=== PATIENT | male | born 1980 | race Caucasian/White ===

== ENCOUNTER → 2021-08-10 13:00 | Outpatient (BNVA) | payer OTHER, SELFPAY | PROVIDERS: PCP Family Medicine; Referring Provider Family Medicine; Visit Provider Surgery | DX: K92.1 Melena (principal) | CPT/HCPCS: 99203 ==

== ENCOUNTER 2021-08-17 09:15 | Day surgery (SDC) | payer OTHER, SELFPAY ==
[2021-08-15 13:48] VITALS: BMI 27.8
[2021-08-17 09:28] VITALS: BP 126/87; PULSE 76; RESP 18; TEMP 36.3; O2SAT 97
[2021-08-17] MEDS: sodium chloride 0.9% 1,000 ML 30 ML IV (09:47)
--- NOTE | 2021-08-17 10:18 | ANES.PREANE2 ---
Pre-Anesthetic Assessment Height/Weight: Height 1.83 m Weight 92.986 kg Temp Pulse Resp BP Pulse Ox 97.4 F L 76 18 126/87 97 08/17/21 09:28 08/17/21 09:28 08/17/21 09:28 08/17/21 09:28 08/17/21 09:28 Preop Diagnosis: Bloody diarrhea Operation Date: 08/17/21 10:30 Proposed Procedures p EGD 22598/[id number]/k62.5(Not Applicable) - Alexi Patel MD s Colonoscopy(Not Applicable) - Alexi Patel MD Familial anesthetic complications: none Last intake: Intake Last Liquid Date 08/16/21 Last Liquid Time 22:00 Last Solid Date 08/15/21 Last Solid Time 19:00 Social Tobacco (snuff) and No alcohol Exam alert, oriented x 3, clear to auscultation bilaterally and regular rate & rhythm Airway Mallampati: Class II Dentition: full Pulmonary None reported CV/HEM None reported None reported Hepatic None reported GI None reported Metabolic Thyroid Disease Musc/skel Lower Back Pain Neuropsych None reported Anesthetic Plan ASA status: 2 Anesthesia: MAC Risk of > 500 ml blood loss (7ml/kg in children): No Medications/Allergies Home Medications Medication Instructions Recorded Confirmed Last Taken Type bupropion HCl 300 mg 24 hr tablet, 300 mg PO QAM 08/10/21 08/17/21 08/16/21 History extended release dextroamphetamine-amphetamine 10 10 mg PO DAILY 08/10/21 08/17/21 08/16/21 History mg tablet (Adderall) gabapentin 400 mg capsule 400 mg PO DAILY 08/10/21 08/17/21 08/16/21 History levothyroxine 112 mcg capsule 112 mcg PO DAILY 08/10/21 08/17/21 08/16/21 History mirtazapine 30 mg tablet 30 mg PO BEDTIME 08/10/21 08/17/21 08/16/21 History dextroamphetamine-amphetamine 5 mg 2.5 mg PO DAILY PRN 08/15/21 08/17/21 08/15/21 History tablet (Adderall) melatonin 10 mg capsule 10 mg PO DAILY 08/17/21 08/17/21 08/16/21 History Allergies Allergy/AdvReac Type Severity Reaction Status Date / Time No Known Allergies Allergy Verified 08/10/21 17:20 Current Medications Generic Name Dose Route Start Last Admin Trade Name Freq PRN Reason Stop Dose Admin Sodium Chloride 1,000 mls @ 30 mls/hr 08/17/21 09:30 08/17/21 09:47 Sodium Chloride 0.9% IV 08/18/21 09:29 30 mls/hr .Q24H RAH Administration PFSH Anesthesia Medical History Bleeding per rectum Social History Smoking and tobacco status: never smoked Data Anesthesia Cardiac Studies: No Data to Display
--- NOTE | 2021-08-17 11:01 | W.PM.OPSUD ---
Surgery/Procedure H&P Update DATE OF PROCEDURE: August 17, 2021 DATE H&P PERFORMED: 08/10/21 H&P UPDATE INFORMATION: I have reviewed H&P completed within last 30 days, I have examined patient prior to procedure and No changes to prior documentation PREOP DIAGNOSIS: Bloody diarrhea PRIMARY INDICATION FOR PROCEDURE: The same PLANNED PROCEDURE: Operation Date: 08/17/21 10:30 Proposed Procedures p EGD [id number]/k62.5(Not Applicable) - Alexi Patel MD s Colonoscopy(Not Applicable) - Alexi Patel MD
[2021-08-17 11:54] VITALS: BP 114/73; PULSE 77; RESP 14; TEMP 36.4; O2SAT 98
[2021-08-17 12:04] VITALS: BP 109/69; PULSE 63; RESP 16; O2SAT 99
== END 2021-08-17 12:25 | disposition home or self-care (01) ==
PROVIDERS: PCP Family Medicine; Visit Provider Surgery
PROC: 0DJ08ZZ Inspection of Upper Intestinal Tract, Via Natural or Artificial Opening Endoscopic (ICD-10-PCS; CPT 43235; principal; 2021-08-17 10:30)
PROC: 0DJD8ZZ Inspection of Lower Intestinal Tract, Via Natural or Artificial Opening Endoscopic (ICD-10-PCS; CPT 45378; 2021-08-17 10:30)
DX: K62.5 Hemorrhage of anus and rectum (principal); R19.7 Diarrhea, unspecified
CPT/HCPCS: 43239; 45378; 82274; 83630; 87493; 87506; 88305; J2704; J7030

== ENCOUNTER → 2021-09-18 14:03 | Outpatient (BNVA) | payer OTHER, SELFPAY | PROVIDERS: PCP Family Medicine; Visit Provider Internal Medicine | DX: R42 Dizziness and giddiness (principal); R55 Syncope and collapse; R00.0 Tachycardia, unspecified; R00.1 Bradycardia, unspecified | CPT/HCPCS: 93005; 93229; 99203; 99204 ==

== ENCOUNTER 2021-10-31 13:45 | Outpatient (CLI) | payer OTHER, SELFPAY ==
--- NOTE | 2021-10-31 14:15 | USCV_ITS ---
Shravan Nichols Age: 41 Gender: M : 1980 Exam Date: 10/31/2021 14:23 Ordering Phys: Stoney Larson M.D ([email or web address]) Technologist: Kwesi Patel Exam Location: [facility] [place] Indication: syncope BP: 120 / 70 HR: 73 Rhythm: Sinus Technical Quality: Adequate MEASUREMENTS (Male / Female) Normal Values 2D ECHO LV Diastolic Diameter PLAX 4.3 cm 4.2 - 5.9 / 3.9 - 5.3 cm LV Systolic Diameter PLAX 2.9 cm IVS Diastolic Thickness 1.1 cm 0.6 - 1.0 / 0.6 - 0.9 cm IVS Systolic Thickness 1.2 cm LVPW Diastolic Thickness 0.9 cm 0.6 - 1.0 / 0.6 - 0.9 cm LVPW Systolic Thickness 1.5 cm LVOT Diameter 2.1 cm LV Ejection Fraction 2D Teich 60.1 % LV Ejection Fraction MOD 2C 79.6 % LV Ejection Fraction 2C AL 80.1 % LA Diameter 3.7 cm Aorta at Sinotubular Diameter 2.8 cm M-MODE Aortic Annulus Diameter 3.6 cm LA Ao Ratio MM 1.2 MV E Point Septal Separation 0.7 cm DOPPLER AV Peak Velocity 151.0 cm/s LVOT Peak Velocity 114.0 cm/s AV Area Cont Eq vti 2.7 cm squared AV Area Cont Eq pk 2.7 cm squared MV Area PHT 5.0 cm squared Mitral E to A Ratio 1.2 MV E' Velocity 45.0 cm/s Mitral E to MV E' Ratio 6.3 Mitral E to LV E' Lateral Ratio 5.0 Mitral E to LV E' Septal Ratio 8.4 TR Peak Velocity 184.3 cm/s TR Peak Gradient 13.6 mmHg TV Peak E Velocity 78.0 cm/s Right Atrial Pressure 3.0 mmHg Pulmonary Artery Systolic Pressu 16.6 mmHg PV Peak Velocity 121.0 cm/s FINDINGS Left Ventricle Normal left ventricular size. LV systolic function is normal with EF of 55-60%. No regional wall motion abnormalities. Diastolic function is normal Right Ventricle The right ventricle is normal in size and function. Right Atrium The right atrium is normal in size. Left Atrium The left atrium is normal in size. Mitral Valve Structurally normal mitral valve without significant stenosis or prolapse. There is no mitral regurgitation. Aortic Valve Structurally normal aortic valve without significant sclerosis or stenosis. There is no aortic regurgitation. Tricuspid Valve Structurally normal tricuspid valve without significant stenosis. Trace tricuspid regurgitation. Insufficient TR jet to calculate RVSP Pulmonic Valve Grossly normal Pericardium Normal pericardium without effusion. Aorta Normal ascending aorta dimension. IVC CONCLUSIONS LV systolic function is normal with EF of 55-60% Diastolic function is normal Trace tricuspid regurgitation No significant valvular heart disease No comparison studies are available Stoney Larson MD (Electronically Signed) Final Date: 10 November 2021 13:14 S
== END 2021-10-31 13:46 | disposition home or self-care (01) ==
PROVIDERS: PCP Family Medicine; Visit Provider Internal Medicine
DX: R06.00 Dyspnea, unspecified (principal); R55 Syncope and collapse; I07.1 Rheumatic tricuspid insufficiency
CPT/HCPCS: 93306

== ENCOUNTER → 2021-11-20 14:35 | Outpatient (BNVA) | payer OTHER, SELFPAY | PROVIDERS: PCP Family Medicine; Visit Provider Internal Medicine | DX: R42 Dizziness and giddiness (principal); R55 Syncope and collapse | CPT/HCPCS: 99213 ==

== ENCOUNTER 2024-10-19 14:44 | Emergency (ER) | payer OTHER, SELFPAY ==
--- OUTSIDE RECORDS SUMMARY | 2023-06-04 09:00 | XMS_ITS ---
Author Organization [facility] Address [address] [place] [address] Care Team Providers Care Gig Tender Name Role Phone Johnna Mobley MD Primary Care Provider Unavaila Kendy Kramer Unavailable [phone] [place], [place] Unavailable Unavailable REASON FOR VISIT Bloody Diarrhea Encounters Encounter Location Date Provider Diagnosis [facility] [address] [place] [address] 06/04/2023 Kendy Cox Plan Of Treatment No Information Progress Notes * Shravan NICHOLS WDOB:1980 (44 yo M)Acc No.[id number]:06/04/2023 History and Physical Patient: Maylin WHITTshua Theresa Provider: Darrian Cox MD :1980 A ge:42 Y S ex:Male Date:06/04/2023 Address:[address] [place] [phone], IZABELLA [id number] Pcp:Johnna Mobley MD Subjective: * Chief Complaints: * 1 . Bloody Diarrhea. * Medical History: Objective: * Vitals: Assessment: Plan: * Treatment: * Billing Information: * Visit Code: * Procedure Codes: * Electronic signature of Sue Cox MD on 10/19/2024 at 02:54 PM CDT Sign off status: Pending * Provider: Darrian Cox MD Date: 0 06/04/2023 Generated for Andrew alfaro/Marilynn/Violeta on: 0 10/19/2024 02:54 PM CDT
--- OUTSIDE RECORDS SUMMARY | 2023-11-14 04:15 | XMS_ITS | Encounter Summary ---
Author Name [facility] [place] [facility] [place] Address [address] [place] [address] Care Team Providers Care Director Regulatory Compliance Name Role Phone NELIDASERGIO KeatingE Primary Care Provider UnavailCHANNING Dawn Primary Care Provider Juan e Selected Encounter This section includes the information on record at [place] for the Encounter. Date/Time Encounter Type Encounter Description Reason Provider Source Nov 14, 2023 09:15 AM [facility]ALTH FACILITY [facility] - [facility] ICD-10-CM R41.89 Oth symptoms and signs w cognitive functions and awareness [facility] Encounter Template Text not used by [place] Assessments - Encounter Diagnoses This section includes the primary and secondary diagnoses documented for the Encounter. Date/Time Primary/Secondary Diagnosis Diagnosis Name Provider Source Nov 14, 2023 09:38 AM PRIMARY Oth symptoms and signs w cognitive functions and awareness [facility] Nov 14, 2023 09:38 AM SECONDARY Generalized anxiety disorder [facility] Nov 14, 2023 09:38 AM SECONDARY Major depressive disorder, recurrent, mild [facility] Nov 14, 2023 09:38 AM SECONDARY Post-traumatic stress disorder, chronic [facility]IV GRE[facility] Plan of Treatment: Future Appointments (+ 6 months) and Future Tests (+/- 45 days) The Plan of Treatment section includes future care activities for the patient [facility] [place] [facility] This section includes future appointments and future orders which are active, pending or scheduled. Future Appointments This section includes appointments that were scheduled to occur 6 months from the date of the Encounter, up to a maximum of 20 appointments. The data comes from all [place] treatment facilities. Appointment Date/Time Appointment Type Appointme nt Facility Name Dec 05, 2023 08:45 AM AMBULATORY - PSYCHIATRY [facility] Dec 05, 2023 08:46 AM AMBULATORY - MEDICINE [facility] Jan 02, 2024 09:15 AM AMBULATORY - PSYCHIATRY [facility] Jan 02, 2024 09:16 AM AMBULATORY - MEDICINE [facility] Jan 08, 2024 09:00 AM AMBULATORY - MEDICINE [facility] Jan 16, 2024 01:45 PM AMBULATORY - PSYCHIATRY [facility] Jan 16, 2024 01:46 PM AMBULATORY - MEDICINE [facility] Jan 20, 2024 08:15 AM AMBULATORY - MEDICINE [facility] Jan 30, 2024 09:15 AM AMBULATORY - PSYCHIATRY [facility] Jan 30, 2024 09:16 AM AMBULATORY - MEDICINE [facility] Jan 30, 2024 09:30 AM AMBULATORY - MEDICINE [facility] Jan 30, 2024 10:15 AM AMBULATORY - MEDICINE [facility] Feb 27, 2024 10:15 AM AMBULATORY - PSYCHIATRY [facility] Feb 27, 2024 10:16 AM AMBULATORY - MEDICINE [facility] Mar 20, 2024 02:45 PM AMBULATORY - PSYCHIATRY [facility] Mar 20, 2024 02:46 PM AMBULATORY - MEDICINE [facility] Apr 03, 2024 09:15 AM AMBULATORY - MEDICINE [facility] Apr 16, 2024 09:15 AM AMBULATORY - PSYCHIATRY [facility] Apr 16, 2024 09:16 AM AMBULATORY - MEDICINE [facility] May 07, 2024 09:45 AM AMBULATORY - PSYCHIATRY [facility] Active, Pending, and Scheduled Orders This section includes a listing of several types of active, pending, and scheduled orders, including clinic medications orders, diagnostic test orders, procedure orders and consult orders; where the start date of the order is 45 days before the date of the Encounter or 45 days after the date of theEncounter. The data comes from all [place] treatment facilities. Test Date/Time Test Type Test Details Facility Name Dec 05, 2023 12:00 AM Laboratory - Chemi stry Order DRUG SCREEN URINE-inhouse (PB) URINE,RANDOM SP [facility] Lab Results: +/- 30 days of the encounter This section includes the Chemistry and Hematology Lab Results on record with [place] for the patient. Radiology Reports and Pathology Reports are provided separately, in subsequent sections. Lab Results This section contains the Chemistry/Hematology Results that were resulted 30 days before or 30 daysafter the date of the Encounter. Date/Time Source Result Type Result - Unit Interpretation Reference Range Specimen Type Comment Dec 05, 2023 08:22 AM [facility] DRUG SCREEN URINE-inhouse (PB) URINE Specimen Type: URINE No comment entered. Ordering Provider: LIV GREGG Report Released Date/Time: Nov 14, 2023 09:34 AM Reporting Lab: [facility] [address] [facility] [address] Performing Lab: [facility] [address] [facility] [address] OPIATES (PB) Negative Negative COCAINE... Negative Negative THC(Marijuana... Negative Negative PCP...(Phencyclidine) Negative Negative BENZODIAZEPINE (PB) Negative Negative BARBITURATES (PB) Negative Negative AMPHETAMINE... Negative Negative CREATININE URINE/OTHERS 21.14 mg/dL OXYCODONE ([id number]) Negative Negati ve ETHANOL URINE <10.0 mg/dL L 0-20 Vital Signs: All taken on the encounter date This section contains inpatient and outpatient Vital Signs collected on the date of the Encounter. Date/Time Temperature Pulse Blood Pressure Respiratory Rate SP02 Pain Height Weight Body Mass Index Source Nov 14, 2023 09:24 AM 97.9 74 133/85 18 99 3 72 192.5 26 [facility] Social History: Smoking Status (Most current) and Tobacco Use (All prior to encounter date) This section includes the most current, and the historical, smoking and tobacco- related health factors from the [place] facility where the Encounter took place. Current Smoking Status This section includes the most current smoking, or tobacco-related health factor, from the [place] facility where the Encounter took place. Date/Time Current Smoking Status Comment Facil ity August 29, 2023 09:00 AM VA-TOBACCO USER EVERY DAY [facility] Tobacco Use History This section includes a history of the smoking, or tobacco-related health factors, that were collected on or before the date of the Encounter. The data comes from the [place] facility where the Encounter took place. Date/Time Smoking Status/Tobacco Use Comment F acility August 29, 2023 09:00 AM VA-TOBACCO USE ADVICE [facility] August 29, 2023 09:00 AM VA-TOBACCO USE [facility] August 29, 2023 09:00 AM VA-TOBACCO USE MED NO [facility] August 29, 2023 09:00 AM VA-TOBACCO USE WI 30 MIN OF WAKE UP [facility] August 29, 2023 09:00 AM VA-TOBACCO USER EVERY DAY [facility] Sep 21, 2022 10:30 AM VA-TOBACCO DOESNT USE WI 30 MIN [place] [facility] Sep 21, 2022 10:30 AM VA-TOBACCO USE > 1 5 LESS THAN 30 YEARS [facility] Sep 21, 2022 10:30 AM VA-TOBACCO USE ADVICE [facility] Sep 21, 2022 10:30 AM VA-TOBACCO USE [facility] YES [facility] Sep 21, 2022 10:30 AM VA-TOBACCO USE MED NO [facility] Sep 21, 2022 10:30 AM VA-TOBACCO USER EVERY DAY [facility] Sep 15, 2021 11:00 AM VA-TOBACCO DOESNT USE WI 30 MIN [place] [facility] Sep 15, 2021 11:00 AM VA-TOBACCO USE 5 TO 15 YEARS [facility] Sep 15, 2021 11:00 AM VA-TOBACCO USE ADVICE [facility] Sep 15, 2021 11:00 AM VA-TOBACCO USE [facility] NO [facility] Sep 15, 2021 11:00 AM VA-TOBACCO USE MED NO [facility] Sep 15, 2021 11:00 AM VA-TOBACCO USER EVERY DAY [facility] Sep 21, 2020 10:01 AM VA-TOBACCO DOESNT USE WI 30 MIN WA[place]UP [facility] Sep 21, 2020 10:01 AM VA-TOBACCO USE > 1 5 LESS THAN 30 YEARS [facility] Sep 21, 2020 10:01 AM VA-TOBACCO USE ADVICE [facility] Sep 21, 2020 10:01 AM VA-TOBACCO USE [facility] NO [facility] Sep 21, 2020 10:01 AM [facility]ACCO [facility] Sep 21, 2020 10:01 AM VA-TOBACCO USER EVERY DAY [facility] Advance Directives: All historical and current Section Date Range: From patient's date of to the date document was created. This section includes ALL of a patient's completed or amended [place] Advance and Rescinded Directives. The entries below indicate that a directive exists for the patient, but an actual copy is not included with this document. The data comes from all [place] facilities. Date Advance Directives Provider Source Oct 19, 2015 ADVANCE DIRECTIVE DISCUSSION GAVINO CHENEY YOGIKODY Daniels [facility] Encounter Notes: All associated encounter notes This section contains the clinical notes associated to the Encounter. Date/Time Encounter Note(s) Provider Source Nov 14, 2023 09:39 AM NURSING NOTE: LOCAL TITLE: [facility] NURSING EXIT NOTE PB STANDARD TITLE: NURSING NOTE DATE OF NOTE: NOV 14, 2023@09:39 ENTRY DATE: NOV 14, 2023@09:39:42 AUTHOR: KEIRA HOOD EXP COSIGNER: URGENCY: STATUS: COMPLETED EXIT INTERVIEW Location: [facility] Ambulatory Appointment Reviewed: Instructions: CLINIC: Sent to Pharmacy for medications and instructions: Lab Instructions: Special Instructions: Verbalized understanding of today's visit: Patient Is patient's pain under control at time of exit? Yes Discussed walk-in and after-hour services. Rebuck verbalized understanding. Encouraged to seek treatment if change in status. Contact information and hours of operation given. voiced no questions or concerns at this time and was escorted to the lobby in satisfactory condition, will schedule for his next appt. /ernesto/ ANN WEN, RN [facility] Signed: 11/14/2023 12:08 KEIRA HOOD [facility] Nov 14, 2023 09:22 AM NURSING PROGRESS N OTE: LOCAL TITLE: NURSING NOTE PB STANDARD TITLE: NURSING PROGRESS NOTE DATE OF NOTE: NOV 14, 2023@09:22 ENTRY DATE: NOV 14, 2023@09:22:57 AUTHOR: KEIRA HOOD COSIGNER: URGENCY: STATUS: COMPLETED Rebuck is here for his scheduled telemed psychiatry appt. He is alert and oriented, resps even and unlabored, gait steady. Rebuck is pleasant and conversational. Active Outpatient Medications: Active Outpatient Medications (including Supplies): Active Outpatient Medications Status 1) BUPROPION HCL 150MG 24HR SA TAB TAKE ONE TABLET BY ACTIVE MOUTH EVERY MORNING FOR DEPRESSION SWALLOW WHOLE - DO NOT CRUSH OR CHEW. 2) CETIRIZINE HCL 10MG TAB TAKE ONE TABLET BY MOUTH ONCE ACTIVE A DAY FOR ALLERGIC RHINITIS 3) CHOLECALCIF 50MCG (D3-2,000UNIT) TAB TAKE TWO TABLETS ACTIVE BY MOUTH ONCE A DAY FOR VITAMIN D SUPPLEMENTATION 4) CYCLOBENZAPRINE HCL 10MG TAB TAKE ONE TABLET BY MOUTH ACTIVE THREE TIMES A DAY NEEDED FOR MUSCLE SPASM MAY CAUSE DROWSINESS. DO NOT DRINK ALCOHOL WHILE TAKING THIS MEDICATION. 5) DOXEPIN HCL 10MG CAP TAKE ONE CAPSULE BY MOUTH AT ACTIVE BEDTIME FOR NIGHTMARES 6) FOLIC ACID 0.4MG TAB TAKE ONE TABLET BY MOUTH ONCE A ACTIVE DAY FOR FOLIC ACID SUPPLEMENTATION 7) GABAPENTIN 400MG CAP TAKE ONE CAPSULE BY MOUTH AT ACTIVE BEDTIME FOR NERVE PAIN 8) HYDROXYZINE HCL 25MG TAB TAKE ONE TABLET BY MOUTH ACTIVE TWICE DAILY NEEDED FOR ANXIETY *MAY CAUSE DROWSINESS* 9) IBUPROFEN 800MG TAB TAKE ONE TABLET BY MOUTH THREE ACTIVE TIMES A DAY NEEDED FOR HEADACHE TAKE WITH FOOD. TAKE AT ONSET OF HEADACHE, WITH SUMATRIPTAN 10) LEVOTHYROXINE NA (SYNTHROID) 112MCG TAB TAKE ONE ACTIVE TABLET BY MOUTH EVERY MORNING BEFORE A MEAL FOR THYROID. TAKE 30 MINUTES BEFORE FOOD. TAKE SEPARATELY FROM ALL OTHER MEDICATIONS. 11) MIRTAZAPINE 45MG TAB TAKE ONE TABLET BY MOUTH AT ACTIVE BEDTIME INSOMNIA/MOOD FOR MOOD 12) SUMATRIPTAN SUCCINATE 50MG TAB TAKE ONE TABLET BY ACTIVE MOUTH ONE-TIME FOR MIGRAINE HEADACHE TAKE AT ONSET OF HEADACHE. MAY REPEAT AFTER 2 HOURS. NOT TO EXCEED 2 TABLETS IN 24 HOURS. 13) AMPHETAMINE/DEXTROAMPH RESIN 10MG SA CAP TAKE ONE PENDING CAPSULE BY MOUTH EVERY MORNING 14) AMPHETAMINE/DEXTROAMPHETAMINE 5MG TAB TAKE ONE TABLET PENDING BY MOUTH AFTERNOON Rebuck states he is taking the above meds as prescribed. He denies any change in side effects with bupropion, doxepin, hydroxyzine, mirtazapine or amphetamine and they are effective. Pain Assessment: - PAIN ASSESSMENT: .. Patient is reporting some pain. PAIN SCORE TODAY: 3 Patient's self-identified pain level: 3 was escorted to room 113 for his appt with Dr Gregg, receiving good telemed transmission. /ernesto/ ANN WEN, RN [facility] Signed: 11/14/2023 12:06 KEIRA HOOD [facility]
--- OUTSIDE RECORDS SUMMARY | 2023-11-14 04:16 | XMS_ITS | Encounter Summary ---
Author Name [facility] [facility] [place] Address [address] [place] [address] Care Team Providers Care Ostomy Rn Name Role Phone BIRGID DEGROOT Primary Care Provider UnavailCHANNING Dawn Primary Care Provider Juan cabrera Selected Encounter This section includes the information on record at [place] for the Encounter. Date/Time Encounter Type Encounter Description Reason Provider Source Nov 14, 2023 09:16 AM OFFICE O/P EST MOD 30 MIN [facility] - IND ICD-10-CM R41.89 Oth symptoms and signs w cognitive functions and awareness LIV CAMPBELL Encounter Template Text not used by [place] Assessments - Encounter Diagnoses This section includes the primary and secondary diagnoses documented for the Encounter. Date/Time Primary/Secondary Diagnosis Diagnosis Name Provider Source Nov 14, 2023 09:37 AM PRIMARY Oth symptoms and signs w cognitive functions and awareness LIV CAMPBELL [facility] Nov 14, 2023 09:37 AM SECONDARY Generalized anxiety disorder LIV CAMPBELL [facility] Nov 14, 2023 09:37 AM SECONDARY Major depressive disorder, recurrent, mild LIV CAMPBELL [facility] Nov 14, 2023 09:37 AM SECONDARY Post-traumatic stress disorder, chronic LIV CAMPBELL [facility] Plan of Treatment: Future Appointments (+ 6 months) and Future Tests (+/- 45 days) The Plan of Treatment section includes future care activities for the patient [facility] This section includes future appointments and future orders which are active, pending or scheduled. Future Appointments This section includes appointments that were scheduled to occur 6 months from the date of the Encounter, up to a maximum of 20 appointments. The data comes from all [facility] facilities. Appointment Date/Time Appointment Type Appointme nt Facility Name Dec 05, 2023 08:45 AM AMBULATORY - PSYCHIATRY [facility] Dec 05, 2023 08:46 AM AMBULATORY - MEDICINE [place] [facility] Jan 02, 2024 09:15 AM AMBULATORY - PSYCHIATRY [facility] Jan 02, 2024 09:16 AM AMBULATORY - MEDICINE [place] [facility] Jan 08, 2024 09:00 AM AMBULATORY - MEDICINE [facility] Jan 16, 2024 01:45 PM AMBULATORY - PSYCHIATRY [facility] Jan 16, 2024 01:46 PM AMBULATORY - MEDICINE [place] [facility] Jan 20, 2024 08:15 AM AMBULATORY - MEDICINE [facility] Jan 30, 2024 09:15 AM AMBULATORY - PSYCHIATRY [facility] Jan 30, 2024 09:16 AM AMBULATORY - MEDICINE [place] [facility] Jan 30, 2024 09:30 AM AMBULATORY - MEDICINE [facility] Jan 30, 2024 10:15 AM AMBULATORY - MEDICINE [facility] Feb 27, 2024 10:15 AM AMBULATORY - PSYCHIATRY [facility] Feb 27, 2024 10:16 AM AMBULATORY - MEDICINE [place] [facility] Mar 20, 2024 02:45 PM AMBULATORY - PSYCHIATRY [facility] Mar 20, 2024 02:46 PM AMBULATORY - MEDICINE [place] [facility] Apr 03, 2024 09:15 AM AMBULATORY - MEDICINE [facility] Apr 16, 2024 09:15 AM AMBULATORY - PSYCHIATRY [facility] Apr 16, 2024 09:16 AM AMBULATORY - MEDICINE [place] [facility] May 07, 2024 09:45 AM AMBULATORY - PSYCHIATRY [facility] Active, Pending, and Scheduled Orders This section includes a listing of several types of active, pending, and scheduled orders, including clinic medications orders, diagnostic test orders, procedure orders and consult orders; where the start date of the order is 45 days before the date of the Encounter or 45 days after the date of theEncounter. The data comes from all [place] treatment facilities. Test Date/Time Test Type Test Details Facility Name Dec 05, 2023 12:00 AM Laboratory - Chemi stry Order DRUG SCREEN URINE-inhouse (PB) URINE,RANDOM SP [facility] Lab Results: +/- 30 days of the encounter This section includes the Chemistry and Hematology Lab Results on record with [place] for the patient. Radiology Reports and Pathology Reports are provided separately, in subsequent sections. Lab Results This section contains the Chemistry/Hematology Results that were resulted 30 days before or 30 daysafter the date of the Encounter. Date/Time Source Result Type Result - Unit Interpretation Reference Range Specimen Type Comment Dec 05, 2023 08:22 AM [facility] DRUG SCREEN URINE-inhouse (PB) URINE Specimen Type: URINE No comment entered. Ordering Provider: LIV CAMPBELL Report Released Date/Time: Nov 14, 2023 09:34 AM Reporting Lab: [facility] [address] [facility] [id number] Performing Lab: [facility] [address] [facility] [id number] OPIATES (PB) Negative Negative COCAINE... Negative Negative THC(Marijuana... Negative Negative PCP...(Phencyclidine) Negative Negative BENZODIAZEPINE (PB) Negative Negative BARBITURATES (PB) Negative Negative AMPHETAMINE... Negative Negative CREATININE URINE/OTHERS 21.14 mg/dL OXYCODONE ([id number]) Negative Negati ve ETHANOL URINE <10.0 mg/dL L 0-20 Social History: Smoking Status (Most current) and Tobacco Use (All prior to encounter date) This section includes the most current, and the historical, smoking and tobacco- related health factors from the [place] facility where the Encounter took place. Current Smoking Status This section includes the most current smoking, or tobacco-related health factor, from the [place] facility where the Encounter took place. Date/Time Current Smoking Status Comment Swapna campbelly Jan 17, 2022 11:00 AM LIFETIME NON-SMOKER [facility] Advance Directives: All historical and current Section Date Range: From patient's date of to the date document was created. This section includes ALL of a patient's completed or amended [place] Advance and Rescinded Directives. The entries below indicate that a directive exists for the patient, but an actual copy is not included with this document. The data comes from all [place] facilities. Date Advance Directives Provider Source Oct 19, 2015 ADVANCE DIRECTIVE DISCUSSION [facility] Encounter Notes: All associated encounter notes This section contains the clinical notes associated to the Encounter. Date/Time Encounter Note(s) Provider Source Nov 14, 2023 09:34 AM PSYCHIATRY NOTE: LOCAL TITLE: PSYCHIATRIC PROGRESS NOTE PB STANDARD TITLE: PSYCHIATRY NOTE DATE OF NOTE: NOV 14, 2023@09:34 ENTRY DATE: NOV 14, 2023@09:34:58 AUTHOR: LIV CAMPBELL COSIGNER: URGENCY: STATUS: COMPLETED Consent: [place] provided verbal consent for receiving care through the modality of [facility]. Patient verified date of and full name. RENU ZAPATA is a 43 y/o MALE Note from previous visit was reviewed: Yes Reviewed progress notes Denies any SI/HI plans or intent Chief Complaint: Med Management History of Present Illness: [place] reports since last seen has been doing all right. He states memory is doing about the same. He states he is not getting any increased anxiety from the medication. He states he ran out of gabapentin for awhile and that did cause some increased pain. He states organization is really difficult. He states though he doesn't have much to organize. He states he changed his lifestyle to match what he can do. He states [place] He states the chores take a long time to do so he can do these things. He states it is a slow life now. He states he has accepted that he does not have control. The would currently rate depression to be 6 /10 with 10 being the worst. He states it is always there but he is dealing. Denies any Suicidal Ideations plans or intent. [place] denies any feelings of hopelessness. He states the medication are helping. He states he is sleeping okay. He states he still gets the nightmares almost every night. He states he finds something to do and t hen can go back to bed. He states everything is manageable as long as he takes his medication. He states he is needing the Vistaril about once a day. 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 [place] is aware this narrator recommends firearm be in a locked safe and stored away from ammunition. At any point in time if Bristol experiences SI or HI firearms should be removed from access. Medications: All active medications reviewed with patient Psychiatric Examination: General Appearance: Appears stated age, normal body habitus, dressed appropriately, well groomed Gait: Stable Behavior: Calm and Cooperative Eye Contact: Good eye contact Speech: Regular rate, regular volume, coherent, regular articulation, spontaneous, no perseveration or paucity Thought Process: no racing thoughts, logical thought process, goal directed Thought Content: Denies any Suicidal ideations, denies any homicidal ideations, denies any auditory or visual hallucinations, denies any delusions, denies any paranoia, denies any obsessions or compulsions, is not actively responding to stimuli Mood: Okay Affect: Congruent Orientation: Oriented to self, place and time Insight: Intact Judgement: Intact Prognosis: Fair Safety- [place] is not a safety risk to self or others at this time. Capable of making practice safe judgment and perform ADLs. Assessment: TBI with memory issues Not Addressed today MDD, recurrent, mild PTSD, chronic, secondary to combat AVELINA Plan: 1. Medications: Discussed medication in detail with the [place]. No med changes. Will continue Wellbutrin 150mg daily for mood and energy. Continue Doxepin 10mg at bedtime for nightmares and insomnia. Did discuss increasing this to help more with nightmares but he declined. Was trialed on prazosin in the past but caused tachycardia. Will also continue Adderall 10mg in the morning and 5mg in the afternoon for memory issues with TBI. Did discuss Wellbutrin and Adderall to monitor BP closely. Will continue Remeron 45mg nightly for mood. Will continue Vistaril 25mg PRN for anxiety. Discussed side effects, risks, benefits and alternatives. Patient voiced understanding and was in agreement with this plan. Advised not to mix prescription medications with illicit substances or alcohol and not to drive if sedated. also warned of risks of treatment noncompliance and/or refusal. Informed consent obtained and med reconciliation completed. 2. Labs: UDS neg on 06/06/23: ordered for next month EKG QTc 368 on 04/18/23 3. Consults/Medical: None ordered 4. Safety Planning was reviewed with the patient. [place] is aware if patient begins having any suicidal or homicidal ideations this is an emergency and Bristol needs to call 9-11 or go to the nearest ED. Discussed [facility] Crisis [facility] [phone]. 5. Patient should follow-up in 1 month on Adderall Patient is encouraged to call with any questions or concerns. Instructed [place] to follow up with his primary care provider routinely and as needed for wellness and any medical concerns. Return to [facility] for ongoing medication management, psychoeducation and supportive psychotherapy. May return sooner if needed Encouraged patient to follow up with primary care & other specialty clinical services as indicated. Patient educated regarding tobacco, alcohol, illicit substance usage and their associated harmful effects. Encouraged to cut-down and abstain from use; encouraged participation in 12 step, ADTP where applicable. Patient instructed to access 911 or to go to the emergency room if psychiatric or medical symptoms worsen and is in need of immediate medical attention. National Suicide Prevention Hotline, mental health walk-in clinic information provided. Medication list was reviewed and reconciled with (including VA, Non-VA, remote and recently medications). Psychotherapy: 17 minutes was spent in addition to ENM code on performing supportive psychotherapy and coping skills Moderate Complexity: This encounter is moderate medical decision making complexity secondary to two or more stable psychiatric illnesses. /ernesto/ Liv Campbell DO, MA [facility] Signed: 11/14/2023 09:36 LIV CAMPBELL [facility] Nov 14, 2023 09:28 AM PRIMARY CARE EDUCA TION NOTE: LOCAL TITLE: OPT PHY INSTR AUTO PB STANDARD TITLE: PRIMARY CARE EDUCATION NOTE DATE OF NOTE: NOV 14, 2023@09:28 ENTRY DATE: NOV 14, 2023@09:28:59 AUTHOR: LIV CAMPBELL COSIGNER: URGENCY: STATUS: COMPLETED This documentation is related to: . F/U Visit Description of Today's Injury/Illness: Memory, MDD, PTSD and AVELINA Mental Health Testing: RETURN TO CLINIC: Return appointment is needed. . Special Instructions: . MEDICATION REVIEW/ASSESSMENT & PLAN: No med changes RTC 1 month Active Outpatient Medications (including Supplies): Active Outpatient [...] TO EXCEED 2 TABLETS IN 24 HOURS. Pending Outpatient Medications Status 1) AMPHETAMINE/DEXTROAMPH RESIN 10MG SA CAP TAKE ONE PENDING CAPSULE BY MOUTH EVERY MORNING 2) AMPHETAMINE/DEXTROAMPHETAMINE 5MG TAB TAKE ONE TABLET PENDING BY MOUTH AFTERNOON 14 Total Medications Medication reconciliation performed with confirmed /significant other and /significant other voiced an understandng of current medications? Yes /significant other were provided an updated medication list. Following results reviewed and discussed with patient: Future Appointments: 12/05/2023 08:45 PB-[facility] CVT BH PSI [place] 12/05/2023 08:46 PB-CVT BH PSI IND [place] 01/02/2024 09:15 PB-CELENA CVT BH PSI [place] 01/02/2024 09:16 PB-CVT BH PSI IND [place] 01/08/2024 09:00 [facility] ( 01/30/2024 09:15 PB-CELENA CVT BH PSI [place] 01/30/2024 09:16 PB-CVT BH PSI IND [place](HI 02/27/2024 10:15 PB-CELENA CVT BH PSI [place](PA 02/27/2024 10:16 PB-CVT BH PSI IND [place](HI 03/19/2024 09:15 PB-CELENA CVT BH PSI [place](PA 03/19/2024 09:16 PB-CVT BH PSI IND [place](HI 07/01/2024 08:40 [facility] NUR[facility] ( 07/08/2024 10:00 PB-CELENA CVT PACT DELTA(PRO 07/08/2024 10:01 PB-CELENA CVT PACT DELTA(PAT /ernesto/ Liv Campbell DO, MA [facility] Signed: 11/14/2023 09:30 LIV CAMPBELL [facility] Nov 14, 2023 09:16 AM ACCOUNTING OF DISC LOSURES NOTE: LOCAL TITLE: STATE PRESCRIPTION DRUG MONITORING PROGRAM STANDARD TITLE: ACCOUNTING OF DISCLOSURES NOTE DATE OF NOTE: NOV 14, 2023@09:16:35 ENTRY DATE: NOV 14, 2023@09:16:35 AUTHOR: LIV CAMPBELL EXP COSIGNER: URGENCY: STATUS: COMPLETED This PDMP query was submitted by Liv Campbell DO. The clinical justification for this PDMP query is to review controlled substances prescribed outside of the [facility], and any additional information that may become available, as an important component of standard clinical care, and in accordance with [facility] policy. Patient information was shared with the PDMP [place]. No prescription(s) for controlled substances outside the [facility] were found in the last 90 days. /ernesto/ Liv Campbell DO, MA [facility] Signed: 11/14/2023 09:17 LIV CAMPBELL [facility]
--- OUTSIDE RECORDS SUMMARY | 2023-12-05 03:45 | XMS_ITS ---
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 Date/Time Encounter Type Encounter Description Reason Provider Source Dec 05, 2023 08:45 AM [facility] FACILITY [facility] - IND ICD-10-CM R41.89 Oth symptoms and signs w cognitive functions and awareness [facility] Encounter Template Text not used by [place] Assessments - Encounter Diagnoses This section includes the primary and secondary diagnoses documented for the Encounter. Date/Time Primary/Secondary Diagnosis Diagnosis Name Provider Source Dec 05, 2023 08:57 AM PRIMARY Oth symptoms and signs w cognitive functions and awareness [facility] Dec 05, 2023 08:57 AM SECONDARY Generalized anxiety disorder [facility] Dec 05, 2023 08:57 AM SECONDARY Major depressive disorder, recurrent, mild [facility] Dec 05, 2023 08:57 AM SECONDARY Post-traumatic stress disorder, chronic [facility]IV GREGG [facility] Plan of Treatment: Future Appointments (+ 6 months) and Future Tests (+/- 45 days) The Plan of Treatment section includes future care activities for the patient from all [place] [facility]. This section includes future appointments and future orders which are active, pending or scheduled. Future Appointments This section includes appointments that were scheduled to occur 6 months from the date of the Encounter, up to a maximum of 20 appointments. The data comes from all [place] treatment facilities. Appointment Date/Time Appointment Type Appointme nt Facility Name Jan 02, 2024 09:15 AM AMBULATORY - PSYCHIATRY [facility] Jan 02, 2024 09:16 AM AMBULATORY - MEDICINE [facility] Jan 08, 2024 09:00 AM AMBULATORY - MEDICINE [facility] Jan 16, 2024 01:45 PM AMBULATORY - PSYCHIATRY [facility] Jan 16, 2024 01:46 PM AMBULATORY - MEDICINE [facility] Jan 20, 2024 08:15 AM AMBULATORY - MEDICINE [facility] Jan 30, 2024 09:15 AM AMBULATORY - PSYCHIATRY [facility] Jan 30, 2024 09:16 AM AMBULATORY - MEDICINE [facility] [facility] Jan 30, 2024 09:30 AM AMBULATORY - MEDICINE [facility] Jan 30, 2024 10:15 AM AMBULATORY - MEDICINE [facility] Feb 27, 2024 10:15 AM AMBULATORY - PSYCHIATRY [facility] Feb 27, 2024 10:16 AM AMBULATORY - MEDICINE [facility] [facility] Mar 20, 2024 02:45 PM AMBULATORY - PSYCHIATRY [facility] Mar 20, 2024 02:46 PM AMBULATORY - MEDICINE [facility] [facility] Apr 03, 2024 09:15 AM AMBULATORY - MEDICINE [facility] Apr 16, 2024 09:15 AM AMBULATORY - PSYCHIATRY [facility] Apr 16, 2024 09:16 AM AMBULATORY - MEDICINE [facility] [facility] May 07, 2024 09:45 AM AMBULATORY - PSYCHIATRY [facility] May 07, 2024 09:46 AM AMBULATORY - MEDICINE [facility] [facility] Active, Pending, and Scheduled Orders This section includes a listing of several types of active, pending, and scheduled orders, including clinic medications orders, diagnostic test orders, procedure orders and consult orders; where the start date of the order is 45 days before the date of the Encounter or 45 days after the date of theEncounter. The data comes from all [place] treatment facilities. Test Date/Time Test Type Test Details Facility Name Dec 05, 2023 12:00 AM Laboratory - Chemi stry Order DRUG SCREEN URINE-inhouse (PB) URINE,[facility] Lab Results: +/- 30 days of the encounter This section includes the Chemistry and Hematology Lab Results on record with [place] for the patient. Radiology Reports and Pathology Reports are provided separately, in subsequent sections. Lab Results This section contains the Chemistry/Hematology Results that were resulted 30 days before or 30 daysafter the date of the Encounter. Date/Time Source Result Type Result - Unit Interpretation Reference Range Specimen Type Comment Dec 05, 2023 08:[address] [facility] DRUG SCREEN URINE-inhouse (PB) URINE Specimen Type: URINE No comment entered. Ordering Provider: LIV GREGG Report Released Date/Time: Nov 14, 2023 09:34 AM Reporting Lab: [facility] [address] [facility] [id number] Performing Lab: [facility] [address] [facility] [id number] OPIATES (PB) Negative Negative COCAINE... Negative Negative THC(Marijuana... Negative Negative PCP...(Phencyclidine) Negative Negative BENZODIAZEPINE (PB) Negative Negative BARBITURATES (PB) Negative Negative AMPHETAMINE... Negative Negative CREATININE URINE/OTHERS 21.14 mg/dL OXYCODONE ([id number]) Negative Negati ve ETHANOL URINE <10.0 mg/dL L 0-20 Vital Signs: All taken on the encounter date This section contains inpatient and outpatient Vital Signs collected on the date of the Encounter. Date/Time Temperature Pulse Blood Pressure Respiratory Rate SP02 Pain Height Weight Body Mass Index Source Dec 05, 2023 08:45 AM 97.9 75 137/82 18 100 4 72 192.4 26 [facility] Social History: Smoking Status (Most current) and Tobacco Use (All prior to encounter date) This section includes the most current, and the historical, smoking and tobacco- related health factors from the [place] facility where the Encounter took place. Current Smoking Status This section includes the most current smoking, or tobacco-related health factor, from the [place] facility where the Encounter took place. Date/Time Current Smoking Status Comment Facil ity August 29, 2023 09:00 AM VA-TOBACCO USER EVERY DAY [facility] Tobacco Use History This section includes a history of the smoking, or tobacco-related health factors, that were collected on or before the date of the Encounter. The data comes from the [place] facility where the Encounter took place. Date/Time Smoking Status/Tobacco Use Comment F acility August 29, 2023 09:00 AM VA-TOBACCO USE ADVICE [facility] August 29, 2023 09:00 AM VA-TOBACCO USE PHYSICIAN ASSISTANT SURGERY NO [facility] August 29, 2023 09:00 AM VA-TOBACCO USE MED NO [place] [facility] August 29, 2023 09:00 AM VA-TOBACCO USE WI 30 MIN OF WAKE UP [facility] [facility] August 29, 2023 09:00 AM VA-TOBACCO USER EVERY DAY [facility] Sep 21, 2022 10:30 AM VA-TOBACCO DOESNT USE WI 30 MIN WAKEUP [facility] Sep 21, 2022 10:30 AM VA-TOBACCO USE > 1 5 LESS THAN 30 YEARS [facility] Sep 21, 2022 10:30 AM VA-TOBACCO USE ADVICE [facility] Sep 21, 2022 10:30 AM VA-TOBACCO USE PHYSICIAN ASSISTANT SURGERY YES [facility] Sep 21, 2022 10:30 AM VA-TOBACCO USE MED NO [place] [facility] Sep 21, 2022 10:30 AM VA-TOBACCO USER EVERY DAY [facility] Sep 15, 2021 11:00 AM VA-TOBACCO DOESNT USE WI 30 MIN WAKEUP [facility] Sep 15, 2021 11:00 AM VA-TOBACCO USE 5 TO 15 YEARS [facility] Sep 15, 2021 11:00 AM VA-TOBACCO USE ADVICE [facility] Sep 15, 2021 11:00 AM VA-TOBACCO USE PHYSICIAN ASSISTANT SURGERY NO [facility] Sep 15, 2021 11:00 AM VA-TOBACCO USE MED NO [facility] Sep 15, 2021 11:00 AM VA-TOBACCO USER EVERY DAY [facility] Sep 21, 2020 10:01 AM VA-TOBACCO DOESNT USE WI 30 MIN WAKEUP [facility] Sep 21, 2020 10:01 AM VA-TOBACCO USE > 1 5 LESS THAN 30 YEARS [facility] Sep 21, 2020 10:01 AM VA-TOBACCO USE ADVICE [facility] Sep 21, 2020 10:01 AM VA-TOBACCO USE PHYSICIAN ASSISTANT SURGERY NO [facility] Sep 21, 2020 10:01 AM VA-TOBACCO USE MED NO [facility] Sep 21, 2020 10:01 AM VA-TOBACCO USER EVERY DAY [facility] Advance Directives: All historical and current Section Date Range: From patient's date of to the date document was created. This section includes ALL of a patient's completed or amended VA Advance and Rescinded Directives. The entries below indicate that a directive exists for the patient, but an actual copy is not included with this document. The data comes from all [place] facilities. Date Advance Directives Provider Source Oct 19, 2015 ADVANCE DIRECTIVE DISCUSSION GAVINO CHENEY YOGIKODY Daniels [facility] Encounter Notes: All associated encounter notes This section contains the clinical notes associated to the Encounter. Date/Time Encounter Note(s) Provider Source Dec 05, 2023 08:41 AM NURSING PROGRESS N OTE: LOCAL TITLE: NURSING NOTE PB STANDARD TITLE: NURSING PROGRESS NOTE DATE OF NOTE: DEC 05, 2023@08:41 ENTRY DATE: DEC 05, 2023@08:41:08 AUTHOR: KEIRA HOOD COSIGNER: URGENCY: STATUS: COMPLETED Le Grand is here for his scheduled telemed psychiatry appt. He is alert and oriented, resps even and unlabored, gait steady. is pleasant and conversational. He made a comment about do not know what happened, but woke up one morning and I was old. Le Grand talked about his 5 year old daughter and how she makes him feel young and compared her to his older children where it seems like he has more time to enjoy her as do not have to work as hard to make a living as he did with his other children. Active Outpatient Medications: Active Outpatient Medications (including Supplies): Active Outpatient Medications Status 1) AMPHETAMINE/DEXTROAMPH RESIN 10MG SA CAP TAKE ONE ACTIVE CAPSULE BY MOUTH EVERY MORNING FOR ADHD 2) AMPHETAMINE/DEXTROAMPHETAMINE 5MG TAB TAKE ONE TABLET ACTIVE BY MOUTH AFTERNOON FOR ADHD 3) BUPROPION HCL 150MG 24HR SA TAB TAKE ONE TABLET BY ACTIVE (S) MOUTH EVERY MORNING FOR DEPRESSION SWALLOW WHOLE - DO NOT CRUSH OR CHEW. 4) CETIRIZINE HCL 10MG TAB TAKE ONE TABLET BY MOUTH ONCE ACTIVE (S) A DAY FOR ALLERGIC RHINITIS 5) CHOLECALCIF 50MCG (D3-2,000UNIT) TAB TAKE TWO TABLETS ACTIVE (S) BY MOUTH ONCE A DAY FOR VITAMIN D SUPPLEMENTATION 6) CYCLOBENZAPRINE HCL 10MG TAB TAKE ONE TABLET BY MOUTH ACTIVE THREE TIMES A DAY NEEDED FOR MUSCLE SPASM MAY CAUSE DROWSINESS. DO NOT DRINK ALCOHOL WHILE TAKING THIS MEDICATION. 7) DOXEPIN HCL 10MG CAP TAKE ONE CAPSULE BY MOUTH AT ACTIVE (S) BEDTIME FOR NIGHTMARES 8) FOLIC ACID 0.4MG TAB TAKE ONE TABLET BY MOUTH ONCE A ACTIVE (S) DAY FOR FOLIC ACID SUPPLEMENTATION 9) GABAPENTIN 400MG CAP TAKE ONE CAPSULE BY MOUTH AT ACTIVE BEDTIME FOR NERVE PAIN 10) HYDROXYZINE HCL 25MG TAB TAKE ONE TABLET BY MOUTH ACTIVE TWICE DAILY NEEDED FOR ANXIETY *MAY CAUSE DROWSINESS* 11) IBUPROFEN 800MG TAB TAKE ONE TABLET BY MOUTH THREE ACTIVE (S) TIMES A DAY NEEDED FOR HEADACHE TAKE WITH FOOD. TAKE AT ONSET OF HEADACHE, WITH SUMATRIPTAN 12) LEVOTHYROXINE NA (SYNTHROID) 112MCG TAB TAKE ONE ACTIVE (S) TABLET BY MOUTH EVERY MORNING BEFORE A MEAL FOR THYROID. TAKE 30 MINUTES BEFORE FOOD. TAKE SEPARATELY FROM ALL OTHER MEDICATIONS. 13) MIRTAZAPINE 45MG TAB TAKE ONE TABLET BY MOUTH AT ACTIVE (S) BEDTIME INSOMNIA/MOOD FOR MOOD 14) SUMATRIPTAN SUCCINATE 50MG TAB TAKE ONE TABLET BY ACTIVE MOUTH ONE-TIME FOR MIGRAINE HEADACHE TAKE AT ONSET OF HEADACHE. MAY REPEAT AFTER 2 HOURS. NOT TO EXCEED 2 TABLETS IN 24 HOURS. He states he is taking the above meds as prescribed. He denies any change in side effects with mirtazapine, hydroxyzine, doxepin, bupropion, or amphetamine and they are effective. Pain Assessment: - PAIN ASSESSMENT: .. This patient's last pain assessment score was: 3 (11/14/2023 09:24). A detailed pain assessment showed the following: Pain characteristics (per patient's own words) Constant Location of current pain Other- left knee Onset/Duration of the current pain. Constant or variable? More than a year Patient's self-identified pain level: 4 was escorted to room 113 for his appt with Dr Gregg, receiving good telemed transmission. /es/ ANN WEN, RN [facility] Signed: 12/05/2023 08:52 KEIRA HOOD [facility]
--- OUTSIDE RECORDS SUMMARY | 2023-12-05 03:46 | XMS_ITS ---
Author Name [facility] [facility] [place] [facility] [place] [facility] [place] Address [address] [place] [address] Care Team Providers [facility] Chief Executive Officer Name Role Phone BRIGID DEGROOT Primary Care Provider UnavailCHANNING Dawn Primary Care Provider Juan caberra Selected Encounter This section includes the information on record at [place] for the Encounter. Date/Time Encounter Type Encounter Description Reason Provider Source Dec 05, 2023 08:46 AM OFFICE O/P EST MOD 30 MIN [facility] - IND ICD-10-CM R41.89 Oth symptoms and signs w cognitive functions and awareness LIV CAMPBELL Encounter Template Text not used by [place] Assessments - Encounter Diagnoses This section includes the primary and secondary diagnoses documented for the Encounter. Date/Time Primary/Secondary Diagnosis Diagnosis Name Provider Source Dec 05, 2023 08:55 AM PRIMARY Oth symptoms and signs w cognitive functions and awareness LIV CAMPBELL [facility] Dec 05, 2023 08:55 AM SECONDARY Generalized anxiety disorder LIV CAMPBELL [facility] Dec 05, 2023 08:55 AM SECONDARY Major depressive disorder, recurrent, mild LIV CAMPBELL [facility] Dec 05, 2023 08:55 AM SECONDARY Post-traumatic stress disorder, chronic LIV CAMPBELL [facility] Plan of Treatment: Future Appointments (+ 6 months) and Future Tests (+/- 45 days) The Plan of Treatment section includes future care activities for the patient [facility] [place] [facility] This section includes future appointments and future orders which are active, pending or scheduled. Future Appointments This section includes appointments that were scheduled to occur 6 months from the date of the Encounter, up to a maximum of 20 appointments. The data comes from all [facility]. Appointment Date/Time Appointment Type Appointme nt Facility Name Jan 02, 2024 09:15 AM AMBULATORY - PSYCHIATRY [facility] Jan 02, 2024 09:16 AM [facility] Jan 08, 2024 09:00 AM AMBULATORY - MEDICINE [facility] Jan 16, 2024 01:45 PM AMBULATORY - PSYCHIATRY [facility] Jan 16, 2024 01:46 PM [facility] Jan 20, 2024 08:15 AM AMBULATORY - MEDICINE [facility] Jan 30, 2024 09:15 AM AMBULATORY - PSYCHIATRY [facility] Jan 30, 2024 09:16 AM AMBULATORY - MEDICINE [facility] Jan 30, 2024 09:30 AM AMBULATORY - MEDICINE [facility] Jan 30, 2024 10:15 AM AMBULATORY - MEDICINE [facility] Feb 27, 2024 10:15 AM AMBULATORY - PSYCHIATRY [facility] Feb 27, 2024 10:16 AM [facility] Mar 20, 2024 02:45 PM AMBULATORY - PSYCHIATRY [facility] Mar 20, 2024 02:46 PM AMBULATORY - MEDICINE [facility] Apr 03, 2024 09:15 AM AMBULATORY - MEDICINE [facility] Apr 16, 2024 09:15 AM AMBULATORY - PSYCHIATRY [facility] Apr 16, 2024 09:16 AM AMBULATORY - MEDICINE [facility] May 07, 2024 09:45 AM AMBULATORY - PSYCHIATRY [facility] May 07, 2024 09:46 AM AMBULATORY - MEDICINE [facility] Active, Pending, and Scheduled Orders This section includes a listing of several types of active, pending, and scheduled orders, including clinic medications orders, diagnostic test orders, procedure orders and consult orders; where the start date of the order is 45 days before the date of the Encounter or 45 days after the date of theEncounter. The data comes from all [place] treatment facilities. Test Date/Time Test Type Test Details Facility Name Dec 05, 2023 12:00 AM Laboratory - Chemi stry Order DRUG SCREEN URINE-inhouse ([place]) URINE,[facility] Lab Results: +/- 30 days of the encounter This section includes the Chemistry and Hematology Lab Results on record with [place] for the patient. Radiology Reports and Pathology Reports are provided separately, in subsequent sections. Lab Results This section contains the Chemistry/Hematology Results that were resulted 30 days before or 30 daysafter the date of the Encounter. Date/Time Source Result Type Result - Unit Interpretation Reference Range Specimen Type Comment Dec 05, 2023 08:22 AM [facility] DRUG SCREEN URINE-inhouse ([place]) URINE Specimen Type: URINE No comment entered. Ordering Provider: LIV CAMPBELL Report Released Date/Time: Nov 14, 2023 09:34 AM Reporting Lab: [facility] [address] [facility] [id number] Performing Lab: [facility] [address] [facility] [id number] OPIATES (PB) Negative Negative COCAINE... Negative Negative THC(Marijuana... Negative Negative PCP...(Phencyclidine) Negative Negative BENZODIAZEPINE (PB) Negative Negative BARBITURATES (PB) Negative Negative AMPHETAMINE... Negative Negative CREATININE URINE/OTHERS 21.14 mg/dL OXYCODONE ([id number]) Negative Negati ve ETHANOL URINE <10.0 mg/dL L 0-20 Social History: Smoking Status (Most current) and Tobacco Use (All prior to encounter date) This section includes the most current, and the historical, smoking and tobacco- related health factors from the [place] facility where the Encounter took place. Current Smoking Status This section includes the most current smoking, or tobacco-related health factor, from the [place] facility where the Encounter took place. Date/Time Current Smoking Status Comment Facil ity Jan 17, 2022 11:00 AM LIFETIME NON-SMOKER [facility] Advance Directives: All historical and current Section Date Range: From patient's date of to the date document was created. This section includes ALL of a patient's completed or amended [place] Advance and Rescinded Directives. The entries below indicate that a directive exists for the patient, but an actual copy is not included with this document. The data comes from all [place] facilities. Date Advance Directives Provider Source Oct 19, 2015 ADVANCE DIRECTIVE DISCUSSION GAVINO CHENEY [facility] Encounter Notes: All associated encounter notes This section contains the clinical notes associated to the Encounter. Date/Time Encounter Note(s) Provider Source Dec 05, 2023 08:54 AM PSYCHIATRY NOTE: LOCAL TITLE: PSYCHIATRIC PROGRESS NOTE PB STANDARD TITLE: PSYCHIATRY NOTE DATE OF NOTE: DEC 05, 2023@08:54 ENTRY DATE: DEC 05, 2023@08:54:30 AUTHOR: LIV CAMPBELL COSIGNER: URGENCY: STATUS: COMPLETED Consent: [place] provided verbal consent for receiving care through the modality of [place] Vte. Patient verified date of and full name. RENU ZAPATA is a 43 y/o MALE Note from previous visit was reviewed: Yes Reviewed progress notes Denies any SI/HI plans or intent Chief Complaint: Med Management History of Present Illness: reports since last seen has been doing all right. He states memory is doing the same as far as he can remember. He states sometimes he thinks it is better and then he remembers it is not. He states the medicine helps with executive functioning and temper control. 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 He states it is not stressful in comparison to what life used to be like. The [place] would currently rate depression to be 4/10 with 10 being the worst. He states it is there but not a problem generally. Denies any anhedonia. Denies any Suicidal Ideations plans or intent. denies any feelings of hopelessness. [place] would currently rate anxiety to be 5 /10 with 10 being the worst. He states about half the time fairly anxious but manageable. He states he takes the Vistaril twice a day and this is helpful. He states it depends what is going on. He states it is not making him tired at all. He states the PTSD sx are about the same. He states he has all the same sx but he controls his environment. Sleep has been good. He states appetite is fine. Past Suicide Attempts: Denies Protective Factors: Children [...] firearms: Declined to answer Discussed firearm safety. is aware this narrator recommends firearm be [...] is not actively responding to stimuli Mood: fine Affect: Congruent Orientation: Oriented to self, place and time Insight: Intact Judgement: Intact Prognosis: Fair Safety- [place] is not a safety risk to self or others at this time. Capable of making practice safe judgment and perform ADLs. Assessment: TBI with memory issues MDD, recurrent, mild PTSD, chronic, secondary to [...] 2. Labs: UDS neg on 06/06/23: ordered today EKG QTc 368 on 04/18/23 3. Consults/Medical: None ordered 4. Safety Planning was reviewed with the patient. [place] is aware if patient begins having any suicidal or homicidal ideations this is an emergency and [place] needs to call 9-11 or go to the nearest ED. Discussed [facility] [phone]. 5. Patient should follow-up in 1 month on Adderall Patient is encouraged to call with any questions or concerns. Instructed [place] to follow up with his primary care provider routinely and as needed for wellness and any medical concerns. Return to [facility] for ongoing medication management, psychoeducation and supportive [...] (including VA, Non-VA, remote and recently medications). Moderate Complexity: This encounter is moderate medical decision making complexity secondary to two or more stable psychiatric illnesses. /ernesto/ Liv Campbell DO, MA [facility] Signed: 12/05/2023 08:55 LIV CAMPBELL [facility] Dec 05, 2023 08:53 AM ACCOUNTING OF DISC LOSURES NOTE: LOCAL TITLE: STATE PRESCRIPTION DRUG MONITORING PROGRAM STANDARD TITLE: ACCOUNTING OF DISCLOSURES NOTE DATE OF NOTE: DEC 05, 2023@08:53:58 ENTRY DATE: DEC 05, 2023@08:53:58 AUTHOR: LIV CAMPBELL EXP COSIGNER: URGENCY: STATUS: COMPLETED This PDMP query was submitted by Liv Campbell DO. The clinical justification for this PDMP query is to review controlled substances prescribed outside of the [place], and any additional information that may become available, as an important component of standard clinical care, and in accordance with [facility] policy. Patient information was shared with the PDMP [employer]. No prescription(s) for controlled substances outside the [place] were found in the last 90 days. /ernesto/ Liv Campbell DO, MA [facility] Signed: 12/05/2023 08:54 LIV CAMPBELL [facility] Dec 05, 2023 08:47 AM PRIMARY CARE EDUCA TION NOTE: LOCAL TITLE: OPT PHY INSTR AUTO PB STANDARD TITLE: PRIMARY CARE EDUCATION NOTE DATE OF NOTE: DEC 05, 2023@08:47 ENTRY DATE: DEC 05, 2023@08:47:38 AUTHOR: LIV CAMPBELL EXP COSIGNER: URGENCY: STATUS: COMPLETED This documentation is related to: . F/U Visit Description of Today's Injury/Illness: TBI, MDD, PTSD, AVELINA Mental Health Testing: RETURN TO CLINIC: [...] TO EXCEED 2 TABLETS IN 24 HOURS. Medication reconciliation performed with confirmed /significant other and /significant other voiced an understandng of current medications? Yes /significant other were provided an updated medication list. Following results reviewed and discussed with patient: Future Appointments: 01/02/2024 09:15 [facility] [place] 01/02/2024 09:16 PB-[facility] PSI IND [place] 01/08/2024 09:00 [facility] ( 01/30/2024 09:15 PB-[facility] CVT BH PSI [place] 01/30/2024 09:16 PB-[facility] PSI IND [place] 02/27/2024 10:15 [facility] [place] 02/27/2024 10:16 PB-[facility]SI IND [place] 03/19/2024 09:15 PB-[facility]T BH [facility] [place] 03/19/2024 09:16 PB-[facility]SI IND [place] 04/16/2024 09:15 PB-[facility]T BH [facility] [place] 04/16/2024 09:16 PB-CVT BH PSI IND [place](AR 07/01/2024 08:40 PB-[facility] ( 07/08/2024 10:00 PB-[facility] CVT PACT DELTA(PRO 07/08/2024 10:01 PB-[facility] CVT PACT DELTA(PAT /ernesto/ Liv Campbell DO, MA [facility] Signed: 12/05/2023 08:51 LIV CAMPBELL [facility]
--- OUTSIDE RECORDS SUMMARY | 2024-01-02 04:15 | XMS_ITS | Encounter Summary ---
Author Name [facility] Address [address] [place] [address] Care Team Providers Care Heliarc Welder Name Role Phone NELIDASERGIO KeatingE Primary Care Provider Unavailabl DAVID Parra Primary Care Provider Unavailevie e Selected Encounter This section includes the information on record at NH for the Encounter. Date/Time Encounter Type Encounter Description Reason Provider Source Jan 02, 2024 09:15 AM [facility] ICD-10-CM R41.89 Oth symptoms and signs w cognitive functions and awareness LIV GREGG Aline Encounter Template Text not used by NH Assessments - Encounter Diagnoses This section includes the primary and secondary diagnoses documented for the Encounter. Date/Time Primary/Secondary Diagnosis Diagnosis Name Provider Source Jan 02, 2024 09:32 AM PRIMARY Oth symptoms and signs w cognitive functions and awareness LIV GREGG [facility] Plan of Treatment: Future Appointments (+ 6 months) and Future Tests (+/- 45 days) The Plan of Treatment section includes future care activities for the patient from all NH treatmentfacilities. This section includes future appointments and future orders which are active, pending or scheduled. Future Appointments This section includes appointments that were scheduled to occur 6 months from the date of the Encounter, up to a maximum of 20 appointments. The data comes from all [place] treatment facilities. Appointment Date/Time Appointment Type Appointme nt Facility Name Jan 08, 2024 09:00 AM AMBULATORY - MEDICINE [facility] Jan 16, 2024 01:45 PM AMBULATORY [facility] PSYCHIATRY [facility] Jan 16, 2024 01:46 PM AM[facility]UL[facility]ORY [place]IC[place] [facility] Jan 20, 2024 08:15 AM AMBULATORY - MEDICINE [facility] Jan 30, 2024 09:15 AM AMBULATORY - PSYCHIATRY [facility] Jan 30, 2024 09:16 AM AMBULATORY - MEDIC[place] [facility] Jan 30, 2024 09:30 AM AMBULATORY - MEDICINE [facility] Jan 30, 2024 10:15 AM AMBULATORY - MEDICINE [facility] Feb 27, 2024 10:15 AM AMBULATORY - PSYCHIATRY [facility] Feb 27, 2024 10:16 AM AMBULATORY - MEDICINE [place] [facility] Mar 20, 2024 02:45 PM AMBULATORY - PSYCHIATRY [facility] Mar 20, 2024 02:46 PM AMBULATORY - MEDICINE [place] [facility] Apr 03, 2024 09:15 AM AMBULATORY - MEDICINE [facility] Apr 16, 2024 09:15 AM AMBULATORY - PSYCHIATRY [facility] Apr 16, 2024 09:16 AM AMBULATORY - MEDICINE [place] [facility] May 07, 2024 09:45 AM AMBULATORY - PSYCHIATRY [facility] May 07, 2024 09:46 AM AMBULATORY - MEDICINE [place] [facility] Jun 11, 2024 09:15 AM AMBULATORY - PSYCHIATRY [facility] Jun 11, 2024 09:16 AM AMBULATORY - MEDICINE [place] [facility] Jul 01, 2024 08:40 AM AMBULATORY - MEDICINE [facility] Active, Pending, and Scheduled Orders This section includes a listing of several types of active, pending, and scheduled orders, including clinic medications orders, diagnostic test orders, procedure orders and consult orders; where the start date of the order is 45 days before the date of the Encounter or 45 days after the date of theEncounter. The data comes from all [facility]. Test Date/Time Test Type Test Details Facility Name Dec 05, 2023 12:00 AM Laboratory - Chemi stry Order DRUG SCREEN URINE-inhouse (PB) URINE,RANDOM SP [place] [facility] Lab Results: +/- 30 days of the encounter This section includes the Chemistry and Hematology Lab Results on record with NH for the patient. Radiology Reports and Pathology Reports are provided separately, in subsequent sections. Lab Results This section contains the Chemistry/Hematology Results that were resulted 30 days before or 30 daysafter the date of the Encounter. Date/Time Source Result Type Result - Unit Interpretation Reference Range Specimen Type Comment Jan 08, 2024 11:53 AM [facility] HGA1C BLOOD Specimen Type: BLOOD No comment entered. Ordering Provider: BRIGID DEGROOT Report Released Date/Time: Jul 10, 2023 03:48 PM Reporting Lab: [place] [facility] [address] [place] [address] Performing Lab: [place] [facility] [address] [place] [address] HGA1C 5.8 4.0-6.0 Jan 08, 2024 11:53 AM [facility] CHOLESTEROL PANEL (PB) PLASMA Specimen Type: P LASMA No comment entered. Ordering Provider: BRIGID DEGROOT Report Released Date/Time: Jul 10, 2023 03:48 PM Reporting Lab: [place] [facility] [address] [place] [address] Performing Lab: [place] [facility] [address] [place] [address] CHOLESTEROL 203 mg/dL H 0-200 TRIGLYCERIDE 127 mg/dL 0-150 CALCULATED LDL 118.6 mg/dL HDL(New) 59.0 mg/dL H >40 HDL % OF TOTAL CHOLESTEROL (PB) 29.1 >25 Jan 08, 2024 11:53 AM [facility] TSH (MA-PB) SERUM Specimen Typ e: SERUM No comment entered. Ordering Provider: BRIGID DEGROOT Report Released Date/Time: Jul 10, 2023 03:48 PM Reporting Lab: [place] [facility] [address] [place] [address] Performing Lab: [place] [facility] [address] [place] [address] TSH 3.955 u[IU]/mL 0.47-5 Jan 08, 2024 11:53 AM [facility] COMPREHENSIVE METABOLIC PANEL PLASMA Specimen Type: PLASMA No comment entered. Ordering Provider: BRIGID DEGROOT Report Released Date/Time: Jul 10, 2023 03:48 PM Reporting Lab: [place] [facility] [address] [place] [address] Performing Lab: [place] [facility] [address] [place] [address] CREATININE 0.99 mg/dL 0.7-1.3 UREA NITROGEN 11 mg/dL 9-25 GLUCOSE 174 mg/dL H 72-99 SODIUM 135 meq/L L 136-145 POTASSIUM 3.6 meq/L 3.5-5 CHLORIDE 104 meq/L 98-107 CARBON DIOXIDE 22 meq/L L 22-31 CALCIUM 9.2 mg/dL 8.4-10.4 PROTEIN 7.3 g/dL 6-8.6 ALBUMIN 4.3 g/dL 3.4-5 TOTAL BILIRUBIN 0.2 mg/dL 0.2-1.2 ALKALINE PHOSPHATASE 62 U/L 40-150 AST/SGOT 28 U/L 5-34 ALT/SGPT 22 U/L 8-40 EGFR (CKD-EPI 2020) 96 Jan 08, 2024 11:53 AM [facility] CBC BLOOD Specimen Type: BLOOD No comment entered. Ordering Provider: BRIGID DEGROOT Report Released Date/Time: Jul 10, 2023 03:48 PM Reporting Lab: [place] [facility] [address] [place] [address] Performing Lab: [place] [facility] [address] [place] [address] WBC 7.2 10*3/uL 3.6-11.2 RBC 4.03 10*6/uL L 4.10-5.70 HGB 12.3 g/dL L 13.1-16.8 HCT 35.4 L 38.2-48.4 MCV 87.8 fL 80.0-100.0 MCH 30.5 pg 27.0-34.0 MCHC 34.7 g/dL 33.0-36.0 PLT 317 10*3/uL 150-400 MPV 9.5 fL 7.5-11.2 RDW 13.2 11.8-15.1 LYMPHOCYTES, AUTO % 20.5 MONOCYTES, AUTO % 4.9 NEUTROPHILS, AUTO % 72.6 EOSINOPHILS, AUTO % 1.0 BASOPHILS, AUTO % 0.7 LYMPHOCYTES, ABSOLUTE 1.47 10*3/uL 0.77- 4.50 MONOCYTES, ABSOLUTE 0.35 10*3/uL 0.19-0. 8 NEUTROPHILS, ABSOLUTE 5.21 10*3/uL 2.10- 8.00 EOSINOPHILS, ABSOLUTE 0.07 10*3/uL 0.00- 0.60 BASOPHILS, ABSOLUTE 0.05 10*3/uL 0.00-0. 20 IMMATURE GRANS, AUTO % 0.3 IMMATURE GRANS, AUTO ABS 0.02 10*3/uL 0. 00-0.05 Dec 05, 2023 08:22 AM [facility] DRUG SCREEN URINE-inhouse (PB) URINE Specimen Type: URINE No comment entered. Ordering Provider: LIV GREGG Report Released Date/Time: Nov 14, 2023 09:34 AM Reporting Lab: [facility] [address] [facility] [address] Performing Lab: [facility] [address] [facility] [address] OPIATES (PB) Negative Negative COCAINE... Negative Negative THC(Marijuana... Negative Negative PCP...(Phencyclidine) Negative Negative BENZODIAZEPINE (PB) Negative Negative BARBITURATES (PB) Negative Negative AMPHETAMINE... Negative Negative CREATININE URINE/OTHERS 21.14 mg/dL OXYCODONE ([id number]) Negative Negati ve ETHANOL URINE <10.0 mg/dL L 0-20 Vital Signs: All taken on the encounter date This section contains inpatient and outpatient Vital Signs collected on the date of the Encounter. Date/Time Temperature Pulse Blood Pressure Respiratory Rate SP02 Pain Height Weight Body Mass Index Source Jan 02, 2024 09:15 AM 98.2 71 134/81 18 100 6 72 190.8 26 [facility] Social History: Smoking Status (Most current) and Tobacco Use (All prior to encounter date) This section includes the most current, and the historical, smoking and tobacco- related health factors from the NH facility where the Encounter took place. Current Smoking Status This section includes the most current smoking, or tobacco-related health factor, from the NH facility where the Encounter took place. Date/Time Current Smoking Status Comment Swapna ity August 29, 2023 09:00 AM VA-TOBACCO USER EVERY DAY [facility] Tobacco Use History This section includes a history of the smoking, or tobacco-related health factors, that were collected on or before the date of the Encounter. The data comes from the NH facility where the Encounter took place. Date/Time Smoking Status/Tobacco Use Comment F acility August 29, 2023 09:00 AM VA-TOBACCO USE ADVICE [facility] August 29, 2023 09:00 AM VA-TOBACCO USE ENGINEER SYSTEMS NO [facility] August 29, 2023 09:00 AM VA-TOBACCO USE MED NO [facility] August 29, 2023 09:00 AM VA-TOBACCO USE WI 30 MIN OF WAKE UP [facility] August 29, 2023 09:00 AM VA-TOBACCO USER EVERY DAY [facility] Sep 21, 2022 10:30 AM VA-TOBACCO DOESNT USE WI 30 MIN WAKEUP [facility] Sep 21, 2022 10:30 AM VA-TOBACCO USE > 1 5 LESS THAN 30 YEARS [facility] Sep 21, 2022 10:30 AM VA-TOBACCO USE ADVICE [facility] Sep 21, 2022 10:30 AM VA-TOBACCO USE ENGINEER SYSTEMS YES [facility] Sep 21, 2022 10:30 AM VA-TOBACCO USE MED NO [facility] Sep 21, 2022 10:30 AM VA-TOBACCO USER EVERY DAY [facility] Sep 15, 2021 11:00 AM VA-TOBACCO DOESNT USE WI 30 MIN WAKEUP [facility] Sep 15, 2021 11:00 AM VA-TOBACCO USE 5 TO 15 YEARS [facility] Sep 15, 2021 11:00 AM VA-TOBACCO USE ADVICE [facility] Sep 15, 2021 11:00 AM VA-TOBACCO USE ENGINEER SYSTEMS NO [facility] Sep 15, 2021 11:00 AM VA-TOBACCO USE MED NO [place] Sep 15, 2021 11:00 AM VA-TOBACCO USER EVERY DAY [facility] Sep 21, 2020 10:01 AM VA-TOBACCO DOESNT USE WI 30 MIN WAKEUP [facility] Sep 21, 2020 10:01 AM VA-TOBACCO USE > 1 5 LESS THAN 30 YEARS [facility] Sep 21, 2020 10:01 AM VA-TOBACCO USE ADVICE [facility] Sep 21, 2020 10:01 AM VA-TOBACCO USE ENGINEER SYSTEMS NO [facility] Sep 21, 2020 10:01 AM VA-TOBACCO USE MED NO [facility] Sep 21, 2020 10:01 AM VA-TOBACCO USER EVERY DAY [facility] Advance Directives: All historical and current Section Date Range: From patient's date of to the date document was created. This section includes ALL of a patient's completed or amended [place] Advance and Rescinded Directives. The entries below indicate that a directive exists for the patient, but an actual copy is not included with this document. The data comes from all NH facilities. Date Advance Directives Provider Source Oct 19, 2015 ADVANCE DIRECTIVE DISCUSSION GAVINO CHENEY YOGIKODY Daniels [facility] Encounter Notes: All associated encounter notes This section contains the clinical notes associated to the Encounter. Date/Time Encounter Note(s) Provider Source Jan 02, 2024 09:16 AM NURSING PROGRESS N OTE: LOCAL TITLE: NURSING NOTE PB STANDARD TITLE: NURSING PROGRESS NOTE DATE OF NOTE: JAN 02, 2024@09:16 ENTRY DATE: JAN 02, 2024@09:16:19 AUTHOR: KEIRA HOOD COSIGNER: URGENCY: STATUS: COMPLETED is here for his scheduled telemed psychiatry appt. He is alert and oriented, resps even and unlabored, gait steady. [place] is pleasant and conversational. He states he has been doing good, keeping busy. Active Outpatient Medications: Active Outpatient Medications (including [...] ONCE ACTIVE A DAY FOR ALLERGIC RHINITIS 5) CHOLECALCIF [...] A ACTIVE DAY FOR FOLIC ACID SUPPLEMENTATION 9) GABAPENTIN [...] MOUTH AT ACTIVE BEDTIME INSOMNIA/MOOD FOR MOOD 14) SUMATRIPTAN SUCCINATE 50MG TAB TAKE ONE TABLET BY ACTIVE MOUTH ONE-TIME FOR MIGRAINE HEADACHE TAKE AT ONSET OF HEADACHE. MAY REPEAT AFTER 2 HOURS. NOT TO EXCEED 2 TABLETS IN 24 HOURS. states he is taking the above meds as prescribed. He denies any change in side effects with mirtazapine, hydroxyzine, doxepin, bupropion or amphetamine and they are effective. Pain Assessment: - PAIN ASSESSMENT: .. This patient's last pain assessment score was: 4 (12/05/2023 08:45). A detailed pain assessment showed the following: Pain characteristics (per patient's own words) Constant, Aching Location of current pain Low Back, Other-knees and ankles Onset/Duration of the current pain. Constant or variable? More than a year Patient's self-identified pain level: 6 was escorted to room 113 for his appt with Dr Gregg, receiving good telemed transmission. /ernesto/ ANN WEN, RN [facility] Signed: 01/02/2024 11:12 KEIRA HOOD [facility]
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
--- OUTSIDE RECORDS SUMMARY | 2024-03-20 09:45 | XMS_ITS ---
Author Name [facility] [place] Address [address] [place] [address] Care Team Providers Care Weight Training Instructor Name Role Phone NELIDAZuri BRIGID Primary Care Provider Unavailabl DAVID Parra Primary Care Provider Juan e Selected Encounter This section includes the information on record at [place] for the Encounter. Date/Time Encounter Type Encounter Description Reason Provider Source Mar 20, 2024 02:45 PM TELEHEALTH FACILITY [facility] - IND ICD-10-CM F33.1 Major depressive disorder, recurrent, moderate LIV GREGG Aline Encounter Template Text not used by [place] Assessments - Encounter Diagnoses This section includes the primary and secondary diagnoses documented for the Encounter. Date/Time Primary/Secondary Diagnosis Diagnosis Name Provider Source Mar 20, 2024 03:10 PM PRIMARY Major depressive disorder, recurrent, moderate [facility] Mar 20, 2024 03:10 PM SECONDARY Generalized anxiety disorder [facility] Mar 20, 2024 03:10 PM SECONDARY Oth symptoms and signs w cognitive functions and awareness LIV GREGG [facility] Plan of Treatment: Future Appointments (+ [...] 20 appointments. The data comes from all [facility]. Appointment Date/Time Appointment Type Appointme nt Facility Name Apr 03, 2024 09:15 AM AMBULATORY - MEDICINE [facility] Apr 16, 2024 09:15 AM AMBULATORY - PS[facility]CHIATRY [facility] Apr 16, 2024 09:16 AM [facility]ATORY - MEDIC[facility] May 07, 2024 09:45 AM AMBULATORY - PSYCHIATRY [facility] May 07, 2024 09:46 AM AMBULATORY - MEDICINE [facility] Jun 11, 2024 09:15 AM AMBULATORY - PSYCHIATRY [facility] Jun 11, 2024 09:16 AM AMBULATORY - MEDICINE [facility] Jul 01, 2024 08:40 AM AMBULATORY - MEDICINE [facility] Jul 08, 2024 10:00 AM AMBULATORY - MEDICINE [facility] Jul 08, 2024 10:01 AM AMBULATORY - MEDICINE [facility] Jul 09, 2024 11:45 AM AMBULATORY - PSYCHIATRY [facility] Jul 09, 2024 11:46 AM AMBULATORY - MEDICINE [facility] Aug 06, 2024 09:45 AM AMBULATORY - PSYCHIATRY [facility] Aug 06, 2024 09:46 AM AMBULATORY - MEDICINE [facility] August 13, 2024 10:00 AM AMBULATORY - MEDICINE [facility] August 13, 2024 10:01 AM AMBULATORY - MEDICINE [facility] September 10, 2024 09:15 AM AMBULATORY - PS[facility]CHIATRY [facility] September 10, 2024 09:16 AM [facility] Active, Pending, and Scheduled Orders This section includes a listing of several types of active, pending, and scheduled orders, including clinic medications orders, diagnostic test orders, procedure orders and consult orders; where the start date of the order is 45 days before the date of the Encounter or 45 days after the date of theEncounter. The data comes from all [facility]. Test Date/Time Test Type Test Details Facility Name Apr 03, 2024 10:52 AM Laboratory - Chemi stry Order ANCILLARY STREP (PB) THROAT PHARYNX SP [facility] Lab Results: +/- 30 days of the encounter This section includes the Chemistry and Hematology Lab Results on record with [facility] for the patient. Radiology Reports and Pathology Reports are provided separately, in subsequent sections. Lab Results This section contains the Chemistry/Hematology Results that were resulted 30 days before or 30 daysafter the date of the Encounter. Date/Time Source Result Type Result - Unit Interpretation Reference Range Specimen Type Comment Apr 03, 2024 10:49 AM [facility] ANCILLARY STREP (PB) SWAB Specimen Type: SWAB Comment: Test performed by: Aurora Ashby [id number] Meter #: [id number] Ordering Provider: BRIGID DEGROOT Report Released Date/Time: Apr 03, 2024 10:56 AM Reporting Lab: [facility] [address] [facility] [id number] Performing Lab: [facility] [address] [facility] [id number] ANCILLARY STREP (PB) negative Vital Signs: All taken on the encounter date This section contains inpatient and outpatient Vital Signs collected on the date of the Encounter. Date/Time Temperature Pulse Blood Pressure Respiratory Rate SP02 Pain Height Weight Body Mass Index Source Mar 20, 2024 02:43 PM 142/77 [facility] Mar 20, 2024 02:39 PM 98.8 88 148/80 20 100 5 72 203.5 28 [facility] Social History: Smoking Status (Most current) and Tobacco Use (All prior to encounter date) This section includes the most current, and the historical, smoking and tobacco- related health factors from the [place] facility where the Encounter took place. Current Smoking Status This section includes the most current smoking, or tobacco-related health factor, from the [place] facility where the Encounter took place. Date/Time Current Smoking Status Comment Facil ity August 29, 2023 09:00 AM VA-TOBACCO USER EVERY DAY [facility] Tobacco Use History This section includes a history of the smoking, or tobacco-related health factors, that were collected on or before the date of the Encounter. The data comes from the [place] facility where the Encounter took place. Date/Time Smoking Status/Tobacco Use Comment F acility August 29, 2023 09:00 AM VA-TOBACCO USE ADVICE [facility] August 29, 2023 09:00 AM VA-TOBACCO USE CREATIVE STRATEGIST NO [facility] August 29, 2023 09:00 AM VA-TOBACCO USE MED NO [facility] August 29, 2023 09:00 AM VA-TOBACCO USE WI 30 MIN OF WAKE UP [facility] August 29, 2023 09:00 AM VA-TOBACCO USER EVERY DAY [facility] Sep 21, 2022 10:30 AM VA-TOBACCO DOESNT USE WI 30 MIN WAKEUP [place] [facility] Sep 21, 2022 10:30 AM VA-TOBACCO USE > 1 5 LESS THAN 30 YEARS [facility] Sep 21, 2022 10:30 AM VA-TOBACCO USE ADVICE [facility] Sep 21, 2022 10:30 AM VA-TOBACCO USE CREATIVE STRATEGIST YES [facility] Sep 21, 2022 10:30 AM VA-TOBACCO USE MED NO [facility] Sep 21, 2022 10:30 AM VA-TOBACCO USER EVERY DAY [facility] Sep 15, 2021 11:00 AM VA-TOBACCO DOESNT USE WI 30 MIN WAKEUP [facility] Sep 15, 2021 11:00 AM VA-TOBACCO USE 5 TO 15 YEARS [facility] Sep 15, 2021 11:00 AM VA-TOBACCO USE ADVICE [facility] Sep 15, 2021 11:00 AM VA-TOBACCO USE CREATIVE STRATEGIST NO [facility] Sep 15, 2021 11:00 AM VA-TOBACCO USE MED NO [facility] Sep 15, 2021 11:00 AM VA-TOBACCO USER EVERY DAY [facility] [place] Sep 21, 2020 10:01 AM VA-TOBACCO DOESNT USE WI 30 MIN WAKEUP [facility] Sep 21, 2020 10:01 AM VA-TOBACCO USE > 1 5 LESS THAN 30 YEARS [facility] [place] Sep 21, 2020 10:01 AM VA-TOBACCO USE ADVICE [facility] Sep 21, 2020 10:01 AM VA-TOBACCO USE CREATIVE STRATEGIST NO [facility] Sep 21, 2020 10:01 AM VA-TOBACCO USE MED NO [facility] Sep 21, 2020 10:01 AM VA-TOBACCO USER EVERY DAY [facility] Advance Directives: All historical and current Section Date Range: From patient's date of to the date document was created. This section includes ALL of a patient's completed or amended [place] Advance and Rescinded Directives. The entries below indicate that a directive exists for the patient, but an actual copy is not included with this document. The data comes from all [place] facilities. Date Advance Directives Provider Source Oct 19, 2015 [facility] Encounter Notes: All associated encounter notes This section contains the clinical notes associated to the Encounter. Date/Time Encounter Note(s) Provider Source Mar 20, 2024 03:27 PM NURSING NOTE: LOCAL TITLE: [facility] NURSING EXIT NOTE PB STANDARD TITLE: NURSING NOTE DATE OF NOTE: MAR 20, 2024@15:27 ENTRY DATE: MAR 20, 2024@15:27:24 AUTHOR: KEIRA HOOD COSIGNER: URGENCY: STATUS: COMPLETED EXIT INTERVIEW Location: [facility] Ambulatory Appointment Reviewed: Instructions: CLINIC: Sent to Pharmacy for medications and instructions: Lab Instructions: Special Instructions: Verbalized understanding of today's visit: Patient Is patient's pain under control at time of exit? Yes Discussed walk-in and after-hour services. verbalized understanding. Encouraged to seek treatment if change in status. Contact information and hours of operation given. Summit had voiced no questions or concerns and was escorted to the lobby in satisfactory condition, scheduling for his next appt. /ernesto/ ANN WEN, RN [facility] Signed: 03/20/2024 15:28 KEIRA HOOD [facility] Mar 20, 2024 02:38 PM NURSING PROGRESS N OTE: LOCAL TITLE: NURSING NOTE PB STANDARD TITLE: NURSING PROGRESS NOTE DATE OF NOTE: MAR 20, 2024@14:38 ENTRY DATE: MAR 20, 2024@14:39 AUTHOR: KEIRA HOOD EXP COSIGNER: URGENCY: STATUS: COMPLETED Summit is here for his scheduled telemed psychiatry appt. He is alert and oriented, resps even and unlabored, gait steady. Summit is pleasant and conversational. he states he has been doing ok, this week has been stressful. They have found another place to rent and his and daughter are already there. He and the boys have been at the other house and he knows they have just been eating whatever, not a healthy diet. He proceeds to say they are planning on rebuilding. Summit states he states positive as things could be worse. Pain Assessment: - PAIN ASSESSMENT: .. This patient's last pain assessment score was: 5 (03/20/2024 14:39). A detailed pain assessment showed the following: Pain characteristics (per patient's own words) Constant Location of current pain Low Back, Other-left knee Patient's self-identified pain goal: 5 HTN Assess for Elevated BP>=140/90 - N,P,PH: Repeat blood pressure: 142/77 was escorted to room 128 for his appt with Dr Gregg, receiving good telemed transmission. /ernesto/ ANN WEN, RN [facility] Signed: 03/20/2024 14:59 KEIRA HOOD [facility]
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
--- OUTSIDE RECORDS SUMMARY | 2024-04-03 04:15 | XMS_ITS ---
Author Name [facility] [place] [facility] [place] Address [address] [place] [id number] Care Team Providers Care Oracle Drm Consultant Name Role Phone NELIDAZuri BRIGID Primary Care Provider Unavailabl CHANNING Parra Primary Care Provider Juan e Selected Encounter This section includes the information on record at [place] for the Encounter. Date/Time Encounter Type Encounter Description Reason Provider Source Apr 03, 2024 09:15 AM OFF/OP EST AUGUST X REQ PHY/QHP PRIMARY CARE/MEDICINE ICD-10-CM R05.1 Acute cough WALTER SIMON Encounter Template Text not used by [place] Assessments - Encounter Diagnoses This section includes the primary and secondary diagnoses documented for the Encounter. Date/Time Primary/Secondary Diagnosis Diagnosis Name Provider Source Apr 09, 2024 11:25 AM PRIMARY Acute cough [facility] Apr 09, 2024 11:25 AM SECONDARY Other acute sinusitis WALTER SIMON [facility] Plan of Treatment: Future Appointments (+ 6 [...] 20 appointments. The data comes from all [facility]. Appointment Date/Time Appointment Type Appointme nt Facility Name Apr 16, 2024 09:15 AM AMBULATORY - PSYCHIATRY [facility] Apr 16, 2024 09:16 AM AMBULATORY - MEDICINE [facility] May 07, 2024 09:45 AM AMBULATORY - PSYCHIATRY [facility] May 07, 2024 09:46 AM AMBULATORY - MEDICINE [facility] Jun 11, 2024 09:15 AM AMBULATORY - PSYCHIATRY [facility] Jun 11, 2024 09:16 AM AMBULATORY - [facility]ICINE [facility] Jul 01, 2024 08:40 AM AMBULATORY - MEDICINE [facility] Jul 08, 2024 10:00 AM AMBULATORY - MEDICINE [facility] Jul 08, 2024 10:01 AM AMBULATORY - MEDICINE [facility] Jul 09, 2024 11:45 AM AMBULATORY - PSYCHIATRY [facility] Jul 09, 2024 11:46 AM AMBULATORY - MEDICINE [facility] Aug 06, 2024 09:45 AM AMBULATORY - PSYCHIATRY [facility] Aug 06, 2024 09:46 AM AMBULATORY - MEDICINE [facility] August 13, 2024 10:00 AM AMBULATORY - MEDICINE [facility] August 13, 2024 10:01 AM AMBULATORY - MEDICINE [facility] September 10, 2024 09:15 AM AMBULATORY - PSYCHIATRY [facility] September 10, 2024 09:16 AM AMBULATORY - MEDICINE [facility] Oct 02, 2024 10:45 AM AMBULATORY - PSYCHIATRY [facility] Oct 02, 2024 10:46 AM AMBULATORY - MEDICINE [facility] Active, Pending, and Scheduled Orders This section includes a listing of several types of active, pending, and scheduled orders, including clinic medications orders, diagnostic test orders, procedure orders and consult orders; where the start date of the order is 45 days before the date of the Encounter or 45 days after the date of theEncounter. The data comes from all [facility]. Test Date/Time Test Type Test Details Facility Name Apr 03, 2024 10:52 AM Laboratory - Chemi stry Order ANCILLARY STREP (PB) THROAT PHARYNX SP [facility] Lab Results: +/- 30 days of the [...] Type Comment Apr 03, 2024 10:49 AM [facility] ANCILLARY STREP (PB) SWAB Specimen Type: SWAB Comment: Test performed by: Aurora Ashby [id number] Meter #: [id number] Ordering Provider: BRIGID DEGROOT Report Released Date/Time: Apr 03, 2024 10:56 AM Reporting Lab: [facility] [address] [facility] [id number] Performing Lab: [facility] [address] [facility] [id number] ANCILLARY STREP (PB) negative Vital Signs: All taken on the encounter date This section contains inpatient and outpatient Vital Signs collected on the date of the Encounter. Date/Time Temperature Pulse Blood Pressure Respiratory Rate SP02 Pain Height Weight Body Mass Index Source Apr 03, 2024 09:56 AM 97.9 69 136/88 17 203.9 28 [facility] Social History: Smoking Status (Most current) and Tobacco Use (All prior to encounter date) This section includes the most current, and the historical, smoking and tobacco- related health factors from the [place] facility where the Encounter took place. Current Smoking Status This section includes the most current smoking, or tobacco-related health factor, from the [place] facility where the Encounter took place. Date/Time Current Smoking Status Comment Facil ity August 29, 2023 09:00 AM VA-TOBACCO USER EVERY DAY [facility] Tobacco Use History This section includes a history of the smoking, or tobacco-related health factors, that were collected on or before the date of the Encounter. The data comes from the [place] facility where the Encounter took place. Date/Time Smoking Status/Tobacco Use Comment F acility August 29, 2023 09:00 AM VA-TOBACCO USE ADVICE [facility] August 29, 2023 09:00 AM VA-TOBACCO USE RUBBER GOODS INSPECTOR TESTER NO [facility] August 29, 2023 09:00 AM VA-TOBACCO USE MED [facility] August 29, 2023 09:00 AM VA-TOBACCO USE WI 30 MIN OF WAKE UP [facility] August 29, 2023 09:00 AM VA-TOBACCO USER EVERY DAY [facility] Sep 21, 2022 10:30 AM VA-TOBACCO DOESNT USE WI 30 MIN WAKEUP [facility] Sep 21, 2022 10:30 AM VA-TOBACCO USE > 1 5 LESS THAN 30 YEARS [facility] Sep 21, 2022 10:30 AM VA-TOBACCO USE ADVICE [facility] Sep 21, 2022 10:30 AM VA-TOBACCO USE RUBBER GOODS INSPECTOR TESTER YES [facility] Sep 21, 2022 10:30 AM VA-TOBACCO USE MED NO [facility] Sep 21, 2022 10:30 AM VA-TOBACCO USER EVERY DAY [facility] Sep 15, 2021 11:00 AM VA-TOBACCO DOESNT USE WI 30 MIN WAKEUP [facility] Sep 15, 2021 11:00 AM VA-TOBACCO USE 5 TO 15 YEARS [facility] Sep 15, 2021 11:00 AM VA-TOBACCO USE ADVICE [facility] Sep 15, 2021 11:00 AM VA-TOBACCO USE RUBBER GOODS INSPECTOR TESTER NO [facility] Sep 15, 2021 11:00 AM VA-TOBACCO USE MED NO [facility] Sep 15, 2021 11:00 AM VA-TOBACCO USER EVERY DAY [facility] Sep 21, 2020 10:01 AM VA-TOBACCO DOESNT USE WI 30 MIN WAKEUP [facility] Sep 21, 2020 10:01 AM VA-TOBACCO USE > 1 5 LESS THAN 30 YEARS [facility] Sep 21, 2020 10:01 AM VA-TOBACCO USE ADVICE [facility] Sep 21, 2020 10:01 AM VA-TOBACCO USE RUBBER GOODS INSPECTOR TESTER [facility] Sep 21, 2020 10:01 AM VA-TOBACCO USE MED NO [facility] Sep 21, 2020 10:01 AM VA-TOBACCO USER EVERY DAY [facility] Advance Directives: All historical and current Section Date Range: From patient's date of to the date document was created. This section includes ALL of a patient's completed or amended VA Advance and Rescinded Directives. The entries below indicate that a directive exists for the patient, but an actual copy is not included with this document. The data comes from all [place] facilities. Date Advance Directives Provider Source Oct 19, 2015 ADVANCE DIRECTIVE DISCUSSION GAVINO CHENEY Karlo YOGI AlineTanisha [facility] Encounter Notes: All associated encounter notes This section contains the clinical notes associated to the Encounter. Date/Time Encounter Note(s) Provider Source Apr 03, 2024 10:27 AM GENERAL MEDICINE N OTE: LOCAL TITLE: General Note PB STANDARD TITLE: GENERAL MEDICINE NOTE DATE OF NOTE: APR 03, 2024@10:27 ENTRY DATE: APR 03, 2024@10:27:43 AUTHOR: BRIGID DEGROOTER: URGENCY: STATUS: COMPLETED Patient walked in nurse visit Case discussed, minimal symptoms afebrile rest of vital signs normal reviewed, sounds like pharyngitis, recommend strep swabs conservative treatment pending swab results. /ernesto/ BRIGID DEGROOT MD Signed: 04/03/2024 10:29 Receipt Acknowledged By: 04/20/2024 14:08 /ernesto/ Walter Simon RN,BSN [place], [facility] BRIGID DEGROOT [facility] Apr 03, 2024 09:47 AM NURSING PROGRESS N OTE: LOCAL TITLE: NURSING NOTE PB STANDARD TITLE: NURSING PROGRESS NOTE DATE OF NOTE: APR 03, 2024@09:47 ENTRY DATE: APR 03, 2024@09:47:56 AUTHOR: WALTER SIMON: URGENCY: STATUS: COMPLETED This is a 43 year old MALE with known Allergies as noted: Patient has answered NKA On the following Active Medications: Active Outpatient Medications (including Supplies): Active Outpatient Medications Status 1) AMPHETAMINE/DEXTROAMPH RESIN 10MG SA CAP TAKE ONE CAPSULE BY ACTIVE (S) MOUTH EVERY MORNING Indication: FOR ADHD 2) AMPHETAMINE/DEXTROAMPHETAMI NE 5MG TAB TAKE ONE TABLET BY ACTIVE (S) MOUTH AFTERNOON Indication: FOR ADHD 3) BUPROPION HCL 150MG 24HR SA TAB TAKE ONE TABLET BY MOUTH ACTIVE (S) EVERY MORNING SWALLOW WHOLE - DO NOT CRUSH OR CHEW. Indication: FOR DEPRESSION 4) CETIRIZINE HCL 10MG TAB TAKE ONE TABLET BY MOUTH ONCE A DAY ACTIVE Indication: FOR ALLERGIC RHINITIS 5) CHOLECALCIF 50MCG (D3-2,000UNIT) TAB TAKE TWO TABLETS BY ACTIVE MOUTH ONCE A DAY Indication: FOR VITAMIN D SUPPLEMENTATION 6) CYCLOBENZAPRINE HCL 10MG TAB TAKE ONE TABLET BY MOUTH THREE ACTIVE TIMES A DAY NEEDED MAY CAUSE DROWSINESS. DO NOT DRINK ALCOHOL WHILE TAKING THIS MEDICATION. Indication: FOR MUSCLE SPASM 7) DOXEPIN HCL 10MG CAP TAKE ONE CAPSULE BY MOUTH AT BEDTIME ACTIVE Indication: FOR NIGHTMARES 8) FOLIC ACID 0.4MG TAB TAKE ONE TABLET BY MOUTH ONCE A DAY ACTIVE Indication: FOR FOLIC ACID SUPPLEMENTATION 9) GABAPENTIN 400MG CAP TAKE ONE CAPSULE BY MOUTH AT BEDTIME ACTIVE Indication: FOR NERVE PAIN 10) HYDROXYZINE HCL 25MG TAB TAKE ONE TABLET BY MOUTH TWICE ACTIVE DAILY NEEDED *MAY CAUSE DROWSINESS* Indication: FOR ANXIETY 11) IBUPROFEN 800MG TAB TAKE ONE TABLET BY MOUTH THREE TIMES A ACTIVE DAY NEEDED TAKE WITH FOOD. TAKE AT ONSET OF HEADACHE, WITH SUMATRIPTAN Indication: FOR HEADACHE 12) LEVOTHYROXINE NA (SYNTHROID) 112MCG TAB TAKE ONE TABLET BY ACTIVE MOUTH EVERY MORNING BEFORE A MEAL FOR THYROID. TAKE 30 MINUTES BEFORE FOOD. TAKE SEPARATELY FROM ALL OTHER MEDICATIONS. 13) MIRTAZAPINE 45MG TAB TAKE ONE TABLET BY MOUTH AT BEDTIME ACTIVE Indication: FOR INSOMNIA & MOOD 14) SUMATRIPTAN SUCCINATE 50MG TAB TAKE ONE TABLET BY MOUTH ACTIVE ONE-TIME TAKE AT ONSET OF HEADACHE. MAY REPEAT AFTER 2 HOURS. NOT TO EXCEED 2 TABLETS IN 24 HOURS. Indication: FOR MIGRAINE HEADACHE C/C: cough x one week S: The presented to the clinic today with the complaint of cough x one week, reporting that it is worse in the past 2 days. Reports cough is mostly nonproductive but reports coughing up phlegm in the mornings. Also reports runny nose and one day of a sore throat. Denies any fever. Wrights reports that he is taking his cetirizine twice a day. O/A: The ambulated to the exam room without assistance, gate is steady. Wrights's lungs are clear, does cough some when asked to breath while auscultating lungs. The 's ears are both clear, no sigh of infection, no sign of fluid behind the TM. Wrights's throat is a little red and there are a couple of raised but not discolored spots on the back of the throat. Vitals were stable today. Vital Signs: as charted P: Discussed the above symptoms and assessment with Dr. Degroot. Let the know that Dr. Degroot has ordered a strep test to be done in the clinic. Strep test was negative. Educated the on conservative treatment. Home Management Instructions Vitamin D3 1000 units daily- protects against acute respiratory diseases. Vitamin C 1000mg daily boosts the immune system Magnesium 400mg daily-enhances Vit D, protects the lungs, kidneys and heart. Zinc 50mg daily-use early in infection for the first 5 days. Guaifenesin 600mg twice daily as needed, drink plenty of water Vitamin B complex Pepcid 20mg 1-2 times daily-is a histamine escobar Deep breathing and walking Eat potassium rich foods-Bananas, oranges, tomatoes, avocadoes, potatoes. Please go to the ER with any shortness of breath. The voiced understanding, is in agreement with the plan and has no further questions or complaints at this time. The ambulated to the exit in satisfactory manner. RTC: As needed Per [facility] Directive 1605.06, wristband documentation: Patient wristband was removed and destroyed by (staff name) Dionna Simon RN and placed in the designated [employer] bin. /ernesto/ Walter Simon RN,BSN [facility] Hand Signed: 04/03/2024 11:15 Receipt Acknowledged By: 04/12/2024 19:18 /ernesto/ WALTER SANTIAGO MD
--- OUTSIDE RECORDS SUMMARY | 2024-04-16 04:15 | XMS_ITS | Encounter Summary ---
Author Name [facility] [place] [facility] [place] Address [address] [place] [address] Care Team Providers Care Registered Nurse Midwife Name Role Phone NELIDASERGIO KeatingE Primary Care Provider CHANNING Mann Primary Care Provider Juan cabrera Selected Encounter This section includes the information on record at [place] for the Encounter. Date/Time Encounter Type Encounter Description Reason Provider Source Apr 16, 2024 09:15 AM TELEHEALTH FACILITY [facility] - IND ICD-10-CM F33.0 Major depressive disorder, recurrent, mild [facility] Encounter Template Text not used by [place] Assessments - Encounter Diagnoses This section includes the primary and secondary diagnoses documented for the Encounter. Date/Time Primary/Secondary Diagnosis Diagnosis Name Provider Source Apr 16, 2024 09:59 AM PRIMARY Major depressive disorder, recurrent, mild [facility] Apr 16, 2024 09:59 AM SECONDARY Generalized anxiety disorder [facility] Apr 16, 2024 09:59 AM SECONDARY Oth symptoms and signs w cognitive functions and awareness [facility] Apr 16, 2024 09:59 AM SECONDARY Post-traumatic stress disorder, chronic [facility] Plan of Treatment: Future Appointments (+ 6 months) and Future Tests (+/- 45 days) The Plan of Treatment section includes future care activities for the patient from all [place] [facility]. This section includes future appointments and future orders which are active, pending or scheduled. Future Appointments This section includes appointments that were scheduled to occur 6 months from the date of the Encounter, up to a maximum of 20 appointments. The data comes from all [facility]. Appointment Date/Time Appointment Type Appointme nt Facility Name May 07, 2024 09:45 AM AMBULATORY - PSYCHIATRY [facility] May 07, 2024 09:46 AM [facility]ORY - [facility]IC[facility] Jun 11, 2024 09:15 AM AMBULATORY - PSYCHIATRY [facility] Jun 11, 2024 09:16 AM [facility]ORY - [facility]IC[facility] Jul 01, 2024 08:40 AM AMBULATORY - MEDICINE [facility] Jul 08, 2024 10:00 AM AMBULATORY - MEDICINE [facility] Jul 08, 2024 10:01 AM AMBULATORY - MEDICINE [facility] Jul 09, 2024 11:45 AM AMBULATORY - PSYCHIATRY [facility] Jul 09, 2024 11:46 AM AM[facility]ULATORY - MEDICINE [facility] Aug 06, 2024 09:45 AM AMBULATORY - PSYCHIATRY [facility] Aug 06, 2024 09:46 AM AMBULATORY - MEDICINE [facility] August 13, 2024 10:00 AM AMBULATORY - MEDICINE [facility] August 13, 2024 10:01 AM AMBULATORY - MEDICINE [facility] September 10, 2024 09:15 AM AMBULATORY - PSYCHIATRY [facility] September 10, 2024 09:16 AM AMBULATORY - MEDICINE [facility] Oct 02, 2024 10:45 AM AMBULATORY - PSYCHIATRY [facility] Oct 02, 2024 10:46 AM AMBULATORY - MEDICINE [facility] Active, Pending, and Scheduled Orders This section includes a listing of several types of active, pending, and scheduled orders, including clinic medications orders, diagnostic test orders, procedure orders and consult orders; where the start date of the order is 45 days before the date of the Encounter or 45 days after the date of theEncounter. The data comes from all [facility]. Test Date/Time Test Type Test Details Facility Name Apr 03, 2024 10:52 AM Laboratory - Chemi stry Order ANCILLARY STREP (PB) THROAT PHARYNX SP [facility] Lab Results: +/- 30 [...] Type Comment Apr 03, 2024 10:49 AM [facility] ANCILLARY STREP (PB) SWAB Specimen Type: SWAB Comment: Test performed by: Aurora Ashby [id number] Meter #: [id number] Ordering Provider: BRIGID DEGROOT Report Released Date/Time: Apr 03, 2024 10:56 AM Reporting [facility] [address] [facility] [id number] Performing Lab: [facility] [address] [facility] [id number] ANCILLARY STREP (PB) negative Vital Signs: All taken on the encounter date This section contains inpatient and outpatient Vital Signs collected on the date of the Encounter. Date/Time Temperature Pulse Blood Pressure Respiratory Rate SP02 Pain Height Weight Body Mass Index Source Apr 16, 2024 09:26 AM 98.4 75 138/77 20 99 6 72 203.1 28 [facility] Social History: Smoking Status (Most current) and [...] 2023 09:00 AM VA-TOBACCO USER EVERY DAY [facility] Tobacco Use History This section includes a history of the smoking, or tobacco-related health factors, that were collected on or before the date of the Encounter. The data comes from the [place] facility where the Encounter took place. Date/Time Smoking Status/Tobacco Use Comment F acility August 29, 2023 09:00 AM VA-TOBACCO USE ADVICE [facility] August 29, 2023 09:00 AM VA-TOBACCO USE RESPIRATORY THERAPY ASSISTANT NO [facility] August 29, 2023 09:00 AM VA-TOBACCO USE MED NO [facility] August 29, 2023 09:00 AM [...] 2022 10:30 AM VA-TOBACCO USE ADVICE [place] [facility] Sep 21, 2022 10:30 AM VA-TOBACCO USE RESPIRATORY THERAPY ASSISTANT YES [facility] Sep 21, 2022 10:30 AM VA-TOBACCO USE MED NO [facility] Sep 21, 2022 10:30 AM VA-TOBACCO USER EVERY DAY [facility] [place] Sep 15, 2021 11:00 AM VA-TOBACCO DOESNT USE WI 30 MIN [place] [facility] Sep 15, 2021 11:00 AM VA-TOBACCO USE 5 TO 15 YEARS [place] [facility] Sep 15, 2021 11:00 AM VA-TOBACCO USE ADVICE [facility] Sep 15, 2021 11:00 AM VA-TOBACCO USE RESPIRATORY THERAPY ASSISTANT NO [place] [facility] Sep 15, 2021 11:00 AM VA-TOBACCO USE MED NO [facility] Sep 15, 2021 11:00 AM VA-TOBACCO USER EVERY DAY [place] [place] [facility] Sep 21, 2020 10:01 AM VA-TOBACCO DOESNT USE WI 30 MIN [place] [facility] Sep 21, 2020 10:01 AM VA-TOBACCO USE > 1 5 LESS THAN 30 YEARS [place] [facility] Sep 21, 2020 10:01 AM VA-TOBACCO USE ADVICE [facility] Sep 21, 2020 10:01 AM VA-TOBACCO USE RESPIRATORY THERAPY ASSISTANT NO [place] [facility] Sep 21, 2020 10:01 AM VA-TOBACCO USE MED NO [facility] Sep 21, 2020 10:01 AM VA-TOBACCO USER EVERY DAY [place] [facility] Advance Directives: All historical and [...] 19, 2015 ADVANCE DIRECTIVE DISCUSSION GAVINO CHENEY YOGI ETanisha RUST Encounter Notes: All associated encounter notes This section contains the clinical notes associated to the Encounter. Date/Time Encounter Note(s) Provider Source Apr 20, 2024 11:32 AM ADDENDUM: LOCAL TITLE: Addendum STANDARD TITLE: ADDENDUM DATE OF NOTE: APR 20, 2024@11:32:15 ENTRY DATE: APR 20, 2024@11:32:16 AUTHOR: KEIRA HOOD EXP COSIGNER: URGENCY: STATUS: COMPLETED This nurse asked the if he and his discussed if he would change psychiatrist or not. [place] states his will seek another psychiatrist, he adds he knows this psychiatrist and this nurse, sees us monthly and he knows no one else in the clinic. /ernesto/ ANN WEN, RN [facility] Signed: 04/20/2024 11:34 Receipt Acknowledged By: 04/20/2024 12:50 /ernesto/ Kirby Gasparhing [facility] --- Original Document --- 04/16/24 NURSING NOTE PB: is here for his scheduled psychiatry appt. He is alert and oriented, resp even and unlabored, gait steady. is pleasant and conversational. This nurse asked the if he and his discussed if he would change psychiatrist or not. [place] states his will seek another psychiatrist, he adds he knows this psychiatrist and this nurse, sees us monthly and he knows no one else in the clinic. Things are better with their new rental house and he states they are putting an offer on a fixer up house. Active Outpatient Medications: Active Outpatient Medications (including Supplies): Active Outpatient Medications Status 1) AMPHETAMINE/DEXTROAMPH RESIN 10MG SA CAP TAKE ONE CAPSULE BY ACTIVE MOUTH EVERY MORNING Indication: FOR ADHD 2) AMPHETAMINE/DEXTROAMPHETAMINE 5MG TAB TAKE ONE TABLET BY ACTIVE MOUTH AFTERNOON Indication: FOR ADHD 3) BUPROPION [...] IN 24 HOURS. Indication: FOR MIGRAINE HEADACHE states he is taking the above meds as prescribed. He denies any change in side effects with mirtazapine, hydroxyzine, doxepin, bupropion and amphetamine and they are effective. Pain Assessment: - PAIN ASSESSMENT: .. This patient's last pain assessment score was: 6 (04/16/2024 09:26). A detailed pain assessment showed the following: Pain characteristics (per patient's own words) Constant, Soreness Location of current pain Low Back Onset/Duration of the current pain. Constant or variable? More than a year Patient's self-identified pain level: 6 was escorted to room 128 for his appt with Dr Gregg, receiving good telemed transmission. /ANN Mayfield, RN [facility] Signed: 04/16/2024 09:38 KEIRA HOOD [facility] Apr 16, 2024 09:38 AM NURSING NOTE: LOCAL TITLE: [facility] NURSING EXIT NOTE PB STANDARD TITLE: NURSING NOTE DATE OF NOTE: APR 16, 2024@09:38 ENTRY DATE: APR 16, 2024@09:38:27 AUTHOR: KEIRA HOOD EXP COSIGNER: URGENCY: STATUS: COMPLETED EXIT INTERVIEW Location: [facility] Ambulatory Appointment Reviewed: Instructions: CLINIC: Sent to Pharmacy for medications and instructions: Lab Instructions: Special Instructions: Verbalized understanding of today's visit: Patient Is patient's pain under control at time of exit? Yes Discussed walk-in and after-hour services. [place] verbalized understanding. Encouraged to seek treatment if change in status. Contact information and hours of operation given. [place] voiced no questions or concerns, he was escorted to lobby in satisfactory condition, scheduling for his next appt. /ernesto/ ANN WEN, RN [facility] Signed: 04/16/2024 09:39 KEIRA HOOD [facility] Apr 16, 2024 09:25 AM NURSING PROGRESS N OTE: LOCAL TITLE: NURSING NOTE PB STANDARD TITLE: NURSING PROGRESS NOTE DATE OF NOTE: APR 16, 2024@09:25 ENTRY DATE: APR 16, 2024@09:25:20 AUTHOR: KEIRA HOOD EXP COSIGNER: URGENCY: STATUS: COMPLETED NURSING NOTE PB Has ADDENDA is here for his scheduled psychiatry appt. He is alert and oriented, resp even and unlabored, gait steady. is pleasant and conversational. This nurse asked the if he and his discussed if he would change psychiatrist or not. [place] states his will seek another psychiatrist, he adds he knows this psychiatrist and this nurse, sees us monthly and he knows no one else in the clinic. Things are better with their new rental house and he states they are putting an offer on a fixer up house. Active Outpatient Medications: Active Outpatient Medications (including Supplies): Active Outpatient Medications Status 1) AMPHETAMINE/DEXTROAMPH RESIN 10MG SA CAP TAKE ONE CAPSULE BY ACTIVE MOUTH EVERY MORNING Indication: FOR ADHD 2) AMPHETAMINE/DEXTROAMPHETAMINE 5MG TAB TAKE ONE TABLET BY ACTIVE MOUTH AFTERNOON Indication: FOR ADHD 3) BUPROPION [...] IN 24 HOURS. Indication: FOR MIGRAINE HEADACHE states he is taking the above meds as prescribed. He denies any change in side effects with mirtazapine, hydroxyzine, doxepin, bupropion and amphetamine and they are effective. Pain Assessment: - PAIN ASSESSMENT: .. This patient's last pain assessment score was: 6 (04/16/2024 09:26). A detailed pain assessment showed the following: Pain characteristics (per patient's own words) Constant, Soreness Location of current pain Low Back Onset/Duration of the current pain. Constant or variable? More than a year Patient's self-identified pain level: 6 [place] was escorted to room 128 for his appt with Dr Gregg, receiving good telemed transmission. /ernesto/ ANN WEN, RN [facility] Signed: 04/16/2024 09:38 04/20/2024 ADDENDUM STATUS: COMPLETED This nurse asked the if he and his discussed if he would change psychiatrist or not. [place] states his will seek another psychiatrist, he adds he knows this psychiatrist and this nurse, sees us monthly and he knows no one else in the clinic. /ernesto/ ANN WEN, RN [facility] Signed: 04/20/2024 11:34 Receipt Acknowledged By: * AWAITING SIGNATURE * ALINE LOBO SHELLEY M [facility]
--- OUTSIDE RECORDS SUMMARY | 2024-04-16 04:16 | XMS_ITS | Encounter Summary ---
Author Name [facility] [place] [facility] [place] Address [address] [place] [address] Care Team Providers Care Public Health Dietitian Name Role Phone BRIGID DEGROOT Primary Care Provider DAVID Mann Primary Care Provider Juan cabrera Selected Encounter This section includes the information on record at [place] for the Encounter. Date/Time Encounter Type Encounter Description Reason Provider Source Apr 16, 2024 09:16 AM OFFICE O/P EST MOD 30 MIN [facility] - IND ICD-10-CM F33.0 Major depressive disorder, recurrent, mild [facility] Encounter Template Text not used by [place] Assessments - Encounter Diagnoses This section includes the primary and secondary diagnoses documented for the Encounter. Date/Time Primary/Secondary Diagnosis Diagnosis Name Provider Source Apr 16, 2024 09:38 AM PRIMARY Major depressive disorder, recurrent, mild [facility] Apr 16, 2024 09:38 AM SECONDARY Generalized anxiety disorder [facility] Apr 16, 2024 09:38 AM SECONDARY Oth symptoms and signs w cognitive functions and awareness [facility] Apr 16, 2024 09:38 AM SECONDARY Post-traumatic stress disorder, chronic [facility] Plan of Treatment: Future Appointments (+ 6 months) and Future Tests (+/- 45 days) The Plan of Treatment section includes future care activities for the patient from all [facility]. This section includes future appointments and future orders which are active, pending or scheduled. Future Appointments This section includes appointments that were scheduled to occur 6 months from the date of the Encounter, up to a maximum of 20 appointments. The data comes from all [facility]. Appointment Date/Time Appointment Type Appointme nt Facility Name May 07, 2024 09:45 AM AMBULATORY - PSYCHIATRY [facility] May 07, 2024 09:46 AM AMBULATORY - MEDICINE [facility] Jun 11, 2024 09:15 AM AMBULATORY - PSYCHIATRY [facility] Jun 11, 2024 09:16 AM AMBULATORY - MEDICINE [facility] Jul 01, 2024 08:40 AM AMBULATORY - MEDICINE [facility] Jul 08, 2024 10:00 AM AMBULATORY - MEDICINE [facility] Jul 08, 2024 10:01 AM AMBULATORY - MEDICINE [facility] Jul 09, 2024 11:45 AM AMBULATORY - PSYCHIATRY [facility] Jul 09, 2024 11:46 AM AMBULATORY - MEDICINE [facility] Aug 06, 2024 09:45 AM AMBULATORY - PSYCHIATRY [facility] Aug 06, 2024 09:46 AM AMBULATORY - MEDICINE [facility] August 13, 2024 10:00 AM AMBULATORY - MEDICINE [facility] August 13, 2024 10:01 AM AMBULATORY - MEDICINE [facility] September 10, 2024 09:15 AM AMBULATORY - PSYCHIATRY [facility] September 10, 2024 09:16 AM [facility] Oct 02, 2024 10:45 AM AMBULATORY - PSYCHIATRY [facility] Oct 02, 2024 10:46 AM AMBULATORY - MEDICINE [facility] Active, Pending, and Scheduled Orders This section includes a listing of several types of active, pending, and scheduled orders, including clinic medications orders, diagnostic test orders, procedure orders and consult orders; where the start date of the order is 45 days before the date of the Encounter or 45 days after the date of theEncounter. The data comes from all [facility] treatment [facility]. Test Date/Time Test Type Test Details Facility Name Apr 03, 2024 10:52 AM Laboratory - Chemi stry Order ANCILLARY STREP (PB) THROAT PHARYNX SP [facility] Lab Results: +/- 30 days [...] Type Comment Apr 03, 2024 10:49 AM [facility] ANCILLARY STREP (PB) SWAB Specimen Type: SWAB Comment: Test performed by: Aurora Ashby [id number] Meter #: [id number] Ordering Provider: BRIGID DEGROOT Report Released Date/Time: Apr 03, 2024 10:56 AM Reporting Lab: [facility] [address] [facility] [address] Performing Lab: [facility] [address] [facility] [address] [facility] [address] ANCILLARY STREP (PB) negative Social History: Smoking [...] 2022 11:00 AM LIFETIME NON-SMOKER JOVAN PAREKH [facility] Advance Directives: All historical and current Section Date Range: From patient's date of to the date document was created. This section includes ALL of a patient's completed or amended [place] Advance and Rescinded Directives. The entries below indicate that a directive exists for the patient, but an actual copy is not included with this document. The data comes from all [place] facilities. Date Advance Directives Provider Source Oct 19, 2015 ADVANCE DIRECTIVE DISCUSSION GAVINO CHENEY [facility] Encounter Notes: All associated encounter notes This section contains the clinical notes associated to the Encounter. Date/Time Encounter Note(s) Provider Source Apr 16, 2024 09:36 AM PSYCHIATRY NOTE: LOCAL TITLE: PSYCHIATRIC PROGRESS NOTE STANDARD TITLE: PSYCHIATRY NOTE DATE OF NOTE: APR 16, 2024@09:36 ENTRY DATE: APR 16, 2024@09:36:25 AUTHOR: LIV CAMPBELL COSIGNER: URGENCY: STATUS: COMPLETED Consent: provided verbal consent for receiving care through the modality of [facility]. Patient verified date of and full name. RENU ZAPATA is a 43 y/o MALE Note from previous visit was reviewed: Yes Reviewed progress notes Denies any SI/HI plans or intent Chief Complaint: Med Management History of Present Illness: reports since last seen has been doing good. He states the depression has gotten slightly better. He states he had a good Sotero. He states he went to [place] after [place] and spent the next few days with his 's family. The Devon would currently rate depression to be 2 /10 with 10 being the worst. Denies any Suicidal Ideations plans or intent. Devon denies any feelings of hopelessness. He states memory is doing as good as it always has been. He states his handles most of the execute things but states he is talking to people. He states anxiety overall has been doing okay. He states he is having more good than bad days. He states PTSD sx are doing the same. He states he slept good last night, but states his back has been bothering him. He states he sleeps good about every 3rd night. Past Suicide Attempts: Denies Protective Factors: Children [...] TBI with memory issues MDD, recurrent, mild to partial remission PTSD, chronic, secondary to combat AVELINA Plan: 1. Medications: Discussed medication in detail with the Devon. No med changes.Will continue Wellbutrin 150mg daily for mood and [...] Safety Planning was reviewed with the patient. Devon is aware if patient begins having any suicidal or homicidal ideations this is an emergency and Devon needs to call 9-11 or go to the nearest ED. Discussed [facility] Crisis [facility] [phone]. 5. Patient should follow-up 1 month Patient is encouraged to call with any questions or concerns. Instructed Devon to follow up with his primary care provider routinely and as needed for wellness and any medical concerns. Return to [facility] for ongoing medication management, psychoeducation and supportive [...] Liv Campbell DO, MA John J Pershing [facility] Signed: 04/16/2024 09:37 [facility] CAMP[facility]LL [facility] Apr 16, 2024 09:30 AM PRIMARY CARE EDUCA TION NOTE: LOCAL TITLE: OPT PHY INSTR AUTO PB STANDARD TITLE: PRIMARY CARE EDUCATION NOTE DATE OF NOTE: APR 16, 2024@09:30 ENTRY DATE: APR 16, 2024@09:31:01 AUTHOR: LIV CAMPBELL EXP COSIGNER: URGENCY: STATUS: COMPLETED This documentation is related to: . F/U Visit Description of Today's Injury/Illness: Memory, MDD, PTSD and AVELINA Mental Health Testing: RETURN TO CLINIC: Return appointment is needed. . Special Instructions: . MEDICATION REVIEW/ASSESSMENT & PLAN: No med changes RTC 1 month on stim Active Outpatient Medications (including Supplies): Active Outpatient [...] IN 24 HOURS. Indication: FOR MIGRAINE HEADACHE Medication reconciliation performed with confirmed /significant other and /significant other voiced an understandng of current medications? Yes /significant other were provided an updated medication list. Following results reviewed and discussed with patient: Future Appointments: 05/07/2024 09:45 [facility] [place] 05/07/2024 09:46 [facility] [place] 06/11/2024 09:15 [facility] [place] 06/11/2024 09:16 PB-[facility] [place] 07/01/2024 08:40 [facility] ( 07/08/2024 10:00 PB-CELENA CVT PACT DELTA(PRO 07/08/2024 10:01 PB-[facility] CVT PACT DELTA(PAT 07/09/2024 11:45 PB-[facility] CVT [facility] [place] 07/09/2024 11:46 PB-[facility] [place] 08/06/2024 09:45 PB-[facility] [place] 08/06/2024 09:46 PB-[facility] [place] 09/03/2024 09:15 PB-[facility] [place] 09/03/2024 09:16 PB-[facility] [place] 10/02/2024 10:45 PB-[facility] [place] 10/02/2024 10:46 PB-[facility] [place] /es/ Liv Campbell DO, MA [facility] Signed: 04/16/2024 09:33 [facility]AMP[facility] Apr 16, 2024 09:15 AM ACCOUNTING OF DISC LOSURES NOTE: LOCAL TITLE: STATE PRESCRIPTION DRUG MONITORING PROGRAM STANDARD TITLE: ACCOUNTING OF DISCLOSURES NOTE DATE OF NOTE: APR 16, 2024@09:15:11 ENTRY DATE: APR 16, 2024@09:15:11 AUTHOR: LIV CAMPBELL EXP COSIGNER: URGENCY: STATUS: COMPLETED This PDMP query was submitted by Liv Campbell DO. The clinical justification for this PDMP query is to review controlled substances prescribed outside of the [facility], and any additional information that may become available, as an important component of standard clinical care, and in accordance with [facility] policy. Patient information was shared with the PDMP [place]. No prescription(s) for controlled substances outside the [facility] were found in the last 90 days. /es/ Liv Campbell DO, MA John J Pershing [facility] Signed: 04/16/2024 09:15 [facility]AMP[facility]
--- OUTSIDE RECORDS SUMMARY | 2024-05-07 04:45 | XMS_ITS | Encounter Summary ---
Author Name [facility] [place] [facility] [place] [facility] [place] Address [address] [place] [address] Care Team Providers Care Wheel And Caster Repairer Name Role Phone NELIDASERGIO KeatingE Primary Care Provider CHANNING Mann Primary Care Provider Juan cabrera Selected Encounter This section includes the information on record at [place] for the Encounter. Date/Time Encounter Type Encounter Description Reason Provider Source May 07, 2024 09:45 AM [facility]ALTH FACILITY [facility] ICD-10-CM F33.0 Major depressive disorder, recurrent, mild [facility] Encounter Template Text not used by [place] Assessments - Encounter Diagnoses This section includes the primary and secondary diagnoses documented for the Encounter. Date/Time Primary/Secondary Diagnosis Diagnosis Name Provider Source May 07, 2024 10:06 AM PRIMARY Major depressive disorder, recurrent, mild [facility] May 07, 2024 10:06 AM SECONDARY Chronic post-traumatic headache, not intractable [facility] May 07, 2024 10:06 AM SECONDARY Generalized anxiety disorder [facility] May 07, 2024 10:06 AM SECONDARY Oth symptoms and signs w cognitive functions and awareness [facility] Plan of Treatment: Future Appointments (+ 6 months) and Future Tests (+/- 45 days) The Plan of Treatment section includes future care activities for the [facility] [place] [facility] This section includes future appointments and future orders which are active, pending or scheduled. Future Appointments This section includes appointments that were scheduled to occur 6 months from the date of the Encounter, up to a maximum of 20 appointments. The data comes from all [facility]. Appointment Date/Time Appointment Type Appointme nt Facility Name Jun 11, 2024 09:15 AM AMBULATORY - PS[facility]ATRY [facility] Jun 11, 2024 09:16 AM AMBULATORY - MEDICINE [facility] Jul 01, 2024 08:40 AM AMBULATORY - MEDICINE [facility] Jul 08, 2024 10:00 AM AMBULATORY - MEDICINE [facility] Jul 08, 2024 10:01 AM AMBULATORY - MEDICINE [facility] Jul 09, 2024 11:45 AM AMBULATORY - PS[facility]CHIATRY [facility] Jul 09, 2024 11:46 AM AMBULATORY - MEDICINE [facility] Aug 06, 2024 09:45 AM AMBULATORY - PS[facility]CHIATRY [facility] Aug 06, 2024 09:46 AM AMBULATORY - MEDICINE [facility] August 13, 2024 10:00 AM AMBULATORY - MEDICINE [facility] August 13, 2024 10:01 AM AMBULATORY - MEDIC[facility] September 10, 2024 09:15 AM AMBULATORY - PSYCHIATRY [facility] September 10, 2024 09:16 AM AMBULATORY - MEDICINE [facility] Oct 02, 2024 10:45 AM AMBULATORY - PS[facility]CHIATRY [facility] Oct 02, 2024 10:46 AM AMBULATORY - MEDICINE [facility] Oct 29, 2024 09:15 AM AMBULATORY - PS[facility]CHIATRY [facility] Oct 29, 2024 09:16 AM AMBULATORY - MEDICINE [facility] Active, Pending, and Scheduled Orders This section includes a listing of several types of active, pending, and scheduled orders, including clinic medications orders, diagnostic test orders, procedure orders and consult orders; where the start date of the order is 45 days before the date of the Encounter or 45 days after the date of theEncounter. The data comes from all [facility]. Test Date/Time Test Type Test Details Facility Name Apr 03, 2024 10:52 AM Laboratory - Chemi stry Order ANCILLARY STREP (PB) THROAT PHARYNX SP [facility] Vital Signs: All taken on the encounter date This section contains inpatient and outpatient Vital Signs collected on the date of the Encounter. Date/Time Temperature Pulse Blood Pressure Respiratory Rate SP02 Pain Height Weight Body Mass Index Source May 07, 2024 09:45 AM 98.7 72 149/91 18 99 6 210.3 29 [facility] Social History: Smoking Status (Most current) and [...] 2023 09:00 AM VA-TOBACCO USER EVERY DAY [facility] Tobacco Use History This section includes a history of the smoking, or tobacco-related health factors, that were collected on or before the date of the Encounter. The data comes from the [place] facility where the Encounter took place. Date/Time Smoking Status/Tobacco Use Comment F acility August 29, 2023 09:00 AM VA-TOBACCO USE ADVICE [facility] August 29, 2023 09:00 AM VA-TOBACCO USE GARNETT FIXER NO [facility] August 29, 2023 09:00 AM VA-TOBACCO USE MED NO [facility] August 29, 2023 09:00 AM VA-TOBACCO USE WI 30 MIN OF WAKE UP [facility] August 29, 2023 09:00 AM VA-TOBACCO USER EVERY DAY [facility] Sep 21, 2022 10:30 AM VA-TOBACCO DOESNT USE WI 30 MIN WAKEUP [facility] Sep 21, 2022 10:30 AM VA-TOBACCO USE > 1 5 LESS THAN 30 YEARS [facility] Sep 21, 2022 10:30 AM VA-TOBACCO USE ADVICE [facility] Sep 21, 2022 10:30 AM VA-TOBACCO USE GARNETT FIXER YES [facility] Sep 21, 2022 10:30 AM VA-TOBACCO USE MED NO [facility] Sep 21, 2022 10:30 AM VA-TOBACCO USER EVERY DAY [facility] Sep 15, 2021 11:00 AM VA-TOBACCO DOESNT USE WI 30 MIN WAKEUP [facility] Sep 15, 2021 11:00 AM VA-TOBACCO USE 5 TO 15 YEARS [facility] Sep 15, 2021 11:00 AM VA-TOBACCO USE ADVICE [facility] Sep 15, 2021 11:00 AM VA-TOBACCO USE GARNETT FIXER NO [facility] Sep 15, 2021 11:00 AM VA-TOBACCO USE MED NO [facility] Sep 15, 2021 11:00 AM VA-TOBACCO USER EVERY DAY [facility] Sep 21, 2020 10:01 AM VA-TOBACCO DOESNT USE WI 30 MIN WAKEUP [facility] Sep 21, 2020 10:01 AM VA-TOBACCO USE > 1 5 LESS THAN 30 YEARS [facility] Sep 21, 2020 10:01 AM VA-TOBACCO USE ADVICE [facility] Sep 21, 2020 10:01 AM VA-TOBACCO USE GARNETT FIXER NO [facility] Sep 21, 2020 10:01 AM VA-TOBACCO USE MED NO [facility] Sep 21, 2020 10:01 AM VA-TOBACCO USER EVERY DAY [facility] Advance Directives: All historical [...] 19, 2015 ADVANCE DIRECTIVE DISCUSSION GAVINO [facility] Encounter Notes: All associated encounter notes This section contains the clinical notes associated to the Encounter. Date/Time Encounter Note(s) Provider Source May 07, 2024 10:14 AM NURSING NOTE: LOCAL TITLE: [facility] NURSING EXIT NOTE PB STANDARD TITLE: NURSING NOTE DATE OF NOTE: MAY 07, 2024@10:14 ENTRY DATE: MAY 07, 2024@10:14:58 AUTHOR: KEIRA HOOD COSIGNER: URGENCY: STATUS: COMPLETED EXIT INTERVIEW Location: [facility] Ambulatory Appointment Reviewed: Instructions: CLINIC: Sent to Pharmacy for medications and instructions: Lab Instructions: Special Instructions: Verbalized understanding of today's visit: Patient Is patient's pain under control at time of exit? Yes Discussed walk-in and after-hour services. verbalized understanding. Encouraged to seek treatment if change in status. Contact information and hours of operation given. Hampton voiced no questions or concerns, he was escorted to room 115 and this nurse completed an EKG for QTc monitoring. then was escorted to the [facility] in satisfactory condition, scheduling for his next appt. /ernesto/ ANN WEN, RN [facility] Signed: 05/07/2024 11:01 KEIRA HOOD [facility] May 07, 2024 09:54 AM ADMINISTRATIVE NOT E: LOCAL TITLE: ADMINISTRATIVE NOTE PB STANDARD TITLE: ADMINISTRATIVE NOTE DATE OF NOTE: MAY 07, 2024@09:54 ENTRY DATE: MAY 07, 2024@09:54:09 AUTHOR: KEIRA HOOD EXP COSIGNER: URGENCY: STATUS: COMPLETED Hampton is her for his scheduled telemed psychiatry appt. He is alert and oriented, resps even and unlabored, gait steady. is pleasant and conversational, states he has been doing good. Active Outpatient Medications: Active Outpatient Medications (including [...] (D3-2,000UNIT) TAB TAKE TWO TABLETS BY ACTIVE (S) MOUTH ONCE A DAY Indication: FOR VITAMIN [...] TABLET BY MOUTH ONCE A DAY ACTIVE (S) Indication: FOR FOLIC ACID SUPPLEMENTATION 9) GABAPENTIN 400MG CAP TAKE ONE CAPSULE BY MOUTH AT BEDTIME ACTIVE (S) Indication: FOR NERVE PAIN 10) HYDROXYZINE HCL 25MG TAB TAKE ONE TABLET BY MOUTH TWICE ACTIVE (S) DAILY NEEDED *MAY CAUSE DROWSINESS* Indication: FOR ANXIETY 11) IBUPROFEN 800MG TAB TAKE ONE TABLET BY MOUTH THREE TIMES A ACTIVE (S) DAY NEEDED TAKE WITH FOOD. TAKE AT ONSET OF HEADACHE, WITH SUMATRIPTAN Indication: FOR HEADACHE 12) LEVOTHYROXINE NA (SYNTHROID) 112MCG TAB TAKE ONE TABLET BY ACTIVE (S) MOUTH EVERY MORNING BEFORE A MEAL FOR THYROID. TAKE 30 MINUTES BEFORE FOOD. TAKE SEPARATELY FROM ALL OTHER MEDICATIONS. 13) MIRTAZAPINE 45MG TAB TAKE ONE TABLET BY MOUTH AT BEDTIME ACTIVE (S) Indication: FOR INSOMNIA & MOOD 14) SUMATRIPTAN SUCCINATE 50MG TAB TAKE ONE TABLET BY MOUTH ACTIVE ONE-TIME TAKE AT ONSET OF HEADACHE. MAY REPEAT AFTER 2 HOURS. NOT TO EXCEED 2 TABLETS IN 24 HOURS. Indication: FOR MIGRAINE HEADACHE states he is taking the above meds as prescribed. He denies any change in side effects with amphetamine, bupropion, doxepin, hydroxyzine or mirtazapine and they are effective. Pain Assessment: - PAIN ASSESSMENT: .. This patient's last pain assessment score was: 6 (05/07/2024 09:45). A detailed pain assessment showed the following: Pain characteristics (per patient's own words) Constant Location of current pain Low Back, left knee Onset/Duration of the current pain. Constant or variable? More than a year Patient's self-identified pain level: 6 Hampton was escorted to room 128 for his appt with Dr Gregg, receiving good telemed transmission. /ernesto/ ANN WEN, RN [facility] Signed: 05/07/2024 11:09 [facility]
--- OUTSIDE RECORDS SUMMARY | 2024-05-07 05:01 | XMS_ITS ---
Author Name [facility] [place] [facility] [place] [facility] [place] Address [address] [place] [address] Care Team Providers Care Computer Service Technician Name Role Phone MIKAYLA BRIGID Primary Care Provider UnavailCHANNING Dawn Primary Care Provider Unavailevie cabrera Selected Encounter This section includes the information on record at [place] for the Encounter. Date/Time Encounter Type Encounter Description Reason Pro vider Source May 07, 2024 10:01 AM Outpatient En[facility] Encounter Template Text not used by [place] Plan of Treatment: Future Appointments (+ 6 [...] 2024 09:15 AM AMBULATORY - PS[facility]CHIATRY [facility] Jun 11, 2024 09:16 AM [facility] Jul 01, 2024 08:40 AM AMBULATORY - MEDICINE [facility] Jul 08, 2024 10:00 AM AMBULATORY - MEDICINE [facility] Jul 08, 2024 10:01 AM AMBULATORY - MEDICINE [facility] Jul 09, 2024 11:45 AM AMBULATORY - PSYCHIATRY [facility] Jul 09, 2024 11:46 AM [facility] Aug 06, 2024 09:45 AM AMBULATORY - PSYCHIATRY [facility] Aug 06, 2024 09:46 AM AMBULATORY - MEDICINE [facility] August 13, 2024 10:00 AM AMBULATORY - MEDICINE [facility] August 13, 2024 10:01 AM AMBULATORY - MEDICINE [facility] September 10, 2024 09:15 AM AMBULATORY - PSYCHIATRY [facility] September 10, 2024 09:16 AM AMBULATORY - MEDICINE [facility] Oct 02, 2024 10:45 AM AMBULATORY - PSYCHIATRY [facility] Oct 02, 2024 10:46 AM AMBULATORY - MEDICINE [facility] Oct 29, 2024 09:15 AM AMBULATORY - PSYCHIATRY [facility] Oct 29, 2024 09:16 AM AMBULATORY - MEDICINE [facility] Active, Pending, and Scheduled Orders This section includes a listing of several types of active, pending, and scheduled orders, including clinic medications orders, diagnostic test orders, procedure orders and consult orders; where the start date of the order is 45 days before the date of the Encounter or 45 days after the date of theEncounter. The data comes from all [place] treatment facilities. Test Date/Time Test Type Test Details Facility Name Apr 03, 2024 10:52 AM Laboratory - Chemi stry Order ANCILLARY STREP (PB) THROAT PHARYNX SP [facility] Social History: Smoking Status (Most current) [...] Jan 17, 2022 11:00 AM LIFETIME NON-SMOKER [facility] Advance Directives: All historical and current Section [...] 19, 2015 ADVANCE DIRECTIVE DISCUSSION GAVINO CHENEY [facility] Encounter Notes: All associated encounter notes This section contains the clinical notes associated to the Encounter. Date/Time Encounter Note(s) Provider Source May 07, 2024 01:26 PM CARDIOLOGY NOTE: LOCAL TITLE: CP EKG PB STANDARD TITLE: CARDIOLOGY NOTE DATE OF NOTE: MAY 07, 2024@13:26:15 ENTRY DATE: MAY 07, 2024@13:26:15 AUTHOR: CLINICAL,DEVICE PRO EXP COSIGNER: URGENCY: STATUS: COMPLETED PROCEDURE SUMMARY CODE: Machine Resulted DATE/TIME PERFORMED: MAY 07, 2024@09:53:5 DOCUMENT IN VISTA IMAGING SEE FULL REPORT IN VISTA IMAGING SIGNATURE NOT REQUIRED SEE SIGNATURE IN VISTA IMAGING (MUSE EKG POP) AUTO-INSTRUMENT DIAGNOSIS Procedure: [id number] 12 Lead ECG Release Status: Released Off-Line Verified Date Verified: May 07, 2024@13:26:14 94227.2 Ventricular Rate: 66 BPM 99637.3 Atrial Rate: 66 BPM 56249.4 P-R Interval: 144 ms 44456.5 QRS Duration: 82 ms 78346.6 Q-T Interval: 378 ms 10004 QTC Calculation(Bazett)396 ms 04695.12 Calculated P Starr: 55 degrees 40016.13 Calculated R Starr: 78 degrees 61965.14 Calculated T Starr: 77 degrees Normal sinus rhythm Possible Right ventricular hypertrophy Abnormal ECG When compared with ECG of 18-APR-2023 09:24, No significant change was found Confirmed by MILENA ROWE ([id number]) on 05/07/2024 1:26:08 PM Administrative Closure: 05/07/2024 by: CLINICAL,DEVICE PROXY SERVICE CLINICAL,DEVICE PROXY SERVICE [facility] P[facility]
--- OUTSIDE RECORDS SUMMARY | 2024-06-11 04:15 | XMS_ITS | Encounter Summary ---
Author Name [facility] [place] [facility] [place] Address [address] [place] [address] Care Team Providers Care Methodologist Name Role Phone NELIDASERGIO KeatingE Primary Care Provider Unavailabl CHANNING Parra Primary Care Provider Unavailevie e Selected Encounter This section includes the information on record at [place] for the Encounter. Date/Time Encounter Type Encounter Description Reason Provider Source Jun 11, 2024 09:15 AM [facility] - IND ICD-10-CM R41.89 Oth symptoms and signs w cognitive functions and awareness LIV GREGG Encounter Template Text not used by [place] Assessments - Encounter Diagnoses This section includes the primary and secondary diagnoses documented for the Encounter. Date/Time Primary/Secondary Diagnosis Diagnosis Name Provider Source Jun 11, 2024 09:49 AM PRIMARY Oth symptoms and signs w cognitive functions and awareness [facility] Jun 11, 2024 09:49 AM SECONDARY Generalized anxiety disorder [facility] Jun 11, 2024 09:49 AM SECONDARY Major depressive disorder, recurrent, in partial remission [facility] Jun 11, 2024 09:49 AM SECONDARY Post-traumatic stress disorder, chronic LIV GREGG [facility] Plan of Treatment: Future Appointments (+ 6 months) and Future Tests (+/- 45 days) The Plan of Treatment section includes future care activities for the patient [facility] [place] [facility] This section includes future appointments and future orders which are active, pending or scheduled. Future Appointments This section includes appointments that were scheduled to occur 6 months from the date of the Encounter, up to a maximum of 20 appointments. The data comes from all [facility] facilities. Appointment Date/Time Appointment Type Appointme nt Facility Name Jul 01, 2024 08:40 AM AMBULATORY - MEDICINE [facility] Jul 08, 2024 10:00 AM AMBULATORY - MEDICINE [facility] Jul 08, 2024 10:01 AM AMBULATORY - MEDICINE [facility] Jul 09, 2024 11:45 AM AM[facility] Jul 09, 2024 11:46 AM [facility] Aug 06, 2024 09:45 AM [facility] Aug 06, 2024 09:46 AM [facility] [place] [facility] August 13, 2024 10:00 AM AMBULATORY - MEDICINE [facility] August 13, 2024 10:01 AM AMBULATORY - MEDIC[place] [facility] September 10, 2024 09:15 AM [facility] September 10, 2024 09:16 AM AMBULATORY - MEDIC[place] [facility] Oct 02, 2024 10:45 AM AM[facility]UL[facility]ORY [facility] Oct 02, 2024 10:46 AM AMBULATORY - MEDICINE [place] [facility] Oct 29, 2024 09:15 AM AM[facility] - [facility] Oct 29, 2024 09:16 AM AMBULATORY - MEDICINE [place] [facility] Lab Results: [...] Unit Interpretation Reference Range Specimen Type Comment Jul 09, 2024 12:16 PM [facility] DRUG SCREEN URINE-inhouse (PB) URINE Specimen Type: URINE No comment entered. Ordering Provider: LIV GREGG Report Released Date/Time: Jul 09, 2024 12:12 PM Reporting Lab: [place] [facility] [address] [place] [address] Performing Lab: [place] [facility] [address] [place] [address] METHADONE Negative Negative OPIATES (PB) Negative Negative COCAINE... Negative Negative THC(Marijuana... Negative Negative BENZODIAZEPINE (PB) Negative Negative AMPHETAMINE... Negative Negative CREATININE URINE/OTHERS 23.47 mg/dL OXYCODONE (FAJKK-CXL-DC) Negative Negati ve BUPRENORPHINE (STL-PB-MA) Negative ng/mL Negative ETHANOL URINE <10 mg/dL L 0-20 FENTANYL, URINE (PB) Negative ng/mL Jul 01, 2024 08:37 AM [facility] B12 SERUM Specimen Type: SERUM No comment entered. Ordering Provider: BRIGID DEGROOT Report Released Date/Time: Jul 10, 2023 03:48 PM Reporting Lab: [place] [facility] [address] [place] [address] Performing Lab: [place] [facility] [address] [place] [address] B12 706 pg/mL 213-816 Jul 01, 2024 08:37 AM [facility] FOLATE (PB) SERUM Specimen Typ e: SERUM No comment entered. Ordering Provider: BRIGID DEGROOT Report Released Date/Time: Jul 10, 2023 03:48 PM Reporting Lab: [place] [facility] [address] [place] [address] Performing Lab: [place] [facility] [address] [place] [address] FOLATE (PB) 17.1 ng/mL 7-20 Jul 01, 2024 08:37 AM [facility] HGA1C BLOOD Specimen Type: BLOOD No comment entered. Ordering Provider: BRIGID DEGROOT Report Released Date/Time: Jul 10, 2023 03:48 PM Reporting Lab: [place] [facility] [address] [place] [address] Performing Lab: [place] [facility] [address] [place] [address] HGA1C 6.3 H 4.0-6.0 Jul 01, 2024 08:37 AM [facility] COMPREHENSIVE METABOLIC PANEL PLASMA Specimen Type: PLASMA No comment entered. Ordering Provider: BRIGID DEGROOT Report Released Date/Time: Jul 10, 2023 03:48 PM Reporting Lab: [place] [facility] [address] [place] [address] Performing Lab: [place] [facility] [address] [place] [address] CREATININE 0.81 mg/dL 0.7-1.3 UREA NITROGEN 11 mg/dL 9-25 GLUCOSE 104 mg/dL H 72-99 SODIUM 141 meq/L 136-145 POTASSIUM 3.9 meq/L 3.5-5 CHLORIDE 106 meq/L 98-107 CARBON DIOXIDE 25 meq/L 22-31 CALCIUM 9.0 mg/dL 8.4-10.4 PROTEIN 7.7 g/dL 6-8.6 ALBUMIN 4.8 g/dL 3.4-5 TOTAL BILIRUBIN 0.1 mg/dL L 0.2-1.2 ALKALINE PHOSPHATASE 67 U/L 40-150 AST/SGOT 36 U/L H 5-34 ALT/SGPT 36 U/L 8-40 EGFR (CKD-EPI 2020) 111 Jul 01, 2024 08:37 AM [facility] CHOLESTEROL PANEL (PB) PLASMA Specimen Type: P LASMA No comment entered. Ordering Provider: BRIGID DEGROOT Report Released Date/Time: Jul 10, 2023 03:48 PM Reporting Lab: [place] [facility] [address] [place] [address] Performing Lab: [place] [facility] [address] [place] [address] CHOLESTEROL 197 mg/dL 0-200 TRIGLYCERIDE 81 mg/dL 0-150 CALCULATED LDL 122.8 mg/dL HDL(New) 58.0 mg/dL H >40 HDL % OF TOTAL CHOLESTEROL (PB) 29.4 >25 Jul 01, 2024 08:37 AM [facility] TSH (MA-PB) SERUM Specimen Typ e: SERUM No comment entered. Ordering Provider: BRIGID DEGROOT Report Released Date/Time: Jul 10, 2023 03:48 PM Reporting Lab: [place] [facility] [address] [place] [address] Performing Lab: [place] [facility] [address] [place] [address] TSH 1.968 u[IU]/mL 0.47-5 Jul 01, 2024 08:37 AM [facility] VITAMIN D, 25-HYDROXY SERUM Specimen Type: SE RUM No comment entered. Ordering Provider: BRIGID DEGROOT Report Released Date/Time: Jul 10, 2023 03:48 PM Reporting Lab: [place] [facility] [address] [place] [address] Performing Lab: [place] [facility] [address] [place] [address] VITAMIN D, 25-HYDROXY 77.2 ng/mL 30-96 Jul 01, 2024 08:37 AM [facility] CBC BLOOD Specimen Type: BLOOD No comment entered. Ordering Provider: BRIGID DEGROOT Report Released Date/Time: Jul 10, 2023 03:48 PM Reporting Lab: [place] [facility] [address] [place] [address] Performing Lab: [place] [facility] [address] [place] [address] WBC 9.5 10*3/uL 3.6-11.2 RBC 4.49 10*6/uL 4.10-5.70 HGB 10.9 g/dL L 13.1-16.8 HCT 34.4 L 38.2-48.4 MCV 76.6 fL L 80.0-100.0 MCH 24.3 pg L 27.0-34.0 MCHC 31.7 g/dL L 33.0-36.0 PLT 320 10*3/uL 150-400 MPV 9.2 fL 7.5-11.2 RDW 14.4 11.8-15.1 LYMPHOCYTES, AUTO % 23.0 MONOCYTES, AUTO % 8.4 NEUTROPHILS, AUTO % 66.1 EOSINOPHILS, AUTO % 1.9 BASOPHILS, AUTO % 0.5 LYMPHOCYTES, ABSOLUTE 2.19 10*3/uL 0.77- 4.50 MONOCYTES, ABSOLUTE 0.80 10*3/uL 0.19-0. 8 NEUTROPHILS, ABSOLUTE 6.30 10*3/uL 2.10- 8.00 EOSINOPHILS, ABSOLUTE 0.18 10*3/uL 0.00- 0.60 BASOPHILS, ABSOLUTE 0.05 10*3/uL 0.00-0. 20 IMMATURE GRANS, AUTO % 0.1 IMMATURE GRANS, AUTO ABS 0.01 10*3/uL 0. 00-0.05 Vital Signs: All taken on the encounter date This section contains inpatient and outpatient Vital Signs collected on the date of the Encounter. Date/Time Temperature Pulse Blood Pressure Respiratory Rate SP02 Pain Height Weight Body Mass Index Source Jun 11, 2024 09:15 AM 98.6 70 138/87 20 100 3 72 210.7 29 [facility] Social History: Smoking Status (Most current) [...] 2023 09:00 AM VA-TOBACCO USER EVERY DAY [facility] Tobacco Use History This section includes a history of the smoking, or tobacco-related health factors, that were collected on or before the date of the Encounter. The data comes from the [place] facility where the Encounter took place. Date/Time Smoking Status/Tobacco Use Comment F acility August 29, 2023 09:00 AM VA-TOBACCO USE ADVICE [facility] August 29, 2023 09:00 AM VA-TOBACCO USE [place] NO [facility] August 29, 2023 09:00 AM VA-TOBACCO USE MED NO [facility] August 29, 2023 09:00 AM VA-TOBACCO USE WI 30 MIN OF WAKE UP [facility] August 29, 2023 09:00 AM VA-TOBACCO USER EVERY DAY [facility] Sep 21, 2022 10:30 AM VA-TOBACCO DOESNT USE WI 30 MIN WAKEUP [facility] Sep 21, 2022 10:30 AM VA-TOBACCO USE > 1 5 LESS THAN 30 YEARS [facility] Sep 21, 2022 10:30 AM VA-TOBACCO USE ADVICE [place] [facility] Sep 21, 2022 10:30 AM VA-TOBACCO USE [place] [place] [facility] Sep 21, [...] Sep 15, 2021 11:00 AM VA-TOBACCO USE [place] [facility] Sep 15, [...] 21, 2020 10:01 AM VA-TOBACCO USE ADVICE [facility] Sep 21, 2020 10:01 AM VA-TOBACCO USE [place] [facility] Sep 21, 2020 10:01 AM VA-TOBACCO USE MED NO [place] [facility] Sep 21, 2020 10:01 AM VA-TOBACCO USER EVERY DAY [facility] [place] [facility] Advance Directives: All historical and [...] 19, 2015 ADVANCE DIRECTIVE DISCUSSION GAVINO CHENEY [facility] Encounter Notes: All associated encounter notes This section contains the clinical notes associated to the Encounter. Date/Time Encounter Note(s) Provider Source Jun 11, 2024 09:50 AM NURSING NOTE: LOCAL TITLE: PCMHI/IP NURSING EXIT NOTE PB STANDARD TITLE: NURSING NOTE DATE OF NOTE: JUN 11, 2024@09:50 ENTRY DATE: JUN 11, 2024@09:50:44 AUTHOR: KEIRA HOOD COSIGNER: URGENCY: STATUS: COMPLETED EXIT INTERVIEW Location: [facility] Ambulatory Appointment Reviewed: Instructions: CLINIC: Sent to Pharmacy for medications and instructions: Lab Instructions: Special Instructions: Verbalized understanding of today's visit: Patient Is patient's pain under control at time of exit? Yes Discussed walk-in and after-hour services. Oxford verbalized understanding. Encouraged to seek treatment if change in status. Contact information and hours of operation given. Oxford voiced no questions or concerns, [facility] and scheduling for his next appt. /ernesto/ ANN WEN, RN [facility] Signed: 06/11/2024 11:48 [facility] Jun 11, 2024 09:49 AM ACCOUNTING OF DISC LOSURES NOTE: LOCAL TITLE: STATE PRESCRIPTION DRUG MONITORING PROGRAM STANDARD TITLE: ACCOUNTING OF DISCLOSURES NOTE DATE OF NOTE: JUN 11, 2024@09:49:29 ENTRY DATE: JUN 11, 2024@09:49:29 AUTHOR: LIV GREGG COSIGNER: URGENCY: STATUS: COMPLETED This PDMP query was submitted by Liv Gregg DO. The clinical justification for this PDMP query is to review controlled substances prescribed outside of the [facility], and any additional information that may become available, as an important component of standard clinical care, and in accordance with [facility] policy. Patient information was shared with the PDMP [employer]. No prescription(s) for controlled substances outside the [facility] were found in the last 90 days. /ernesto/ Liv Gregg DO, MA [facility] Signed: 06/11/2024 09:49 [facility] GREGG [facility] Jun 11, 2024 09:14 AM NURSING PROGRESS N OTE: LOCAL TITLE: NURSING NOTE PB STANDARD TITLE: NURSING PROGRESS NOTE DATE OF NOTE: JUN 11, 2024@09:14 ENTRY DATE: JUN 11, 2024@09:14:27 AUTHOR: KEIRA HOOD EXP COSIGNER: URGENCY: STATUS: COMPLETED Oxford is here for his scheduled telemed psychiatry appt. He is alert and oriented, resps even and unlabored, gait steady. Oxford is pleasant and conversational, stated he has been doing ok. Pain Assessment: - PAIN ASSESSMENT: .. Patient is reporting some pain. PAIN SCORE TODAY: 3- not bad Patient's self-identified pain level: 3 was escorted to room 128 for his appt with Dr Gregg, receiving good telemed transmission. /ernesto/ ANN WEN, RN [facility] Signed: 06/11/2024 16:33 [facility]
--- OUTSIDE RECORDS SUMMARY | 2024-06-11 04:16 | XMS_ITS ---
Author Name [facility] Organization [facility] Address [address] [place] [address] Care Team Providers Care Au Pair Name Role Phone BRIGID DEGROOT Primary Care Provider Unavailabl CHANNING Parra Primary Care Provider Unavailevie e Selected Encounter This section includes the information on record at [place] for the Encounter. Date/Time Encounter Type Encounter Description Reason Provider Source Jun 11, 2024 09:16 AM SYNCH AUDIO-VIDEO EST MOD [facility] - IND ICD-10-CM R41.89 Oth symptoms and signs w cognitive functions and awareness LIV CAMPBELL Encounter Template Text not used by [place] Assessments - Encounter Diagnoses This section includes the primary and secondary diagnoses documented for the Encounter. Date/Time Primary/Secondary Diagnosis Diagnosis Name Provider Source Jun 11, 2024 09:48 AM PRIMARY Oth symptoms and signs w cognitive functions and awareness LIV CAMPBELL [facility] Jun 11, 2024 09:48 AM SECONDARY Generalized anxiety disorder LIV CAMPBELL [facility] Jun 11, 2024 09:48 AM SECONDARY Major depressive disorder, recurrent, in partial remission LIV CAMPBELL [facility] Jun 11, 2024 09:48 AM SECONDARY Post-traumatic stress disorder, chronic [facility] Plan of Treatment: Future Appointments (+ 6 months) and Future Tests (+/- 45 days) The Plan of Treatment section includes future care activities for the patient [facility] This section includes future appointments and future orders which are active, pending or scheduled. Future Appointments This section includes appointments that were scheduled to occur 6 months from the date of the Encounter, up to a maximum of 20 appointments. The data comes from all [place] treatment facilities. Appointment Date/Time Appointment Type Appointme nt Facility Name Jul 01, 2024 08:40 AM AMBULATORY - MEDICINE [facility] Jul 08, 2024 10:00 AM AMBULATORY - MEDICINE [facility] Jul 08, 2024 10:01 AM AMBULATORY - MEDICINE [facility] Jul 09, 2024 11:45 AM AMBULATORY - PSYCHIATRY [facility] Jul 09, 2024 11:46 AM [facility] [place]IC[place] [facility] Aug 06, 2024 09:45 AM AMBULATORY - PSYCHIATRY [facility] Aug 06, 2024 09:46 AM [facility] [place]IC[place] [facility] August 13, 2024 10:00 AM AMBULATORY - MEDICINE [facility] August 13, 2024 10:01 AM AMBULATORY - MEDIC[place] [facility] September 10, 2024 09:15 AM AMBULATORY - PSYCHIATRY [facility] September 10, 2024 09:16 AM AMBULATORY - MEDIC[place] [facility] Oct 02, 2024 10:45 AM AMBULATORY - PSYCHIATRY [facility] Oct 02, 2024 10:46 AM AM[facility]ORY - MEDIC[place] [facility] Oct 29, 2024 09:15 AM AMBULATORY - PSYCHIATRY [facility] Oct 29, 2024 09:16 AM AMBULATORY - MEDICINE [place] [facility] Lab Results: +/- 30 days of the encounter This section includes the Chemistry and Hematology Lab Results on record with [place] for the patient. Radiology Reports and Pathology Reports are provided separately, in subsequent sections. Lab Results This section contains the Chemistry/Hematology Results that were resulted 30 days before or 30 daysafter the date of the Encounter. Date/Time Source Result Type Result - Unit Interpretation Reference Range Specimen Type Comment Jul 09, 2024 12:16 PM [facility] DRUG SCREEN URINE-inhouse (PB) URINE Specimen Type: URINE No comment entered. Ordering Provider: LIV CAMPBELL Report Released Date/Time: Jul 09, 2024 12:12 PM Reporting Lab: [place] [facility] [address] [place] [address] Performing Lab: [place] [facility] [address] [place] [address] METHADONE Negative Negative OPIATES (PB) Negative Negative COCAINE... Negative Negative THC(Marijuana... Negative Negative BENZODIAZEPINE (PB) Negative Negative AMPHETAMINE... Negative Negative CREATININE URINE/OTHERS 23.47 mg/dL OXYCODONE (RVFCH-MGV-NX) Negative Negati ve BUPRENORPHINE (STL-PB-MA) Negative ng/mL Negative ETHANOL URINE <10 mg/dL L 0-20 FENTANYL, URINE (PB) Negative ng/mL Jul 01, 2024 08:37 AM [place] [facility] B12 SERUM Specimen Type: SERUM No comment entered. Ordering Provider: BRIGID DEGROOT Report Released Date/Time: Jul 10, 2023 03:48 PM Reporting Lab: [place] [facility] [address] [place] [address] Performing Lab: [place] [facility] [address] [place] [address] B12 706 pg/mL 213-816 Jul 01, 2024 08:37 AM [facility] FOLATE (PB) SERUM Specimen Typ e: SERUM No comment entered. Ordering Provider: BRIGID DEGROOT Report Released Date/Time: Jul 10, 2023 03:48 PM Reporting Lab: [place] [facility] [address] [place] [address] Performing Lab: [place] [facility] [address] [place] [address] FOLATE (PB) 17.1 ng/mL 7-20 Jul 01, 2024 08:37 AM [facility] HGA1C BLOOD Specimen Type: BLOOD No comment entered. Ordering Provider: BRIGID DEGROOT Report Released Date/Time: Jul 10, 2023 03:48 PM Reporting Lab: [place] [facility] [address] [place] [address] Performing Lab: [place] [facility] [address] [place] [address] HGA1C 6.3 H 4.0-6.0 Jul 01, 2024 08:37 AM [facility] COMPREHENSIVE METABOLIC PANEL PLASMA Specimen Type: PLASMA No comment entered. Ordering Provider: BRIGID DEGROOT Report Released Date/Time: Jul 10, 2023 03:48 PM Reporting Lab: [place] [facility] [address] [place] [address] Performing Lab: [place] [facility] [address] [place] [id number] CREATININE 0.81 mg/dL 0.7-1.3 UREA NITROGEN 11 [...] 2020) 111 Jul 01, 2024 08:37 AM [facility] CHOLESTEROL PANEL (PB) PLASMA Specimen Type: P LASMA No comment entered. Ordering Provider: BRIGID DEGROOT Report Released Date/Time: Jul 10, 2023 03:48 PM Reporting Lab: [place] [facility] [address] [place] [address] Performing Lab: [place] [facility] [address] [place] [address] CHOLESTEROL 197 mg/dL 0-200 TRIGLYCERIDE 81 mg/dL 0-150 CALCULATED LDL 122.8 mg/dL HDL(New) 58.0 mg/dL H >40 HDL % OF TOTAL CHOLESTEROL (PB) 29.4 >25 Jul 01, 2024 08:37 AM [facility] VITAMIN D, 25-HYDROXY SERUM Specimen Type: SE RUM No comment entered. Ordering Provider: KUZAS,BRIGID R Report Released Date/Time: Jul 10, 2023 03:48 PM Reporting Lab: [place] [facility] [address] [place] [address] Performing Lab: [place] [facility] [address] [place] [address] VITAMIN D, 25-HYDROXY 77.2 ng/mL 30-96 Jul 01, 2024 08:37 AM [facility] TSH (MA-PB) SERUM Specimen Typ e: SERUM No comment entered. Ordering Provider: BRIGID DEGROOT R Report Released Date/Time: Jul 10, 2023 03:48 PM Reporting Lab: [place] [facility] [address] [place] [address] Performing Lab: [place] [facility] [address] [place] [phone] TSH 1.968 u[IU]/mL 0.47-5 Jul 01, 2024 08:37 AM [facility] CBC BLOOD Specimen Type: BLOOD No comment entered. Ordering Provider: BRIGID DEGROOT R Report Released Date/Time: Jul 10, 2023 03:48 PM Reporting Lab: [place] [facility] [address] [place] [address] Performing Lab: [place] [facility] [address] [place] [address] WBC 9.5 10*3/uL 3.6-11.2 RBC 4.49 10*6/uL [...] GRANS, AUTO ABS 0.01 10*3/uL 0. 00-0.05 Social History: Smoking Status (Most current) and Tobacco Use (All prior to encounter date) This section includes the most current, and the historical, smoking and tobacco- related health factors from the [place] facility where the Encounter took place. Current Smoking Status This section includes the most current smoking, or tobacco-related health factor, from the [place] facility where the Encounter took place. Date/Time Current Smoking Status Comment Facil ity Jan 17, 2022 11:00 AM LIFETIME NON-SMOKER [facility] Advance Directives: All historical and current Section Date Range: From patient's date of to the date document was created. This section includes ALL of a patient's completed or amended [place] Advance and Rescinded Directives. The entries below indicate that a directive exists for the patient, but an actual copy is not included with this document. The data comes from all [place] facilities. Date Advance Directives Provider Source Oct 19, 2015 ADVANCE DIRECTIVE DISCUSSION GAVINO CHENEY [facility] Encounter Notes: All associated encounter notes This section contains the clinical notes associated to the Encounter. Date/Time Encounter Note(s) Provider Source Jun 11, 2024 09:45 AM PSYCHIATRY NOTE: LOCAL TITLE: PSYCHIATRIC PROGRESS NOTE STANDARD TITLE: PSYCHIATRY NOTE DATE OF NOTE: JUN 11, 2024@09:45 ENTRY DATE: JUN 11, 2024@09:45:19 AUTHOR: LIV CAMPBELL COSIGNER: URGENCY: STATUS: COMPLETED Consent: Mabank provided verbal consent for receiving care through the modality of [facility]. Patient verified date of and full name. RENU ZAPATA is a 43 y/o MALE Note from previous visit was reviewed: Yes Reviewed progress notes Denies any SI/HI plans or intent Chief Complaint: Med Management History of Present Illness: Mabank reports since last seen has been doing good. He states the property stuff is coming along slowly. He states they decided to officially to just build. The would currently rate depression to be low. He states he is getting enjoyment. Denies any Suicidal Ideations plans or intent. Mabank denies any feelings of hopelessness. He states he anxiety has not been to bad. He states he had an easy going week. He states the PTSD sx are doing about the same. He states they are always there but he lives with it. He states memory is doing the same. He states he is eating well. He denies any cardiac feelings. Mabank denies any adverse side effects to medication. Past Suicide Attempts: Denies Protective Factors: Children [...] firearms: Declined to answer Discussed firearm safety. Mabank is aware this narrator recommends firearm be [...] Assessment: TBI with memory issues MDD, recurrent, partial remission PTSD, chronic, secondary to combat AVELINA Plan: 1. Medications: Discussed medication in detail with the . No med changes.Will continue Wellbutrin 150mg daily [...] alcohol and not to drive if sedated. Mabank also warned of risks of treatment noncompliance and/or refusal. Informed consent obtained and med reconciliation completed. 2. Labs: None ordered UDS neg on 12/05/23: will order at next appt EKG QTc 396ms on 05/07/24 3. Consults/Medical: None ordered. 4. Safety Planning was reviewed with the patient. Mabank is aware if patient begins having any suicidal or homicidal ideations this is an emergency and Mabank needs to call 9-11 or go to the nearest ED. Discussed [facility] [phone]. 5. Patient should follow-up 1 month Patient is encouraged to call with any questions or concerns. Instructed Mabank to follow up with his primary care provider routinely and as needed for wellness and any medical concerns. Return to [facility] for ongoing medication management, psychoeducation and supportive [...] to two or more stable psychiatric illnesses. Psychotherapy: 17 minutes was spent in addition to ENM code on performing supportive psychotherapy, acceptance and coping skills /es/ Liv Campbell DO, MA John J Pershing [facility] Signed: 06/11/2024 09:47 LIV CAMPBELL [facility] Jun 11, 2024 09:33 AM PRIMARY CARE EDUCA TION NOTE: LOCAL TITLE: OPT PHY INSTR AUTO PB STANDARD TITLE: PRIMARY CARE EDUCATION NOTE DATE OF NOTE: JUN 11, 2024@09:33 ENTRY DATE: JUN 11, 2024@09:33:20 AUTHOR: LIV CAMPBELL EXP COSIGNER: URGENCY: STATUS: COMPLETED This documentation is related to: . F/U Visit Description of Today's Injury/Illness: TBI, MDD, PTSD and AVELINA Mental Health Testing: RETURN TO CLINIC: Return appointment is needed. . Special Instructions: . MEDICATION REVIEW/ASSESSMENT & PLAN: No med changes RTC 1 month Allergies/ADRs (Tool #5) FACILITY ALLERGY/ADR -------- [facility] NO KNOWN ALLERGIES [facility] NO KNOWN ALLERGIES [facility] No Known Allergies Med. Reconciliation (Tool #1) INCLUDED IN THIS LIST: Alphabetical list of active outpatient prescriptions dispensed from this SD (local) and dispensed from another [place] or DoD facility (remote) as well as inpatient orders (local pending and active), local clinic medications, locally documented non-VA medications, and local prescriptions that have or been discontinued in the past 90 days. Non-VA Meds Last Documented On: Data not found NOTE The display of VA prescriptions dispensed from another SD or DoD facility (remote) is limited to active outpatient prescription entries matched to National Drug File at the originating site and may not include some items such as investigational drugs, compounds, etc. NOT INCLUDED IN THIS LIST: Medications self-entered by the patient into personal health records (i.e. Profex) are NOT included in this list. Non-VA medications documented outside this SD, remote inpatient orders (regardless of status) and remote clinic medications are NOT included in this list. The patient and provider must always discuss medications the patient is taking, regardless of where the medication was dispensed or obtained. OUTPT AMPHETAMINE/DEXTROAMPH RESIN 10MG SA CAP (Status = Discontinued) TAKE ONE CAPSULE BY MOUTH EVERY MORNING FOR ADHD Rx# [id number] Last Released: 03/06/24 Qty/Days Supply: Rx Expiration Date: 03/28/24 Refills Remainin Indication: FOR ADHD OUTPT AMPHETAMINE/DEXTROAMPH RESIN 10MG SA CAP (Status = Discontinued) TAKE ONE CAPSULE BY MOUTH EVERY MORNING FOR ADHD Rx# [id number] Last Released: 04/06/24 Qty/Days Supply: Rx Expiration Date: 04/19/24 Refills Remainin Indication: FOR ADHD OUTPT AMPHETAMINE/DEXTROAMPH RESIN 10MG SA CAP (Status = ) TAKE ONE CAPSULE BY MOUTH EVERY MORNING FOR ADHD Rx# [id number] Last Released: 05/08/24 Qty/Days Supply: Rx Expiration Date: 05/16/24 Refills Remainin Indication: FOR ADHD OUTPT AMPHETAMINE/DEXTROAMPH RESIN 10MG SA CAP (Status = Pending) TAKE 1 CAPSULE BY MOUTH EVERY MORNING Login Date: 06/11/24 Qty/Days Supply: Refills Ordered: 0 OUTPT AMPHETAMINE/DEXTROAMPHETAMINE 5MG TAB (Status = Discontinued) TAKE ONE TABLET BY MOUTH AFTERNOON FOR ADHD Rx# [id number] Last Released: 03/06/24 Qty/Days Supply: Rx Expiration Date: 03/28/24 Refills Remainin Indication: FOR ADHD OUTPT AMPHETAMINE/DEXTROAMPHETAMINE 5MG TAB (Status = Discontinued) TAKE ONE TABLET BY MOUTH AFTERNOON FOR ADHD Rx# [id number] Last Released: 04/06/24 Qty/Days Supply: Rx Expiration Date: 04/19/24 Refills Remainin Indication: FOR ADHD OUTPT AMPHETAMINE/DEXTROAMPHETAMINE 5MG TAB (Status = ) TAKE ONE TABLET BY MOUTH AFTERNOON FOR ADHD Rx# [id number] Last Released: 05/08/24 Qty/Days Supply: Rx Expiration Date: 05/16/24 Refills Remainin Indication: FOR ADHD OUTPT AMPHETAMINE/DEXTROAMPHETAMINE 5MG TAB (Status = Pending) TAKE ONE TABLET BY MOUTH EVERY MORNING Login Date: 06/11/24 Qty/Days Supply: Refills Ordered: 0 OUTPT BUPROPION HCL 150MG 24HR SA TAB (Status = Discontinued) TAKE ONE TABLET BY MOUTH EVERY MORNING FOR DEPRESSION SWALLOW WHOLE - DO NOT CRUSH OR CHEW. Rx# [id number] Last Released: 03/24/24 Qty/Days Supply: Rx Expiration Date: 07/04/24 Refills Remainin Indication: FOR DEPRESSION OUTPT BUPROPION HCL 150MG 24HR SA TAB (Status = Active/Suspended) TAKE ONE TABLET BY MOUTH EVERY MORNING FOR DEPRESSION SWALLOW WHOLE - DO NOT CRUSH OR CHEW. Rx# [id number] Last Released: Qt/Days Supply: Rx Expiration Date: 03/21/25 Refills Remainin Indication: FOR DEPRESSION OUTPT CETIRIZINE HCL 10MG TAB (Status = Active) TAKE ONE TABLET BY MOUTH ONCE A DAY FOR ALLERGIC RHINITIS Rx# [id number] Last Released: 03/24/24 Qty/Days Supply: Rx Expiration Date: 07/10/24 Refills Remainin Indication: FOR ALLERGIC RHINITIS OUTPT CHOLECALCIF 50MCG (D3-2,000UNIT) TAB (Status = Discontinued) TAKE TWO TABLETS BY MOUTH ONCE A DAY FOR VITAMIN D SUPPLEMENTATION Rx# [id number] Last Released: 03/25/24 Qty/Days Supply: Rx Expiration Date: 07/10/24 Refills Remainin Indication: FOR VITAMIN D SUPPLEMENTATION OUTPT CHOLECALCIF 50MCG (D3-2,000UNIT) TAB (Status = Active/Suspended) TAKE TWO TABLETS BY MOUTH ONCE A DAY FOR VITAMIN D SUPPLEMENTATION Rx# [id number] Last Released: Qty/Days Supply: 200/90 Rx Expiration Date: 04/24/25 Refills Remainin Indication: FOR VITAMIN D SUPPLEMENTATION OUTPT CYCLOBENZAPRINE HCL 10MG TAB (Status = Active) TAKE ONE TABLET BY MOUTH THREE TIMES A DAY NEEDED FOR MUSCLE SPASM MAY CAUSE DROWSINESS. DO NOT DRINK ALCOHOL WHILE TAKING THIS MEDICATION. Rx# [id number] Last Released: 05/19/24 Qty/Days Supply: 45/15 Rx Expiration Date: 07/10/24 Refills Remainin Indication: FOR MUSCLE SPASM OUTPT DOXEPIN HCL 10MG CAP (Status = Active/Suspended) TAKE ONE CAPSULE BY MOUTH AT BEDTIME FOR NIGHTMARES Rx# [id number] Last Released: 05/01/24 Qty/Days Supply: 90/90 Rx Expiration Date: 12/05/24 Refills Remainin Indication: FOR NIGHTMARES OUTPT FOLIC ACID 0.4MG TAB (Status = Discontinued) TAKE ONE TABLET BY MOUTH ONCE A DAY FOR FOLIC ACID SUPPLEMENTATION Rx# [id number] Last Released: 03/27/24 Qty/Days Supply: 100/90 Rx Expiration Date: 07/10/24 Refills Remainin Indication: FOR FOLIC ACID SUPPLEMENTATION OUTPT FOLIC ACID 0.4MG TAB (Status = Active/Suspended) TAKE ONE TABLET BY MOUTH ONCE A DAY FOR FOLIC ACID SUPPLEMENTATION Rx# [id number] Last Released: Qty/Days Supply: 100/90 Rx Expiration Date: 04/24/25 Refills Remainin Indication: FOR FOLIC ACID SUPPLEMENTATION OUTPT GABAPENTIN 400MG CAP (Status = Active/Suspended) TAKE ONE CAPSULE BY MOUTH AT BEDTIME FOR NERVE PAIN Rx# [id number] Last Released: 03/31/24 Qty/Days Supply: 90/90 Rx Expiration Date: 01/15/25 Refills Remainin Indication: FOR NERVE PAIN OUTPT HYDROXYZINE HCL 25MG TAB (Status = Discontinued) TAKE ONE TABLET BY MOUTH TWICE DAILY NEEDED FOR ANXIETY *MAY CAUSE DROWSINESS* Rx# [id number] Last Released: 06/08/24 Qty/Days Supply: 180/90 Rx Expiration Date: 01/30/25 Refills Remainin Indication: FOR ANXIETY OUTPT HYDROXYZINE HCL 25MG TAB (Status = Pending) TAKE ONE TABLET BY MOUTH TWICE DAILY NEEDED *MAY CAUSE DROWSINESS* Login Date: 06/11/24 Qty/Days Supply: 180/ Refills Ordered: 1 OUTPT IBUPROFEN 800MG TAB (Status = Active/Suspended) TAKE ONE TABLET BY MOUTH THREE TIMES A DAY NEEDED FOR HEADACHE TAKE WITH FOOD. TAKE AT ONSET OF HEADACHE, WITH SUMATRIPTAN Rx# [id number] Last Released: 03/25/24 Qty/Days Supply: 270/ Rx Expiration Date: 12/04/24 Refills Remainin Indication: FOR HEADACHE OUTPT LEVOTHYROXINE NA 112MCG TAB (Status = Discontinued) TAKE ONE TABLET BY MOUTH EVERY MORNING BEFORE A MEAL FOR THYROID. TAKE 30 MINUTES BEFORE FOOD. TAKE SEPARATELY FROM ALL OTHER MEDICATIONS. Rx# [id number] Last Released: 03/25/24 Qty/Days Supply: Rx Expiration Date: 05/10/24 Refills Remainin OUTPT LEVOTHYROXINE NA 112MCG TAB (Status = Active) TAKE ONE TABLET BY MOUTH EVERY MORNING BEFORE A MEAL FOR THYROID. TAKE 30 MINUTES BEFORE FOOD. TAKE SEPARATELY FROM ALL OTHER MEDICATIONS. Rx# [id number] Last Released: Qty/Days Supply: Rx Expiration Date: 07/22/24 Refills Remainin OUTPT MIRTAZAPINE 45MG TAB (Status = Active) TAKE ONE TABLET BY MOUTH AT BEDTIME FOR INSOMNIA & MOOD Rx# [id number] Last Released: 06/01/24 Qty/Days Supply: Rx Expiration Date: 01/30/25 Refills Remainin Indication: FOR INSOMNIA & MOOD OUTPT SUMATRIPTAN SUCCINATE 50MG TAB (Status = Active) TAKE ONE TABLET BY MOUTH ONE-TIME FOR MIGRAINE HEADACHE TAKE AT ONSET OF HEADACHE. MAY REPEAT AFTER 2 HOURS. NOT TO EXCEED 2 TABLETS IN 24 HOURS. Rx# [id number] Last Released: 05/19/24 Qty/Days Supply: Rx Expiration Date: 02/10/25 Refills Remainin Indication: FOR MIGRAINE HEADACHE SUPPLIES PHARMACY TERMS AND POSSIBLE PATIENT ACTIONS INPT = SD inpatient order IV = SD intravenous medication OUTPT = [place] outpatient prescription PHARMACY POSSIBLE PATIENT TERMS EXPLANATION ACTIONS -------- --- ACTIVE A prescription that can be If you have refills, filled at the local [place] pharmacy. you may request a refill of this prescription from your [place] pharmacy. CLINIC A medication you received during If you have questions a visit to a SD clinic or about this medication emergency department. contact your [place] healthcare team. DISCONTINUED A prescription your provider has Contact your SD stopped. It is no longer healthcare team if you available to be sent to you or need more of this picked up at the SD pharmacy medication. window. A prescription which is too old Contact your VA to fill. This does not refer to healthcare team if you the expiration date of the need more of this medication in the container. medication. NON-VA A medication that came from If this medication someplace other than a VA information is pharmacy. This may be a incorrect or out of prescription from either the VA date, please tell your or non VA providers that was VA healthcare team. filled outside the VA. Or, it may be an ibxf-zuy-egmulcy (OTC), herbal, dietary supplements or sample medication. ON HOLD An active prescription that will Contact your VA not be filled until pharmacy pharmacy when you need resolves the issue. more of this medication. PARKED An active prescription that will Contact your VA not be filled until the patient pharmacy when you need requests it. this medication. PENDING This prescription order has been If you have been sent to the pharmacy for review instructed to start and is not ready yet. this medication now, contact your VA pharmacy. SUSPENDED An active prescription that is Contact your VA not scheduled to be filled yet. pharmacy if you need You should receive it before this medication now. you run out. ======== Medication reconciliation performed with confirmed /caregiver and /caregiver voiced an understanding of current medications? Yes /caregiver were provided an updated medication list. Following results reviewed and discussed with patient: Future Appointments: 07/01/2024 08:40 PB-[facility] ( 07/08/2024 10:00 PB-[facility] CVT PACT DELTA(PRO 07/08/2024 10:01 PB-[facility] CVT PACT DELTA(PAT 07/09/2024 11:45 PB-[facility] CVT [facility] [place] 07/09/2024 11:46 PB-CVT [facility] [place] 08/06/2024 09:45 PB-[facility] CVT [facility] [place] 08/06/2024 09:46 PB-CVT [facility] [place] 09/10/2024 09:15 PB-[facility] CVT [facility] [place] 09/10/2024 09:16 PB-CVT [facility] [place] 10/02/2024 10:45 PB-[facility] CVT [facility] [place] 10/02/2024 10:46 PB-CVT [facility] [place] 10/29/2024 09:15 PB-[facility] CVT [facility] [place] 10/29/2024 09:16 PB-CVT [facility] [place] 11/26/2024 09:15 [facility] CVT [facility] [place] 11/26/2024 09:16 PB-CVT [facility] [place] /ernesto/ Liv Campbell DO, MA John J Pershing [facility] [facility] Signed: 06/11/2024 09:35 [facility]
--- OUTSIDE RECORDS SUMMARY | 2024-07-08 05:00 | XMS_ITS | Encounter Summary ---
Author Name [facility] [facility] [place] Address [address] [place] [address] Care Team Providers Care Homemaker Companion Name Role Phone BRIGID DEGROOT Primary Care Provider CHANNING Mann Primary Care Provider Unavailevie e Selected Encounter This section includes the information on record at [place] for the Encounter. Date/Time Encounter Type Encounter Description Reason Provider Source Jul 08, 2024 10:00 AM SYNCH AUDIO-VIDEO EST MOD 30 PRIMARY CARE/MEDICINE ICD-10-CM Z00.01 Encounter for general adult medical exam w abnormal findings BRIGID DEGROOT Encounter Template Text not used by [place] Assessments - Encounter Diagnoses This section includes the primary and secondary diagnoses documented for the Encounter. Date/Time Primary/Secondary Diagnosis Diagnosis Name Provider Source Jul 08, 2024 10:46 AM PRIMARY Encounter for general adult medical exam w abnormal findings [facility]ID [facility]GROOT [facility] Jul 08, 2024 10:46 AM SECONDARY Hypothyroidism, unspecified BRIGID DEGROOT [facility] Jul 08, 2024 10:46 AM SECONDARY Iron deficiency anemia secondary to blood loss (chronic) BRIGID DEGROOT [facility] Jul 08, 2024 10:46 AM SECONDARY Irritable bowel syndrome with diarrhea BRIGID DEGROOT [facility] Jul 08, 2024 10:46 AM SECONDARY Pain in other specified joint MIKAYLASERGIOE Tina [facility] Plan of Treatment: Future Appointments (+ 6 months) and Future Tests (+/- 45 days) The Plan of Treatment section includes future care activities for the [facility] This section includes future appointments and future orders which are active, pending or scheduled. Future Appointments This section includes appointments that were scheduled to occur 6 months from the date of the Encounter, up to a maximum of 20 appointments. The data comes from all [place] treatment facilities. Appointment Date/Time Appointment Type Appointme nt Facility Name Jul 09, 2024 11:45 AM AMBULATORY - PSYCHIATRY [facility] Jul 09, 2024 11:46 AM AMBULATORY - [place]IC[place] [facility] Aug 06, 2024 09:45 AM AMBULATORY - PSYCHIATRY [facility] Aug 06, 2024 09:46 AM [place] [place]IC[place] [facility] August 13, 2024 10:00 AM AMBULATORY - MEDICINE [facility] August 13, 2024 10:01 AM AMBULATORY - MEDICINE [place] [facility] September 10, 2024 09:15 AM AMBULATORY - PSYCHIATRY [facility] September 10, 2024 09:16 AM AMBULATORY - MEDIC[place] [facility] Oct 02, 2024 10:45 AM AMBULATORY - PSYCHIATRY [facility] Oct 02, 2024 10:46 AM AMBULATORY - MEDICINE [place] [facility] Oct 29, 2024 09:15 AM AMBULATORY - PSYCHIATRY [facility] Oct 29, 2024 09:16 AM AMBULATORY - MEDICINE [place] [facility] Dec 10, 2024 09:15 AM AMBULATORY - PSYCHIATRY [facility] Dec 10, 2024 09:16 AM AMBULATORY - MEDICINE [place] [facility] Dec 24, 2024 09:15 AM AMBULATORY - PSYCHIATRY [facility] Dec 24, 2024 09:16 AM AMBULATORY - MEDICINE [place] [facility] Jan 08, 2025 09:20 AM AMBULATORY - MEDICINE [facility] Lab Results: +/- 30 days of [...] Type Comment Jul 09, 2024 12:16 PM [facility]-inhouse (PB) URINE Specimen Type: URINE No comment entered. Ordering Provider: LIV GREGG Report Released Date/Time: Jul 09, 2024 12:12 PM Reporting Lab: [place] [facility] [address] [place] [address] Performing Lab: [place] [facility] [address] [place] [address] METHADONE Negative Negative OPIATES (PB) Negative Negative COCAINE... Negative Negative THC(Marijuana... Negative Negative BENZODIAZEPINE (PB) Negative Negative AMPHETAMINE... Negative Negative CREATININE URINE/OTHERS 23.47 mg/dL OXYCODONE (MICRY-XYH-US) Negative Negati ve BUPRENORPHINE (STL-PB-MA) Negative ng/mL Negative ETHANOL URINE <10 mg/dL L 0-20 FENTANYL, URINE (PB) Negative ng/mL Jul 01, 2024 08:37 AM [facility] B12 SERUM Specimen Type: SERUM No comment entered. Ordering Provider: BRIGID DEGROOT Report Released Date/Time: Jul 10, 2023 03:48 PM Reporting Lab: [place] [facility] [address] [place] [address] Performing Lab: [place] [facility] [address] [place] [address] B12 706 pg/mL 213-816 Jul 01, 2024 08:37 AM [facility] FOLATE (PB) SERUM Specimen Typ e: SERUM No comment entered. Ordering Provider: BRIGID DEGROOT Report Released Date/Time: Jul 10, 2023 03:48 PM Reporting Lab: [place] [facility] [address] [place] [address] Performing Lab: [place] [facility] [address] [place] [address] FOLATE (PB) 17.1 ng/mL 7-20 Jul 01, 2024 08:37 AM [facility] [place] [facility] CBC BLOOD Specimen Type: BLOOD No comment entered. Ordering Provider: BRIGID DEGROOT Report Released Date/Time: Jul 10, 2023 03:48 PM Reporting Lab: [place] [facility] [address] [place] [address] Performing Lab: [place] [facility] [address] [place] [address] WBC 9.5 10*3/uL 3.6-11.2 RBC 4.49 10*6/uL [...] GRANS, AUTO ABS 0.01 10*3/uL 0. 00-0.05 Jul 01, 2024 08:37 AM [facility] HGA1C BLOOD Specimen Type: BLOOD No comment entered. Ordering Provider: BRIGID DEGROOT Report Released Date/Time: Jul 10, 2023 03:48 PM Reporting Lab: [place] [facility] [address] [place] [address] Performing Lab: [place] [facility] [address] [place] [address] HGA1C 6.3 H 4.0-6.0 Jul 01, 2024 08:37 AM [place] [facility] CHOLESTEROL PANEL (PB) PLASMA Specimen Type: P LASMA No comment entered. Ordering Provider: BRIGID DEGROOT Report Released Date/Time: Jul 10, 2023 03:48 PM Reporting Lab: [place] [facility] [address] [place] [address] Performing Lab: [place] [facility] [address] [place] [address] CHOLESTEROL 197 mg/dL 0-200 TRIGLYCERIDE 81 mg/dL 0-150 CALCULATED LDL 122.8 mg/dL HDL(New) 58.0 mg/dL H >40 HDL % OF TOTAL CHOLESTEROL (PB) 29.4 >25 Jul 01, 2024 08:37 AM [facility] TSH (MA-PB) SERUM Specimen Typ e: SERUM No comment entered. Ordering Provider: BRIGID DEGROOT Report Released Date/Time: Jul 10, 2023 03:48 PM Reporting Lab: [place] [facility] [address] [place] [address] Performing Lab: [place] [facility] [address] [place] [address] TSH 1.968 u[IU]/mL 0.47-5 Jul 01, 2024 08:37 AM [facility] VITAMIN D, 25-HYDROXY SERUM Specimen Type: SE RUM No comment entered. Ordering Provider: BRIGID DEGROOT Report Released Date/Time: Jul 10, 2023 03:48 PM Reporting Lab: [place] [facility] [address] [place] [address] Performing Lab: [place] [facility] [address] [place] [address] VITAMIN D, 25-HYDROXY 77.2 ng/mL 30-96 Jul 01, 2024 08:37 AM [facility] COMPREHENSIVE METABOLIC PANEL PLASMA Specimen Type: PLASMA No comment entered. Ordering Provider: BRIGID DEGROOT Report Released Date/Time: Jul 10, 2023 03:48 PM Reporting Lab: [place] [facility] [address] [place] [address] Performing Lab: [place] [facility] [address] [place] [address] CREATININE 0.81 mg/dL 0.7-1.3 UREA NITROGEN 11 [...] 36 U/L 8-40 EGFR (CKD-EPI 2020) 111 Vital Signs: All taken on the encounter date This section contains inpatient and outpatient Vital Signs collected on the date of the Encounter. Date/Time Temperature Pulse Blood Pressure Respiratory Rate SP02 Pain Height Weight Body Mass Index Source Jul 08, 2024 10:15 AM 98.2 78 130/84 22 99 7 208.5 28 [facility] Social History: Smoking Status (Most [...] 2023 09:00 AM VA-TOBACCO USER EVERY DAY [facility] Tobacco Use History This section includes a history of the smoking, or tobacco-related health factors, that were collected on or before the date of the Encounter. The data comes from the [place] facility where the Encounter took place. 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 [facility] August 29, 2023 09:00 AM [facility] August 29, 2023 09:00 AM VA-TOBACCO USE WI 30 MIN OF WAKE UP [facility] August 29, 2023 09:00 AM VA-TOBACCO USER EVERY DAY [facility] Sep 21, 2022 10:30 AM VA-TOBACCO DOESNT USE WI 30 MIN WAKEUP [facility] [place] [facility] Sep 21, 2022 10:30 AM VA-TOBACCO USE > 1 5 LESS THAN 30 YEARS [facility] Sep 21, 2022 10:30 AM VA-TOBACCO USE ADVICE [facility] [place] [facility] Sep 21, 2022 10:30 AM 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 [facility] Sep 21, 2022 10:30 AM VA-TOBACCO USE MED NO [place] [facility] Sep 21, 2022 10:30 AM VA-TOBACCO USER EVERY DAY [facility] Sep 15, 2021 11:00 AM VA-TOBACCO DOESNT USE WI 30 MIN WAKEUP [facility] Sep 15, 2021 11:00 AM VA-TOBACCO USE 5 TO 15 YEARS [place] [place] [facility] Sep 15, 2021 11:00 AM VA-TOBACCO USE ADVICE [facility] Sep 15, 2021 11:00 AM 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 USE 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 [facility] Sep 15, 2021 11:00 AM VA-TOBACCO USE MED NO [facility] Sep 15, 2021 11:00 AM VA-TOBACCO USER EVERY DAY [facility] Sep 21, 2020 10:01 AM VA-TOBACCO DOESNT USE WI 30 MIN WAKEUP [facility] Sep 21, 2020 10:01 AM VA-TOBACCO USE > 1 5 LESS THAN 30 YEARS [facility] [place] [facility] Sep 21, 2020 10:01 AM VA-TOBACCO USE ADVICE [facility] Sep 21, 2020 10:01 AM VA-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 Date/Time Encounter Note(s) Provider Source Jul 08, 2024 10:11 AM PRIMARY CARE PROGR ESS NOTE: LOCAL TITLE: PRIMARY CARE CLINIC PROGRESS NOTE PB STANDARD TITLE: PRIMARY CARE PROGRESS NOTE DATE OF NOTE: JUL 08, 2024@10:11 ENTRY DATE: JUL 08, 2024@10:11:15 AUTHOR: BRIGID DEGROOT COSIGNER: URGENCY: STATUS: COMPLETED Mackey is presenting to the clinic today for his/her Telehealth appointment as scheduled. was assured that the Telehealth visit is a private, confidential clinical encounter and will not be recorded. The Telehealth process, procedures and expectations were explained to the patient, allowing Mackey time to voice any concerns. Mackey voiced understanding and consented to the Clinic visit. The visit proceeded without difficulty. DATE & TIME:Jun@10:00 CHIEF COMPLAINT: annual exam, review labs HISTORY OF PRESENT ILLNESS: low back pain at baseline PAST MEDICAL HISTORY: 1) Major depressive disorder 2) Chronic post-traumatic stress disorder 3) Hypothyroidism (SCT 19142319) 4) Chronic musculoskeletal pain 5) Migraine variant with headache 6) Chronic Post-Traumatic Headache (SCT 440398143) 7) Cognitive Impairment (SCT 461476065) 8) IBS - Irritable Bowel Syndrome (SCT 63089396) 9) H/O: vasectomy 10) Obstructive Sleep Apnea Syndrome (SCT 88446103) 11) Rib pain 12) Major depression 13) Generalized anxiety disorder 14) History of traumatic brain injury 15) Exposure to potentially hazardous substance 16) Major depression SOCIAL HISTORY: Tobacco: chews , no smoking of tobacco Alcohol: none FAMILY HISTORY: 103 yo paternal great grandmother had cancer, dad at 67 yo from heart attack maker , paternal grandmother was 90's yo of old old Allergies: Patient has answered NKA MEDIACTIONS: Active Outpatient Medications (including Supplies): Active Outpatient Medications Status 1) AMPHETAMINE/DEXTROAMPH RESIN 10MG SA CAP TAKE ONE CAPSULE BY ACTIVE MOUTH EVERY MORNING Indication: FOR ADHD 2) AMPHETAMINE/DEXTROAMPHETAMINE 5MG TAB TAKE ONE TABLET BY ACTIVE MOUTH EVERY MORNING Indication: FOR ADHD 3) BUPROPION HCL 150MG 24HR SA TAB TAKE ONE TABLET BY MOUTH ACTIVE EVERY MORNING SWALLOW WHOLE - DO NOT [...] MOUTH AT BEDTIME ACTIVE (S) Indication: FOR NIGHTMARES 8) FOLIC ACID 0.4MG [...] [place] Indication: FOR HEADACHE 12) LEVOTHYROXINE NA 112MCG TAB TAKE ONE TABLET BY MOUTH EVERY ACTIVE MORNING BEFORE A MEAL FOR THYROID. TAKE [...] IN 24 HOURS. Indication: FOR MIGRAINE HEADACHE REVIEW OF SYSTEMS: Review of Systems Systemic: Denies fatique, fever, chills, or weight loss CV: Denies chest pain, palpitations Pulm: Denies hemoptysis, wheezing GI: Denies constipation, bloody stools. Musculoskeletal: Denies swelling Neuro: Denies slurred speech Skin: Denies abnormal lesions, denies any new rashes PSYCH: Denies SI/HI PHYSICAL ASSESSMENT: VITAL SIGNS blood pressure 130/84 hr 78 temp 98.2 rr 22 sat 99% room air Pulse: 70 (06/11/2024 09:15) Blood Pressure: 138/87 (06/11/2024 09:15) Respiratory Rate: 20 (06/11/2024 09:15) Temperature: 98.6 F [37.0 C] (06/11/2024 09:15) Weight: 210.7 lb [95.57 kg] (06/11/2024 09:15) Height: 72 in [182.9 cm] (06/11/2024 09:15) Pain: 3 (06/11/2024 09:15) GENERAL: Appears in no acute distress. HEENT: Conjunctiva are clear without exudate or gross hemorrhage. Sclera nonicteric. EOM are intact. Ear canals without discharge, Tympanic membrane is without acute changes. Oropharynx is normal in appearance and without swelling or exudate NECK: appearance is normal and without gross masses CARDIAC: Regular rate and rhythm. No JVD RESPIRATORY: CTA bilaterally no rhonchi wheezing or rails. Nonlabored respirations GI: Abdomen normal bowel sounds MUSCULOSKELETAL: No joint effusions, moving extremiteis without difficulty SKIN: Appropriate color for ethnicity. NEUROLOGICAL: The Mackey is alert and oriented without distress. Gait is at baseline PSYCHOLOGICAL: Appropriate mood and affect. No suicidal or homicidal ideation. A/P: ASSESSMENT and PLAN 3) Hypothyroidism 4) Chronic musculoskeletal pain - low back pain 8) IBS - Irritable Bowel Syndrome ([facility] [id number]) chronic diarrhea Hx hematochezia - none currently, but it is intermittent -labs reviewed pre diabetic range hbga1c = 6.3 -diet consul offered , declined, nursing staff to print off diabetic diet info after talking about his IBS and his chronic diarrhea and the history of hematochezia patient agrees to speak to dietary to have a formal counts stooling session to discuss food habits and how he may be can incorporate some whole grains to help him with winding up his stool yet still managing them well for carbohydrate levels since he is in the prediabetic range. add iron supplementation daily anemia - since 2005 bc of GI issues, has seen GI doctors , and Last colonoscopy August 2021 normal recommends colonoscopy in 10 years due in August 1931. Diagnosis was normal colonoscopy history of hematochezia and chronic diarrhea. Stool cultures were done as well. At that time by GI specialist. Health Maintenance: Discussed preventative health to include diet and exercise including immunizations. Stable. Discussed medications with patient; med rec completed. Continue current regimen as prescribed by PCP and specialists. RTC as needed if developing any new or worsening symptoms. Please notify PACT with medication changes or for orders coordination as needed if seen by a specialist in the future. Discussed with patient that in the event of community imaging / testing being ordered in the future, once the imaging / testing has been completed, please notify PACT of completion at outside facility if not called with results within 1 week by a [place] PACT member; this is due to intermittent lapses in notification of imaging completion within [facility]. -Follow-up with me every June for annual labs and annual exam, added on hepoatitis c blood work for next draw -Follow-up with me as needed. All questions answered; agrees to plan of care. Follow up as listed above, annually, and as needed. Keep all appointments. Medications Reconciled. Hepatitis C Testing - L,N,P,PH: Patient has given verbal consent for HCV antibody testing. An HCV lab test has been ordered - see orders tab. Total time spent in medical discussion with patient was 30 minutes. Total time spent on this visit was 37 minutes. /ernesto/ BRIGID DEGROOT MD Signed: 07/08/2024 10:46 BRIGID DEGROOT [facility]
--- OUTSIDE RECORDS SUMMARY | 2024-07-08 05:01 | XMS_ITS | Encounter Summary ---
Author Name [facility] [facility] [place] [facility] [place] Address [address] [place] [address] Care Team Providers Care Athletic Scout Name Role Phone BRIGID DEGROOT Primary Care Provider UnavailCHANNING Dawn Primary Care Provider Juan cabrera Selected Encounter This section includes the information on record at [place] for the Encounter. Date/Time Encounter Type Encounter Description Reason Provider Source Jul 08, 2024 10:01 AM [facility]LEHEALTH FACILITY FEE PRIMARY CARE/MEDICINE ICD-10-CM Z00.01 Encounter for general adult medical exam w abnormal findings BRIGID DEGROOT Aline Encounter Template Text not used by [place] Assessments - Encounter Diagnoses This section includes the primary and secondary diagnoses documented for the Encounter. Date/Time Primary/Secondary Diagnosis Diagnosis Name Provider Source Jul 08, 2024 11:14 AM PRIMARY Encounter for general adult medical exam w abnormal findings GRICELDA SNOW [facility] Plan of Treatment: Future Appointments (+ 6 months) and Future Tests (+/- 45 days) The Plan of Treatment section includes future care activities for the patient from all [place] treatmentfacilities. This section includes future appointments and future orders which are active, pending or scheduled. Future Appointments This section includes appointments that were scheduled to occur 6 months from the date of the Encounter, up to a maximum of 20 appointments. The data comes from all [place] treatment facilities. Appointment Date/Time Appointment Type Appointme nt Facility Name Jul 09, 2024 11:45 AM AMBULATORY - PS[facility]ATRY [facility] Jul 09, 2024 11:46 AM AM[place]ULATORY [place]IC[place] [facility] Aug 06, 2024 09:45 AM AMBULATORY - PS[facility]CHIATRY [facility] Aug 06, 2024 09:46 AM [place]BULATORY - [place]IC[place] [facility] August 13, 2024 10:00 AM AMBULATORY - MEDICINE [facility] August 13, 2024 10:01 AM AMBULATORY - MEDIC[place] [facility] September 10, 2024 09:15 AM AMBULATORY - PSYCHIATRY [facility] September 10, 2024 09:16 AM AMBULATORY - MEDIC[place] [facility] Oct 02, 2024 10:45 AM AMBULATORY - PS[facility]CHIATRY [facility] Oct 02, 2024 10:46 AM AMBULATORY - MEDIC[place] [facility] Oct 29, 2024 09:15 AM AMBULATORY - PS[facility]CHIATRY [facility] Oct 29, 2024 09:16 AM AMBULATORY - MEDIC[place] [facility] Dec 10, 2024 09:15 AM AMBULATORY - PS[facility]CHIATRY [facility] Dec 10, 2024 09:16 AM AMBULATORY - MEDICINE [place] [facility] Dec 24, 2024 09:15 AM AMBULATORY - PS[facility]CHIATRY [facility] Dec 24, 2024 09:16 AM AM[facility]UL[facility]ORY - [place]IC[place] [facility] Jan 08, 2025 09:20 AM AMBULATORY - MEDICINE [facility] Lab Results: +/- 30 days of the encounter This section includes the Chemistry and Hematology Lab Results on record with [place] for the patient. Radiology Reports and Pathology Reports are provided separately, in subsequent sections. Lab Results This section contains the Chemistry/Hematology Results that were resulted 30 days before or 30 daysafter the date of the Encounter. Date/Time Source Result Type Result - Unit Interpretation Reference Range Specimen Type Comment Jul 09, 2024 12:16 PM [facility]-inhouse (PB) URINE Specimen Type: URINE No comment entered. Ordering Provider: LIV GREGG Report Released Date/Time: Jul 09, 2024 12:12 PM Reporting Lab: [place] [facility] [address] [place] [address] Performing Lab: [place] [facility] [address] [place] [address] METHADONE Negative Negative OPIATES (PB) Negative Negative COCAINE... Negative Negative THC(Marijuana... Negative Negative BENZODIAZEPINE (PB) Negative Negative AMPHETAMINE... Negative Negative CREATININE URINE/OTHERS 23.47 mg/dL OXYCODONE (QHSFR-BRA-JV) Negative Negati ve BUPRENORPHINE (STL-PB-MA) Negative ng/mL Negative ETHANOL URINE <10 mg/dL L 0-20 FENTANYL, URINE (PB) Negative ng/mL Jul 01, 2024 08:37 AM [facility] B12 SERUM Specimen Type: SERUM No comment entered. Ordering Provider: BRIGID DEGROOT Report Released Date/Time: Jul 10, 2023 03:48 PM Reporting Lab: [place] [facility] [address] [place] [facility] Performing Lab: [place] [facility] [address] [place] [id number] B12 706 pg/mL 213-816 Jul 01, 2024 08:37 AM [facility] FOLATE (PB) SERUM Specimen Typ e: SERUM No comment entered. Ordering Provider: BRIGID DEGROOT Report Released Date/Time: Jul 10, 2023 03:48 PM Reporting Lab: [place] [facility] [address] [place] [address] Performing Lab: [place] [facility] [address] [place] [id number] FOLATE (PB) 17.1 ng/mL 7-20 Jul 01, 2024 08:37 AM [facility] HGA1C BLOOD Specimen Type: BLOOD No comment entered. Ordering Provider: BRIGID DEGROOT Report Released Date/Time: Jul 10, 2023 03:48 PM Reporting Lab: [place] [facility] [address] [place] [address] Performing Lab: [place] [facility] [address] [place] [facility] HGA1C 6.3 H 4.0-6.0 Jul 01, 2024 08:37 AM [facility] COMPREHENSIVE METABOLIC PANEL PLASMA Specimen Type: PLASMA No comment entered. Ordering Provider: BRIGID DEGROOT Report Released Date/Time: Jul 10, 2023 03:48 PM Reporting Lab: [place] [facility] [address] [place] [address] Performing Lab: [place] [facility] [address] [place] [address] CREATININE 0.81 mg/dL 0.7-1.3 UREA NITROGEN 11 [...] 2020) 111 Jul 01, 2024 08:37 AM [facility] CHOLESTEROL PANEL (PB) PLASMA Specimen Type: P LASMA No comment entered. Ordering Provider: BRIGID DEGROOT Report Released Date/Time: Jul 10, 2023 03:48 PM Reporting Lab: [place] [facility] [address] [place] [address] Performing Lab: [place] [facility] [address] [place] [address] CHOLESTEROL 197 mg/dL 0-200 TRIGLYCERIDE 81 mg/dL 0-150 CALCULATED LDL 122.8 mg/dL HDL(New) 58.0 mg/dL H >40 HDL % OF TOTAL CHOLESTEROL (PB) 29.4 >25 Jul 01, 2024 08:37 AM [facility] TSH (MA-PB) SERUM Specimen Typ e: SERUM No comment entered. Ordering Provider: BRIGID DEGROOT Report Released Date/Time: Jul 10, 2023 03:48 PM Reporting Lab: [place] [facility] [address] [place] [address] Performing Lab: [place] [facility] [address] [place] [address] TSH 1.968 u[IU]/mL 0.47-5 Jul 01, 2024 08:37 AM [facility] VITAMIN D, 25-HYDROXY SERUM Specimen Type: SE RUM No comment entered. Ordering Provider: BRIGID DEGROOT Report Released Date/Time: Jul 10, 2023 03:48 PM Reporting Lab: [place] [facility] [address] [place] [address] Performing Lab: [place] [facility] [address] [place] [address] VITAMIN D, 25-HYDROXY 77.2 ng/mL 30-96 Jul 01, 2024 08:37 AM [facility] CBC BLOOD Specimen Type: BLOOD No comment entered. Ordering Provider: BRIGID DEGROOT Report Released Date/Time: Jul 10, 2023 03:48 PM Reporting Lab: [place] [facility] [address] [place] [address] Performing Lab: [place] [facility] [address] [place] [address] WBC 9.5 10*3/uL 3.6-11.2 RBC 4.49 10*6/uL [...] 78 130/84 22 99 7 208.5 28 [facility] Social History: Smoking Status (Most current) and Tobacco Use (All prior to encounter date) This section includes the most current, and the historical, smoking and tobacco- related health factors from the [place] facility where the Encounter took place. Current Smoking Status This section includes the most current smoking, or tobacco-related health factor, from the [place] facility where the Encounter took place. Date/Time Current Smoking Status Comment Facil ity August 29, 2023 09:00 AM VA-TOBACCO USER EVERY DAY [facility] Tobacco Use History This section includes a history of the smoking, or tobacco-related health factors, that were collected on or before the date of the Encounter. The data comes from the [place] facility where the Encounter took place. 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 [facility] August 29, 2023 09:00 AM VA-TOBACCO USE MED NO [facility] August 29, 2023 09:00 AM VA-TOBACCO USE WI 30 MIN OF WAKE UP [facility] August 29, 2023 09:00 AM VA-TOBACCO USER EVERY DAY [facility] Sep 21, 2022 10:30 AM VA-TOBACCO DOESNT USE WI 30 MIN WAKEUP [facility] Sep 21, 2022 10:30 AM VA-TOBACCO USE > 1 5 LESS THAN 30 YEARS [facility] Sep 21, 2022 10:30 AM VA-TOBACCO USE ADVICE [facility] Sep 21, 2022 10:30 AM VA-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 USE 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 [facility] Sep 21, 2022 10:30 AM VA-TOBACCO USE MED NO [facility] Sep 21, 2022 10:30 AM VA-TOBACCO USER EVERY DAY [facility] Sep 15, 2021 11:00 AM VA-TOBACCO DOESNT USE WI 30 MIN WAKEUP [facility] Sep 15, 2021 11:00 AM VA-TOBACCO USE 5 TO 15 YEARS [facility] Sep 15, 2021 11:00 AM VA-TOBACCO USE ADVICE [facility] Sep 15, 2021 11:00 AM VA-TOBACCO USE 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 CANS 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 NO [facility] Sep 15, 2021 11:00 AM VA-TOBACCO USE MED NO [facility] Sep 15, 2021 11:00 AM VA-TOBACCO USER EVERY DAY [facility] Sep 21, 2020 10:01 AM VA-TOBACCO DOESNT USE WI 30 MIN WAKEUP [facility] Sep 21, 2020 10:01 AM VA-TOBACCO USE > 1 5 LESS THAN 30 YEARS [facility] Sep 21, 2020 10:01 AM VA-TOBACCO USE ADVICE [facility] Sep 21, 2020 10:01 AM VA-TOBACCO USE METAL CANS SUPERVISOR NO [facility] Sep 21, 2020 10:01 AM VA-TOBACCO USE MED [place] [facility] Sep 21, 2020 10:01 AM VA-TOBACCO USER EVERY DAY [facility] Advance Directives: All historical and current Section Date Range: From patient's date of to the date document was created. This section includes ALL of a patient's completed or amended [place] Advance and Rescinded Directives. The entries below indicate that a directive exists for the patient, but an actual copy is not included with this document. The data comes from all [place] facilities. Date Advance Directives Provider Source Oct 19, 2015 ADVANCE DIRECTIVE DISCUSSION GAVINO CHENEY YOGIKODY Daniels [facility] Encounter Notes: All associated encounter notes This section contains the clinical notes associated to the Encounter. Date/Time Encounter Note(s) Provider Source Jul 08, 2024 10:16 AM PRIMARY CARE RUIZ HAGEN NOTE: LOCAL TITLE: PRIMARY CARE NURSING PROGRESS NOTE (TEXT) NURSING P STANDARD TITLE: PRIMARY CARE NURSING NOTE DATE OF NOTE: JUL 08, 2024@10:16 ENTRY DATE: JUL 08, 2024@10:16:37 AUTHOR: GRICELDA SNOW COSIGNER: URGENCY: STATUS: COMPLETED Established Patient RENU ZAPATA IS A 44 YEAR OLD MALE BEING SEEN IN CLINIC JUL 08, 2024. = = REASON FOR VISIT: Here for annual follow up on chronic health conditions and to review lab. Reports chronic low back pain Are you receiving care any where other than the [facility]? No HEALTH AND SURGICAL HISTORY: Does patient report using home oxygen? CURRENT ACTIVE MEDICATIONS FOR REVIEW: Allergies/ADRs (Tool #5) FACILITY ALLERGY/ADR -------- [facility] NO KNOWN ALLERGIES [place] [facility] NO KNOWN ALLERGIES [facility] No Known Allergies Med. Reconciliation (Tool #1) INCLUDED IN THIS LIST: Alphabetical list of active outpatient prescriptions dispensed from this [place] (local) and dispensed from another [place] or [place] facility (remote) as well as inpatient orders (local pending and active), local clinic medications, locally documented non-VA medications, and local prescriptions that have or been discontinued in the past 90 days. Non-VA Meds Last Documented On: Data not found NOTE The display of VA prescriptions dispensed from another [place] or [place] facility (remote) is limited to active outpatient prescription entries matched to National Drug File at the originating site and may not include some items such as investigational drugs, compounds, etc. NOT INCLUDED IN THIS LIST: Medications self-entered by the patient into personal health records (i.e. [facility]) are NOT included in this list. Non-VA medications documented outside this [place], remote inpatient orders (regardless of status) and remote clinic medications are NOT included in this list. The patient and provider must always discuss medications the patient is taking, regardless of where the medication was dispensed or obtained. OUTPT AMPHETAMINE/DEXTROAMPH RESIN 10MG SA CAP (Status = Discontinued) TAKE ONE CAPSULE BY MOUTH EVERY MORNING FOR ADHD Rx# [id number] Last Released: 04/06/24 Qty/Days Supply: Rx Expiration Date: 04/19/24 Refills Remainin Indication: FOR ADHD OUTPT AMPHETAMINE/DEXTROAMPH RESIN 10MG SA CAP (Status = ) TAKE ONE CAPSULE BY MOUTH EVERY MORNING FOR ADHD Rx# [id number] Last Released: 05/08/24 Qty/Days Supply: Rx Expiration Date: 05/16/24 Refills Remainin Indication: FOR ADHD OUTPT AMPHETAMINE/DEXTROAMPH RESIN 10MG SA CAP (Status = Active) TAKE ONE CAPSULE BY MOUTH EVERY MORNING FOR ADHD Rx# [id number] Last Released: 06/11/24 Qty/Days Supply: Rx Expiration Date: 07/11/24 Refills Remainin Indication: FOR ADHD OUTPT AMPHETAMINE/DEXTROAMPHETAMIN E 5MG TAB (Status = Discontinued) TAKE ONE TABLET BY MOUTH AFTERNOON FOR ADHD Rx# [id number] Last Released: 04/06/24 Qty/Days Supply: Rx Expiration Date: 04/19/24 Refills Remainin Indication: FOR ADHD OUTPT AMPHETAMINE/DEXTROAMPHETAMIN E 5MG TAB (Status = ) TAKE ONE TABLET BY MOUTH AFTERNOON FOR ADHD Rx# [id number] Last Released: 05/08/24 Qty/Days Supply: Rx Expiration Date: 05/16/24 Refills Remainin Indication: FOR ADHD OUTPT AMPHETAMINE/DEXTROAMPHETAMIN E 5MG TAB (Status = Active) TAKE ONE TABLET BY MOUTH EVERY MORNING FOR ADHD Rx# [id number] Last Released: 06/11/24 Qty/Days Supply: Rx Expiration Date: 07/11/24 Refills Remainin Indication: FOR ADHD OUTPT BUPROPION HCL 150MG 24HR SA TAB (Status = Active) TAKE ONE TABLET BY MOUTH EVERY MORNING FOR DEPRESSION SWALLOW WHOLE - DO NOT CRUSH OR CHEW. Rx# [id number] Last Released: 06/22/24 Qty/Days Supply: 90 Rx Expiration Date: 03/21/25 Refills Remainin Indication: FOR DEPRESSION OUTPT CETIRIZINE HCL 10MG TAB (Status = Active) TAKE ONE TABLET BY MOUTH ONCE A DAY FOR ALLERGIC RHINITIS Rx# [id number] Last Released: 03/24/24 Qty/Days Supply: 90 Rx Expiration Date: 07/10/24 Refills Remainin Indication: FOR ALLERGIC RHINITIS OUTPT CHOLECALCIF 50MCG (D3-2,000UNIT) TAB (Status = Discontinued) TAKE TWO TABLETS BY MOUTH ONCE A DAY FOR VITAMIN D SUPPLEMENTATION Rx# [id number] Last Released: 03/25/24 Qty/Days Supply: 200/90 Rx Expiration Date: 07/10/24 Refills Remainin Indication: FOR VITAMIN D SUPPLEMENTATION OUTPT CHOLECALCIF 50MCG (D3-2,000UNIT) TAB (Status = Active) TAKE TWO TABLETS BY MOUTH ONCE A DAY FOR VITAMIN D SUPPLEMENTATION Rx# [id number] Last Released: 06/22/24 Qty/Days Supply: 200/90 Rx Expiration Date: 04/24/25 Refills Remainin Indication: FOR VITAMIN D SUPPLEMENTATION OUTPT CYCLOBENZAPRINE HCL 10MG TAB (Status = Active) TAKE ONE TABLET BY MOUTH THREE TIMES A DAY NEEDED FOR MUSCLE SPASM MAY CAUSE DROWSINESS. DO NOT DRINK ALCOHOL WHILE TAKING THIS MEDICATION. Rx# [id number] Last Released: 05/19/24 Qty/Days Supply: 45/15 Rx Expiration Date: 07/10/24 Refills Remainin Indication: FOR MUSCLE SPASM OUTPT DOXEPIN HCL 10MG CAP (Status = Active/Suspended) TAKE ONE CAPSULE BY MOUTH AT BEDTIME FOR NIGHTMARES Rx# [id number] Last Released: 05/01/24 Qty/Days Supply: 90/ Rx Expiration Date: 12/05/24 Refills Remainin Indication: FOR NIGHTMARES OUTPT FOLIC ACID 0.4MG TAB (Status = Discontinued) TAKE ONE TABLET BY MOUTH ONCE A DAY FOR FOLIC ACID SUPPLEMENTATION Rx# [id number] Last Released: 03/27/24 Qty/Days Supply: 100/90 Rx Expiration Date: 07/10/24 Refills Remainin Indication: FOR FOLIC ACID SUPPLEMENTATION OUTPT FOLIC ACID 0.4MG TAB (Status = Active) TAKE ONE TABLET BY MOUTH ONCE A DAY FOR FOLIC ACID SUPPLEMENTATION Rx# [id number] Last Released: 06/18/24 Qty/Days Supply: 100/ Rx Expiration Date: 04/24/25 Refills Remainin Indication: FOR FOLIC ACID SUPPLEMENTATION OUTPT GABAPENTIN 400MG CAP (Status = Active) TAKE ONE CAPSULE BY MOUTH AT BEDTIME FOR NERVE PAIN Rx# [id number] Last Released: 06/18/24 Qty/Days Supply: 90 Rx Expiration Date: 01/15/25 Refills Remainin Indication: FOR NERVE PAIN OUTPT HYDROXYZINE HCL 25MG TAB (Status = Discontinued) TAKE ONE TABLET BY MOUTH TWICE DAILY NEEDED FOR ANXIETY *MAY CAUSE DROWSINESS* Rx# [id number] Last Released: 06/08/24 Qty/Days Supply: 180 Rx Expiration Date: 01/30/25 Refills Remainin Indication: FOR ANXIETY OUTPT HYDROXYZINE HCL 25MG TAB (Status = Active/Suspended) TAKE ONE TABLET BY MOUTH TWICE DAILY NEEDED FOR ANXIETY *MAY CAUSE DROWSINESS* Rx# [id number] Last Released: Qty/Days Supply: 180 Rx Expiration Date: 06/12/25 Refills Remainin Indication: FOR ANXIETY OUTPT IBUPROFEN 800MG TAB (Status = Active) TAKE ONE TABLET BY MOUTH THREE TIMES A DAY NEEDED FOR HEADACHE TAKE WITH FOOD. TAKE AT ONSET OF HEADACHE, WITH SUMATRIPTAN Rx# [id number] Last Released: 06/19/24 Qty/Days Supply: 270/ Rx Expiration Date: 12/04/24 Refills Remainin Indication: FOR HEADACHE OUTPT LEVOTHYROXINE NA 112MCG TAB (Status = Discontinued) TAKE ONE TABLET BY MOUTH EVERY MORNING BEFORE A MEAL FOR THYROID. TAKE 30 MINUTES BEFORE FOOD. TAKE SEPARATELY FROM ALL OTHER MEDICATIONS. Rx# [id number] Last Released: 03/25/24 Qty/Days Supply: 90 Rx Expiration Date: 05/10/24 Refills Remainin OUTPT LEVOTHYROXINE NA 112MCG TAB (Status = Active) TAKE ONE TABLET BY MOUTH EVERY MORNING BEFORE A MEAL FOR THYROID. TAKE 30 MINUTES BEFORE FOOD. TAKE SEPARATELY FROM ALL OTHER MEDICATIONS. Rx# [id number] Last Released: 06/12/24 Qty/Days Supply: Rx Expiration Date: 07/22/24 Refills Remainin OUTPT MIRTAZAPINE 45MG TAB (Status = Active) TAKE ONE TABLET BY MOUTH AT BEDTIME FOR INSOMNIA & MOOD Rx# [id number] Last Released: 06/01/24 Qty/Days Supply: Rx Expiration Date: 01/30/25 Refills Remainin Indication: FOR INSOMNIA & MOOD OUTPT SUMATRIPTAN SUCCINATE 50MG TAB (Status = Active) TAKE ONE TABLET BY MOUTH ONE-TIME FOR MIGRAINE HEADACHE TAKE AT ONSET OF HEADACHE. MAY REPEAT AFTER 2 HOURS. NOT TO EXCEED 2 TABLETS IN 24 HOURS. Rx# [id number] Last Released: 05/19/24 Qty/Days Supply: Rx Expiration Date: 02/10/25 Refills Remainin Indication: FOR MIGRAINE HEADACHE SUPPLIES PHARMACY TERMS AND POSSIBLE PATIENT ACTIONS INPT = [place] inpatient [place] IV = [place] intravenous medication OUTPT = [place] outpatient prescription PHARMACY POSSIBLE PATIENT TERMS EXPLANATION ACTIONS -------- ---- ACTIVE A prescription that can be If you have refills, filled at the local [place] pharmacy. you may request a refill of this prescription from your [place] pharmacy. CLINIC A medication you received during If you have questions a visit to a VA clinic or about this medication emergency department. contact your VA healthcare team. DISCONTINUED A prescription your provider has Contact your [facility] stopped. It is no longer healthcare team if you available to be sent to you or need more of this picked up at the [place] pharmacy medication. window. A prescription which is [...] the VA. Or, it may be an ijsx-pzf-cqzhdad (OTC), herbal, dietary supplements or sample medication. [...] An active prescription that is Contact your [place] not scheduled to be filled yet. pharmacy if you need You should receive it before this medication now. you run out. Medication list reviewed with Patient Amphetamin/Detroamph one dose in am and the other dose in PM / Cetirizine is prn/ IS PATIENT TAKING ANY OVER THE COUNTER MEDICATIONS, SUCH VITAMINS OR HERBAL SUPPLEMENTS, INCLUDING ANY MEDICATIONS PRESCRIBED BY ANOTHER PHYSICIAN? Yes, List: Magnesium daily / Zinc daily Does patient have any new allergies to report since last visit? VITALS: TEMPERATURE: 98.2 F [36.8 C] (07/08/2024 10:15) BP: 130/84 (07/08/2024 10:15) RESP: 22 (07/08/2024 10:15) PULSE: 78 (07/08/2024 10:15) HT: 72 in [182.9 cm] (06/11/2024 09:15) WT: 208.5 lb [94.57 kg] (07/08/2024 10:15) BMI: 28.3 PAIN ASSESSMENT: (Most Recent Pain Score in Vitals Package: 7 (07/08/2024 10:15) ) The patient indicated that they and their close contacts have not traveled outside of the [place] in the past 21 days. The patient reports the following symptoms: No symptoms present The patient is not immunocompromised. The patient does not report having a history of Multi Drug Resistant Organism (MDRO) within the last five years. The patient does not report having been exposed to measles, chickenpox, or zoster in last 30 days. STRESS: Thank you for your service. Now let us serve you. At the [facility], we strive to provide you with exceptional health care that improves your health and well-being. Are you feeling sad, empty, or depressed? No Do you need to talk about things in your life that worry you or cause you stress? No Do you need to talk about personal problems, family problems, alcohol use, drug use, or mental or emotional illness? No SUICIDE SCREENING: The patient was asked, Over the past two weeks, how often have you been bothered by thoughts that you would be better off or of hurting yourself in some way? Not At All SPIRITUAL ASSESSMENT: Are there gnosticism practices or spiritual concerns you want the rolling chair pusher, your physician, and other health care team members to immediately know about? Patient advised to call the clinic for any concerns, questions, or symptoms. Patient and/or caregiver verbalized understanding of plan of care. COVID-19 Immunization - L,N,P,PH,U: Refused Moderna Monovalent COVID-19 vaccine Immunization: COVID-19 (MODERNA), MRNA, LNP-S, PF, 50 MCG/0.5 ML (AGES 12+ YEARS) Refusal Reason: PATIENT DECISION Patient refuses all immunization(s) in the COVID-19 group Date Documented: 07/08/24 10:19 Influenza Immunization - L,N,P,PH,U: Deferral / Refusal The patient declines to receive the recommended dose of seasonal influenza vaccine. Immunization: INFLUENZA, UNSPECIFIED FORMULATION Refusal Reason: PATIENT DECISION Patient refuses all immunization(s) in the FLU group Date Documented: 07/08/24 10:19 MOVE Weight Management: Most recent BMI: 28.3. [place] educated on health risk of obesity and treatment is offered. Participation in a weight management program was considered/offered for this patient based on the current BMI score. Pneumococcal Conjugate Vaccine (PCV15/PCV20/PCV21) - L,N,P,PH,U: Refuses PCV vaccine Immunization: PNEUMOCOCCAL CONJUGATE, UNSPECIFIED FORMULATION Refusal Reason: PATIENT DECISION Patient refuses all immunization(s) in the [employer] group Date Documented: 07/08/24 10:19 Pain Assessment: - PAIN ASSESSMENT: .. This patient's last pain assessment score was: 7 (07/08/2024 10:15). A detailed pain assessment showed the following: Pain characteristics (per patient's own words) Constant Location of current pain Low Back Pain Management Education: One to one counseling/education with patient was provided. Patient's self identified pain goal: 0 Patient/Nurse Interview: * * Patient states that questions were answered in a way that was easily understood. /ernesto/ GRICELDA SNOW LPN Signed: 07/08/2024 10:20 GRICELDA SNOW [facility]
--- OUTSIDE RECORDS SUMMARY | 2024-07-09 06:45 | XMS_ITS | Encounter Summary ---
Author Name [facility] [facility] [place] Address [address] [place] [address] Care Team Providers Care Tipple Repairer Name Role Phone NELIDAZuri BRIGID Primary Care Provider Unavailabl DAVID Parra Primary Care Provider Juan e Selected Encounter This section includes the information on record at [place] for the Encounter. Date/Time Encounter Type Encounter Description Reason Provider Source Jul 09, 2024 11:45 AM [facility] ICD-10-CM R41.89 Oth symptoms and signs w cognitive functions and awareness LIV GREGG Encounter Template Text not used by [place] Assessments - Encounter Diagnoses This section includes the primary and secondary diagnoses documented for the Encounter. Date/Time Primary/Secondary Diagnosis Diagnosis Name Provider Source Jul 09, 2024 12:15 PM PRIMARY Oth symptoms and signs w cognitive functions and awareness LIV GREGG [facility] Jul 09, 2024 12:15 PM SECONDARY Chronic post-traumatic headache, not intractable LIV GREGG [facility] Jul 09, 2024 12:15 PM SECONDARY Major depressive disorder, recurrent, in partial remission LIV GREGG [facility] Plan of Treatment: Future Appointments (+ [...] 20 appointments. The data comes from all [place] treatment facilities. Appointment Date/Time Appointment Type Appointme nt Facility Name Aug 06, 2024 09:45 AM AM[facility]ATORY - [facility] Aug 06, 2024 09:46 AM AMBULATORY - [place]IC[place] [facility] August 13, 2024 10:00 AM AMBULATORY - MEDICINE [facility] August 13, 2024 10:01 AM AMBULATORY - MEDICINE [place] [facility] September 10, 2024 09:15 AM [facility]ULATORY [facility] PS[facility] September 10, 2024 09:16 AM AMBULATORY - MEDICINE [place] [facility] Oct 02, 2024 10:45 AM [facility] Oct 02, 2024 10:46 AM AMBULATORY - MEDICINE [place] [facility] Oct 29, 2024 09:15 AM [facility] Oct 29, 2024 09:16 AM AMBULATORY - MEDICINE [place] [facility] Dec 10, 2024 09:15 AM AM[facility] Dec 10, 2024 09:16 AM AMBULATORY - MEDICINE [place] [facility] Dec 24, 2024 09:15 AM AM[facility]ATORY [facility]ATRY [facility] Dec 24, 2024 09:16 AM AMBULATORY - MEDICINE [place] [facility] Jan 08, 2025 09:20 AM AMBULATORY - MEDICINE [facility] Lab Results: +/- 30 days of the encounter This section includes the Chemistry and Hematology Lab Results on record with [place] for the patient. Radiology Reports and Pathology Reports are provided separately, in subsequent sections. Lab Results This section contains the Chemistry/Hematology Results that were resulted 30 days before or 30 daysafter the date of the Encounter. Date/Time Source Result Type Result - Unit Interpretation Reference Range Specimen Type Comment Jul 09, 2024 12:16 PM [facility] DRUG SCREEN URINE-inhouse (PB) URINE Specimen Type: URINE No comment entered. Ordering Provider: LIV GREGG Report Released Date/Time: Jul 09, 2024 12:12 PM Reporting Lab: [place] [facility] [address] [place] [address] Performing Lab: [place] [facility] [address] [place] [address] METHADONE Negative Negative OPIATES (PB) Negative Negative COCAINE... Negative Negative THC(Marijuana... Negative Negative BENZODIAZEPINE (PB) Negative Negative AMPHETAMINE... Negative Negative CREATININE URINE/OTHERS 23.47 mg/dL OXYCODONE ([id number]) Negative Negati ve BUPRENORPHINE (STL-PB-MA) Negative ng/mL Negative ETHANOL URINE <10 mg/dL L 0-20 FENTANYL, URINE (PB) Negative ng/mL Jul 01, 2024 08:37 AM [facility] B12 SERUM Specimen Type: SERUM No comment entered. Ordering Provider: BRIGID DEGROOT Report Released Date/Time: Jul 10, 2023 03:48 PM Reporting Lab: [place] [facility] [address] [place] [address] Performing Lab: [place] [facility] [address] [place] [address] B12 706 pg/mL 213-816 Jul 01, 2024 08:37 AM [facility] FOLATE (PB) SERUM Specimen Typ e: SERUM No comment entered. Ordering Provider: BRIGID DEGROOT Report Released Date/Time: Jul 10, 2023 03:48 PM Reporting Lab: [place] [facility] [address] [place] [address] Performing Lab: [place] [facility] [address] [place] [address] FOLATE (PB) 17.1 ng/mL 7-20 Jul 01, 2024 08:37 AM [facility] HGA1C BLOOD Specimen Type: BLOOD No comment entered. Ordering Provider: BRIGID DEGROOT Report Released Date/Time: Jul 10, 2023 03:48 PM Reporting Lab: [place] [facility] [address] [place] [address] Performing Lab: [place] [facility] [address] [place] [address] HGA1C 6.3 H 4.0-6.0 Jul 01, 2024 08:37 AM [facility] COMPREHENSIVE METABOLIC PANEL PLASMA Specimen Type: PLASMA No comment entered. Ordering Provider: BRIGID DEGROOT Report Released Date/Time: Jul 10, 2023 03:48 PM Reporting Lab: [place] [facility] [address] [place] [address] Performing Lab: [place] [facility] [address] [place] [address] CREATININE 0.81 mg/dL 0.7-1.3 UREA NITROGEN 11 [...] 2020) 111 Jul 01, 2024 08:37 AM [facility] CHOLESTEROL PANEL (PB) PLASMA Specimen Type: P LASMA No comment entered. Ordering Provider: BRIGID DEGROOT Report Released Date/Time: Jul 10, 2023 03:48 PM Reporting Lab: [place] [facility] [address] [place] [address] Performing Lab: [place] [facility] [address] [place] [address] CHOLESTEROL 197 mg/dL 0-200 TRIGLYCERIDE 81 mg/dL 0-150 CALCULATED LDL 122.8 mg/dL HDL(New) 58.0 mg/dL H >40 HDL % OF TOTAL CHOLESTEROL (PB) 29.4 >25 Jul 01, 2024 08:37 AM [facility] VITAMIN D, 25-HYDROXY SERUM Specimen Type: SE RUM No comment entered. Ordering Provider: BRIGID DEGROOT Report Released Date/Time: Jul 10, 2023 03:48 PM Reporting Lab: [place] [facility] [address] [place] [address] Performing Lab: [place] [facility] [address] [place] [address] VITAMIN D, 25-HYDROXY 77.2 ng/mL 30-96 Jul 01, 2024 08:37 AM [facility] TSH (MA-PB) SERUM Specimen Typ e: SERUM No comment entered. Ordering Provider: BRIGID DEGROOT Report Released Date/Time: Jul 10, 2023 03:48 PM Reporting Lab: [place] [facility] [address] [place] [address] Performing Lab: [place] [facility] [address] [place] [address] TSH 1.968 u[IU]/mL 0.47-5 Jul 01, 2024 08:37 AM [facility] CBC BLOOD Specimen Type: BLOOD No comment entered. Ordering Provider: BRIGID DEGROOT Report Released Date/Time: Jul 10, 2023 03:48 PM Reporting Lab: [place] [facility] [address] [place] [address] Performing Lab: [place] [facility] [address] [place] [address] WBC 9.5 10*3/uL 3.6-11.2 RBC 4.49 10*6/uL [...] Height Weight Body Mass Index Source Jul 09, 2024 11:50 AM 98.1 77 136/72 20 98 5 214.7 29 [facility] Social History: Smoking Status (Most current) and Tobacco Use (All prior to encounter date) This section includes the most current, and the historical, smoking and tobacco- related health factors from the [place] facility where the Encounter took place. Current Smoking Status This section includes the most current smoking, or tobacco-related health factor, from the [place] facility where the Encounter took place. Date/Time Current Smoking Status Comment Facil ity August 29, 2023 09:00 AM VA-TOBACCO USER EVERY DAY [facility] Tobacco Use History This section includes a history of the smoking, or tobacco-related health factors, that were collected on or before the date of the Encounter. The data comes from the [place] facility where the Encounter took place. 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 [facility] August 29, 2023 09:00 AM VA-TOBACCO USE MED NO [facility] August 29, 2023 09:00 AM VA-TOBACCO USE WI 30 MIN OF WAKE UP [facility] August 29, 2023 09:00 AM VA-TOBACCO USER EVERY DAY [facility] Sep 21, 2022 10:30 AM VA-TOBACCO DOESNT USE WI 30 MIN WAKEUP [facility] Sep 21, 2022 10:30 AM VA-TOBACCO USE > 1 5 LESS THAN 30 YEARS [facility] Sep 21, 2022 10:30 AM VA-TOBACCO USE ADVICE [facility] Sep 21, 2022 10:30 AM 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 [facility] Sep 21, 2022 10:30 AM [...] Sep 15, 2021 11:00 AM 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 [facility] Sep 15, 2021 11:00 AM VA-TOBACCO USE MED NO [facility] Sep 15, 2021 11:00 AM VA-TOBACCO USER EVERY DAY [facility] Sep 21, 2020 10:01 AM VA-TOBACCO DOESNT USE WI 30 MIN WAKEUP [facility] Sep 21, 2020 10:01 AM VA-TOBACCO USE > 1 5 LESS THAN 30 YEARS [facility] Sep 21, 2020 10:01 AM VA-TOBACCO USE ADVICE [facility] Sep 21, 2020 10:01 AM 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 This section includes ALL of a patient's completed or amended VA Advance and Rescinded Directives. The entries below indicate that a directive exists for the patient, but an actual copy is not included with this document. The data comes from all [place] facilities. Date Advance Directives Provider Source Oct 19, 2015 ADVANCE DIRECTIVE DISCUSSION GAVINO CHENEY YOGIKODY Daniels SUAD [facility] Encounter Notes: All associated encounter notes This section contains the clinical notes associated to the Encounter. Date/Time Encounter Note(s) Provider Source Jul 09, 2024 12:16 PM NURSING NOTE: LOCAL TITLE: [facility]IP NURSING EXIT NOTE PB STANDARD TITLE: NURSING NOTE DATE OF NOTE: JUL 09, 2024@12:16 ENTRY DATE: JUL 09, 2024@12:16:21 AUTHOR: HOOD,KEIRA M EXP COSIGNER: URGENCY: STATUS: COMPLETED EXIT INTERVIEW Location: [facility] Ambulatory Appointment Reviewed: Instructions: CLINIC: Sent to Pharmacy for medications and instructions: Lab Instructions: Special Instructions: Verbalized understanding of today's visit: Patient Is patient's pain under control at time of exit? Yes Discussed walk-in and after-hour services. [place] verbalized understanding. Encouraged to seek treatment if change in status. Contact information and hours of operation given. Carlos had voiced no questions or concerns and was escorted to the [facility] in satisfactory condition, scheduling for his next appt. Lab order being accessioned and he will go to lab prior to leaving clinic. /ernesto/ ANN WEN, RN [facility] Signed: 07/09/2024 12:32 KEIRA HOOD [facility] Jul 09, 2024 11:54 AM NURSING PROGRESS N OTE: LOCAL TITLE: NURSING NOTE PB STANDARD TITLE: NURSING PROGRESS NOTE DATE OF NOTE: JUL 09, 2024@11:54 ENTRY DATE: JUL 09, 2024@11:54:14 AUTHOR: KEIRA HOOD EXP COSIGNER: URGENCY: STATUS: COMPLETED Carlos is here for his scheduled telemed psychiatry appt. He is alert and oriented, resps even and unlabored, gait steady. is pleasant and conversational, states he is doing good. Active Outpatient Medications: Active Outpatient [...] BEDTIME ACTIVE (S) Indication: FOR NIGHTMARES 8) FERROUS GLUCONATE 240MG TAB TAKE TWO TABLETS BY MOUTH ONCE A ACTIVE DAY Indication: FOR IRON DEFICIENCY ANEMIA 9) FOLIC ACID 0.4MG TAB TAKE ONE TABLET BY MOUTH ONCE A DAY ACTIVE Indication: FOR FOLIC ACID SUPPLEMENTATION 10) GABAPENTIN 400MG CAP TAKE ONE CAPSULE BY MOUTH AT BEDTIME ACTIVE Indication: FOR NERVE PAIN 11) HYDROXYZINE HCL 25MG TAB TAKE ONE TABLET BY MOUTH TWICE ACTIVE (S) DAILY NEEDED *MAY CAUSE DROWSINESS* Indication: FOR ANXIETY 12) IBUPROFEN 800MG TAB TAKE ONE TABLET BY MOUTH THREE TIMES A ACTIVE DAY NEEDED TAKE WITH FOOD. TAKE AT ONSET OF HEADACHE, WITH SUMATRIPTAN Indication: FOR HEADACHE 13) LEVOTHYROXINE NA 112MCG TAB TAKE ONE TABLET BY MOUTH EVERY ACTIVE (S) MORNING BEFORE A MEAL FOR THYROID. TAKE 30 MINUTES BEFORE FOOD. TAKE SEPARATELY FROM ALL OTHER MEDICATIONS. 14) MIRTAZAPINE 45MG TAB TAKE ONE TABLET BY MOUTH AT BEDTIME ACTIVE Indication: FOR INSOMNIA & MOOD 15) SUMATRIPTAN SUCCINATE 50MG TAB TAKE ONE TABLET BY MOUTH ACTIVE ONE-TIME TAKE AT ONSET OF HEADACHE. MAY REPEAT AFTER 2 HOURS. NOT TO EXCEED 2 TABLETS IN 24 HOURS. Indication: FOR MIGRAINE HEADACHE states he is taking the above meds as prescribed. He denies any change in side effects with amphetamine, bupropion, doxepin, hydroxyzine or mirtazapine and they are effective. Depression Monitoring (PHQ-9) - M,N,P,PH,PS,R,S,T: PHQ-9 A PHQ-9 screen was performed. The score was 11. 1. Little interest or pleasure in doing things Several days 2. Feeling down, depressed, or hopeless Several days 3. Trouble falling or staying asleep, or sleeping too much Several days 4. Feeling tired or having little energy More than half the days 5. Poor appetite or overeating Nearly every day 6. Feeling bad about yourself or that you are a failure or have let yourself or your family down Not at all 7. Trouble concentrating on things, such as reading the newspaper or watching television More than half the days 8. Moving or speaking so slowly that other people could have noticed. Or the opposite being so fidgety or restless that you have been moving around a lot more than usual Several days 9. Thoughts that you would be better off or of hurting yourself in some way Not at all 10. If you checked off any problems, how DIFFICULT have these problems made it for you to do your work, take care of things at home or get along with other people? Somewhat difficult had no previous PHQ-9 score to compare to current score to gauge improvement Interprofessional Communication: Other Communication: has scheduled appt with Dr Gregg Pain Assessment: - PAIN ASSESSMENT: .. This patient's last pain assessment score was: 7 (07/08/2024 10:15). A detailed pain assessment showed the following: Pain characteristics (per patient's own words) Constant dull roar today Location of current pain Low Back Onset/Duration of the current pain. Constant or variable? More than a year Patient's self-identified pain level: 5 was escorted to room 128 for his appt with Dr Gregg, receiving good telemed transmission. /ernesto/ ANN WEN, RN [facility] Signed: 07/09/2024 12:04 KEIRA HOOD [facility]
--- OUTSIDE RECORDS SUMMARY | 2024-07-09 06:46 | XMS_ITS | Encounter Summary ---
Author Name [facility] [facility] [place] [facility] [facility] [place] Address [address] [place] [address] Care Team Providers Care Agency Recruiter Name Role Phone BRIGID DEGROOT Primary Care Provider Unavailabl CHANNING Parra Primary Care Provider Unavailevie e Selected Encounter This section includes the information on record at [place] for the Encounter. Date/Time Encounter Type Encounter Description Reason Provider Source Jul 09, 2024 11:46 AM SYNCH AUDIO-VIDEO EST MOD [facility] - IND ICD-10-CM R41.89 Oth symptoms and signs w cognitive functions and awareness LIV CAMPBELL Encounter Template Text not used by [place] Assessments - Encounter Diagnoses This section includes the primary and secondary diagnoses documented for the Encounter. Date/Time Primary/Secondary Diagnosis Diagnosis Name Provider Source Jul 09, 2024 12:15 PM PRIMARY Oth symptoms and signs w cognitive functions and awareness LIV CAMPBELL [facility] Jul 09, 2024 12:15 PM SECONDARY Chronic post-traumatic headache, not intractable LIV CAMPBELL [facility] Jul 09, 2024 12:15 PM SECONDARY Major depressive disorder, recurrent, in partial remission LIV CAMPBELL [facility] Plan of Treatment: Future Appointments (+ 6 months) and Future Tests (+/- 45 days) The Plan of Treatment section includes future care activities for the patient from all [place] [facility] This section includes future appointments and future orders which are active, pending or scheduled. Future Appointments This section includes appointments that were scheduled to occur 6 months from the date of the Encounter, up to a maximum of 20 appointments. The data comes from all [place] treatment facilities. Appointment Date/Time Appointment Type Appointme nt Facility Name Aug 06, 2024 09:45 AM AMBULATORY - PSYCHIATRY [facility] Aug 06, 2024 09:46 AM AMBULATORY [place]IC[place] [facility] August 13, 2024 10:00 AM AMBULATORY - MEDICINE [facility] August 13, 2024 10:01 AM AMBULATORY - MEDIC[place] [facility] September 10, 2024 09:15 AM AMBULATORY - PSYCHIATRY [facility] September 10, 2024 09:16 AM AMBULATORY - MEDICINE [place] [facility] Oct 02, 2024 10:45 AM AMBULATORY - PSYCHIATRY [facility] Oct 02, 2024 10:46 AM AMBULATORY - MEDICINE [place] [facility] Oct 29, 2024 09:15 AM AMBULATORY - PSYCHIATRY [facility] Oct 29, 2024 09:16 AM AMBULATORY - MEDICINE [place] [facility] Dec 10, 2024 09:15 AM AMBULATORY - PSYCHIATRY [facility] Dec 10, 2024 09:16 AM AMBULATORY - MEDICINE [place] [facility] Dec 24, 2024 09:15 AM AMBULATORY - PSYCHIATRY [facility] Dec 24, 2024 09:16 AM AMBULATORY - MEDICINE [place] [facility] Jan 08, 2025 09:20 AM AMBULATORY - MEDICINE [facility] Lab Results: +/- 30 days of the encounter This section includes the Chemistry and Hematology Lab Results on record with [place] for the patient. Radiology Reports and Pathology Reports are provided separately, in subsequent sections. Lab Results This section contains the Chemistry/Hematology Results that were resulted 30 days before or 30 daysafter the date of the Encounter. Date/Time Source Result Type Result - Unit Interpretation Reference Range Specimen Type Comment Jul 09, 2024 12:16 PM [facility] DRUG SCREEN URINE-inhouse (PB) URINE Specimen Type: URINE No comment entered. Ordering Provider: LIV CAMPBELL Report Released Date/Time: Jul 09, 2024 12:12 PM Reporting Lab: [place] [facility] [address] [place] [address] Performing Lab: [place] [facility] [address] [place] [address] METHADONE Negative Negative OPIATES (PB) Negative Negative COCAINE... Negative Negative THC(Marijuana... Negative Negative BENZODIAZEPINE (PB) Negative Negative AMPHETAMINE... Negative Negative CREATININE URINE/OTHERS 23.47 mg/dL OXYCODONE (QBWEY-EIF-EH) Negative Negati ve BUPRENORPHINE (STL-PB-MA) Negative ng/mL Negative ETHANOL URINE <10 mg/dL L 0-20 FENTANYL, URINE (PB) Negative ng/mL Jul 01, 2024 08:37 AM [facility] B12 SERUM Specimen Type: SERUM No comment entered. Ordering Provider: BRIGID DEGROOT Report Released Date/Time: Jul 10, 2023 03:48 PM Reporting Lab: [place] [facility] [address] [place] [facility] Performing Lab: [place] [facility] [address] [place] [address] B12 706 pg/mL 213-816 Jul 01, 2024 08:37 AM [facility] FOLATE (PB) SERUM Specimen Typ e: SERUM No comment entered. Ordering Provider: BRIGID DEGROOT Report Released Date/Time: Jul 10, 2023 03:48 PM Reporting Lab: [place] [facility] [address] [place] [address] Performing Lab: [place] [facility] [address] [place] [address] FOLATE (PB) 17.1 ng/mL 7-20 Jul 01, 2024 08:37 AM [facility] HGA1C BLOOD Specimen Type: BLOOD No comment entered. Ordering Provider: BRIGID DEGROOT Report Released Date/Time: Jul 10, 2023 03:48 PM Reporting Lab: [place] [facility] [address] [place] [address] Performing Lab: [place] [facility] [address] [place] [address] HGA1C 6.3 H 4.0-6.0 Jul 01, 2024 08:37 AM [facility] COMPREHENSIVE METABOLIC PANEL PLASMA Specimen Type: PLASMA No comment entered. Ordering Provider: BRIGID DEGROOT Report Released Date/Time: Jul 10, 2023 03:48 PM Reporting Lab: [place] [facility] [address] [place] [address] Performing Lab: [place] [facility] [address] [place] [address] CREATININE 0.81 mg/dL 0.7-1.3 UREA NITROGEN 11 [...] 2020) 111 Jul 01, 2024 08:37 AM [facility] CHOLESTEROL PANEL (PB) PLASMA Specimen Type: P LASMA No comment entered. Ordering Provider: BRIGID DEGROOT Report Released Date/Time: Jul 10, 2023 03:48 PM Reporting Lab: [place] [facility] [address] [place] [address] Performing Lab: [place] [facility] [address] [place] [address] CHOLESTEROL 197 mg/dL 0-200 TRIGLYCERIDE 81 mg/dL 0-150 CALCULATED LDL 122.8 mg/dL HDL(New) 58.0 mg/dL H >40 HDL % OF TOTAL CHOLESTEROL (PB) 29.4 >25 Jul 01, 2024 08:37 AM [facility] VITAMIN D, 25-HYDROXY SERUM Specimen Type: SE RUM No comment entered. Ordering Provider: BRIGID DEGROOT Report Released Date/Time: Jul 10, 2023 03:48 PM Reporting Lab: [place] [facility] [address] [place] [address] Performing Lab: [place] [facility] [address] [place] [address] VITAMIN D, 25-HYDROXY 77.2 ng/mL 30-96 Jul 01, 2024 08:37 AM [facility] TSH (MA-PB) SERUM Specimen Typ e: SERUM No comment entered. Ordering Provider: BRIGID DEGROOT Report Released Date/Time: Jul 10, 2023 03:48 PM Reporting Lab: [place] [facility] [address] [place] [address] Performing Lab: [place] [facility] [address] [place] [address] TSH 1.968 u[IU]/mL 0.47-5 Jul 01, 2024 08:37 AM [facility] CB CBC BLOOD Specimen Type: BLOOD No comment entered. Ordering Provider: BRIGID DEGROOT Report Released Date/Time: Jul 10, 2023 03:48 PM Reporting Lab: [place] [facility] [address] [place] [address] Performing Lab: [place] [facility] [address] [place] [address] WBC 9.5 10*3/uL 3.6-11.2 RBC 4.49 10*6/uL [...] and tobacco- related health factors from the [place] facility where the Encounter took place. Current Smoking Status This section includes the most current smoking, or tobacco-related health factor, from the [place] facility where the Encounter took place. Date/Time Current Smoking Status Comment Facil ity Jan 17, 2022 11:00 AM LIFETIME NON-SMOKER [facility] Advance Directives: All historical and current Section Date Range: From patient's date of to the date document was created. This section includes ALL of a patient's completed or amended [place] Advance and Rescinded Directives. The entries below indicate that a directive exists for the patient, but an actual copy is not included with this document. The data comes from all [place] facilities. Date Advance Directives Provider Source Oct 19, 2015 ADVANCE DIRECTIVE DISCUSSION GAVINO CHENEY YOGIKODY Daniels [facility] Encounter Notes: All associated encounter notes This section contains the clinical notes associated to the Encounter. Date/Time Encounter Note(s) Provider Source Jul 09, 2024 12:11 PM PSYCHIATRY NOTE: LOCAL TITLE: PSYCHIATRIC PROGRESS NOTE STANDARD TITLE: PSYCHIATRY NOTE DATE OF NOTE: JUL 09, 2024@12:11 ENTRY DATE: JUL 09, 2024@12:11:22 AUTHOR: LIV CAMPBELL COSIGNER: URGENCY: STATUS: COMPLETED Consent: [place] provided verbal consent for receiving care through the modality of [place] Vtele. Patient verified date of and full name. RENU ZAPATA is a 44 y/o MALE Note from previous visit was reviewed: Yes Reviewed progress notes Denies any SI/HI plans or intent Chief Complaint: Med Management History of Present Illness: [place] reports since last seen has been doing okay. He states things are going okay with the house and getting everything rebuilt. He states memory is doing the same. He states depression has been doing okay. reports getting enjoyment. Denies any Suicidal Ideations plans or intent. [place] denies any feelings of hopelessness. He states the PTSD sx are about the same. He states he is sleeping okay. He states appetite has been okay, but states he never has had much of an appetite. He states he is not losing weight. Past Suicide Attempts: Denies Protective Factors: Children [...] firearms: Declined to answer Discussed firearm safety. [place] is aware this narrator recommends firearm be [...] alcohol and not to drive if sedated. [place] also warned of risks of treatment noncompliance and/or refusal. Informed consent obtained and med reconciliation completed. 2. Labs:UDS EKG QTc 396ms on 05/07/24 3. Consults/Medical: None ordered. 4. Safety Planning was reviewed with the patient. is aware if patient begins having any suicidal or homicidal ideations this is an emergency and [place]o needs to call 9-11 or go to the nearest ED. Discussed [facility] [phone]. 5. Patient should follow-up 1 month Patient is encouraged to call with any questions or concerns. Instructed [place] to follow up with his primary care provider routinely and as needed for wellness and any medical concerns. Return to [facility] for ongoing medication management, psychoeducation [...] Liv Campbell DO, MA [facility] Signed: 07/09/2024 12:14 LIV CAMPBELL [facility] Jul 09, 2024 12:08 PM PRIMARY CARE EDUCA TION NOTE: LOCAL TITLE: OPT PHY INSTR AUTO PB STANDARD TITLE: PRIMARY CARE EDUCATION NOTE DATE OF NOTE: JUL 09, 2024@12:08 ENTRY DATE: JUL 09, 2024@12:08:52 AUTHOR: LIV CAMPBELL COSIGNER: URGENCY: STATUS: COMPLETED This documentation is related to: . F/U Visit Description of Today's Injury/Illness: Memory issues, MDD, PTSD, AVELINA Mental Health Testing: RETURN TO CLINIC: Return appointment is needed. . Special Instructions: . MEDICATION REVIEW/ASSESSMENT & PLAN: No med changes RTC 1 month on stim Allergies/ADRs (Tool #5) FACILITY ALLERGY/ADR -------- [facility] NO KNOWN ALLERGIES [facility] NO KNOWN ALLERGIES [facility] No Known Allergies Med. Reconciliation (Tool #1) INCLUDED IN THIS LIST: Alphabetical list of active outpatient prescriptions dispensed from this [place] (local) and dispensed from another [place] or [facility] facility (remote) as well as inpatient orders (local pending and active), local clinic medications, locally documented non-VA medications, and local prescriptions that have or been discontinued in the past 90 days. Non-VA Meds Last Documented On: Data not found NOTE The display of VA prescriptions dispensed from another [place] or DoD facility (remote) is limited to active outpatient prescription entries matched to National Drug File at the originating site and may not include some items such as investigational drugs, compounds, etc. NOT INCLUDED IN THIS LIST: Medications self-entered by the patient into personal health records (i.e. [employer]) are NOT included in this list. Non-VA medications documented outside this [place], remote inpatient orders (regardless of status) and remote clinic medications are NOT included in this list. The patient and provider must always discuss medications the patient is taking, regardless of where the medication was dispensed or obtained. OUTPT AMPHETAMINE/DEXTROAMPH RESIN 10MG SA CAP (Status = Discontinued) TAKE ONE CAPSULE BY MOUTH EVERY MORNING FOR ADHD Rx# [id number] Last Released: 04/06/24 Qty/Days Supply: Rx Expiration Date: 04/19/24 Refills Remainin Indication: FOR ADHD OUTPT AMPHETAMINE/DEXTROAMPH RESIN 10MG SA CAP (Status = ) TAKE ONE CAPSULE BY MOUTH EVERY MORNING FOR ADHD Rx# [id number] Last Released: 05/08/24 Qty/Days Supply: Rx Expiration Date: 05/16/24 Refills Remainin Indication: FOR ADHD OUTPT AMPHETAMINE/DEXTROAMPH RESIN 10MG SA CAP (Status = Active) TAKE ONE CAPSULE BY MOUTH EVERY MORNING FOR ADHD Rx# [id number] Last Released: 06/11/24 Qty/Days Supply: Rx Expiration Date: 07/11/24 Refills Remainin Indication: FOR ADHD OUTPT AMPHETAMINE/DEXTROAMPH RESIN 10MG SA CAP (Status = Pending) TAKE ONE CAPSULE BY MOUTH EVERY MORNING FOR ADHD Login Date: 07/09/24 Qty/Days Supply: Refills Ordered: 0 OUTPT AMPHETAMINE/DEXTROAMPHETAMINE 5MG TAB (Status = Discontinued) TAKE ONE TABLET BY MOUTH AFTERNOON FOR ADHD Rx# [id number] Last Released: 04/06/24 Qty/Days Supply: Rx Expiration Date: 04/19/24 Refills Remainin Indication: FOR ADHD OUTPT AMPHETAMINE/DEXTROAMPHETAMINE 5MG TAB (Status = ) TAKE ONE TABLET BY MOUTH AFTERNOON FOR ADHD Rx# [id number] Last Released: 05/08/24 Qty/Days Supply: Rx Expiration Date: 05/16/24 Refills Remainin Indication: FOR ADHD OUTPT AMPHETAMINE/DEXTROAMPHETAMINE 5MG TAB (Status = Active) TAKE ONE TABLET BY MOUTH EVERY MORNING FOR ADHD Rx# [id number] Last Released: 06/11/24 Qty/Days Supply: Rx Expiration Date: 07/11/24 Refills Remainin Indication: FOR ADHD OUTPT AMPHETAMINE/DEXTROAMPHETAMINE 5MG TAB (Status = Pending) TAKE ONE TABLET BY MOUTH EVERY MORNING FOR ADHD Login Date: 07/09/24 Qty/Days Supply: Refills Ordered: 0 OUTPT BUPROPION HCL 150MG 24HR SA TAB (Status = Active) TAKE ONE TABLET BY MOUTH EVERY MORNING FOR DEPRESSION SWALLOW WHOLE - DO NOT CRUSH OR CHEW. Rx# [id number] Last Released: 06/22/24 Qty/Days Supply: Rx Expiration Date: 03/21/25 Refills Remainin Indication: FOR DEPRESSION OUTPT CETIRIZINE HCL 10MG TAB (Status = Active) TAKE ONE TABLET BY MOUTH ONCE A DAY FOR ALLERGIC RHINITIS Rx# [id number] Last Released: 03/24/24 Qty/Days Supply: Rx Expiration Date: 07/10/24 Refills Remainin Indication: FOR ALLERGIC RHINITIS OUTPT CHOLECALCIF 50MCG (D3-2,000UNIT) TAB (Status = Discontinued) TAKE TWO TABLETS BY MOUTH ONCE A DAY FOR VITAMIN D SUPPLEMENTATION Rx# [id number] Last Released: 03/25/24 Qty/Days Supply: 200/90 Rx Expiration Date: 07/10/24 Refills Remainin Indication: FOR VITAMIN D SUPPLEMENTATION OUTPT CHOLECALCIF 50MCG (D3-2,000UNIT) TAB (Status = Active) TAKE TWO TABLETS BY MOUTH ONCE A DAY FOR VITAMIN D SUPPLEMENTATION Rx# [id number] Last Released: 06/22/24 Qty/Days Supply: 200/90 Rx Expiration Date: 04/24/25 Refills Remainin Indication: FOR VITAMIN D SUPPLEMENTATION OUTPT CYCLOBENZAPRINE HCL 10MG TAB (Status = Active) TAKE ONE TABLET BY MOUTH THREE TIMES A DAY NEEDED FOR MUSCLE SPASM MAY CAUSE DROWSINESS. DO NOT DRINK ALCOHOL WHILE TAKING THIS MEDICATION. Rx# [id number] Last Released: 05/19/24 Qty/Days Supply: 45/15 Rx Expiration Date: 07/10/24 Refills Remainin Indication: FOR MUSCLE SPASM OUTPT DOXEPIN HCL 10MG CAP (Status = Active/Suspended) TAKE ONE CAPSULE BY MOUTH AT BEDTIME FOR NIGHTMARES Rx# [id number] Last Released: 05/01/24 Qty/Days Supply: 90/90 Rx Expiration Date: 12/05/24 Refills Remainin Indication: FOR NIGHTMARES OUTPT FERROUS GLUCONATE 240MG TAB (Status = Active) TAKE TWO TABLETS BY MOUTH ONCE A DAY FOR IRON DEFICIENCY ANEMIA Rx# [id number] Last Released: Qty/Days Supply: 200/90 Rx Expiration Date: 07/09/25 Refills Remainin Indication: FOR IRON DEFICIENCY ANEMIA OUTPT FOLIC ACID 0.4MG TAB (Status = Discontinued) TAKE ONE TABLET BY MOUTH ONCE A DAY FOR FOLIC ACID SUPPLEMENTATION Rx# [id number] Last Released: 03/27/24 Qty/Days Supply: 100/90 Rx Expiration Date: 07/10/24 Refills Remainin Indication: FOR FOLIC ACID SUPPLEMENTATION OUTPT FOLIC ACID 0.4MG TAB (Status = Active) TAKE ONE TABLET BY MOUTH ONCE A DAY FOR FOLIC ACID SUPPLEMENTATION Rx# [id number] Last Released: 06/18/24 Qty/Days Supply: 100/90 Rx Expiration Date: 04/24/25 Refills Remainin Indication: FOR FOLIC ACID SUPPLEMENTATION OUTPT GABAPENTIN 400MG CAP (Status = Active) TAKE ONE CAPSULE BY MOUTH AT BEDTIME FOR NERVE PAIN Rx# [id number] Last Released: 06/18/24 Qty/Days Supply: 90/90 Rx Expiration Date: 01/15/25 Refills Remainin Indication: FOR NERVE PAIN OUTPT HYDROXYZINE HCL 25MG TAB (Status = Discontinued) TAKE ONE TABLET BY MOUTH TWICE DAILY NEEDED FOR ANXIETY *MAY CAUSE DROWSINESS* Rx# [id number] Last Released: 06/08/24 Qty/Days Supply: 180/90 Rx Expiration Date: 01/30/25 Refills Remainin Indication: FOR ANXIETY OUTPT HYDROXYZINE HCL 25MG TAB (Status = Active/Suspended) TAKE ONE TABLET BY MOUTH TWICE DAILY NEEDED FOR ANXIETY *MAY CAUSE DROWSINESS* Rx# [id number] Last Released: Qty/Days Supply: 180/90 Rx Expiration Date: 06/12/25 Refills Remainin Indication: FOR ANXIETY OUTPT IBUPROFEN 800MG TAB (Status = Active) TAKE ONE TABLET BY MOUTH THREE TIMES A DAY NEEDED FOR HEADACHE TAKE WITH FOOD. TAKE AT ONSET OF HEADACHE, WITH SUMATRIPTAN Rx# [id number] Last Released: 06/19/24 Qty/Days Supply: Rx Expiration Date: 12/04/24 Refills Remainin Indication: FOR HEADACHE OUTPT LEVOTHYROXINE NA 112MCG TAB (Status = Discontinued) TAKE ONE TABLET BY MOUTH EVERY MORNING BEFORE A MEAL FOR THYROID. TAKE 30 MINUTES BEFORE FOOD. TAKE SEPARATELY FROM ALL OTHER MEDICATIONS. Rx# [id number] Last Released: 03/25/24 Qty/Days Supply: Rx Expiration Date: 05/10/24 Refills Remainin OUTPT LEVOTHYROXINE NA 112MCG TAB (Status = Discontinued) TAKE ONE TABLET BY MOUTH EVERY MORNING BEFORE A MEAL FOR THYROID. TAKE 30 MINUTES BEFORE FOOD. TAKE SEPARATELY FROM ALL OTHER MEDICATIONS. Rx# [id number] Last Released: 06/12/24 Qty/Days Supply: Rx Expiration Date: 07/22/24 Refills Remainin OUTPT LEVOTHYROXINE NA 112MCG TAB (Status = Active/Suspended) TAKE ONE TABLET BY MOUTH EVERY MORNING BEFORE A MEAL FOR THYROID. TAKE 30 MINUTES BEFORE FOOD. TAKE SEPARATELY FROM ALL OTHER MEDICATIONS. Rx# [id number] Last Released: Qty/Days Supply: Rx Expiration Date: 10/06/24 Refills Remainin OUTPT MIRTAZAPINE 45MG TAB (Status = Active) TAKE ONE TABLET BY MOUTH AT BEDTIME FOR INSOMNIA & MOOD Rx# [id number] Last Released: 06/01/24 Qty/Days Supply: Rx Expiration Date: 01/30/25 Refills Remainin Indication: FOR INSOMNIA & MOOD OUTPT SUMATRIPTAN SUCCINATE 50MG TAB (Status = Active) TAKE ONE TABLET BY MOUTH ONE-TIME FOR MIGRAINE HEADACHE TAKE AT ONSET OF HEADACHE. MAY REPEAT AFTER 2 HOURS. NOT TO EXCEED 2 TABLETS IN 24 HOURS. Rx# [id number] Last Released: 05/19/24 Qty/Days Supply: Rx Expiration Date: 02/10/25 Refills Remainin Indication: FOR MIGRAINE HEADACHE SUPPLIES PHARMACY TERMS AND POSSIBLE PATIENT ACTIONS INPT = [place] inpatient order IV = [place] intravenous medication OUTPT = [place] outpatient prescription PHARMACY POSSIBLE PATIENT TERMS EXPLANATION ACTIONS -------- --- ACTIVE A prescription that can be If you have refills, filled at the local [place] pharmacy. you may request a refill of this prescription from your [place] pharmacy. CLINIC A medication you received during If you have questions a visit to a [place] clinic or about this medication emergency department. contact your [place] healthcare team. DISCONTINUED A prescription your provider has Contact your [facility] stopped. It is no longer healthcare team if you available to be sent to you or need more of this picked up at the [place] pharmacy medication. window. A prescription which is [...] the VA. Or, it may be an bpjx-inr-fqmbjee (OTC), herbal, dietary supplements or sample medication. [...] voiced an understanding of current medications? Yes [place]/caregiver were provided an updated medication list. Following results reviewed and discussed with patient: Future Appointments: 08/06/2024 09:45 PB-[facility] CVT BH PSI [place](PA 08/06/2024 09:46 PB-CVT BH PSI IND [place](ID 09/10/2024 09:15 PB-CELENA CVT BH PSI [place](PA 09/10/2024 09:16 PB-CVT BH PSI IND [place](ID 10/02/2024 10:45 PB-CELENA CVT BH PSI [place](PA 10/02/2024 10:46 PB-CVT BH PSI IND [place](ID 10/29/2024 09:15 PB-CELENA CVT BH PSI [place](PA 10/29/2024 09:16 PB-CVT BH PSI IND [place](ID 11/26/2024 09:15 PB-CELENA CVT BH PSI [place](PA 11/26/2024 09:16 PB-CVT BH PSI IND [place](ID 12/24/2024 09:15 PB-[facility]LE[facility] CVT BH PSI [place](PA 12/24/2024 09:16 PB-CVT BH PSI IND [place](ID 01/08/2025 09:20 [facility] ( /es/ Liv Campbell DO, MA [facility] Signed: 07/09/2024 12:11 LIV CAMPBELL [facility]
--- OUTSIDE RECORDS SUMMARY | 2024-08-06 04:45 | XMS_ITS | Encounter Summary ---
Author Name [facility] [facility] Address [address] [place] [address] Care Team Providers Care Credit Collections Manager Name Role Phone NELIDAZuri BRIGID Primary Care Provider UnavailCHANNING Dawn Primary Care Provider Juan e Selected Encounter This section includes the information on record at [place] for the Encounter. Date/Time Encounter Type Encounter Description Reason Provider Source Aug 06, 2024 09:45 AM [facility] - [facility] ICD-10-CM R41.89 Oth symptoms and signs w cognitive functions and awareness [facility] Encounter Template Text not used by [place] Assessments - Encounter Diagnoses This section includes the primary and secondary diagnoses documented for the Encounter. Date/Time Primary/Secondary Diagnosis Diagnosis Name Provider Source Aug 06, 2024 11:19 AM PRIMARY Oth symptoms and signs w cognitive functions and awareness [facility] Aug 06, 2024 11:19 AM SECONDARY Generalized anxiety disorder [facility] Aug 06, 2024 11:19 AM SECONDARY Major depressive disorder, recurrent, in partial remission [facility] Aug 06, 2024 11:19 AM SECONDARY Post-traumatic stress disorder, chronic [facility] GRE[facility] Plan of Treatment: Future Appointments (+ 6 months) and Future Tests (+/- 45 days) The Plan of Treatment section includes future care activities for the patient from all [place] [facility] This section includes future appointments and future orders which are active, pending or scheduled. Future Appointments This section includes appointments that were scheduled to occur 6 months from the date of the Encounter, up to a maximum of 20 appointments. The data comes from all [place] treatment facilities. Appointment Date/Time Appointment Type Appointme nt Facility Name August 13, 2024 10:00 AM AMBULATORY - MEDICINE [facility] August 13, 2024 10:01 AM [facility] September 10, 2024 09:15 AM AMBULATORY - PSYCHIATRY [facility] September 10, 2024 09:16 AM [facility] [place] [facility] Oct 02, 2024 10:45 AM AMBULATORY - PSYCHIATRY [facility] Oct 02, 2024 10:46 AM [facility] [place]IC[place] [facility] Oct 29, 2024 09:15 AM AMBULATORY - PS[facility]CHIATRY [facility] Oct 29, 2024 09:16 AM [facility]ORY - [place]IC[place] [facility] Dec 10, 2024 09:15 AM AM[facility]ULATORY - PS[facility]CHIATRY [facility] Dec 10, 2024 09:16 AM [facility] [place]IC[place] [facility] Dec 24, 2024 09:15 AM AMBULATORY - PSYCHIATRY [facility] Dec 24, 2024 09:16 AM [facility] - [place]IC[place] [facility] Jan 08, 2025 09:20 AM AMBULATORY - MEDICINE [facility] Jan 21, 2025 09:15 AM AMBULATORY - PS[facility]CHIATRY [facility] Jan 21, 2025 09:16 AM AMBULATORY - MEDICINE [facility] Lab Results: +/- 30 days of the encounter This section includes the Chemistry and Hematology Lab Results on record with [place] for the patient. Radiology Reports and Pathology Reports are provided separately, in subsequent sections. Lab Results This section contains the Chemistry/Hematology Results that were resulted 30 days before or 30 daysafter the date of the Encounter. Date/Time Source Result Type Result - Unit Interpretation Reference Range Specimen Type Comment Jul 09, 2024 12:16 PM [facility] (PB) URINE Specimen Type: URINE No comment entered. Ordering Provider: LIV GREGG Report Released Date/Time: Jul 09, 2024 12:12 PM Reporting Lab: [place] [facility] [address] [place] [address] Performing Lab: [place] [facility] [address] [place] [address] METHADONE Negative Negative OPIATES (PB) Negative Negative COCAINE... Negative Negative THC(Marijuana... Negative Negative BENZODIAZEPINE (PB) Negative Negative AMPHETAMINE... Negative Negative CREATININE URINE/OTHERS 23.47 mg/dL OXYCODONE ([id number]) Negative Negati ve BUPRENORPHINE (STL-PB-MA) Negative ng/mL Negative ETHANOL URINE <10 mg/dL L 0-20 FENTANYL, URINE (PB) Negative ng/mL Vital Signs: All taken on the encounter date This section contains inpatient and outpatient Vital Signs collected on the date of the Encounter. Date/Time Temperature Pulse Blood Pressure Respiratory Rate SP02 Pain Height Weight Body Mass Index Source Aug 06, 2024 10:20 AM 97.8 74 134/81 20 98 4 206 28 [facility] Social History: Smoking Status (Most current) and Tobacco Use (All prior to encounter date) This section includes the most current, and the historical, smoking and tobacco- related health factors from the [place] facility where the Encounter took place. Current Smoking Status This section includes the most current smoking, or tobacco-related health factor, from the [place] facility where the Encounter took place. Date/Time Current Smoking Status Comment Facil ity Aug 06, 2024 09:45 AM VA-TOBACCO NEVER USED CIGARETTES [facility] Tobacco Use History This section includes a history of the smoking, or tobacco-related health factors, that were collected on or before the date of the Encounter. The data comes from the [place] facility where the Encounter took place. Date/Time Smoking Status/Tobacco Use Comment F acility Aug 06, 2024 09:45 AM VA-TOBACCO USE EVERY DAY OTHER T YPE [facility] Aug 06, 2024 09:45 AM VA-TOBACCO USE EVERY DAY SMOKELE SS [facility] August 29, 2023 09:00 AM VA-TOBACCO USE > 1 5 LESS THAN 30 YEARS [facility] August 29, 2023 09:00 AM VA-TOBACCO USE ADVICE [facility] August 29, 2023 09:00 AM VA-TOBACCO USE DIRECTOR OF SPA AND GUEST EXPERIENCE [facility] August 29, 2023 09:00 AM VA-TOBACCO USE MED [facility] August 29, 2023 [...] 2022 10:30 AM VA-TOBACCO USE ADVICE [facility] Sep 21, 2022 10:30 AM VA-TOBACCO USE DIRECTOR OF SPA AND GUEST EXPERIENCE YES [facility] Sep 21, 2022 10:30 AM VA-TOBACCO USE MED NO [facility] Sep 21, 2022 10:30 AM VA-TOBACCO USER EVERY DAY [facility] Sep 15, 2021 11:00 AM VA-TOBACCO DOESNT USE WI 30 MIN WAKEUP [facility] Sep 15, 2021 11:00 AM VA-TOBACCO USE 5 TO 15 YEARS [facility] Sep 15, 2021 11:00 AM VA-TOBACCO USE ADVICE [facility] Sep 15, 2021 11:00 AM VA-TOBACCO USE DIRECTOR OF SPA AND GUEST EXPERIENCE NO [facility] Sep 15, 2021 11:00 AM VA-TOBACCO USE MED NO [facility] Sep 15, 2021 11:00 AM VA-TOBACCO USER EVERY DAY [facility] Sep 21, 2020 10:01 AM VA-TOBACCO DOESNT USE WI 30 MIN WAKEUP [facility] Sep 21, 2020 10:01 AM VA-TOBACCO USE > 1 5 LESS THAN 30 YEARS [facility] Sep 21, 2020 10:01 AM VA-TOBACCO USE ADVICE [facility] Sep 21, 2020 10:01 AM VA-TOBACCO USE DIRECTOR OF SPA AND GUEST EXPERIENCE NO [facility] Sep 21, 2020 10:01 AM VA-TOBACCO USE MED NO [facility] Sep 21, 2020 10:01 AM VA-TOBACCO USER EVERY DAY [facility] Advance Directives: All historical and current Section Date Range: From patient's date of to the date document was created. This section includes ALL of a patient's completed or amended [place] Advance and Rescinded Directives. The entries below indicate that a directive exists for the patient, but an actual copy is not included with this document. The data comes from all [place] facilities. Date Advance Directives Provider Source Oct 19, 2015 ADVANCE DIRECTIVE DISCUSSION CHENEYDELROYAudi CALIX AlineTanisha [facility] Encounter Notes: All associated encounter notes This section contains the clinical notes associated to the Encounter. Date/Time Encounter Note(s) Provider Source Aug 06, 2024 10:19 AM NURSING NOTE: LOCAL TITLE: [facility] NURSING EXIT NOTE PB STANDARD TITLE: NURSING NOTE DATE OF NOTE: AUG 06, 2024@10:19 ENTRY DATE: AUG 06, 2024@10:20:08 AUTHOR: KEIRA HOOD COSIGNER: URGENCY: STATUS: COMPLETED EXIT INTERVIEW Location: [facility] Ambulatory Appointment Reviewed: Instructions: CLINIC: Sent to Pharmacy for medications and instructions: Lab Instructions: Special Instructions: Verbalized understanding of today's visit: Patient Is patient's pain under control at time of exit? Yes Discussed walk-in and after-hour services. verbalized understanding. Encouraged to seek treatment if change in status. Contact information and hours of operation given. [place] finished his appt with Dr Gregg. Alcohol Use Screen (AUDIT-C) - V: Alcohol Screen: SCREEN FOR ALCOHOL (AUDIT-C) An alcohol screening test (AUDIT-C) was negative (score=0). 1. How often did you have a drink containing alcohol in the past year? Consider a drink to be a 12 ounce can or bottle of regular beer, 8 ounces of malt liquor, a 5 ounce glass of table wine, or a 1.5 ounce shot of liquor (like scotch, gin, or vodka). Never 2. How many drinks containing alcohol did you have on a typical day when you were drinking in the past year? Response not required due to responses to other questions. 3. How often did you have six or more drinks on one occasion in the past year? Response not required due to responses to other questions. Tobacco Use Screening - AT,DE,L,M,N,P,PH,PS,RT,S,U: The patient has never smoked cigarettes. The patient uses other type(s) of tobacco every day. Other Tobacco Type(s) used: Smokeless tobacco (e.g., dip, chew, snuff, snus) Pain Assessment: - PAIN ASSESSMENT: .. This patient's last pain assessment score was: 4 (08/06/2024 10:20). A detailed pain assessment showed the following: Pain characteristics (per patient's own words) Constant Location of current pain Low Back Onset/Duration of the current pain. Constant or variable? More than a year Patient's self-identified pain level: 4 [place] voiced no questions or concerns and was escorted to the lobby in satisfactory condition, scheduling for his next appt. /ernesto/ ANN WEN, RN [facility] Signed: 08/06/2024 10:30 KEIRA HOOD [facility] Aug 06, 2024 09:55 AM NURSING PROGRESS N OTE: LOCAL TITLE: NURSING NOTE PB STANDARD TITLE: NURSING PROGRESS NOTE DATE OF NOTE: AUG 06, 2024@09:55 ENTRY DATE: AUG 06, 2024@10:04:45 AUTHOR: KEIRA HOOD EXP COSIGNER: URGENCY: STATUS: COMPLETED is here for his scheduled telemed psychiatry appt, was in a line before was able to get checked in, will let Dr Gregg see him first and then will obtain his vitals afterwards. He is alert and oriented, resp even and unlabored, gait steady. [place] is pleasant and conversational. He is escorted to room 128 for his appt with Dr Gregg, receiving good telemed transmission. /ernesto/ ANN WEN, RN [facility] Signed: 08/06/2024 10:33 KEIRA HOOD
--- OUTSIDE RECORDS SUMMARY | 2024-08-06 04:46 | XMS_ITS | Encounter Summary ---
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 Date/Time Encounter Type Encounter Description Reason Provider Source Aug 06, 2024 09:46 AM SYNCH AUDIO-VIDEO EST MOD [facility] - IND ICD-10-CM R41.89 Oth symptoms and signs w cognitive functions and awareness LIV CAMPBELL Encounter Template Text not used by [place] Assessments - Encounter Diagnoses This section includes the primary and secondary diagnoses documented for the Encounter. Date/Time Primary/Secondary Diagnosis Diagnosis Name Provider Source Aug 06, 2024 11:18 AM PRIMARY Oth symptoms and signs w cognitive functions and awareness LIV CAMPBELL [facility] Aug 06, 2024 11:18 AM SECONDARY Generalized anxiety disorder LIV CAMPBELL [facility] Aug 06, 2024 11:18 AM SECONDARY Major depressive disorder, recurrent, in partial remission LIV CAMPBELL [facility] Aug 06, 2024 11:18 AM SECONDARY Post-traumatic stress disorder, chronic LIV CAMPBELL [facility] Plan of Treatment: Future Appointments (+ 6 months) and Future Tests (+/- 45 days) The Plan of Treatment section includes future care activities for the [facility] [place] [facility] This section includes future appointments and future orders which are active, pending or scheduled. Future Appointments This section includes appointments that were scheduled to occur 6 months from the date of the Encounter, up to a maximum of 20 appointments. The data comes from all [place] treatment facilities. Appointment Date/Time Appointment Type Appointme nt Facility Name August 13, 2024 10:00 AM AMBULATORY - MEDICINE [facility] August 13, 2024 10:01 AM AMBULATORY - MEDICINE [facility] September 10, 2024 09:15 AM AMBULATORY - PSYCHIATRY [facility] September 10, 2024 09:16 [facility] Oct 02, 2024 10:45 AM AMBULATORY - PSYCHIATRY [facility] Oct 02, 2024 10:46 AM [facility] Oct 29, 2024 09:15 AM AMBULATORY - PSYCHIATRY [facility] Oct 29, 2024 09:16 AM AMBUL[facility] - MEDICINE [facility] Dec 10, 2024 09:15 AM AMBULATORY - PSYCHIATRY [facility] Dec 10, 2024 09:16 AM [facility] Dec 24, 2024 09:15 AM AMBULATORY - PSYCHIATRY [facility] Dec 24, 2024 09:16 AM [facility] Jan 08, 2025 09:20 AM AMBULATORY - MEDICINE [facility] Jan 21, 2025 09:15 AM AMBULATORY - PSYCHIATRY [facility] Jan 21, 2025 09:16 AM AMBULATORY - MEDICINE [facility] Lab Results: +/- 30 days of [...] Type Comment Jul 09, 2024 12:16 PM [facility] DRUG SCREEN URINE-inhouse (PB) URINE Specimen Type: URINE No comment entered. Ordering Provider: LIV CAMPBELL Report Released Date/Time: Jul 09, 2024 12:12 PM Reporting Lab: [place] [facility] [address] [place] [address] Performing Lab: [place] [facility] [address] [place] [address] METHADONE Negative Negative OPIATES (PB) Negative Negative COCAINE... Negative Negative THC(Marijuana... Negative Negative BENZODIAZEPINE (PB) Negative Negative AMPHETAMINE... Negative Negative CREATININE URINE/OTHERS 23.47 mg/dL OXYCODONE ([id number]-[id number]-HA) Negative Negati ve BUPRENORPHINE (STL-PB-MA) Negative ng/mL Negative ETHANOL URINE <10 mg/dL L 0-20 FENTANYL, URINE (PB) Negative ng/mL Social History: Smoking Status (Most current) and [...] Jan 17, 2022 11:00 AM [facility] Advance Directives: All historical and current [...] Oct 19, 2015 ADVANCE DIRECTIVE DISCUSSION [facility] Encounter Notes: All associated encounter notes This section contains the clinical notes associated to the Encounter. Date/Time Encounter Note(s) Provider Source Aug 06, 2024 11:18 AM ACCOUNTING OF DISC LOSURES NOTE: LOCAL TITLE: STATE PRESCRIPTION DRUG MONITORING PROGRAM STANDARD TITLE: ACCOUNTING OF DISCLOSURES NOTE DATE OF NOTE: AUG 06, 2024@11:18:15 ENTRY DATE: AUG 06, 2024@11:18:15 AUTHOR: LIV CAMPBELL EXP COSIGNER: URGENCY: STATUS: COMPLETED This PDMP query was submitted by Liv Campbell DO. The clinical justification [facility] is to review controlled substances prescribed outside of the [facility], and any additional information that may become available, as an important component of standard clinical care, and in accordance with [facility] policy. Patient information was shared with the PDMP Appriss [place]. No prescription(s) for controlled substances outside the [facility] were found in the last 90 days. /ernesto/ Liv Campbell DO, MA [facility] Signed: 08/06/2024 11:18 LIV CAMPBELL [facility] Aug 06, 2024 10:17 AM PSYCHIATRY NOTE: LOCAL TITLE: PSYCHIATRIC PROGRESS NOTE PB STANDARD TITLE: PSYCHIATRY NOTE DATE OF NOTE: AUG 06, 2024@10:17 ENTRY DATE: AUG 06, 2024@10:17:07 AUTHOR: LIV CAMPBELL EXP COSIGNER: URGENCY: STATUS: COMPLETED Consent: provided verbal consent for receiving care through the modality of [place] Vtele. Patient verified date of and full name. RENU ZAPATA is a 44 y/o MALE Note from previous visit was reviewed: Yes Reviewed progress notes Denies any SI/HI plans or intent Chief Complaint: Med Management History of Present Illness: reports since last seen has been doing all right. He states memory is doing the same. He states with the medication he is able to get tasks done. He states he is surprised sometimes what he does remember so states maybe things are healing. He states the house stuff is going well and states he is getting things done. He states it is tiring but he is getting it done. He states depression has been well controlled. Denies any Suicidal Ideations plans or intent. He states anxiety is always there but manageable. He states he is sleeping fine. Appetite has been fine. He states the PTSD sx are doing well. 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 He states he notices the PTSD and anxiety more when he comes in here and it is super busy. Past Suicide Attempts: Denies Protective Factors: Children [...] firearms: Declined to answer Discussed firearm safety. Weir is aware this narrator recommends firearm be [...] obtained and med reconciliation completed. 2. Labs:UDS neg on 07/09 EKG QTc 396ms on 05/07/24 3. Consults/Medical: None ordered. 4. Safety Planning was reviewed with the patient. Weir is aware if patient begins having any suicidal or homicidal ideations this is an emergency and Weir needs to call 9-11 or go to the nearest ED. Discussed [facility] [phone]. 5. Patient should follow-up 1 month Patient is encouraged to call with any questions or concerns. Instructed to follow up with his primary care provider routinely and as needed for wellness and any medical concerns. Return to [facility] for ongoing medication management, psychoeducation and supportive [...] Liv Campbell DO, MA [facility] Signed: 08/06/2024 11:17 LIV CAMPBELL [facility] Aug 06, 2024 10:14 AM PRIMARY CARE EDUCA TION NOTE: LOCAL TITLE: OPT PHY INSTR AUTO PB STANDARD TITLE: PRIMARY CARE EDUCATION NOTE DATE OF NOTE: AUG 06, 2024@10:14 ENTRY DATE: AUG 06, 2024@10:15 AUTHOR: LIV CAMPBELL EXP COSIGNER: URGENCY: STATUS: COMPLETED This documentation is related to: . F/U Visit Description of Today's Injury/Illness: TBI, MDD, PTSD, AVELINA Mental Health Testing: RETURN TO CLINIC: Return appointment is needed. . Special Instructions: . MEDICATION REVIEW/ASSESSMENT & PLAN: No med changes RTC 1 month Allergies/ADRs (Tool #5) FACILITY ALLERGY/ADR -------- [facility] NO KNOWN ALLERGIES [facility] NO KNOWN ALLERGIES [facility] No Known Allergies Med. Reconciliation (Tool #1) INCLUDED IN THIS LIST: Alphabetical list of active outpatient prescriptions dispensed from this [place] (local) and dispensed from another [place] or [facility] facility (remote) as well as inpatient orders (local pending and active), local clinic medications, locally documented non-VA medications, and local prescriptions that have or been discontinued in the past 90 days. Non-VA Meds Last Documented On: Data not found NOTE The display of VA prescriptions dispensed from another [place] or [facility] facility (remote) is limited to active outpatient prescription entries matched to National Drug File at the originating site and may not include some items such as investigational drugs, compounds, etc. NOT INCLUDED IN THIS LIST: Medications self-entered by the patient into personal health records (i.e. [employer]) are NOT included in this list. Non-VA medications documented outside this [place], remote inpatient orders (regardless of status) and remote clinic medications are NOT included in this list. The patient and provider must always discuss medications the patient is taking, regardless of where the medication was dispensed or obtained. OUTPT AMPHETAMINE/DEXTROAMPH RESIN 10MG SA CAP (Status = ) TAKE ONE CAPSULE BY MOUTH EVERY MORNING FOR ADHD Rx# [id number] Last Released: 1/24/25 Qty/Days Supply: Rx Expiration Date: 05/16/24 Refills Remainin Indication: FOR ADHD OUTPT AMPHETAMINE/DEXTROAMPH RESIN 10MG SA CAP (Status = Discontinued) TAKE ONE CAPSULE BY MOUTH EVERY MORNING FOR ADHD Rx# [id number] Last Released: 06/11/24 Qty/Days Supply: Rx Expiration Date: 07/11/24 Refills Remainin Indication: FOR ADHD OUTPT AMPHETAMINE/DEXTROAMPH RESIN 10MG SA CAP (Status = Active) TAKE ONE CAPSULE BY MOUTH EVERY MORNING FOR ADHD Rx# [id number] Last Released: 07/10/24 Qty/Days Supply: Rx Expiration Date: 08/08/24 Refills Remainin Indication: FOR ADHD OUTPT AMPHETAMINE/DEXTROAMPH RESIN 10MG SA CAP (Status = Pending) TAKE ONE CAPSULE BY MOUTH EVERY MORNING FOR ADHD Login Date: 08/06/24 Qty/Days Supply: Refills Ordered: 0 OUTPT AMPHETAMINE/DEXTROAMPHETAMINE 5MG TAB (Status = ) TAKE ONE TABLET BY MOUTH AFTERNOON FOR ADHD Rx# [id number] Last Released: 05/08/24 Qty/Days Supply: Rx Expiration Date: 05/16/24 Refills Remainin Indication: FOR ADHD OUTPT AMPHETAMINE/DEXTROAMPHETAMINE 5MG TAB (Status = Discontinued) TAKE ONE TABLET BY MOUTH EVERY MORNING FOR ADHD Rx# [id number] Last Released: 06/11/24 Qty/Days Supply: Rx Expiration Date: 07/11/24 Refills Remainin Indication: FOR ADHD OUTPT AMPHETAMINE/DEXTROAMPHETAMINE 5MG TAB (Status = Active) TAKE ONE TABLET BY MOUTH EVERY MORNING FOR ADHD Rx# [id number] Last Released: 07/10/24 Qty/Days Supply: Rx Expiration Date: 08/08/24 Refills Remainin Indication: FOR ADHD OUTPT AMPHETAMINE/DEXTROAMPHETAMINE 5MG TAB (Status = Pending) TAKE ONE TABLET BY MOUTH EVERY MORNING FOR ADHD Login Date: 08/06/24 Qty/Days Supply: Refills Ordered: 0 OUTPT BUPROPION HCL 150MG 24HR SA TAB (Status = Active/Suspended) TAKE ONE TABLET BY MOUTH EVERY MORNING FOR DEPRESSION SWALLOW WHOLE - DO NOT CRUSH OR CHEW. Rx# [id number] Last Released: 06/22/24 Qty/Days Supply: Rx Expiration Date: 03/21/25 Refills Remainin Indication: FOR DEPRESSION OUTPT BUPROPION HCL 150MG 24HR SA TAB (Status = Pending) TAKE ONE TABLET BY MOUTH EVERY MORNING FOR DEPRESSION SWALLOW WHOLE - DO NOT CRUSH OR CHEW. Renewed from Rx# [id number] Qty/Days Supply: Login Date: 08/06/24 Refills Ordered: 1 OUTPT CETIRIZINE HCL 10MG TAB (Status = Discontinued) TAKE ONE TABLET BY MOUTH ONCE A DAY FOR ALLERGIC RHINITIS Rx# [id number] Last Released: 03/24/24 Qty/Days Supply: Rx Expiration Date: 07/10/24 Refills Remainin Indication: FOR ALLERGIC RHINITIS OUTPT CETIRIZINE HCL 10MG TAB (Status = Active) TAKE ONE TABLET BY MOUTH ONCE A DAY FOR ALLERGIC RHINITIS Rx# [id number] Last Released: Qty/Days Supply: Rx Expiration Date: 08/05/25 Refills Remainin Indication: FOR ALLERGIC RHINITIS OUTPT CHOLECALCIF 50MCG (D3-2,000UNIT) TAB (Status = Active/Suspended) TAKE TWO TABLETS BY MOUTH ONCE A DAY FOR VITAMIN D SUPPLEMENTATION Rx# [id number] Last Released: 06/22/24 Qty/Days Supply: 200/90 Rx Expiration Date: 04/24/25 Refills Remainin Indication: FOR VITAMIN D SUPPLEMENTATION OUTPT CYCLOBENZAPRINE HCL 10MG TAB (Status = Discontinued) TAKE ONE TABLET BY MOUTH THREE TIMES A DAY NEEDED FOR MUSCLE SPASM MAY CAUSE DROWSINESS. DO NOT DRINK ALCOHOL WHILE TAKING THIS MEDICATION. Rx# [id number] Last Released: 05/19/24 Qty/Days Supply: 45 Rx Expiration Date: 07/10/24 Refills Remainin Indication: FOR MUSCLE SPASM OUTPT CYCLOBENZAPRINE HCL 10MG TAB (Status = Active) TAKE ONE TABLET BY MOUTH THREE TIMES A DAY NEEDED FOR MUSCLE SPASM MAY CAUSE DROWSINESS. DO NOT DRINK ALCOHOL WHILE TAKING THIS MEDICATION. Rx# [id number] Last Released: Qty/Days Supply: 45 Rx Expiration Date: 08/05/25 Refills Remainin Indication: FOR MUSCLE SPASM OUTPT DOXEPIN HCL 10MG CAP (Status = Active/Suspended) TAKE ONE CAPSULE BY MOUTH AT BEDTIME FOR NIGHTMARES Rx# [id number] Last Released: 07/28/24 Qty/Days Supply: 90 Rx Expiration Date: 12/05/24 Refills Remainin Indication: FOR NIGHTMARES OUTPT DOXEPIN HCL 10MG CAP (Status = Pending) TAKE ONE CAPSULE BY MOUTH AT BEDTIME FOR NIGHTMARES Renewed from Rx# [id number] Qty/Days Supply: 90 Login Date: 08/06/24 Refills Ordered: 3 OUTPT FERROUS GLUCONATE 240MG TAB (Status = Active/Suspended) TAKE TWO TABLETS BY MOUTH ONCE A DAY FOR IRON DEFICIENCY ANEMIA Rx# [id number] Last Released: 07/09/24 Qty/Days Supply: 200/90 Rx Expiration Date: 07/09/25 Refills Remainin Indication: FOR IRON DEFICIENCY ANEMIA OUTPT FOLIC ACID 0.4MG TAB (Status = Active/Suspended) TAKE ONE TABLET BY MOUTH ONCE A DAY FOR FOLIC ACID SUPPLEMENTATION Rx# [id number] Last Released: 06/18/24 Qty/Days Supply: 100/90 Rx Expiration Date: 04/24/25 Refills Remainin Indication: FOR FOLIC ACID SUPPLEMENTATION OUTPT GABAPENTIN 400MG CAP (Status = Active/Suspended) TAKE ONE CAPSULE BY MOUTH AT BEDTIME FOR NERVE PAIN Rx# [id number] Last Released: 06/18/24 Qty/Days Supply: 90 Rx Expiration Date: 01/15/25 Refills Remainin Indication: FOR NERVE PAIN OUTPT HYDROXYZINE HCL 25MG TAB (Status = Discontinued) TAKE ONE TABLET BY MOUTH TWICE DAILY NEEDED FOR ANXIETY *MAY CAUSE DROWSINESS* Rx# [id number] Last Released: 06/08/24 Qty/Days Supply: 180/ Rx Expiration Date: 01/30/25 Refills Remainin Indication: FOR ANXIETY OUTPT HYDROXYZINE HCL 25MG TAB (Status = Active/Suspended) TAKE ONE TABLET BY MOUTH TWICE DAILY NEEDED FOR ANXIETY *MAY CAUSE DROWSINESS* Rx# [id number] Last Released: Qty/Days Supply: 180 Rx Expiration Date: 06/12/25 Refills Remainin Indication: FOR ANXIETY OUTPT IBUPROFEN 800MG TAB (Status = Discontinued) TAKE ONE TABLET BY MOUTH THREE TIMES A DAY NEEDED FOR HEADACHE TAKE WITH FOOD. TAKE AT ONSET OF HEADACHE, WITH SUMATRIPTAN Rx# [id number] Last Released: 06/19/24 Qty/Days Supply: Rx Expiration Date: 12/04/24 Refills Remainin Indication: FOR HEADACHE OUTPT IBUPROFEN 800MG TAB (Status = Active/Suspended) TAKE ONE TABLET BY MOUTH THREE TIMES A DAY NEEDED FOR HEADACHE TAKE WITH FOOD. TAKE AT ONSET OF HEADACHE, WITH SUMATRIPTAN Rx# [id number] Last Released: 07/31/24 Qty/Days Supply: Rx Expiration Date: 12/04/24 Refills Remainin Indication: FOR HEADACHE OUTPT LEVOTHYROXINE NA 112MCG TAB (Status = Discontinued) TAKE ONE TABLET BY MOUTH EVERY MORNING BEFORE A MEAL FOR THYROID. TAKE 30 MINUTES BEFORE FOOD. TAKE SEPARATELY FROM ALL OTHER MEDICATIONS. Rx# [id number] Last Released: 06/12/24 Qty/Days Supply: Rx Expiration Date: 07/22/24 Refills Remainin OUTPT LEVOTHYROXINE NA 112MCG TAB (Status = Active/Suspended) TAKE ONE TABLET BY MOUTH EVERY MORNING BEFORE A MEAL FOR THYROID. TAKE 30 MINUTES BEFORE FOOD. TAKE SEPARATELY FROM ALL OTHER MEDICATIONS. Rx# [id number] Last Released: Qt/ Supply: Rx Expiration Date: 10/06/24 Refills Remainin OUTPT MIRTAZAPINE 45MG TAB (Status = Active/Suspended) TAKE ONE TABLET BY MOUTH AT BEDTIME FOR INSOMNIA & MOOD Rx# [id number] Last Released: 06/01/24 Qty/Days Supply: Rx Expiration Date: 01/30/25 Refills Remainin Indication: FOR INSOMNIA & MOOD OUTPT MIRTAZAPINE 45MG TAB (Status = Pending) TAKE ONE TABLET BY MOUTH AT BEDTIME FOR INSOMNIA & MOOD Renewed from Rx# [id number] Qty/Days Supply: Login Date: 08/06/24 Refills Ordered: 3 OUTPT SUMATRIPTAN SUCCINATE 50MG TAB (Status = Active) TAKE ONE TABLET BY MOUTH ONE-TIME FOR MIGRAINE HEADACHE TAKE AT ONSET OF HEADACHE. MAY REPEAT AFTER 2 HOURS. NOT TO EXCEED 2 TABLETS IN 24 HOURS. Rx# [id number] Last Released: 08/05/24 Qty/Days Supply: Rx Expiration Date: 02/10/25 Refills Remainin Indication: FOR MIGRAINE HEADACHE SUPPLIES PHARMACY TERMS AND POSSIBLE PATIENT ACTIONS INPT = [place] inpatient order IV = [place] intravenous medication OUTPT = [place] outpatient prescription PHARMACY POSSIBLE PATIENT TERMS EXPLANATION ACTIONS -------- --- ACTIVE A prescription that can be If you have refills, filled at the local [place] pharmacy. you may request a refill of this prescription from your [place] pharmacy. CLINIC A medication you received during If you have questions a visit to a [place] clinic or about this medication emergency department. contact your [place] healthcare team. DISCONTINUED A prescription your provider has Contact your [place] stopped. It is no longer healthcare team if you available to be sent to you or need more of this picked up at the [place] pharmacy medication. window. A prescription which is [...] the [facility]. Or, it may be an wiyv-dhg-izgdwgr (OTC), herbal, dietary supplements or sample medication. [...] voiced an understanding of current medications? Yes Weir/caregiver were provided an updated medication list. Following results reviewed and discussed with patient: Future Appointments: 08/13/2024 10:00 PB-[facility] CVT NUTR IND(PAT) 08/13/2024 10:01 PB-CVT NUTR IND(PRO) 09/10/2024 09:15 PB-[facility]LENA CVT BH PSI [place](PA 09/10/2024 09:16 PB-CVT BH PSI IND [place](MD 10/02/2024 10:45 PB-[facility]LENA CVT BH PSI [place](PA 10/02/2024 10:46 PB-CVT BH PSI IND [place](MD 10/29/2024 09:15 PB-CELENA CVT BH PSI [place](PA 10/29/2024 09:16 PB-CVT BH PSI IND [place](MD 11/26/2024 09:15 PB-CELENA CVT BH PSI [place](PA 11/26/2024 09:16 PB-CVT BH PSI IND [place](MD 12/24/2024 09:15 PB-[facility]LENA CVT BH PSI [place](PA 12/24/2024 09:16 PB-CVT BH PSI IND [place](MD 01/08/2025 09:20 [facility] ( 01/21/2025 09:15 PB-CELENA CVT BH PSI [place] 01/21/2025 09:16 PB-CVT BH PSI IND [place](MD /ernesto/ Liv Campbell DO, MA [facility] Signed: 08/06/2024 10:16 LIV CAMPBELL [facility]
--- OUTSIDE RECORDS SUMMARY | 2024-09-10 04:15 | XMS_ITS | Encounter Summary ---
Author Name [facility] [place] [facility] [place] Address [address] [place] [address] Care Team Providers Care Polygraph Examiner Name Role Phone NELIDAZuri BRIGID Primary Care Provider Unavailabl CHANNING Parra Primary Care Provider Juan cabrera Selected Encounter This section includes the information on record at [place] for the Encounter. Date/Time Encounter Type Encounter Description Reason Provider Source September 10, 2024 09:15 AM [facility] [place] ICD-10-CM F33.0 Major depressive disorder, recurrent, mild [facility] Encounter Template Text not used by [place] Assessments - Encounter Diagnoses This section includes the primary and secondary diagnoses documented for the Encounter. Date/Time Primary/Secondary Diagnosis Diagnosis Name Provider Source September 10, 2024 09:36 AM PRIMARY Major depressive disorder, recurrent, mild [facility] September 10, 2024 09:36 AM SECONDARY Generalized anxiety disorder [facility] September 10, 2024 09:36 AM SECONDARY Oth symptoms and signs w cognitive functions and awareness [facility] September 10, 2024 09:36 AM SECONDARY Post-traumatic stress disorder, chronic [facility] Plan of Treatment: Future Appointments (+ 6 months) and Future Tests (+/- 45 days) The Plan of Treatment section includes [facility] care [facility] the [facility] [place] [facility] This section includes future appointments and future orders which are active, pending or scheduled. Future Appointments This section includes appointments that were scheduled to occur 6 months from the date of the Encounter, up to a maximum of 20 appointments. The data comes from all [place] treatment facilities. Appointment Date/Time Appointment Type Appointme nt Facility Name Oct 02, 2024 10:45 AM AMBULATORY - PSYCHIATRY [facility] Oct 02, 2024 10:46 AM AMBULATORY - MEDICINE [facility] Oct 29, 2024 09:15 AM AMBULATORY - PS[facility]CHIATRY [facility] Oct 29, 2024 09:16 AM AM[facility]ATORY - [facility]IC[facility] Dec 10, 2024 09:15 AM AMBULATORY - PS[facility]CHIATRY [facility] Dec 10, 2024 09:16 AM AM[facility]IC[facility] Dec 24, 2024 09:15 AM AMBULATORY - PS[facility]CHIATRY [facility] Dec 24, 2024 09:16 AM AM[facility]ORY - [facility]IC[facility] Jan 08, 2025 09:20 AM AMBULATORY - MEDICINE [facility] Jan 21, 2025 09:15 AM AMBULATORY - PS[facility]CHIATRY [facility] Jan 21, 2025 09:16 AM AM[facility]ATORY - [facility]IC[facility] Feb 18, 2025 09:15 AM AMBULATORY - PS[facility]CHIATRY [facility] Feb 18, 2025 09:16 AM AM[facility]ULATORY - MEDICINE [facility] Vital Signs: All taken on the encounter date This section contains inpatient and outpatient Vital Signs collected on the date of the Encounter. Date/Time Temperature Pulse Blood Pressure Respiratory Rate SP02 Pain Height Weight Body Mass Index Source September 10, 2024 09:15 AM 98.5 84 131/86 20 100 1 202.3 27 [facility] Social History: Smoking Status (Most current) and Tobacco Use (All prior to encounter date) This section includes the most current, and the historical, smoking and tobacco- related health factors from the [place] facility where the Encounter took place. Current Smoking Status This section includes the most current smoking, or tobacco-related health factor, from the [place] facility where the Encounter took place. Date/Time Current Smoking Status Comment Swapna romano Aug 06, 2024 09:45 AM VA-TOBACCO NEVER USED CIGARETTES [facility] Tobacco Use History This section includes a history of the smoking, or tobacco-related health factors, that were collected on or before the date of the Encounter. The data comes from the [place] facility where the Encounter took place. Date/Time Smoking Status/Tobacco Use Comment F acility Aug 06, 2024 09:45 AM VA-TOBACCO USE EVERY DAY OTHER T YPE [facility] Aug 06, 2024 09:45 AM VA-TOBACCO USE EVERY DAY SMOKELE SS [facility] August 29, 2023 09:00 AM VA-TOBACCO USE > 1 5 LESS THAN 30 YEARS [facility] August 29, 2023 09:00 AM VA-TOBACCO USE ADVICE [facility] August 29, 2023 09:00 AM VA-TOBACCO USE PLAN COORDINATOR NO [facility] August 29, 2023 09:00 AM VA-TOBACCO USE MED NO [facility] August 29, 2023 09:00 AM VA-TOBACCO USE WI 30 MIN OF WAKE UP [facility] August 29, 2023 09:00 AM VA-TOBACCO USER EVERY DAY [facility] Sep 21, 2022 10:30 AM VA-TOBACCO DOESNT USE WI 30 MIN WAKEUP [facility] Sep 21, 2022 10:30 AM VA-TOBACCO USE > 1 5 LESS THAN 30 YEARS [facility] Sep 21, 2022 10:30 AM VA-TOBACCO USE ADVICE [facility] Sep 21, 2022 10:30 AM VA-TOBACCO USE PLAN COORDINATOR YES [facility] Sep 21, 2022 10:30 AM VA-TOBACCO USE MED NO [facility] Sep 21, 2022 10:30 AM VA-TOBACCO USER EVERY DAY [facility] Sep 15, 2021 11:00 AM VA-TOBACCO DOESNT USE WI 30 MIN WAKEUP [facility] Sep 15, 2021 11:00 AM VA-TOBACCO USE 5 TO 15 YEARS [facility] Sep 15, 2021 11:00 AM VA-TOBACCO USE ADVICE [facility] Sep 15, 2021 11:00 AM VA-TOBACCO USE PLAN COORDINATOR NO [facility] Sep 15, 2021 11:00 AM VA-TOBACCO USE MED NO [facility] Sep 15, 2021 11:00 AM VA-TOBACCO USER EVERY DAY [facility] Sep 21, 2020 10:01 AM VA-TOBACCO DOESNT USE WI 30 MIN WAKEUP [facility] Sep 21, 2020 10:01 AM VA-TOBACCO USE > 1 5 LESS THAN 30 YEARS [facility] Sep 21, 2020 10:01 AM VA-TOBACCO USE ADVICE [facility] Sep 21, 2020 10:01 AM VA-TOBACCO USE PLAN COORDINATOR NO [facility] Sep 21, 2020 10:01 AM VA-TOBACCO USE MED NO [facility] Sep 21, 2020 10:01 AM VA-TOBACCO USER EVERY DAY [facility] Advance Directives: All historical and current Section Date Range: From patient's date of to the date document was created. This section includes ALL of a patient's completed or amended [place] Advance and Rescinded Directives. The entries below indicate that a directive exists for the patient, but an actual copy is not included with this document. The data comes from all [place] facilities. Date Advance Directives Provider Source Oct 19, 2015 ADVANCE DIRECTIVE DISCUSSION GAVINO CHENEY YOGIKODY Daniels [facility] Encounter Notes: All associated encounter notes This section contains the clinical notes associated to the Encounter. Date/Time Encounter Note(s) Provider Source September 10, 2024 09:35 AM NURSING NOTE: LOCAL TITLE: [facility] NURSING EXIT NOTE PB STANDARD TITLE: NURSING NOTE DATE OF NOTE: SEPTEMBER 10, 2024@09:35 ENTRY DATE: SEPTEMBER 10, 2024@09:35:42 AUTHOR: KEIRA HOOD EXP COSIGNER: URGENCY: STATUS: COMPLETED EXIT INTERVIEW Location: [facility] Ambulatory Appointment Reviewed: Instructions: CLINIC: Sent to Pharmacy for medications and instructions: Lab Instructions: Special Instructions: Verbalized understanding of today's visit: Patient Is patient's pain under control at time of exit? Yes Discussed walk-in and after-hour services. [facility] verbalized understanding. Encouraged to seek treatment if change in status. Contact information and hours of operation given. voiced no questions or concerns and was escorted to the lobby in satisfactory condition, scheduling for his next appt. /ernesto/ ANN WEN, RN [facility] Signed: 09/10/2024 09:38 KEIRA HOOD [facility] September 10, 2024 09:14 AM NURSING PROGRESS N OTE: LOCAL TITLE: NURSING NOTE PB STANDARD TITLE: NURSING PROGRESS NOTE DATE OF NOTE: SEPTEMBER 10, 2024@09:14 ENTRY DATE: SEPTEMBER 10, 2024@09:14:45 AUTHOR: KEIRA HOOD EXP COSIGNER: URGENCY: STATUS: COMPLETED is here for his scheduled telemed psychiatry appt. He is alert and oriented, resps even and unlabored, gait steady. is pleasant and conversational ,states he has been doing good, but sore from to doing anything yesterday. Active Outpatient Medications: Active Outpatient Medications (including Supplies): Active Outpatient Medications Status 1) BUPROPION HCL 150MG 24HR SA TAB TAKE ONE TABLET BY MOUTH ACTIVE EVERY MORNING SWALLOW WHOLE - DO NOT CRUSH OR CHEW. Indication: FOR DEPRESSION 2) CETIRIZINE HCL 10MG TAB TAKE ONE TABLET BY MOUTH ONCE A DAY ACTIVE Indication: FOR ALLERGIC RHINITIS 3) CHOLECALCIF 50MCG (D3-2,000UNIT) TAB TAKE TWO TABLETS BY ACTIVE MOUTH ONCE A DAY Indication: FOR VITAMIN D SUPPLEMENTATION 4) CYCLOBENZAPRINE HCL 10MG TAB TAKE ONE TABLET BY MOUTH THREE ACTIVE TIMES A DAY NEEDED MAY CAUSE DROWSINESS. DO NOT DRINK ALCOHOL WHILE TAKING THIS MEDICATION. Indication: FOR MUSCLE SPASM 5) DOXEPIN HCL 10MG CAP TAKE ONE CAPSULE BY MOUTH AT BEDTIME ACTIVE (S) Indication: FOR NIGHTMARES 6) FERROUS GLUCONATE 240MG TAB TAKE TWO TABLETS BY MOUTH ONCE A ACTIVE (S) DAY Indication: FOR IRON DEFICIENCY ANEMIA 7) FOLIC ACID 0.4MG TAB TAKE ONE TABLET BY MOUTH ONCE A DAY ACTIVE Indication: FOR FOLIC ACID SUPPLEMENTATION 8) GABAPENTIN 400MG CAP TAKE ONE CAPSULE BY MOUTH AT BEDTIME ACTIVE (S) Indication: FOR NERVE PAIN 9) HYDROXYZINE HCL 25MG TAB TAKE ONE TABLET BY MOUTH TWICE ACTIVE DAILY NEEDED *MAY CAUSE DROWSINESS* Indication: FOR ANXIETY 10) IBUPROFEN 800MG TAB TAKE ONE TABLET BY MOUTH THREE TIMES A ACTIVE (S) DAY NEEDED TAKE WITH FOOD. TAKE AT ONSET OF HEADACHE, WITH SUMATRIPTAN Indication: FOR HEADACHE 11) LEVOTHYROXINE NA 112MCG TAB TAKE ONE TABLET BY MOUTH EVERY ACTIVE MORNING BEFORE A MEAL FOR THYROID. TAKE 30 MINUTES BEFORE FOOD. TAKE SEPARATELY FROM ALL OTHER MEDICATIONS. 12) MIRTAZAPINE 45MG TAB TAKE ONE TABLET BY MOUTH AT BEDTIME ACTIVE Indication: FOR INSOMNIA & MOOD 13) SUMATRIPTAN SUCCINATE 50MG TAB TAKE ONE TABLET BY MOUTH ACTIVE ONE-TIME TAKE AT ONSET OF HEADACHE. MAY REPEAT AFTER 2 HOURS. NOT TO EXCEED 2 TABLETS IN 24 HOURS. Indication: FOR MIGRAINE HEADACHE states he is taking the above meds as prescribed ALONG with amphetamine He denies any change in side effects with mirtazapine, hydroxyzine, doxepin, bupropion or amphetamine and they are effective. Pain Assessment: - PAIN ASSESSMENT: .. Patient is reporting some pain. PAIN SCORE TODAY: sore Patient's self-identified pain level: 1 [facility] was escorted to room 128 for his appt with Dr Gregg, receiving good telemed transmission. /ernesto/ ANN WEN, RN [facility] Signed: 09/10/2024 09:35 KEIRA HOOD [facility]
--- OUTSIDE RECORDS SUMMARY | 2024-09-10 04:16 | XMS_ITS | Encounter Summary ---
Author Name [facility] Address [address] [place] [address] Care Team Providers Care Supervisor [place] Name Role Phone BRIGID DEGROOT Primary Care Provider UnavailCHANNING Dawn Primary Care Provider Juan cabrera Selected Encounter This section includes the information on record at AL for the Encounter. Date/Time Encounter Type Encounter Description Reason Provider Source September 10, 2024 09:16 AM SYNCH AUDIO-VIDEO EST MOD [facility] - IND ICD-10-CM F33.0 Major depressive disorder, recurrent, mild [facility] IHA[facility] Encounter Template Text not used by AL Assessments - Encounter Diagnoses This section includes the primary and secondary diagnoses documented for the Encounter. Date/Time Primary/Secondary Diagnosis Diagnosis Name Provider Source September 10, 2024 09:36 AM PRIMARY Major depressive disorder, recurrent, mild [facility] September 10, 2024 09:36 AM SECONDARY Generalized anxiety disorder [facility] September 10, 2024 09:36 AM SECONDARY Oth symptoms and signs w cognitive functions and awareness [facility] September 10, 2024 09:36 AM SECONDARY Post-traumatic stress disorder, chronic [facility] Plan of Treatment: Future Appointments (+ 6 months) and Future Tests (+/- 45 days) The Plan of Treatment section includes future care activities for the [facility] This section includes future appointments and future orders which are active, pending or scheduled. Future Appointments This section includes appointments that were scheduled to occur 6 months from the date of the Encounter, up to a maximum of 20 appointments. The data comes from all AL treatment facilities. Appointment Date/Time Appointment Type Appointme nt Facility Name Oct 02, 2024 10:45 AM AMBULATORY - PSYCHIATRY [facility] Oct 02, 2024 10:46 AM [facility]AT[facility] MEDICINE [facility] Oct 29, 2024 09:15 AM AMBULATORY - PSYCHIATRY [facility] Oct 29, 2024 09:16 AM [facility] Dec 10, 2024 09:15 AM AMBULATORY - PSYCHIATRY [facility] Dec 10, 2024 09:16 AM [facility] Dec 24, 2024 09:15 AM AMBULATORY - PSYCHIATRY [facility] Dec 24, 2024 09:16 AM [facility] Jan 08, 2025 09:20 AM AMBULATORY - MEDICINE [facility] Jan 21, 2025 09:15 AM AMBULATORY - PSYCHIATRY [facility] Jan 21, 2025 09:16 AM [facility] Feb 18, 2025 09:15 AM AMBULATORY - PSYCHIATRY [facility] Feb 18, 2025 09:16 AM [facility] - [facility]ICINE [facility] Social History: Smoking Status (Most current) and Tobacco Use (All prior to encounter date) This section includes the most current, and the historical, smoking and tobacco- related health factors from the AL facility where the Encounter took place. Current Smoking Status This section includes the most current smoking, or tobacco-related health factor, from the AL facility where the Encounter took place. Date/Time Current Smoking Status Comment Facil ity Jan 17, 2022 11:00 AM [facility] Advance Directives: All historical and current Section Date Range: From patient's date of to the date document was created. This section includes ALL of a patient's completed or amended VA Advance and Rescinded Directives. The entries below indicate that a directive exists for the patient, but an actual copy is not included with this document. The data comes from all AL facilities. Date Advance Directives Provider Source Oct 19, 2015 ADVANCE DIRECTIVE DISCUSSION [facility]AV[facility] Encounter Notes: All associated encounter notes This section contains the clinical notes associated to the Encounter. Date/Time Encounter Note(s) Provider Source September 10, 2024 09:33 AM PSYCHIATRY NOTE: LOCAL TITLE: PSYCHIATRIC PROGRESS NOTE STANDARD TITLE: PSYCHIATRY NOTE DATE OF NOTE: SEPTEMBER 10, 2024@09:33 ENTRY DATE: SEPTEMBER 10, 2024@09:33:06 AUTHOR: LIV CAMPBELL COSIGNER: URGENCY: STATUS: COMPLETED Consent: Bryant provided verbal consent for receiving care through the modality of [place] Vte. Patient verified date of and full name. RENU ZAPATA is a 44 y/o MALE Note from previous visit was reviewed: Yes Reviewed progress notes Denies any SI/HI plans or intent Chief Complaint: Med Management History of Present Illness: Bryant reports since last seen has been doing all right. He states the house is slow as it has been wet. The Bryant would currently rate depression to be 6/10 with 10 being the worst. He states a lot of it is because things are slow but knows will work out. Denies any Suicidal Ideations plans or intent. denies any feelings of hopelessness. He states he is sleeping okay. He states the PTSD sx are manageable as by himself most of the time. He states the boys are out of school and around more helping building house. Irritability has been manageable. He states he has been a bit more irritable because of changes as adjusting to kids home all the time. He states anxiety overall has been doing okay. He states anxiety is not stopping him from doing things just more difficult. He states the stims are going okay. He states it does help get tasks done and states this is the single most helpful thing for him. Past Suicide Attempts: Denies Protective Factors: Children [...] firearms: Declined to answer Discussed firearm safety. Bryant is aware this narrator recommends firearm be [...] Medications: Discussed medication in detail with the Bryant. No med changes.Will continue Wellbutrin 150mg daily [...] med reconciliation completed. 2. Labs:UDS neg on 3/27 EKG QTc 396ms on 05/07/24 3. Consults/Medical: None ordered. 4. Safety Planning was reviewed with the patient. is aware if patient begins having any suicidal or homicidal ideations this is an emergency and needs to call 9-11 or go to the nearest ED. Discussed [facility] [phone]. 5. Patient should follow-up 1 month Patient is encouraged to call with any questions or concerns. Instructed Bryant to follow up with his primary care provider routinely and as needed for wellness and any medical concerns. Return to [facility] for ongoing medication management, [...] Liv Campbell DO, MA [facility] Signed: 09/10/2024 09:34 [facility] September 10, 2024 09:28 AM PRIMARY CARE EDUCA TION NOTE: LOCAL TITLE: OPT PHY INSTR AUTO PB STANDARD TITLE: PRIMARY CARE EDUCATION NOTE DATE OF NOTE: SEPTEMBER 10, 2024@09:28 ENTRY DATE: SEPTEMBER 10, 2024@09:28:53 AUTHOR: LIV CAMPBELL EXP COSIGNER: URGENCY: STATUS: COMPLETED This documentation is related to: . F/U Visit Description of Today's Injury/Illness: TBI, MDD, PTSD and AVELINA Mental Health Testing: RETURN TO CLINIC: Return appointment is needed. . Special Instructions: . MEDICATION REVIEW/ASSESSMENT & PLAN: No med changes RTC 1 month Allergies/ADRs (Tool #5) FACILITY ALLERGY/ADR -------- [facility] NO KNOWN ALLERGIES [facility] NO KNOWN ALLERGIES [facility] No Known Allergies Med. Reconciliation (Tool #1) INCLUDED IN THIS LIST: Alphabetical list of active outpatient prescriptions dispensed from this AL (local) and dispensed from another AL or [facility] facility (remote) as well as inpatient orders (local pending and active), local clinic medications, locally documented non-VA medications, and local prescriptions that have or been discontinued in the past 90 days. Non-VA Meds Last Documented On: Data not found NOTE The display of VA prescriptions dispensed from another AL or [facility] facility (remote) is limited to active outpatient prescription entries matched to National Drug File at the originating site and may not include some items such as investigational drugs, compounds, etc. NOT INCLUDED IN THIS LIST: Medications self-entered by the patient into personal health records (i.e. [employer]) are NOT included in this list. Non-VA medications documented outside this AL, remote inpatient orders (regardless of status) and remote clinic medications are NOT included in this list. The patient and provider must always discuss medications the patient is taking, regardless of where the medication was dispensed or obtained. OUTPT AMPHETAMINE/DEXTROAMPH RESIN 10MG SA CAP (Status = Discontinued) TAKE ONE CAPSULE BY MOUTH EVERY MORNING FOR ADHD Rx# [id number] Last Released: 06/11/24 Qty/Days Supply: Rx Expiration Date: 07/11/24 Refills Remainin Indication: FOR ADHD OUTPT AMPHETAMINE/DEXTROAMPH RESIN 10MG SA CAP (Status = Discontinued) TAKE ONE CAPSULE BY MOUTH EVERY MORNING FOR ADHD Rx# [id number] Last Released: 07/10/24 Qty/Days Supply: Rx Expiration Date: 08/08/24 Refills Remainin Indication: FOR ADHD OUTPT AMPHETAMINE/DEXTROAMPH RESIN 10MG SA CAP (Status = ) TAKE ONE CAPSULE BY MOUTH EVERY MORNING FOR ADHD Rx# [id number] Last Released: 08/10/24 Qty/Days Supply: Rx Expiration Date: 09/05/24 Refills Remainin Indication: FOR ADHD OUTPT AMPHETAMINE/DEXTROAMPH RESIN 10MG SA CAP (Status = Pending) TAKE 1 CAPSULE BY MOUTH EVERY MORNING Login Date: 09/10/24 Qty/Days Supply: Refills Ordered: 0 OUTPT AMPHETAMINE/DEXTROAMPHETAMINE 5MG TAB (Status = Discontinued) TAKE ONE TABLET BY MOUTH EVERY MORNING FOR ADHD Rx# [id number] Last Released: 06/11/24 Qty/Days Supply: Rx Expiration Date: 07/11/24 Refills Remainin Indication: FOR ADHD OUTPT AMPHETAMINE/DEXTROAMPHETAMINE 5MG TAB (Status = Discontinued) TAKE ONE TABLET BY MOUTH EVERY MORNING FOR ADHD Rx# [id number] Last Released: 07/10/24 Qty/Days Supply: Rx Expiration Date: 08/08/24 Refills Remainin Indication: FOR ADHD OUTPT AMPHETAMINE/DEXTROAMPHETAMINE 5MG TAB (Status = ) TAKE ONE TABLET BY MOUTH EVERY MORNING FOR ADHD Rx# [id number] Last Released: 08/10/24 Qty/Days Supply: Rx Expiration Date: 09/05/24 Refills Remainin Indication: FOR ADHD OUTPT AMPHETAMINE/DEXTROAMPHETAMINE 5MG TAB (Status = Pending) TAKE ONE TABLET BY MOUTH LUNCH Login Date: 09/10/24 Qty/Days Supply: Refills Ordered: 0 OUTPT BUPROPION HCL 150MG 24HR SA TAB (Status = Discontinued) TAKE ONE TABLET BY MOUTH EVERY MORNING FOR DEPRESSION SWALLOW WHOLE - DO NOT CRUSH OR CHEW. Rx# [id number] Last Released: 06/22/24 Qty/Days Supply: 90 Rx Expiration Date: 03/21/25 Refills Remainin Indication: FOR DEPRESSION OUTPT BUPROPION HCL 150MG 24HR SA TAB (Status = Active) TAKE ONE TABLET BY MOUTH EVERY MORNING FOR DEPRESSION SWALLOW WHOLE - DO NOT CRUSH OR CHEW. Rx# [id number] Last Released: 09/10/24 Qty/Days Supply: 90 Rx Expiration Date: 08/07/25 Refills Remainin Indication: FOR DEPRESSION OUTPT CETIRIZINE HCL 10MG TAB (Status = Discontinued) TAKE ONE TABLET BY MOUTH ONCE A DAY FOR ALLERGIC RHINITIS Rx# [id number] Last Released: 03/24/24 Qty/Days Supply: 90 Rx Expiration Date: 07/10/24 Refills Remainin Indication: FOR ALLERGIC RHINITIS OUTPT CETIRIZINE HCL 10MG TAB (Status = Active) TAKE ONE TABLET BY MOUTH ONCE A DAY FOR ALLERGIC RHINITIS Rx# [id number] Last Released: 08/06/24 Qty/Days Supply: 90 Rx Expiration Date: 08/05/25 Refills Remainin Indication: FOR ALLERGIC RHINITIS OUTPT CHOLECALCIF 50MCG (D3-2,000UNIT) TAB (Status = Active) TAKE TWO TABLETS BY MOUTH ONCE A DAY FOR VITAMIN D SUPPLEMENTATION Rx# [id number] Last Released: 09/09/24 Qty/Days Supply: 200/90 Rx Expiration Date: 04/24/25 Refills Remainin Indication: FOR VITAMIN D SUPPLEMENTATION OUTPT CYCLOBENZAPRINE HCL 10MG TAB (Status = Discontinued) TAKE ONE TABLET BY MOUTH THREE TIMES A DAY NEEDED FOR MUSCLE SPASM MAY CAUSE DROWSINESS. DO NOT DRINK ALCOHOL WHILE TAKING THIS MEDICATION. Rx# [id number] Last Released: 05/19/24 Qty/Days Supply: 4515 Rx Expiration Date: 07/10/24 Refills Remainin Indication: FOR MUSCLE SPASM OUTPT CYCLOBENZAPRINE HCL 10MG TAB (Status = Active) TAKE ONE TABLET BY MOUTH THREE TIMES A DAY NEEDED FOR MUSCLE SPASM MAY CAUSE DROWSINESS. DO NOT DRINK ALCOHOL WHILE TAKING THIS MEDICATION. Rx# [id number] Last Released: 08/07/24 Qty/Days Supply: 4515 Rx Expiration Date: 08/05/25 Refills Remainin Indication: FOR MUSCLE SPASM OUTPT DOXEPIN HCL 10MG CAP (Status = Discontinued) TAKE ONE CAPSULE BY MOUTH AT BEDTIME FOR NIGHTMARES Rx# [id number] Last Released: 07/28/24 Qty/Days Supply: 90/ Rx Expiration Date: 12/05/24 Refills Remainin Indication: FOR NIGHTMARES OUTPT DOXEPIN HCL 10MG CAP (Status = Active/Suspended) TAKE ONE CAPSULE BY MOUTH AT BEDTIME FOR NIGHTMARES Rx# [id number] Last Released: Qty/Days Supply: 90 Rx Expiration Date: 08/07/25 Refills Remainin Indication: FOR NIGHTMARES OUTPT FERROUS GLUCONATE 240MG TAB (Status = Active/Suspended) TAKE TWO TABLETS BY MOUTH ONCE A DAY FOR IRON DEFICIENCY ANEMIA Rx# [id number] Last Released: 07/09/24 Qty/Days Supply: 200/90 Rx Expiration Date: 07/09/25 Refills Remainin Indication: FOR IRON DEFICIENCY ANEMIA OUTPT FOLIC ACID 0.4MG TAB (Status = Active) TAKE ONE TABLET BY MOUTH ONCE A DAY FOR FOLIC ACID SUPPLEMENTATION Rx# [id number] Last Released: 09/08/24 Qty/Days Supply: 100/90 Rx Expiration Date: 04/24/25 Refills Remainin Indication: FOR FOLIC ACID SUPPLEMENTATION OUTPT GABAPENTIN 400MG CAP (Status = Active/Suspended) TAKE ONE CAPSULE BY MOUTH AT BEDTIME FOR NERVE PAIN Rx# [id number] Last Released: 06/18/24 Qty/Days Supply: 90/ Rx Expiration Date: 01/15/25 Refills Remainin Indication: FOR NERVE PAIN OUTPT HYDROXYZINE HCL 25MG TAB (Status = Active) TAKE ONE TABLET BY MOUTH TWICE DAILY NEEDED FOR ANXIETY *MAY CAUSE DROWSINESS* Rx# [id number] Last Released: 08/17/24 Qty/Days Supply: 180/90 Rx Expiration Date: 06/12/25 Refills Remainin Indication: FOR ANXIETY OUTPT IBUPROFEN 800MG TAB (Status = Discontinued) TAKE ONE TABLET BY MOUTH THREE TIMES A DAY NEEDED FOR HEADACHE TAKE WITH FOOD. TAKE AT ONSET OF HEADACHE, WITH SUMATRIPTAN Rx# [id number] Last Released: 06/19/24 Qty/Days Supply: 270/90 Rx Expiration Date: 12/04/24 Refills Remainin Indication: FOR HEADACHE OUTPT IBUPROFEN 800MG TAB (Status = Active/Suspended) TAKE ONE TABLET BY MOUTH THREE TIMES A DAY NEEDED FOR HEADACHE TAKE WITH FOOD. TAKE AT ONSET OF HEADACHE, WITH SUMATRIPTAN Rx# [id number] Last Released: 07/31/24 Qty/Days Supply: 270/ Rx Expiration Date: 12/04/24 Refills Remainin Indication: FOR HEADACHE OUTPT LEVOTHYROXINE NA 112MCG TAB (Status = Discontinued) TAKE ONE TABLET BY MOUTH EVERY MORNING BEFORE A MEAL FOR THYROID. TAKE 30 MINUTES BEFORE FOOD. TAKE SEPARATELY FROM ALL OTHER MEDICATIONS. Rx# [id number] Last Released: 06/12/24 Qty/Days Supply: Rx Expiration Date: 07/22/24 Refills Remainin OUTPT LEVOTHYROXINE NA 112MCG TAB (Status = Active) TAKE ONE TABLET BY MOUTH EVERY MORNING BEFORE A MEAL FOR THYROID. TAKE 30 MINUTES BEFORE FOOD. TAKE SEPARATELY FROM ALL OTHER MEDICATIONS. Rx# [id number] Last Released: 09/02/24 Qty/Days Supply: Rx Expiration Date: 10/06/24 Refills Remainin OUTPT MIRTAZAPINE 45MG TAB (Status = Discontinued) TAKE ONE TABLET BY MOUTH AT BEDTIME FOR INSOMNIA & MOOD Rx# [id number] Last Released: 06/01/24 Qty/Days Supply: Rx Expiration Date: 01/30/25 Refills Remainin Indication: FOR INSOMNIA & MOOD OUTPT MIRTAZAPINE 45MG TAB (Status = Active) TAKE ONE TABLET BY MOUTH AT BEDTIME FOR INSOMNIA & MOOD Rx# [id number] Last Released: 08/27/24 Qty/Days Supply: Rx Expiration Date: 08/07/25 Refills Remainin Indication: FOR INSOMNIA & MOOD OUTPT SUMATRIPTAN SUCCINATE 50MG TAB (Status = Active) TAKE ONE TABLET BY MOUTH ONE-TIME FOR MIGRAINE HEADACHE TAKE AT ONSET OF HEADACHE. MAY REPEAT AFTER 2 HOURS. NOT TO EXCEED 2 TABLETS IN 24 HOURS. Rx# [id number] Last Released: 08/05/24 Qty/Days Supply: Rx Expiration Date: 02/10/25 Refills Remainin Indication: FOR MIGRAINE HEADACHE SUPPLIES PHARMACY TERMS AND POSSIBLE PATIENT ACTIONS INPT = AL inpatient order IV = AL intravenous medication OUTPT = AL outpatient prescription PHARMACY POSSIBLE PATIENT TERMS EXPLANATION ACTIONS -------- --- ACTIVE A prescription that can be If you have refills, filled at the local AL pharmacy. you may request a refill of this prescription from your AL pharmacy. CLINIC A medication you received during If you have questions a visit to a AL clinic or about this medication emergency department. contact your AL healthcare team. DISCONTINUED A prescription your provider has Contact your AL stopped. It is no longer healthcare team if you available to be sent to you or need more of this picked up at the AL pharmacy medication. window. A prescription which is [...] the [facility]. Or, it may be an [id number] (OTC), herbal, dietary supplements or sample medication. [...] reviewed and discussed with patient: Future Appointments: 10/02/2024 10:45 [facility] 10/02/2024 10:46 [facility] 10/29/2024 09:15 [facility] 10/29/2024 09:16 [facility] 12/10/2024 09:15 [facility] 12/10/2024 09:16 [facility] 12/24/2024 09:15 [facility] 12/24/2024 09:16 [facility] 01/08/2025 09:20 [facility] 01/21/2025 09:15 [facility] 01/21/2025 09:16 [facility] [place] 02/18/2025 09:15 [facility] 02/18/2025 09:16 [facility] /ernesto/ Liv Campbell DO, MA [facility] Signed: 09/10/2024 09:31 [facility] CAMP[facility] September 10, 2024 09:22 AM ACCOUNTING OF DISC LOSURES NOTE: LOCAL TITLE: STATE PRESCRIPTION DRUG MONITORING PROGRAM STANDARD TITLE: ACCOUNTING OF DISCLOSURES NOTE DATE OF NOTE: SEPTEMBER 10, 2024@09:22:47 ENTRY DATE: SEPTEMBER 10, 2024@09:22:47 AUTHOR: LIV CAMPBELL COSIGNER: URGENCY: STATUS: COMPLETED This PDMP query was submitted by Liv Campbell DO. The clinical justification for this PDMP query is to review controlled substances prescribed outside of the [facility], and any additional information that may become available, as an important component of standard clinical care, and in accordance with [facility] policy. Patient information was shared with the PDMP [place]. No prescription(s) for controlled substances outside the VA were found in the last 90 days. /ernesto/ Liv Campbell DO, MA [facility] Signed: 09/10/2024 09:23 [facility]
--- OUTSIDE RECORDS SUMMARY | 2024-10-02 05:45 | XMS_ITS | Encounter Summary ---
Author Name [facility] [place] [facility] [place] Address [address] [place] [address] Care Team Providers Care Physician Anesthesiologist Name Role Phone NELIDAZuri BRIGID Primary Care Provider Unavailabl DAVID Parra Primary Care Provider Juan e Selected Encounter This section includes the information on record at [place] for the Encounter. Date/Time Encounter Type Encounter Description Reason Provider Source Oct 02, 2024 10:45 AM [facility] - IND ICD-10-CM R41.89 Oth symptoms and signs w cognitive functions and awareness [facility] Encounter Template Text not used by [place] Assessments - Encounter Diagnoses This section includes the primary and secondary diagnoses documented for the Encounter. Date/Time Primary/Secondary Diagnosis Diagnosis Name Provider Source Oct 02, 2024 11:32 AM PRIMARY Oth symptoms and signs w cognitive functions and awareness [facility] Oct 02, 2024 11:32 AM SECONDARY Chronic post-traumatic headache, not intractable [facility] Oct 02, 2024 11:32 AM SECONDARY Generalized anxiety disorder [facility] Oct 02, 2024 11:32 AM SECONDARY Post-traumatic stress disorder, chronic [facility] Plan of Treatment: Future Appointments (+ 6 months) and Future Tests (+/- 45 days) The Plan of Treatment section includes future care activities for the [facility] [place] [facility] This section includes future appointments and future orders which are active, pending or scheduled. Future Appointments This section includes appointments that were scheduled to occur 6 months from the date of the Encounter, up to a maximum of 20 appointments. The data comes from all [facility] facilities. Appointment Date/Time Appointment Type Appointme nt Facility Name Oct 29, 2024 09:15 AM AMBULATORY [facility] Oct 29, 2024 09:16 AM [facility] - [facility]IC[facility] Dec 10, 2024 09:15 AM AM[facility]ATORY [facility] PS[facility]CHIATRY [facility] Dec 10, 2024 09:16 AM [facility] Dec 24, 2024 09:15 AM [facility]ORY [facility] PS[facility]RY [facility] Dec 24, 2024 09:16 AM [facility] - [facility]IC[facility] Jan 08, 2025 09:20 AM AMBULATORY - MEDICINE [facility] Jan 21, 2025 09:15 AM [facility] PS[facility]CHIATRY [facility] Jan 21, 2025 09:16 AM AMBULATORY - MEDIC[facility] Feb 18, 2025 09:15 AM AM[facility]ULATORY [facility] PS[facility]RY [facility] Feb 18, 2025 09:16 AM AM[facility]ULATORY - MEDIC[facility] Mar 18, 2025 09:15 AM AM[facility]ULATORY - PS[facility]CHIATRY [facility] Mar 18, 2025 09:16 AM [facility]ATORY - [facility]IC[facility] Vital Signs: All taken on the encounter date This section contains inpatient and outpatient Vital Signs collected on the date of the Encounter. Date/Time Temperature Pulse Blood Pressure Respiratory Rate SP02 Pain Height Weight Body Mass Index Source Oct 02, 2024 10:51 AM 98.6 F 80 /min 133/82 mm[Hg] 20 /min 99 % 203.8 lb 28 [facility] Social History: Smoking Status (Most current) and Tobacco Use (All prior to encounter date) This section includes the most current, and the historical, smoking and tobacco- related health factors from the [place] facility where the Encounter took place. Current Smoking Status This section includes the most current smoking, or tobacco-related health factor, from the [place] facility where the Encounter took place. Date/Time Current Smoking Status Comment Swapna ity Aug 06, 2024 09:45 AM VA-TOBACCO USE EVERY DAY SMOKELE [facility] Tobacco Use History This section includes a history of the smoking, or tobacco-related health factors, that were collected on or before the date of the Encounter. The data comes from the [place] facility where the Encounter took place. 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 USE EXECUTIVE CANDIDATE DEVELOPER NO [facility] August 29, 2023 09:00 AM VA-TOBACCO USE MED NO [facility] August 29, 2023 09:00 AM VA-TOBACCO USE WI 30 MIN OF WAKE UP [facility] August 29, 2023 09:00 AM VA-TOBACCO USER EVERY DAY [facility] Sep 21, 2022 10:30 AM VA-TOBACCO DOESNT USE WI 30 MIN WAKEUP [facility] Sep 21, 2022 10:30 AM VA-TOBACCO USE > 1 5 LESS THAN 30 YEARS [facility] Sep 21, 2022 10:30 AM VA-TOBACCO USE ADVICE [facility] Sep 21, 2022 10:30 AM VA-TOBACCO USE EXECUTIVE CANDIDATE DEVELOPER YES [facility] Sep 21, 2022 10:30 AM VA-TOBACCO USE MED NO [facility] Sep 21, 2022 10:30 AM VA-TOBACCO USER EVERY DAY [facility] Sep 15, 2021 11:00 AM VA-TOBACCO DOESNT USE WI 30 MIN WAKEUP [facility] Sep 15, 2021 11:00 AM VA-TOBACCO USE 5 TO 15 YEARS [facility] Sep 15, 2021 11:00 AM VA-TOBACCO USE ADVICE [facility] Sep 15, 2021 11:00 AM VA-TOBACCO USE EXECUTIVE CANDIDATE DEVELOPER NO [facility] Sep 15, 2021 11:00 AM VA-TOBACCO USE MED NO [facility] Sep 15, 2021 11:00 AM VA-TOBACCO USER EVERY DAY [facility] Sep 21, 2020 10:01 AM VA-TOBACCO DOESNT USE WI 30 MIN WAKEUP [facility] Sep 21, 2020 10:01 AM VA-TOBACCO USE > 1 5 LESS THAN 30 YEARS [facility] Sep 21, 2020 10:01 AM VA-TOBACCO USE ADVICE [facility] Sep 21, 2020 10:01 AM VA-TOBACCO USE EXECUTIVE CANDIDATE DEVELOPER NO [facility] Sep 21, 2020 10:01 AM VA-TOBACCO USE MED NO [facility] Sep 21, 2020 10:01 AM VA-TOBACCO USER EVERY DAY [facility] Advance Directives: All historical and current Section Date Range: From patient's date of to the date document was created. This section includes ALL of a patient's completed or amended [place] Advance and Rescinded Directives. The entries below indicate that a directive exists for the patient, but an actual copy is not included with this document. The data comes from all [place] facilities. Date Advance Directives Provider Source Oct 19, 2015 ADVANCE DIRECTIVE DISCUSSION GAVINO [facility] Encounter Notes: All associated encounter notes This section contains the clinical notes associated to the Encounter. Date/Time Encounter Note(s) Provider Source Oct 02, 2024 10:43 AM NURSING PROGRESS N OTE: LOCAL TITLE: NURSING NOTE PB STANDARD TITLE: NURSING PROGRESS NOTE DATE OF NOTE: OCT 02, 2024@10:43 ENTRY DATE: OCT 02, 2024@10:47:50 AUTHOR: KEIRA HOOD EXP COSIGNER: URGENCY: STATUS: COMPLETED is here for his scheduled telemed psychiatry appt. He is alert and oriented, resp even and unlabored, gait steady. [place] is pleasant and conversational, states he has been doing good. [place] was escorted to room 128 for his appt with Dr Gregg, receiving good telemed transmission. /ernesto/ ANN WEN, RN [facility] Signed: 10/02/2024 10:50 KEIRA HOOD [facility]
--- OUTSIDE RECORDS SUMMARY | 2024-10-02 05:46 | XMS_ITS | Encounter Summary ---
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 Date/Time Encounter Type Encounter Description Reason Provider Source Oct 02, 2024 10:46 AM SYNCH AUDIO-VIDEO EST MOD [facility] - IND ICD-10-CM R41.89 Oth symptoms and signs w cognitive functions and awareness LIV CAMPBELL Encounter Template Text not used by [place] Assessments - Encounter Diagnoses This section includes the primary and secondary diagnoses documented for the Encounter. Date/Time Primary/Secondary Diagnosis Diagnosis Name Provider Source Oct 02, 2024 11:32 AM PRIMARY Oth symptoms and signs w cognitive functions and awareness LIV CAMPBELL [facility] Oct 02, 2024 11:32 AM SECONDARY Chronic post-traumatic headache, not intractable LIV CAMPBELL [facility] Oct 02, 2024 11:32 AM SECONDARY Generalized anxiety disorder LIV CAMPBELL [facility] Oct 02, 2024 11:32 AM SECONDARY Major depressive disorder, recurrent, mild LIV CAMPBELL [facility] Plan of Treatment: Future Appointments (+ 6 months) and Future Tests (+/- 45 days) The Plan of Treatment section includes future care activities for the patient [facility] This section includes future appointments and future orders which are active, pending or scheduled. Future Appointments This section includes appointments that were scheduled to occur 6 months from the date of the Encounter, up to a maximum of 20 appointments. The data comes from all [place] treatment facilities. Appointment Date/Time Appointment Type Appointme nt Facility Name Oct 29, 2024 09:15 AM AMBULATORY - PSYCHIATRY [facility] Oct 29, 2024 09:16 AM AMBULATORY - MEDICINE [facility] Dec 10, 2024 09:15 AM AMBULATORY - PSYCHIATRY [facility] Dec 10, 2024 09:16 AM [facility]IC[facility] Dec 24, 2024 09:15 AM AMBULATORY - PSYCHIATRY [facility] Dec 24, 2024 09:16 AM AMBULATORY - MEDICINE [facility] Jan 08, 2025 09:20 AM AMBULATORY - MEDICINE [facility] Jan 21, 2025 09:15 AM AMBULATORY - PSYCHIATRY [facility] Jan 21, 2025 09:16 AM AMBULATORY - MEDICINE [facility] Feb 18, 2025 09:15 AM AMBULATORY - PSYCHIATRY [facility] Feb 18, 2025 09:16 AM AMBULATORY - MEDICINE [facility] Mar 18, 2025 09:15 AM AMBULATORY - PSYCHIATRY [facility] Mar 18, 2025 09:16 AM AMBULATORY - MEDICINE [facility] Social History: Smoking Status (Most current) and Tobacco Use (All prior to encounter date) This section includes the most current, and the historical, smoking and tobacco- related health factors from the [place] facility where the Encounter took place. Current Smoking Status This section includes the most current smoking, or tobacco-related health factor, from the [place] facility where the Encounter took place. Date/Time Current Smoking Status Comment Swapna romano Jan 17, 2022 11:00 AM LIFETIME NON-SMOKER [facility] Advance Directives: All historical and current Section Date Range: From patient's date of to the date document was created. This section includes ALL of a patient's completed or amended VA Advance and Rescinded Directives. The entries below indicate that a directive exists for the patient, but an actual copy is not included with this document. The data comes from all [place] facilities. Date Advance Directives Provider Source Oct 19, 2015 ADVANCE DIRECTIVE DISCUSSION GAVINO CHENEY [facility] Encounter Notes: All associated encounter notes This section contains the clinical notes associated to the Encounter. Date/Time Encounter Note(s) Provider Source Oct 02, 2024 11:28 AM PSYCHIATRY NOTE: LOCAL TITLE: PSYCHIATRIC PROGRESS NOTE STANDARD TITLE: PSYCHIATRY NOTE DATE OF NOTE: OCT 02, 2024@11:28 ENTRY DATE: OCT 02, 2024@11:28:28 AUTHOR: LIV CAMPBELL COSIGNER: URGENCY: STATUS: COMPLETED Consent: [place] provided verbal consent for receiving care through the modality of [facility]. Patient verified date of and full name. RENU ZAPATA is a 44 y/o MALE Note from previous visit was reviewed: Yes Reviewed progress notes Denies any SI/HI plans or intent Chief Complaint: Med Management History of Present Illness: [place] reports since last seen has been doing all right. He states the house is coming a long slow. He states he will be glad when it gets to the point he can do most of it. He states concentration has been doing okay. He states he is slower at things than he used to be. He states it is hard to learn new things and states he has to relearn it every time if it is something he did not do before his TBI. He states he has learned over the years what coping skills to use and how to organize the things he needs to know. The would currently rate depression to be 5 /10 with 10 being the worst. Denies any Suicidal Ideations plans or intent. [place] denies any feelings of hopelessness. He states he is happiest when he is busy. 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 He states anxiety has been doing okay most of the time. He states it is not normally stopping him from doing things. He states he gets anxious if he doesn't stay busy or have tasks he didn't complete. He states his PTSD is okay if he is by himself and doesn't have people speaking to him. Past Suicide Attempts: Denies Protective Factors: [...] ammunition. At any point in time if [place] experiences SI or HI firearms should be [...] Insight: Intact Judgement: Intact Prognosis: Fair Safety- [place] is not a safety risk to self or others at this time. Capable of making practice safe judgment and perform ADLs. Assessment: Traumatic Brain Injury with memory issues Major Depressive Disorder, recurrent, mild Post Traumatic Stress Disorder, chronic, secondary to combat Generalized Anxiety Disorder Plan: 1. Medications: Discussed medication in detail [...] Safety Planning was reviewed with the patient. [place] is aware if patient begins having any suicidal or homicidal ideations this is an emergency and [place] needs to call 9-11 or go to the nearest ED. Discussed [facility] Crisis Line [phone]. 5. Patient should follow-up 1 month Patient is encouraged to call with any questions or concerns. Instructed [place] to follow up with his primary care provider routinely and as needed for wellness and any medical concerns. Return to [facility] for ongoing medication management, [...] Liv Campbell DO, MA John J Pershing [facility] Signed: 10/02/2024 11:31 LIV CAMPBELL [facility] Oct 02, 2024 11:08 AM PRIMARY CARE EDUCA TION NOTE: LOCAL TITLE: OPT PHY INSTR AUTO PB STANDARD TITLE: PRIMARY CARE EDUCATION NOTE DATE OF NOTE: OCT 02, 2024@11:08 ENTRY DATE: OCT 02, 2024@11:08:56 AUTHOR: LIV CAMPBELL EXP COSIGNER: URGENCY: STATUS: COMPLETED This documentation is related to: . F/U Visit Description of Today's Injury/Illness: TBI, MDD, PTSD and AVELINA Mental Health Testing: RETURN TO CLINIC: Return appointment is needed. . Special Instructions: . MEDICATION REVIEW/ASSESSMENT & PLAN: No med changes RTC 1 month Allergies/ADRs (Tool #5) FACILITY ALLERGY/ADR -------- [facility] NO KNOWN ALLERGIES [place] [facility] NO KNOWN ALLERGIES [facility] No Known Allergies Med. Reconciliation (Tool #1) INCLUDED IN THIS LIST: Alphabetical list of active outpatient prescriptions dispensed from this [place] (local) and dispensed from another [place] or [facility] facility (remote) as well as inpatient orders (local pending and active), local clinic medications, locally documented non-VA medications, and local prescriptions that have or been discontinued in the past 90 days. Non-VA Meds Last Documented On: Data not found NOTE The display of VA prescriptions dispensed from another [place] or [facility] facility (remote) is limited to active outpatient prescription entries matched to National Drug File at the originating site and may not include some items such as investigational drugs, compounds, etc. NOT INCLUDED IN THIS LIST: Medications self-entered by the patient into personal health records (i.e. [employer]) are NOT included in this list. Non-VA medications documented outside this [place], remote inpatient orders (regardless of status) and remote clinic medications are NOT included in this list. The patient and provider must always discuss medications the patient is taking, regardless of where the medication was dispensed or obtained. OUTPT AMPHETAMINE/DEXTROAMPH RESIN 10MG SA CAP (Status = Discontinued) TAKE ONE CAPSULE BY MOUTH EVERY MORNING FOR ADHD Rx# [id number] Last Released: 06/11/24 Qty/Days Supply: Rx Expiration Date: 07/11/24 Refills Remainin Indication: FOR ADHD OUTPT AMPHETAMINE/DEXTROAMPH RESIN 10MG SA CAP (Status = Discontinued) TAKE ONE CAPSULE BY MOUTH EVERY MORNING FOR ADHD Rx# [id number] Last Released: 07/10/24 Qty/Days Supply: Rx Expiration Date: 08/08/24 Refills Remainin Indication: FOR ADHD OUTPT AMPHETAMINE/DEXTROAMPH RESIN 10MG SA CAP (Status = ) TAKE ONE CAPSULE BY MOUTH EVERY MORNING FOR ADHD Rx# [id number] Last Released: 08/10/24 Qty/Days Supply: Rx Expiration Date: 09/05/24 Refills Remainin Indication: FOR ADHD OUTPT AMPHETAMINE/DEXTROAMPH RESIN 10MG SA CAP (Status = Active) TAKE ONE CAPSULE BY MOUTH EVERY MORNING FOR ADHD Rx# [id number] Last Released: 09/14/24 Qty/Days Supply: Rx Expiration Date: 10/10/24 Refills Remainin Indication: FOR ADHD OUTPT AMPHETAMINE/DEXTROAMPH RESIN 10MG SA CAP (Status = Pending) TAKE ONE CAPSULE BY MOUTH EVERY MORNING FOR ADHD Login Date: 10/02/24 Qty/Days Supply: Refills Ordered: 0 OUTPT AMPHETAMINE/DEXTROAMPHETAMINE 5MG TAB (Status = Discontinued) TAKE ONE TABLET BY MOUTH EVERY MORNING FOR ADHD Rx# [id number] Last Released: 06/11/24 Qty/Days Supply: Rx Expiration Date: 07/11/24 Refills Remainin Indication: FOR ADHD OUTPT AMPHETAMINE/DEXTROAMPHETAMINE 5MG TAB (Status = Discontinued) TAKE ONE TABLET BY MOUTH EVERY MORNING FOR ADHD Rx# [id number] Last Released: 07/10/24 Qty/Days Supply: Rx Expiration Date: 08/08/24 Refills Remainin Indication: FOR ADHD OUTPT AMPHETAMINE/DEXTROAMPHETAMINE 5MG TAB (Status = ) TAKE ONE TABLET BY MOUTH EVERY MORNING FOR ADHD Rx# [id number] Last Released: 08/10/24 Qty/Days Supply: Rx Expiration Date: 09/05/24 Refills Remainin Indication: FOR ADHD OUTPT AMPHETAMINE/DEXTROAMPHETAMINE 5MG TAB (Status = Active) TAKE ONE TABLET BY MOUTH LUNCH FOR ADHD Rx# [id number] Last Released: 09/14/24 Qty/Days Supply: Rx Expiration Date: 10/10/24 Refills Remainin Indication: FOR ADHD OUTPT AMPHETAMINE/DEXTROAMPHETAMINE 5MG TAB (Status = Pending) TAKE ONE TABLET BY MOUTH LUNCH FOR ADHD Login Date: 10/02/24 Qty/Days Supply: Refills Ordered: 0 OUTPT BUPROPION HCL 150MG 24HR SA TAB (Status = Discontinued) TAKE ONE TABLET BY MOUTH EVERY MORNING FOR DEPRESSION SWALLOW WHOLE - DO NOT CRUSH OR CHEW. Rx# [id number] Last Released: 06/22/24 Qty/Days Supply: Rx Expiration Date: 03/21/25 Refills Remainin Indication: FOR DEPRESSION OUTPT BUPROPION HCL 150MG 24HR SA TAB (Status = Active) TAKE ONE TABLET BY MOUTH EVERY MORNING FOR DEPRESSION SWALLOW WHOLE - DO NOT CRUSH OR CHEW. Rx# [id number] Last Released: 09/10/24 Qty/Days Supply: Rx Expiration Date: 08/07/25 Refills Remainin Indication: FOR DEPRESSION OUTPT CETIRIZINE HCL 10MG TAB (Status = Discontinued) TAKE ONE TABLET BY MOUTH ONCE A DAY FOR ALLERGIC RHINITIS Rx# [id number] Last Released: 03/24/24 Qty/Days Supply: Rx Expiration Date: 07/10/24 Refills Remainin Indication: FOR ALLERGIC RHINITIS OUTPT CETIRIZINE HCL 10MG TAB (Status = Active) TAKE ONE TABLET BY MOUTH ONCE A DAY FOR ALLERGIC RHINITIS Rx# [id number] Last Released: 08/06/24 Qty/Days Supply: Rx Expiration Date: 08/05/25 Refills Remainin Indication: FOR ALLERGIC RHINITIS OUTPT CHOLECALCIF 50MCG (D3-2,000UNIT) TAB (Status = Active) TAKE TWO TABLETS BY MOUTH ONCE A DAY FOR VITAMIN D SUPPLEMENTATION Rx# [id number] Last Released: 09/09/24 Qty/Days Supply: 200/90 Rx Expiration Date: 04/24/25 Refills Remainin Indication: FOR VITAMIN D SUPPLEMENTATION OUTPT CYCLOBENZAPRINE HCL 10MG TAB (Status = Discontinued) TAKE ONE TABLET BY MOUTH THREE TIMES A DAY NEEDED FOR MUSCLE SPASM MAY CAUSE DROWSINESS. DO NOT DRINK ALCOHOL WHILE TAKING THIS MEDICATION. Rx# [id number] Last Released: 05/19/24 Qty/Days Supply: 4515 Rx Expiration Date: 07/10/24 Refills Remainin Indication: FOR MUSCLE SPASM OUTPT CYCLOBENZAPRINE HCL 10MG TAB (Status = Active) TAKE ONE TABLET BY MOUTH THREE TIMES A DAY NEEDED FOR MUSCLE SPASM MAY CAUSE DROWSINESS. DO NOT DRINK ALCOHOL WHILE TAKING THIS MEDICATION. Rx# [id number] Last Released: 08/07/24 Qty/Days Supply: 45/15 Rx Expiration Date: 08/05/25 Refills Remainin Indication: FOR MUSCLE SPASM OUTPT DOXEPIN HCL 10MG CAP (Status = Discontinued) TAKE ONE CAPSULE BY MOUTH AT BEDTIME FOR NIGHTMARES Rx# [id number] Last Released: 07/28/24 Qty/Days Supply: 90/90 Rx Expiration Date: 12/05/24 Refills Remainin Indication: FOR NIGHTMARES OUTPT DOXEPIN HCL 10MG CAP (Status = Active/Suspended) TAKE ONE CAPSULE BY MOUTH AT BEDTIME FOR NIGHTMARES Rx# [id number] Last Released: Qty/Days Supply: 90/90 Rx Expiration Date: 08/07/25 Refills Remainin Indication: FOR NIGHTMARES OUTPT FERROUS GLUCONATE 240MG TAB (Status = Active) TAKE TWO TABLETS BY MOUTH ONCE A DAY FOR IRON DEFICIENCY ANEMIA Rx# [id number] Last Released: 09/15/24 Qty/Days Supply: 200/90 Rx Expiration Date: 07/09/25 Refills Remainin Indication: FOR IRON DEFICIENCY ANEMIA OUTPT FOLIC ACID 0.4MG TAB (Status = Active) TAKE ONE TABLET BY MOUTH ONCE A DAY FOR FOLIC ACID SUPPLEMENTATION Rx# [id number] Last Released: 09/08/24 Qty/Days Supply: 100/90 Rx Expiration Date: 04/24/25 Refills Remainin Indication: FOR FOLIC ACID SUPPLEMENTATION OUTPT GABAPENTIN 400MG CAP (Status = Active) TAKE ONE CAPSULE BY MOUTH AT BEDTIME FOR NERVE PAIN Rx# [id number] Last Released: 09/16/24 Qty/Days Supply: Rx Expiration Date: 01/15/25 Refills Remainin Indication: FOR NERVE PAIN OUTPT HYDROXYZINE HCL 25MG TAB (Status = Active) TAKE ONE TABLET BY MOUTH TWICE DAILY NEEDED FOR ANXIETY *MAY CAUSE DROWSINESS* Rx# [id number] Last Released: 08/17/24 Qty/Days Supply: 180 Rx Expiration Date: 06/12/25 Refills Remainin Indication: FOR ANXIETY OUTPT IBUPROFEN 800MG TAB (Status = Discontinued) TAKE ONE TABLET BY MOUTH THREE TIMES A DAY NEEDED FOR HEADACHE TAKE WITH FOOD. TAKE AT ONSET OF HEADACHE, WITH SUMATRIPTAN Rx# [id number] Last Released: 06/19/24 Qty/Days Supply: 270/ Rx Expiration Date: 12/04/24 Refills Remainin Indication: FOR HEADACHE OUTPT IBUPROFEN 800MG TAB (Status = Active/Suspended) TAKE ONE TABLET BY MOUTH THREE TIMES A DAY NEEDED FOR HEADACHE TAKE WITH FOOD. TAKE AT ONSET OF HEADACHE, WITH SUMATRIPTAN Rx# [id number] Last Released: 07/31/24 Qty/Days Supply: Rx Expiration Date: 12/04/24 Refills Remainin Indication: FOR HEADACHE OUTPT LEVOTHYROXINE NA 112MCG TAB (Status = Discontinued) TAKE ONE TABLET BY MOUTH EVERY MORNING BEFORE A MEAL FOR THYROID. TAKE 30 MINUTES BEFORE FOOD. TAKE SEPARATELY FROM ALL OTHER MEDICATIONS. Rx# [id number] Last Released: 06/12/24 Qty/Days Supply: Rx Expiration Date: 07/22/24 Refills Remainin OUTPT LEVOTHYROXINE NA 112MCG TAB (Status = Active) TAKE ONE TABLET BY MOUTH EVERY MORNING BEFORE A MEAL FOR THYROID. TAKE 30 MINUTES BEFORE FOOD. TAKE SEPARATELY FROM ALL OTHER MEDICATIONS. Rx# [id number] Last Released: 09/02/24 Qty/Days Supply: Rx Expiration Date: 10/06/24 Refills Remainin OUTPT MIRTAZAPINE 45MG TAB (Status = Discontinued) TAKE ONE TABLET BY MOUTH AT BEDTIME FOR INSOMNIA & MOOD Rx# [id number] Last Released: 06/01/24 Qty/Days Supply: Rx Expiration Date: 01/30/25 Refills Remainin Indication: FOR INSOMNIA & MOOD OUTPT MIRTAZAPINE 45MG TAB (Status = Active) TAKE ONE TABLET BY MOUTH AT BEDTIME FOR INSOMNIA & MOOD Rx# [id number] Last Released: 08/27/24 Qty/Days Supply: Rx Expiration Date: 08/07/25 Refills Remainin Indication: FOR INSOMNIA & MOOD OUTPT SUMATRIPTAN SUCCINATE 50MG TAB (Status = Active) TAKE ONE TABLET BY MOUTH ONE-TIME FOR MIGRAINE HEADACHE TAKE AT ONSET OF HEADACHE. MAY REPEAT AFTER 2 HOURS. NOT TO EXCEED 2 TABLETS IN 24 HOURS. Rx# [id number] Last Released: 08/05/24 Qty/Days Supply: Rx Expiration Date: 02/10/25 Refills Remainin Indication: FOR MIGRAINE HEADACHE SUPPLIES PHARMACY TERMS AND POSSIBLE PATIENT ACTIONS INPT = [place] inpatient order IV = PR intravenous medication OUTPT = [place] outpatient prescription PHARMACY POSSIBLE PATIENT TERMS EXPLANATION ACTIONS -------- --- ACTIVE A prescription that can be If you have refills, filled at the local [place] pharmacy. you may request a refill of this prescription from your [place] pharmacy. CLINIC A medication you received during If you have questions a visit to a [place] clinic or about this medication emergency department. contact your VA healthcare team. DISCONTINUED A prescription your provider has Contact your VA stopped. It is no longer healthcare team if you available to be sent to you or need more of this picked up at the [place] pharmacy medication. window. A prescription which is [...] the VA. Or, it may be an [id number] (OTC), herbal, dietary supplements or sample medication. [...] An active prescription that is Contact your [place] not scheduled to be filled yet. pharmacy if you need You should receive it before this medication now. you run out. ======== Medication reconciliation performed with confirmed /caregiver and /caregiver voiced an understanding of current medications? Yes [place]/caregiver were provided an updated medication list. Following results reviewed and discussed with patient: Future Appointments: 10/29/2024 09:15 [facility] [place] 10/29/2024 09:16 [facility] [place] 12/10/2024 09:15 [facility] [place] 12/10/2024 09:16 PB-[facility] [place] 12/24/2024 09:15 [facility] [place] 12/24/2024 09:16 [facility] [place] 01/08/2025 09:20 [facility] ( 01/21/2025 09:15 PB-CELENA CVT [facility] [place] 01/21/2025 09:16 PB-[facility] [place] 02/18/2025 09:15 PB-[facility] CVT [facility] [place] 02/18/2025 09:16 PB-[facility] [place] 03/18/2025 09:15 [facility] [place] 03/18/2025 09:16 PB-[facility] [place] /es/ Liv Campbell DO, MA John J Pershing [facility] Signed: 10/02/2024 11:10 LIV CAMPBELL [facility]
--- OUTSIDE RECORDS SUMMARY | 2024-10-19 09:37 | XMS_ITS | Encounter Summary ---
Author Name [facility] Address [address] [place] [address] Care Team Providers Care Sea Shell Gatherer Name Role Phone MIKAYLA BRIGID Primary Care Provider Unavailabl CHANNING Parra Primary Care Provider Juan cabrera Selected Encounter This section includes the information on record at [facility] for the Encounter. Date/Time Encounter Type Encounter Description Reason Pro vider Source Oct 19, 2024 02:37 PM Outpatient Encounter TELEPHONE TRIAGE IHE Encounter Template Text not used by PA Plan of Treatment: Future Appointments (+ 6 months) and Future Tests (+/- 45 days) The Plan of Treatment section includes future care activities for the patient from all [place] treatmentfacilities. This section includes future appointments and future orders which are active, pending or scheduled. Future Appointments This section includes appointments that were scheduled to occur 6 months from the date of the Encounter, up to a maximum of 20 appointments. The data comes from all [place] treatment facilities. Appointment Date/Time Appointment Type Appointme nt Facility Name Oct 29, 2024 09:15 AM AMBULATORY - PSYCHIATRY [facility] Oct 29, 2024 09:16 AM AMBULATORY - MEDICINE [facility] Dec 10, 2024 09:15 AM AMBULATORY - PS[facility]CHIATRY [facility] Dec 10, 2024 09:16 AM AMBULATORY - MEDICINE [facility] Dec 24, 2024 09:15 AM AMBULATORY - PS[facility]CHIATRY [facility] Dec 24, 2024 09:16 AM [facility]UL[facility]ORY - [facility] Jan 08, 2025 09:20 AM AMBULATORY - MEDICINE [facility] Jan 21, 2025 09:15 AM AMBULATORY - PS[facility]CHIATRY [facility] Jan 21, 2025 09:16 AM AMBULATORY - MEDICINE [facility] Feb 18, 2025 09:15 AM AMBULATORY - PS[facility]CHIATRY [facility] Feb 18, 2025 09:16 AM AMBULATORY - [facility]INE [facility] Mar 18, 2025 09:15 AM AMBULATORY - PSYCHIATRY [facility] Mar 18, 2025 09:16 AM AMBULATORY - MEDICINE [facility] Social History: Smoking Status (Most current) and Tobacco Use (All prior to encounter date) This section includes the most current, and the historical, smoking and tobacco- related health factors from the [place] facility where the Encounter took place. Current Smoking Status This section includes the most current smoking, or tobacco-related health factor, from the [place] facility where the Encounter took place. Date/Time Current Smoking Status Comment Facil ity Jan 17, 2022 11:00 AM LIFETIME NON-SMOKER [facility] Advance Directives: All historical and current Section Date Range: From patient's date of to the date document was created. This section includes ALL of a patient's completed or amended [place] Advance and Rescinded Directives. The entries below indicate that a directive exists for the patient, but an actual copy is not included with this document. The data comes from all [place] facilities. Date Advance Directives Provider Source Oct 19, 2015 ADVANCE DIRECTIVE DISCUSSION GAVINO CHENEY [facility] Encounter Notes: All associated encounter notes This section contains the clinical notes associated to the Encounter. Date/Time Encounter Note(s) Provider Source Oct 19, 2024 02:37 PM RN PROGRESS NOTE: LOCAL TITLE: CCC: CLINICAL TRIAGE STANDARD TITLE: RN PROGRESS NOTE DATE OF NOTE: OCT 19, 2024@14:37:07 ENTRY DATE: OCT 19, 2024@14:37:07 AUTHOR: MAHESH ALDRIDGE COSIGNER: URGENCY: STATUS: COMPLETED Caller Verification Caller/Recipient Relation to Patient: Self Caller Name: RENU ZAPATA Emergency Contact: ARI ZAPATA Triage Summary Conducted triage/discussed symptoms Utilized the Triage Tool: Yes Chief Complaint: Chest Pain Nurse's Recommendation / WHEN: Now Nurse's Recommendation / WHERE: 911 Patient Disposition Patient/Caregiver agrees to plan of care: No Patient WHERE: ED Other Patient WHEN: Now Patient is Urgent or Emergent Nursing Plan and Disposition Referred patient to higher level of care Instructed to go to Emergency Room (ER) Advised of Financial Disclaimer: Patient advised that recommendation for care provided during the call does not constitute an approval or authorization for payment by the [place] or its staff. Patient advised to report a community ED visit to the [facility] Office of Community Care at within 72 hours. Other course(s) of action Generated msg to PACT/Provider Provided guidance for worsening symptoms: *Caller/Patient* advised to call facilities [place] Clinical Contact Center or seek immediate medical attention for new or worsening symptoms Nurse Summary Nurse Summary: Veterans calling in stating her has had chest pain, right sided numbness, and difficulty breathing since 9 this morning. She states his difficulty breathing has become moderate to severe. Triage completed and the recommendation is to call 911 which they decline to do. She states she can drive him to a local hospital. They were advised to consider calling the ambulance as his symptoms sound severe. She states he is going top get into the shower first and then go to the ER. Again they were advised to seek care right away for his symptoms. Will forward for information. Clinical Contact Center Codes Clinic/Location: [facility] PHONE [facility] RN Decision Support System Output: Triage Complete Triage Date: 10/19/2024, 02:28 PM Triage Note: Decision Support Tool Used: ClearTriage Protocol Used: Chest Pain Protocol-Based Disposition: Call EMS 911 Now Positive Triage Question: * SEVERE difficulty breathing (e.g., struggling for each breath, speaks in single words) IMPORTANT: This note was created by [facility] Clinical Contact Center staff. Please do not alert the staff member by adding them as a signer for future communications. Alerts are not monitored by this user. /ernesto/ MAHESH ALDRIDGE [facility] RN Signed: 10/19/2024 14:37 Receipt Acknowledged By: * AWAITING SIGNATURE * ANISH COX * AWAITING SIGNATURE * BRIGID DEGROOT JANELLE [facility]
--- OUTSIDE RECORDS SUMMARY | 2024-10-19 09:47 | XMS_ITS | Continuity of Care Document ---
Author Name [facility] Organization [facility] Care Team Providers Care Insulation Technician Name Role Phone [facility] Unavailable Unavailable Problems Combined list of problems from Department of Defense and Veterans Affairs facilities. It does not include entries that were removed or entered in error. Problem Status Onset Date Problem Type Date of Resolution Comments Source Anxiety Active Condition [facility] Chronic musculoskeletal pain Active Condition Sep 29, 2020 Entered By: BRIGID DEGROOT Comment: from combat, musculoskeletal, plus headache [facility] Chronic Post-Traumatic Headache (SCT [id number]) Active Condition [facility] Chronic post-traumatic stress disorder Active Condition [facility] Cognitive impairment Active Condition Jan 27, 2017 Entered By: RUBEN WILSON Comment: significant memory impairment or neurodegenerative condition by neuropsychology eval [facility] Cognitive Impairment (SCT [id number]) Active Condition [facility] Degeneration of lumbar intervertebral disc (SNOMED CT [id number]) Active Condition [facility] Depression Active Condition [facility] Dry eyes Active Condition [facility] Exposure to potentially hazardous substance Active Condition [facility] Generalized anxiety disorder Active Condition [facility] H/O: vasectomy Active Condition [facility] Headache Active Condition [facility] History of traumatic brain injury Active Condition Jan 28, 2023 Entered By: BRIGID DEGROOT Comment: memory issues [facility] Hyperlipidemia Active Condition [facility] Hypothyroid Active Condition [facility] Hypothyroidism (SCT [id number]) Active Condition [facility] IBS - Irritable Bowel Syndrome (SCT [id number]) Active Condition [facility] Irritable bowel Active Condition [facility] Major depression Active Condition [facility] [facility] Major depressive disorder Active Condition [facility] Migraine variant with headache Active Condition [facility] Neurocognitive disorder Active Condition [facility] Obstructive Sleep Apnea Syndrome ([facility] [id number]) Active Condition [facility] Rib pain Active Condition Feb 09 22 Entered By: BRIGID DEGROOT Comment: Possible occult fracture. [facility] Snoring Active Condition [facility] Tobacco use (SNOMED CT [id number]) Active Condition [facility] Traumatic brain injury with loss of consciousness Active Condition Jan 27 7 Entered By: RUBEN WILSON Comment: post concussion syndrome [facility] Varicose veins of lower extremity Active Condition [facility] Vasectomy requested Active Condition May 07, 2019 Entered By: RADHA LARA Comment: 05.06.2019 Vasectomy, bilateral [facility] Bilateral ankle joint pain Inactive Condition 05/07/2019 [facility] Bilateral knee pain (SNOMED CT [id number] ) Inactive Condition 05/07/2019 [facility] Bilateral wrist pain Inactive Condition 05/07/2019 [facility] Heat exhaustion Inactive Condition 05/07/2019 [facility] Hypokalemia Inactive Condition 05/07/2019 [facility] Routine General Medical Examination at a Health Care Facility * (ICD-9-CM V70.0) Inactive Condition 01/20/2013 [facility] Diagnosis: ICD-10-CM R41.89 Oth symptoms and signs w cognitive functions and awareness Active Diagnosis [facility] Diagnosis: ICD-10-CM F33.0 Major depressive disorder, recurrent, mild Active Diagnosis [facility] Diagnosis: ICD-10-CM Z71.3 Dietary counseling and surveillance Active Diagnosis [facility] Diagnosis: ICD-10-CM Z00.01 Encounter for general adult medical exam w abnormal findings Active Diagnosis [facility] Diagnosis: ICD-10-CM R05.1 Acute cough Active Diagnosis [facility] Diagnosis: ICD-10-CM F33.1 Major depressive disorder, recurrent, moderate Active Diagnosis [facility] Diagnosis: ICD-10-CM S13.4XXA Sprain of ligaments of cervical spine, initial encounter Active Diagnosis [facility] Diagnosis: ICD-10-CM M54.50 Low back pain, unspecified Active Diagnosis [facility] Diagnosis: ICD-10-CM W55.01XA Bitten by cat, initial encounter Active Diagnosis [facility] Diagnosis: ICD-10-CM E03.9 Hypothyroidism, unspecified Active Diagnosis [facility] Medications Combined list of outpatient medications from Department of Defense and Veterans Affairs facilities.Medications provided include 1) outpatient medications from the last 15 months, and 2) patient-reported medications. Medication Details Route Status Patient Instructions Prescription Expires Prescription Number Last Dispense Date Ordering Provider Order Date Order Qty Source AMPHETAMINE /DEXTROAMPH ETAMINE 5MG TAB TAKE ONE TABLET BY MOUTH LUNCH FOR ADHD ORAL ACTIVE 11/01/2024 [id number] 5 BELKYS GREGG R 2024 30 [facility] AMPHETAMINE /DEXTROAMPH ETAMINE 5MG TAB TAKE ONE TABLET BY MOUTH LUNCH FOR ADHD ORAL DISCONT INUED 10/10/2024 [id number] 5 BELKYS GREGG R 2024 30 [facility] [facility] [facility] AMPHETAMINE /DEXTROAMPH ETAMINE 5MG TAB TAKE ONE TABLET BY MOUTH EVERY MORNING FOR ADHD ORAL DISCONT INUED 08/08/2024 [id number] 5 BELKYS GREGG R 2024 30 [facility] [facility] AMPHETAMINE /DEXTROAMPH ETAMINE 5MG TAB TAKE ONE TABLET BY MOUTH EVERY MORNING FOR ADHD ORAL DISCONT INUED 07/11/2024 [id number] 5 BELKYS GREGG R 2024 30 [facility] [facility] [facility] AMPHETAMINE /DEXTROAMPH ETAMINE 5MG TAB TAKE ONE TABLET BY MOUTH AFTERNOO N FOR ADHD ORAL DISCONT INUED 04/19/2024 [id number] 5 BELKYS GREGG R 2024 30 [facility] AMPHETAMINE /DEXTROAMPH ETAMINE 5MG TAB TAKE ONE TABLET BY MOUTH AFTERNOO N FOR ADHD ORAL DISCONT INUED 03/28/2024 [id number] 4 BELKYS GREGG R 2023 30 [facility] AMPHETAMINE /DEXTROAMPH ETAMINE 5MG TAB TAKE ONE TABLET BY MOUTH AFTERNOO N FOR ADHD ORAL DISCONT INUED 02/29/2024 [id number] 4 BELKYS GREGG R 2023 30 [facility] AMPHETAMINE /DEXTROAMPH ETAMINE 5MG TAB TAKE ONE TABLET BY MOUTH AFTERNOO N FOR ADHD ORAL DISCONT INUED 02/15/2024 [id number] 4 BELKYS GREGG R 2023 30 [facility] AMPHETAMINE /DEXTROAMPH ETAMINE 5MG TAB TAKE ONE TABLET BY MOUTH AFTERNOO N FOR ADHD ORAL DISCONT INUED 02/01/2024 [id number] 4 BELKYS GREGG R 2023 30 [facility] AMPHETAMINE /DEXTROAMPH ETAMINE 5MG TAB TAKE ONE TABLET BY MOUTH AFTERNOO N FOR ADHD ORAL DISCONT INUED 01/04/2024 [id number] 4 BELKYS GREGG R 2023 30 [facility] AMPHETAMINE /DEXTROAMPH ETAMINE 5MG TAB TAKE ONE TABLET BY MOUTH AFTERNOO N FOR ADHD ORAL DISCONT INUED 12/14/2023 [id number] 4 BELKYS GREGG R 2023 30 [facility] AMPHETAMINE /DEXTROAMPH ETAMINE 5MG TAB TAKE ONE TABLET BY MOUTH AFTERNOO N FOR ADHD ORAL DISCONT INUED 08/31/2023 [id number] 4 BELKYS GREGG R 2023 30 [facility] AMPHETAMINE /DEXTROAMPH ETAMINE 5MG TAB TAKE ONE TABLET BY MOUTH AFTERNOO N FOR ADHD ORAL DISCONT INUED 08/03/2023 [id number] 4 BELKYS GREGG R 2023 30 [facility] AMPHETAMINE /DEXTROAMPH ETAMINE 5MG TAB TAKE ONE TABLET BY MOUTH EVERY MORNING FOR ADHD ORAL 09/05/2024 [id number] 5 BELKYS GREGG NDA R 2024 30 [facility] AMPHETAMINE /DEXTROAMPH ETAMINE 5MG TAB TAKE ONE TABLET BY MOUTH AFTERNOO N FOR ADHD ORAL 05/16/2024 [id number] 5 BELKYS GREGG NDA R 2024 30 [facility] AMPHETAMINE /DEXTROAMPH ETAMINE 5MG TAB TAKE ONE TABLET BY MOUTH AFTERNOO N FOR ADHD ORAL 11/09/2023 [id number] 4 BELKYS GREGG R 2023 30 [facility] AMPHETAMINE /DEXTROAMPH ETAMINE 5MG TAB TAKE ONE TABLET BY MOUTH AFTERNOO N FOR ADHD ORAL 09/28/2023 [id number] 4 BELKYS GREGG R 2023 30 [facility] AMPHETAMINE /DEXTROAMPH ETAMINE RESIN COMPLEX 10MG CAP,SA TAKE ONE CAPSULE BY MOUTH EVERY MORNING FOR ADHD ORAL ACTIVE 11/01/2024 [id number] 5 BELKYS GREGG R 2024 30 [facility] AMPHETAMINE /DEXTROAMPH ETAMINE RESIN COMPLEX 10MG CAP,SA TAKE ONE CAPSULE BY MOUTH EVERY MORNING FOR ADHD ORAL DISCONT INUED 10/10/2024 [id number] 5 BELKYS GREGG R 2024 30 [facility] AMPHETAMINE /DEXTROAMPH ETAMINE RESIN COMPLEX 10MG CAP,SA TAKE ONE CAPSULE BY MOUTH EVERY MORNING FOR ADHD ORAL DISCONT INUED 08/08/2024 [id number] 5 BELKYS GREGG R 2024 30 [facility] AMPHETAMINE /DEXTROAMPH ETAMINE RESIN COMPLEX 10MG CAP,SA TAKE ONE CAPSULE BY MOUTH EVERY MORNING FOR ADHD ORAL DISCONT INUED 07/11/2024 [id number] 5 BELKYS GREGG R 2024 30 [facility] AMPHETAMINE /DEXTROAMPH ETAMINE RESIN COMPLEX 10MG CAP,SA TAKE ONE CAPSULE BY MOUTH EVERY MORNING FOR ADHD ORAL DISCONT INUED 04/19/2024 [id number] 5 BELKYS GREGG R 2024 30 [facility] AMPHETAMINE /DEXTROAMPH ETAMINE RESIN COMPLEX 10MG CAP,SA TAKE ONE CAPSULE BY MOUTH EVERY MORNING FOR ADHD ORAL DISCONT INUED 03/28/2024 [id number] 4 BELKYS GREGG NDA R 2023 30 [facility] AMPHETAMINE /DEXTROAMPH ETAMINE RESIN COMPLEX 10MG CAP,SA TAKE ONE CAPSULE BY MOUTH EVERY MORNING FOR ADHD ORAL DISCONT INUED 02/29/2024 [id number] 4 BELKYS GREGG NDA R 2023 30 [facility] AMPHETAMINE /DEXTROAMPH ETAMINE RESIN COMPLEX 10MG CAP,SA TAKE ONE CAPSULE BY MOUTH EVERY MORNING FOR ADHD ORAL DISCONT INUED 02/15/2024 [id number] 4 BELKYS GREGG R 2023 30 [facility] AMPHETAMINE /DEXTROAMPH ETAMINE RESIN COMPLEX 10MG CAP,SA TAKE ONE CAPSULE BY MOUTH EVERY MORNING FOR ADHD ORAL DISCONT INUED 02/01/2024 [id number] 4 BELKYS GREGG NDA R 2023 30 [facility] AMPHETAMINE /DEXTROAMPH ETAMINE RESIN COMPLEX 10MG CAP,SA TAKE ONE CAPSULE BY MOUTH EVERY MORNING FOR ADHD ORAL DISCONT INUED 01/04/2024 [id number] 4 BELKYS GREGG NDA R 2023 30 [facility] AMPHETAMINE /DEXTROAMPH ETAMINE RESIN COMPLEX 10MG CAP,SA TAKE ONE CAPSULE BY MOUTH EVERY MORNING FOR ADHD ORAL DISCONT INUED 12/14/2023 [id number] 4 BELKYS GREGG NDA R 2023 30 [facility] AMPHETAMINE /DEXTROAMPH ETAMINE RESIN COMPLEX 10MG CAP,SA TAKE ONE CAPSULE BY MOUTH EVERY MORNING FOR ADHD ORAL DISCONT INUED 08/31/2023 [id number] 4 BELKYS GREGG NDDarrian R 2023 30 [place] [facility] AMPHETAMINE /DEXTROAMPH ETAMINE RESIN COMPLEX 10MG CAP,SA TAKE ONE CAPSULE BY MOUTH EVERY MORNING FOR ADHD ORAL DISCONT INUED 08/03/2023 [id number] 4 BELKYS GREGG NDA R 2023 30 [facility] [facility] [facility] AMPHETAMINE /DEXTROAMPH ETAMINE RESIN COMPLEX 10MG CAP,SA TAKE ONE CAPSULE BY MOUTH EVERY MORNING FOR ADHD ORAL 09/05/2024 [id number] 5 BELKYS GREGG NDA R 2024 30 [facility] [facility] [facility] AMPHETAMINE /DEXTROAMPH ETAMINE RESIN COMPLEX 10MG CAP,SA TAKE ONE CAPSULE BY MOUTH EVERY MORNING FOR ADHD ORAL 05/16/2024 [id number] 5 BELKYS GREGG NDA R 2024 30 [facility] [facility] AMPHETAMINE /DEXTROAMPH ETAMINE RESIN COMPLEX 10MG CAP,SA TAKE ONE CAPSULE BY MOUTH EVERY MORNING FOR ADHD ORAL 11/09/2023 [id number] 4 BELKYS GREGG NDA R 2023 30 [facility] [facility] AMPHETAMINE /DEXTROAMPH ETAMINE RESIN COMPLEX 10MG CAP,SA TAKE ONE CAPSULE BY MOUTH EVERY MORNING FOR ADHD ORAL 09/28/2023 [id number] 4 BELKYS GREGG NDA R 2023 30 [place] [facility] BUPROPION HCL 150MG 24HR TAB,SA TAKE ONE TABLET BY MOUTH EVERY MORNING FOR DEPRESSI ON SWALLOW WHOLE - DO NOT CRUSH OR CHEW. ORAL ACTIVE 08/07/2025 [id number] 5 BELKYS GREGG R 2024 90 [place] [facility] BUPROPION HCL 150MG 24HR TAB,SA TAKE ONE TABLET BY MOUTH EVERY MORNING FOR DEPRESSI ON SWALLOW WHOLE - DO NOT CRUSH OR CHEW. ORAL DISCONT INUED 03/21/2025 [id number] 5 BELKYS GREGG R 2024 90 [facility] BUPROPION HCL 150MG 24HR TAB,SA TAKE ONE TABLET BY MOUTH EVERY MORNING FOR DEPRESSI ON SWALLOW WHOLE - DO NOT CRUSH OR CHEW. ORAL DISCONT INUED 07/04/2024 [id number] 4 BELKYS GREGG NDA R 2023 90 [facility] BUPROPION HCL 150MG 24HR TAB,SA TAKE ONE TABLET BY MOUTH EVERY MORNING FOR DEPRESSI ON SWALLOW WHOLE - DO NOT CRUSH OR CHEW. ORAL DISCONT INUED 07/04/2024 [id number] 4 BELKYS GREGG NDA R 2023 90 [facility] CETIRIZINE HCL 10MG TAB TAKE ONE TABLET BY MOUTH ONCE A DAY FOR ALLERGIC RHINITIS ORAL ACTIVE 08/05/2025 [id number] 5 SERGIO DEGROOT 2024 90 [facility] CETIRIZINE HCL 10MG TAB TAKE ONE TABLET BY MOUTH ONCE A DAY FOR ALLERGIC RHINITIS ORAL DISCONT INUED 07/10/2024 [id number] 4 SERGIO DEGROOT 2023 90 [facility] CETIRIZINE HCL 10MG TAB TAKE ONE TABLET BY MOUTH ONCE A DAY FOR ALLERGIC RHINITIS ORAL DISCONT INUED 07/10/2024 [id number] 4 SERGIO DEGROOT 2023 90 [facility] CHOLECALCIF ADAM 50MCG (2,000UNIT) TAB TAKE TWO TABLETS BY MOUTH ONCE A DAY FOR VITAMIN D SUPPLEME NTATION ORAL ACTIVE 04/24/2025 [id number] 5 SERGIO DEGROOT 2024 200 [place] [facility] CHOLECALCIF ADAM 50MCG (2,000UNIT) TAB TAKE TWO TABLETS BY MOUTH ONCE A DAY FOR VITAMIN D SUPPLEME NTATION ORAL DISCONT INUED 07/10/2024 [id number] 4 SERGIO DEGROOT R 2023 200 [facility] CHOLECALCIF ADAM 50MCG (2,000UNIT) TAB TAKE TWO TABLETS BY MOUTH ONCE A DAY FOR VITAMIN D SUPPLEME NTATION ORAL DISCONT INUED 07/10/2024 [id number] 4 SERGIO DEGROOT R 2023 200 [facility] CYCLOBENZAP RINE HCL 10MG TAB TAKE ONE TABLET BY MOUTH THREE TIMES A DAY NEEDED FOR MUSCLE SPASM MAY CAUSE DROWSINE SS. DO NOT DRINK ALCOHOL WHILE TAKING THIS MEDICATI ON. ORAL ACTIVE 08/05/2025 [id number] 5 SERGIO DEGROOT R 2024 45 [facility] CYCLOBENZAP RINE HCL 10MG TAB TAKE ONE TABLET BY MOUTH THREE TIMES A DAY NEEDED FOR MUSCLE SPASM MAY CAUSE DROWSINE SS. DO NOT DRINK ALCOHOL WHILE TAKING THIS MEDICATI ON. ORAL DISCONT INUED 07/10/2024 [id number] 5 SERGIO DEGROOT R 2023 45 [facility] DOXEPIN HCL 10MG CAP TAKE ONE CAPSULE BY MOUTH AT BEDTIME FOR NIGHTMAR ES ORAL SUSPEND ED 08/07/2025 [id number] 5 BELKYS GREGG NDA R 2024 90 [place] [facility] DOXEPIN HCL 10MG CAP TAKE ONE CAPSULE BY MOUTH AT BEDTIME FOR NIGHTMAR ES ORAL DISCONT INUED 12/05/2024 [id number] 5 BELKYS GREGG NDA R 2023 90 [place] [facility] DOXEPIN HCL 10MG CAP TAKE ONE CAPSULE BY MOUTH AT BEDTIME FOR NIGHTMAR ES ORAL DISCONT INUED 06/06/2024 [id number] 4 BELKYS GREGG NDDarrian R 2023 90 [place] [facility] FERROUS GLUCONATE 240MG TAB TAKE TWO TABLETS BY MOUTH ONCE A DAY FOR IRON DEFICIEN CY ANEMIA ORAL ACTIVE 07/09/2025 [id number] 5 SERGIO DEGROOT R 2024 200 [facility] FOLIC ACID 0.4MG TAB TAKE ONE TABLET BY MOUTH ONCE A DAY FOR FOLIC ACID SUPPLEME NTATION ORAL ACTIVE 04/24/2025 [id number] 5 SERGIO DEGROOT 2024 100 [facility] FOLIC ACID 0.4MG TAB TAKE ONE TABLET BY MOUTH ONCE A DAY FOR FOLIC ACID SUPPLEME NTATION ORAL DISCONT INUED 07/10/2024 [id number] 4 SERGIO DEGROOT [address] [place] [address] [facility] FOLIC ACID 0.4MG TAB TAKE ONE TABLET BY MOUTH ONCE A DAY FOR FOLIC ACID SUPPLEME NTATION ORAL DISCONT INUED 07/10/2024 [id number] 4 SERGIO DEGROOT 2023 100 [facility] GABAPENTIN 400MG CAP TAKE ONE CAPSULE BY MOUTH AT BEDTIME FOR NERVE PAIN ORAL ACTIVE 01/15/2025 [id number] 5 SERGIO DEGROOT 2023 90 [facility] GABAPENTIN 400MG CAP TAKE ONE CAPSULE BY MOUTH AT BEDTIME FOR NERVE PAIN ORAL DISCONT INUED 11/04/2024 [id number] 4 SERGIO DEGROOT [address] [place] [address] [facility] HYDROXYZINE HCL 25MG TAB TAKE ONE TABLET BY MOUTH TWICE DAILY NEEDED FOR ANXIETY *MAY CAUSE DROWSINE SS* ORAL ACTIVE 06/12/2025 [id number] 5 BELKYS GREGG R 2024 180 [facility] HYDROXYZINE HCL 25MG TAB TAKE ONE TABLET BY MOUTH TWICE DAILY NEEDED FOR ANXIETY *MAY CAUSE DROWSINE SS* ORAL DISCONT INUED (EDIT) 01/30/2025 [id number] 5 BELKYS GREGG R 2023 180 [facility] HYDROXYZINE HCL 25MG TAB TAKE ONE TABLET BY MOUTH TWICE DAILY NEEDED FOR ANXIETY *MAY CAUSE DROWSINE SS* ORAL DISCONT INUED 12/05/2024 [id number] 4 BELKYS GREGG R 2023 180 [facility] HYDROXYZINE HCL 25MG TAB TAKE ONE TABLET BY MOUTH TWICE DAILY NEEDED FOR ANXIETY *MAY CAUSE DROWSINE SS* ORAL DISCONT INUED 12/05/2024 [id number] 4 BELKYS GREGG NDA R 2023 90 [place] [facility] HYDROXYZINE HCL 25MG TAB TAKE ONE TABLET BY MOUTH TWICE DAILY NEEDED FOR ANXIETY *MAY CAUSE DROWSINE SS* ORAL DISCONT INUED 02/22/2024 [id number] 4 BELKYS GREGG NDA R 2022 90 [place] [facility] IBUPROFEN 800MG TAB TAKE ONE TABLET BY MOUTH THREE TIMES A DAY NEEDED FOR HEADACHE TAKE WITH FOOD. TAKE AT ONSET OF HEADACHE , WITH SUMATRIP POSEY ORAL ACTIVE 12/04/2024 [id number] 5 SERGIO DEGROOT R 2024 270 [facility] IBUPROFEN 800MG TAB TAKE ONE TABLET BY MOUTH THREE TIMES A DAY NEEDED FOR HEADACHE TAKE WITH FOOD. TAKE AT ONSET OF HEADACHE , WITH SUMATRIP POSEY ORAL DISCONT INUED 12/04/2024 [id number] 5 SERGIO DEGROOT R 2023 270 [facility] IBUPROFEN 800MG TAB TAKE ONE TABLET BY MOUTH THREE TIMES A DAY NEEDED FOR HEADACHE TAKE WITH FOOD. TAKE AT ONSET OF HEADACHE , WITH SUMATRIP POSEY ORAL DISCONT INUED 01/29/2024 [id number] 4 SERGIO DEGROOT 2022 270 [facility] LEVOTHYROXI NE NA 112MCG TAB TAKE ONE TABLET BY MOUTH EVERY MORNING BEFORE A MEAL FOR THYROID. TAKE 30 MINUTES BEFORE FOOD. TAKE SEPARATE LY FROM ALL OTHER MEDICATI ONS. ORAL DISCONT INUED 07/22/2024 [id number] 5 SERGIO DEGROOT R 2024 90 [facility] LEVOTHYROXI NE NA 112MCG TAB TAKE ONE TABLET BY MOUTH EVERY MORNING BEFORE A MEAL FOR THYROID. TAKE 30 MINUTES BEFORE FOOD. TAKE SEPARATE LY FROM ALL OTHER MEDICATI ONS. ORAL 10/06/2024 [id number] 5 SERGIO DEGROOT R 2024 90 [facility] LEVOTHYROXI NE NA 112MCG TAB (SYNTHROID) TAKE ONE TABLET BY MOUTH EVERY MORNING BEFORE A MEAL FOR THYROID. TAKE 30 MINUTES BEFORE FOOD. TAKE SEPARATE LY FROM ALL OTHER MEDICATI ONS. ORAL DISCONT INUED 05/10/2024 [id number] 4 SERGIO DEGROOT R [address] [place] [address] [facility] LEVOTHYROXI NE NA 112MCG TAB (SYNTHROID) TAKE ONE TABLET BY MOUTH EVERY MORNING BEFORE A MEAL FOR THYROID. TAKE 30 MINUTES BEFORE FOOD. TAKE SEPARATE LY FROM ALL OTHER MEDICATI ONS. ORAL DISCONT INUED 01/26/2024 [id number] 4 SERGIO DEGROOT R [address] [place] [address] [facility] LEVOTHYROXI NE NA 112MCG TAB (SYNTHROID) TAKE ONE TABLET BY MOUTH EVERY MORNING BEFORE A MEAL FOR THYROID. TAKE 30 MINUTES BEFORE FOOD. TAKE SEPARATE LY FROM ALL OTHER MEDICATI ONS. ORAL DISCONT INUED 02/05/2024 [id number] 4 SERGIO DEGROOT R [address] [place] [address] MIRTAZAPINE 45MG TAB TAKE ONE TABLET BY MOUTH AT BEDTIME FOR INSOMNIA and MOOD ORAL ACTIVE 08/07/2025 [id number] 5 BELKYS GREGG NDA R 2024 90 [place] [facility] MIRTAZAPINE 45MG TAB TAKE ONE TABLET BY MOUTH AT BEDTIME FOR INSOMNIA and MOOD ORAL DISCONT INUED 01/30/2025 [id number] 5 BELKYS GREGG NDA R 2023 90 [place] [facility] MIRTAZAPINE 45MG TAB TAKE ONE TABLET BY MOUTH AT BEDTIME INSOMNIA /MOOD FOR MOOD ORAL DISCONT INUED 07/04/2024 [id number] 4 BELKYS GREGG NDA R 2023 90 [place] [facility] SUMATRIPTAN SUCCINATE 50MG TAB TAKE ONE TABLET BY MOUTH ONE-TIME FOR MIGRAINE HEADACHE TAKE AT ONSET OF HEADACHE . MAY REPEAT AFTER 2 HOURS. NOT TO EXCEED 2 TABLETS IN 24 HOURS. ORAL ACTIVE 02/10/2025 [id number] 5 SERGIO DEGROOT R 2023 18 [facility] SUMATRIPTAN SUCCINATE 50MG TAB TAKE ONE TABLET BY MOUTH ONE-TIME FOR MIGRAINE HEADACHE TAKE AT ONSET OF HEADACHE . MAY REPEAT AFTER 2 HOURS. NOT TO EXCEED 2 TABLETS IN 24 HOURS. ORAL DISCONT INUED 01/29/2024 [id number] 4 SERGIO DEGROOT 2022 18 [facility] Immunizations Combined list of available immunizations from the Department of Defense and Veterans Affairs facilities. Immunization Series Date Given Administered By Site Reaction Lot Number CVX Code Drug Geology Professor Status Comments Source TDAP 2023 ANISH COX LEFT DELTO ID [id number] 115 complet ed [facility] INFLU[facility], INJECTABLE, QUADRIVALENT, PRESERVATIVE FREE 2019 150 complet [facility] INFLU[facility]ZA, INJECTABLE, QUADRIVALENT, PRESERVATIVE FREE 2018 150 complet ed [facility] INFLUENZA, SEASONAL, INJECTABLE 2017 141 complet ed [facility] 3 2017 NONE 104 complet ed [facility]HEP B 2 2017 NONE 104 complet ed [facility]-HEP B 1 2017 NONE 104 complet ed [facility] MMR 2017 NONE 03 complet ed Booster for Series, [facility] TD(ADULT) UNSPECIFIED FORMULATION 2017 NONE 139 complet ed [facility], [facility] TD (ADULT), 5 LF TETANUS TOXOID, PRESERVATIVE FREE, ADSORBED 2017 113 complet ed [facility] INFLUENZA, SEASONAL, INJECTABLE, PRESERVATIVE FREE 2014 NONE 140 complet ed [facility] FLU VACCINE NO PRESERV 3 & > (HISTORICAL) 2012 complet ed [facility] INFLUENZA, UNSPECIFIED FORMULATION 2012 NONE 88 complet ed [facility] PNEUMOCOCCAL, UNSPECIFIED FORMULATION 2012 NONE 109 complet ed [facility] FLU VACCINE NO PRESERV 3 & > (HISTORICAL) 2010 complet ed [facility] INFLUENZA, SEASONAL, INJECTABLE, PRESERVATIVE FREE 2010 [facility] SERGIO 140 complet ed [facility] TETANUS,DIPTH ERIA,PERTUSSI S(TDAP) (HISTORICAL) 2005 115 complet ed [facility] Results Combined list of recent chemistry, hematology and other laboratory results from [employer] and [employer], ranging from 15 months to all on record, depending upon the facility. Order Name Results Value Reference Range Date Interpretation Specimen Comments Source DRUG SCREEN URINE-inh ouse (PB) METHADONE [PRESENCE] IN URINE Negative 07/09 Specimen Type: URINE No comment entered. Ordering Provider: MARISSA GREGG Report Released Date/Time: Jul 09, 2024 12:12 PM Reporting Lab: [place] [facility] [address] [place] [address] Performing Lab: [place] [facility] [address] [place] [address] [place] [facility] DRUG SCREEN URINE-inh ouse (PB) OPIATES [PRESENCE] IN URINE BY SCREEN METHOD Negative 07/09 Specimen Type: URINE No comment entered. Ordering Provider: MARISSA GREGG Report Released Date/Time: Jul 09, 2024 12:12 PM Reporting Lab: [place] [facility] [address] [place] [address] Performing Lab: [place] [facility] [address] [place] [address] [place] [facility] DRUG SCREEN URINE-inh ouse (PB) COCAINE [PRESENCE] IN URINE Negative 07/09 Specimen Type: URINE No comment entered. Ordering Provider: MARISSA GREGG Report Released Date/Time: Jul 09, 2024 12:12 PM Reporting Lab: [place] [facility] [address] [place] [address] Performing Lab: [place] [facility] [address] [place] [address] [place] [facility] DRUG SCREEN URINE-inh ouse (PB) TETRAHYDROC ANNABINOL [PRESENCE] IN URINE BY SCREEN METHOD Negative 07/09 Specimen Type: URINE No comment entered. Ordering Provider: MARISSA GREGG Report Released Date/Time: Jul 09, 2024 12:12 PM Reporting Lab: [place] [facility] [address] [place] [address] Performing Lab: [place] [facility] [address] [place] [address] [place] [facility] DRUG SCREEN URINE-inh ouse (PB) BENZODIAZEP ARIN [PRESENCE] IN URINE BY SCREEN METHOD Negative 07/09 Specimen Type: URINE No comment entered. Ordering Provider: MARISSA GREGG Report Released Date/Time: Jul 09, 2024 12:12 PM Reporting Lab: [place] [facility] [address] [place] [address] Performing Lab: [place] [facility] [address] [place] [address] [place] [facility] DRUG SCREEN URINE-inh ouse (PB) AMPHETAMINE [PRESENCE] IN URINE BY SCREEN METHOD Negative 07/09 Specimen Type: URINE No comment entered. Ordering Provider: MARISSA GREGG Report Released Date/Time: Jul 09, 2024 12:12 PM Reporting Lab: [place] [facility] [address] [place] [address] Performing Lab: [place] [facility] [address] [place] [address] [place] [facility] DRUG SCREEN URINE-inh ouse (PB) CREATININE [MASS/VOLUM E] IN URINE 23.47 mg/dL 07/09 Specimen Type: URINE No comment entered. Ordering Provider: MARISSA GREGG Report Released Date/Time: Jul 09, 2024 12:12 PM Reporting Lab: [place] [facility] [address] [place] [address] Performing Lab: [place] [facility] [address] [place] [address] [place] [facility] DRUG SCREEN URINE-inh ouse (PB) OXYCODONE CUTOFF [MASS/VOLUM E] IN URINE FOR SCREEN METHOD Negative 07/09 Specimen Type: URINE No comment entered. Ordering Provider: MARISSA GREGG Report Released Date/Time: Jul 09, 2024 12:12 PM Reporting Lab: [place] [facility] [address] [place] [address] Performing Lab: [place] [facility] [address] [place] [address] [place] [facility] DRUG SCREEN URINE-inh ouse (PB) BUPRENORPHI NE [PRESENCE] IN URINE Negativen g/mL 07/09 Specimen Type: URINE No comment entered. Ordering Provider: MARISSA GREGG Report Released Date/Time: Jul 09, 2024 12:12 PM Reporting Lab: [place] [facility] [address] [place] [address] Performing Lab: [place] [facility] [address] [place] [address] [place] [facility] DRUG SCREEN URINE-inh ouse (PB) ETHANOL [MASS/VOLUM E] IN URINE <10mg/dL 0 - 20 07/09 L Specimen Type: URINE No comment entered. Ordering Provider: MARISSA GREGG Report Released Date/Time: Jul 09, 2024 12:12 PM Reporting Lab: [place] [facility] [address] [place] [address] Performing Lab: [place] [facility] [address] [place] [address] [place] [facility] DRUG SCREEN URINE-inh ouse (PB) FENTANYL [PRESENCE] IN URINE Negativen g/mL 07/09 Specimen Type: URINE No comment entered. Ordering Provider: MARISSA GREGG Report Released Date/Time: Jul 09, 2024 12:12 PM Reporting Lab: [place] [facility] [address] [place] [address] Performing Lab: [place] [facility] [address] [place] [address] [place] [facility] B12 COBALAMIN (VITAMIN B12) [MASS/VOLUM E] IN SERUM OR PLASMA 706 pg/mL 213 - 816 07/01 Specimen Type: SERUM No comment entered. Ordering Provider: BRIGID DEGROOT Report Released Date/Time: Jul 10, 2023 03:48 PM Reporting Lab: [place] [facility] [address] [place] [address] Performing Lab: [place] [facility] [address] [place] [address] [facility] FOLATE (PB) FOLATE [MASS/VOLUM E] IN SERUM OR PLASMA 17.1 ng/mL 7 - 20 07/01 Specimen Type: SERUM No comment entered. Ordering Provider: BRIGID DEGROOT Report Released Date/Time: Jul 10, 2023 03:48 PM Reporting Lab: [place] [facility] [address] [place] [address] Performing Lab: [place] [facility] [address] [place] [address] [facility] HGA1C HEMOGLOBIN A1C/HEMOGLO BIN.TOTAL IN BLOOD 6.3 4.0 - 6.0 07/01 H Specimen Type: BLOOD No comment entered. Ordering Provider: BRIGID DEGROOT Report Released Date/Time: Jul 10, 2023 03:48 PM Reporting Lab: [place] [facility] [address] [place] [address] Performing Lab: [place] [facility] [address] [place] [address] [facility] COMPREHEN SIVE METABOLIC PANEL CREATININE [MASS/VOLUM E] IN SERUM OR PLASMA 0.81 mg/dL 0.7 - 1.3 07/01 Specimen Type: PLASMA No comment entered. Ordering Provider: BRIGID DEGROOT Report Released Date/Time: Jul 10, 2023 03:48 PM Reporting Lab: [place] [facility] [address] [place] [address] Performing Lab: [place] [facility] [address] [place] [address] [facility] COMPREHEN SIVE METABOLIC PANEL UREA NITROGEN [MASS/VOLUM E] IN SERUM OR PLASMA 11 mg/dL 9 - 07/01 Specimen Type: PLASMA No comment entered. Ordering Provider: BRIGID DEGROOT Report Released Date/Time: Jul 10, 2023 03:48 PM Reporting Lab: [place] [facility] [address] [place] [address] Performing Lab: [place] [facility] [address] [place] [address] [facility] COMPREHEN SIVE METABOLIC PANEL GLUCOSE [MASS/VOLUM E] IN SERUM OR PLASMA 104 mg/dL 72 - 99 07/01 H Specimen Type: PLASMA No comment entered. Ordering Provider: BRIGID DEGROOT Report Released Date/Time: Jul 10, 2023 03:48 PM Reporting Lab: [place] [facility] [address] [place] [address] Performing Lab: [place] [facility] [address] [place] [address] [facility] COMPREHEN SIVE METABOLIC PANEL SODIUM [MOLES/VOLU ME] IN SERUM OR PLASMA 141 meq/L 136 - 145 07/01 Specimen Type: PLASMA No comment entered. Ordering Provider: BRIGID DEGROOT Report Released Date/Time: Jul 10, 2023 03:48 PM Reporting Lab: [place] [facility] [address] [place] [address] Performing Lab: [place] [facility] [address] [place] [address] [facility] COMPREHEN SIVE METABOLIC PANEL POTASSIUM [MOLES/VOLU ME] IN SERUM OR PLASMA 3.9 meq/L 3.5 - 5 07/01 Specimen Type: PLASMA No comment entered. Ordering Provider: BRIGID DEGROOT Report Released Date/Time: Jul 10, 2023 03:48 PM Reporting Lab: [place] [facility] [address] [place] [address] Performing Lab: [place] [facility] [address] [place] [address] [facility] COMPREHEN SIVE METABOLIC PANEL CHLORIDE [MOLES/VOLU ME] IN SERUM OR PLASMA 106 meq/L 98 - 107 07/01 Specimen Type: PLASMA No comment entered. Ordering Provider: BRIGID DEGROOT Report Released Date/Time: Jul 10, 2023 03:48 PM Reporting Lab: [place] [facility] [address] [place] [address] Performing Lab: [place] [facility] [address] [place] [address] [facility] COMPREHEN SIVE METABOLIC PANEL CARBON DIOXIDE, TOTAL [MOLES/VOLU ME] IN SERUM OR PLASMA 25 meq/L 22 - 31 07/01 Specimen Type: PLASMA No comment entered. Ordering Provider: BRIGID DEGROOT Report Released Date/Time: Jul 10, 2023 03:48 PM Reporting Lab: [place] [facility] [address] [place] [address] Performing Lab: [place] [facility] [address] [place] [address] [facility] COMPREHEN SIVE METABOLIC PANEL CALCIUM [MASS/VOLUM E] IN SERUM OR PLASMA 9.0 mg/dL 8.4 - 10.4 07/01 Specimen Type: PLASMA No comment entered. Ordering Provider: BRIGID DEGROOT Report Released Date/Time: Jul 10, 2023 03:48 PM Reporting Lab: [place] [facility] [address] [place] [phone] Performing Lab: [place] [facility] [address] [place] [address] [facility] COMPREHEN SIVE METABOLIC PANEL PROTEIN [MASS/VOLUM E] IN SERUM OR PLASMA 7.7 g/dL 6 - 8.6 07/01 Specimen Type: PLASMA No comment entered. Ordering Provider: BRIGID DEGROOT Report Released Date/Time: Jul 10, 2023 03:48 PM Reporting Lab: [place] [facility] [address] [place] [phone] Performing Lab: [place] [facility] [address] [place] [address] [facility] COMPREHEN SIVE METABOLIC PANEL ALBUMIN [MASS/VOLUM E] IN SERUM OR PLASMA 4.8 g/dL 3.4 - 5 07/01 Specimen Type: PLASMA No comment entered. Ordering Provider: BRIGID DEGROOT Report Released Date/Time: Jul 10, 2023 03:48 PM Reporting Lab: [place] [facility] [address] [place] [address] Performing Lab: [place] [facility] [address] [place] [address] [facility] COMPREHEN SIVE METABOLIC PANEL BILIRUBIN.T OTAL [MASS/VOLUM E] IN SERUM OR PLASMA 0.1 mg/dL 0.2 - 1.2 07/01 L Specimen Type: PLASMA No comment entered. Ordering Provider: BRIGID DEGROOT Report Released Date/Time: Jul 10, 2023 03:48 PM Reporting Lab: [place] [facility] [address] [place] [address] Performing Lab: [place] [facility] [address] [place] [address] [facility] COMPREHEN SIVE METABOLIC PANEL ALKALINE PHOSPHATASE [ENZYMATIC ACTIVITY/VO LUME] IN SERUM OR PLASMA 67 U/L 40 - 150 07/01 Specimen Type: PLASMA No comment entered. Ordering Provider: BRIGID DEGROOT Report Released Date/Time: Jul 10, 2023 03:48 PM Reporting Lab: [place] [facility] [address] [place] [address] Performing Lab: [place] [facility] [address] [place] [address] [facility] COMPREHEN SIVE METABOLIC PANEL ASPARTATE AMINOTRANSF ERASE [ENZYMATIC ACTIVITY/VO LUME] IN SERUM OR PLASMA 36 U/L 5 - 34 07/01 H Specimen Type: PLASMA No comment entered. Ordering Provider: BRIGID DEGROOT Report Released Date/Time: Jul 10, 2023 03:48 PM Reporting Lab: [place] [facility] [address] [place] [address] Performing Lab: [place] [facility] [address] [place] [address] [facility] COMPREHEN SIVE METABOLIC PANEL ALANINE AMINOTRANSF ERASE [ENZYMATIC ACTIVITY/VO LUME] IN SERUM OR PLASMA 36 U/L 8 - 40 07/01 Specimen Type: PLASMA No comment entered. Ordering Provider: BRIGID DEGROOT Report Released Date/Time: Jul 10, 2023 03:48 PM Reporting Lab: [place] [facility] [address] [place] [address] Performing Lab: [place] [facility] [address] [place] [address] [facility] COMPREHEN SIVE METABOLIC PANEL GLOMERULAR FILTRATION RATE/1.73 SQ M.PREDICTED [VOLUME RATE/AREA] IN SERUM, PLASMA OR BLOOD BY CREATININE- BASED FORMULA (CKD-EPI 2020) 111 07/01 Specimen Type: PLASMA No comment entered. Ordering Provider: BRIGID DEGROOT Report Released Date/Time: Jul 10, 2023 03:48 PM Reporting Lab: [place] [facility] [address] [place] [address] Performing Lab: [place] [facility] [address] [place] [address] [facility] CHOLESTER OL PANEL (PB) CHOLESTEROL [MASS/VOLUM E] IN SERUM OR PLASMA 197 mg/dL 0 - 200 07/01 Specimen Type: PLASMA No comment entered. Ordering Provider: BRIGID DEGROOT Report Released Date/Time: Jul 10, 2023 03:48 PM Reporting Lab: [place] [facility] [address] [place] [address] Performing Lab: [place] [facility] [address] [place] [address] [facility] CHOLESTER OL PANEL (PB) TRIGLYCERID E [MASS/VOLUM E] IN SERUM OR PLASMA 81 mg/dL 0 - 150 07/01 Specimen Type: PLASMA No comment entered. Ordering Provider: BRIGID DEGROOT Report Released Date/Time: Jul 10, 2023 03:48 PM Reporting Lab: [place] [facility] [address] [place] [address] Performing Lab: [place] [facility] [address] [place] [address] [facility] CHOLESTER OL PANEL (PB) CHOLESTEROL IN LDL [MASS/VOLUM E] IN SERUM OR PLASMA BY CALCULATION 122.8 mg/dL 07/01 Specimen Type: PLASMA No comment entered. Ordering Provider: BRIGID DEGROOT Report Released Date/Time: Jul 10, 2023 03:48 PM Reporting Lab: [place] [facility] [address] [place] [address] Performing Lab: [place] [facility] [address] [place] [address] [facility] CHOLESTER OL PANEL (PB) CHOLESTEROL IN HDL [MASS/VOLUM E] IN SERUM OR PLASMA 58.0 mg/dL 40 07/01 H Specimen Type: PLASMA No comment entered. Ordering Provider: BRIGID DEGROOT Report Released Date/Time: Jul 10, 2023 03:48 PM Reporting Lab: [place] [facility] [address] [place] [address] Performing Lab: [place] [facility] [address] [place] [address] [facility] CHOLESTER OL PANEL (PB) CHOLESTEROL IN HDL/CHOLEST ADAM.TOTAL [MASS RATIO] IN SERUM OR PLASMA 29.4 25 07/01 Specimen Type: PLASMA No comment entered. Ordering Provider: BRIGID DEGROOT Report Released Date/Time: Jul 10, 2023 03:48 PM Reporting Lab: [place] [facility] [address] [place] [address] Performing Lab: [place] [facility] [address] [place] [address] [facility] VITAMIN D, 25-HYDROX Y 25-HYDROXYV ITAMIN D3 [MASS/VOLUM E] IN SERUM OR PLASMA 77.2 ng/mL 30 - 96 07/01 Specimen Type: SERUM No comment entered. Ordering Provider: BRIGID DEGROOT Report Released Date/Time: Jul 10, 2023 03:48 PM Reporting Lab: [place] [facility] [address] [place] [address] Performing Lab: [place] [facility] [address] [place] [address] [facility] TSH (MA-PB) THYROTROPIN [UNITS/VOLU ME] IN SERUM OR PLASMA 1.968 u[IU]/mL 0.47 - 5 07/01 Specimen Type: SERUM No comment entered. Ordering Provider: BRIGID DEGROOT Report Released Date/Time: Jul 10, 2023 03:48 PM Reporting Lab: [place] [facility] [address] [place] [address] Performing Lab: [place] [facility] [address] [place] [address] [facility] CBC LEUKOCYTES [#/VOLUME] IN BLOOD BY AUTOMATED COUNT 9.5 10*3/uL 3.6 - 11.2 07/01 Specimen Type: BLOOD No comment entered. Ordering Provider: BRIGID DEGROOT Report Released Date/Time: Jul 10, 2023 03:48 PM Reporting Lab: [place] [facility] [address] [place] [address] Performing Lab: [place] [facility] [address] [place] [address] [facility] CBC ERYTHROCYTE S [#/VOLUME] IN BLOOD BY AUTOMATED COUNT 4.49 10*6/uL 4.10 - 5.70 07/01 Specimen Type: BLOOD No comment entered. Ordering Provider: BRIGID DEGROOT Report Released Date/Time: Jul 10, 2023 03:48 PM Reporting Lab: [place] [facility] [address] [place] [address] Performing Lab: [place] [facility] [address] [place] [facility] [facility] CBC HEMOGLOBIN [MASS/VOLUM E] IN BLOOD 10.9 g/dL 13.1 - 16.8 07/01 L Specimen Type: BLOOD No comment entered. Ordering Provider: BRIGID DEGROOT Report Released Date/Time: Jul 10, 2023 03:48 PM Reporting Lab: [place] [facility] [address] [place] [address] Performing Lab: [place] [facility] [address] [place] [address] [facility] CBC HEMATOCRIT [VOLUME FRACTION] OF BLOOD 34.4 38.2 - 48.4 07/01 L Specimen Type: BLOOD No comment entered. Ordering Provider: BRIGID DEGROOT Report Released Date/Time: Jul 10, 2023 03:48 PM Reporting Lab: [place] [facility] [address] [place] [address] Performing Lab: [place] [facility] [address] [place] [address] [facility] CBC MCV [ENTITIC VOLUME] BY AUTOMATED COUNT 76.6 fL 80.0 - 100.0 07/01 L Specimen Type: BLOOD No comment entered. Ordering Provider: BRIGID DEGROOT Report Released Date/Time: Jul 10, 2023 03:48 PM Reporting Lab: [place] [facility] [address] [place] [address] Performing Lab: [place] [facility] [address] [place] [address] [facility] CBC MCH [ENTITIC MASS] BY AUTOMATED COUNT 24.3 pg 27.0 - 34.0 07/01 L Specimen Type: BLOOD No comment entered. Ordering Provider: BRIGID DEGROOT Report Released Date/Time: Jul 10, 2023 03:48 PM Reporting Lab: [place] [facility] [address] [place] [address] Performing Lab: [place] [facility] [address] [place] [address] [facility] CBC MCHC [MASS/VOLUM E] BY AUTOMATED COUNT 31.7 g/dL 33.0 - 36.0 07/01 L Specimen Type: BLOOD No comment entered. Ordering Provider: BRIGID DEGROOT Report Released Date/Time: Jul 10, 2023 03:48 PM Reporting Lab: [place] [facility] [address] [place] [address] Performing Lab: [place] [facility] [address] [place] [address] [facility] CBC PLATELETS [#/VOLUME] IN BLOOD BY AUTOMATED COUNT 320 10*3/uL 150 - 400 07/01 Specimen Type: BLOOD No comment entered. Ordering Provider: BRIGID DEGROOT Report Released Date/Time: Jul 10, 2023 03:48 PM Reporting Lab: [place] [facility] [address] [place] [address] Performing Lab: [place] [facility] [address] [place] [phone] [facility] CBC PLATELET MEAN VOLUME [ENTITIC VOLUME] IN BLOOD BY AUTOMATED COUNT 9.2 fL 7.5 - 11.2 07/01 Specimen Type: BLOOD No comment entered. Ordering Provider: BRIGID DEGROOT Report Released Date/Time: Jul 10, 2023 03:48 PM Reporting Lab: [place] [facility] [address] [place] [address] Performing Lab: [place] [facility] [address] [place] [address] [facility] CBC ERYTHROCYTE DISTRIBUTIO N WIDTH [RATIO] BY AUTOMATED COUNT 14.4 11.8 - 15.1 07/01 Specimen Type: BLOOD No comment entered. Ordering Provider: BRIGID DEGROOT Report Released Date/Time: Jul 10, 2023 03:48 PM Reporting Lab: [place] [facility] [address] [place] [address] Performing Lab: [place] [facility] [address] [place] [address] [facility] CBC LYMPHOCYTES /100 LEUKOCYTES IN BLOOD BY AUTOMATED COUNT 23.0 07/01 Specimen Type: BLOOD No comment entered. Ordering Provider: BRIGID DEGROOT Report Released Date/Time: Jul 10, 2023 03:48 PM Reporting Lab: [place] [facility] [address] [place] [address] Performing Lab: [place] [facility] [address] [place] [address] [facility] CBC MONOCYTES/1 00 LEUKOCYTES IN BLOOD BY AUTOMATED COUNT 8.4 07/01 Specimen Type: BLOOD No comment entered. Ordering Provider: BRIGID DEGROOT Report Released Date/Time: Jul 10, 2023 03:48 PM Reporting Lab: [place] [facility] [address] [place] [address] Performing Lab: [place] [facility] [address] [place] [address] [facility] CBC NEUTROPHILS /100 LEUKOCYTES IN BLOOD BY AUTOMATED COUNT 66.1 07/01 Specimen Type: BLOOD No comment entered. Ordering Provider: BRIGID DEGROOT Report Released Date/Time: Jul 10, 2023 03:48 PM Reporting Lab: [place] [facility] [address] [place] [address] Performing Lab: [place] [facility] [address] [place] [address] [facility] CBC EOSINOPHILS /100 LEUKOCYTES IN BLOOD BY AUTOMATED COUNT 1.9 07/01 Specimen Type: BLOOD No comment entered. Ordering Provider: BRIGID DEGROOT Report Released Date/Time: Jul 10, 2023 03:48 PM Reporting Lab: [place] [facility] [address] [place] [address] Performing Lab: [place] [facility] [address] [place] [address] [facility] CBC BASOPHILS/1 00 LEUKOCYTES IN BLOOD BY AUTOMATED COUNT 0.5 07/01 Specimen Type: BLOOD No comment entered. Ordering Provider: BRIGID DEGROOT Report Released Date/Time: Jul 10, 2023 03:48 PM Reporting Lab: [place] [facility] [address] [place] [address] Performing Lab: [place] [facility] [address] [place] [address] [facility] CBC LYMPHOCYTES [#/VOLUME] IN BLOOD BY AUTOMATED COUNT 2.19 10*3/uL 0.77 - 4.50 07/01 Specimen Type: BLOOD No comment entered. Ordering Provider: BRIGID DEGROOT Report Released Date/Time: Jul 10, 2023 03:48 PM Reporting Lab: [place] [facility] [address] [place] [address] Performing Lab: [place] [facility] [address] [place] [address] [facility] CBC MONOCYTES [#/VOLUME] IN BLOOD BY AUTOMATED COUNT 0.80 10*3/uL 0.19 - 0.8 07/01 Specimen Type: BLOOD No comment entered. Ordering Provider: BRIGID DEGROOT Report Released Date/Time: Jul 10, 2023 03:48 PM Reporting Lab: [place] [facility] [address] [place] [address] Performing Lab: [place] [facility] [address] [place] [address] [facility] CBC NEUTROPHILS [#/VOLUME] IN BLOOD BY AUTOMATED COUNT 6.30 10*3/uL 2.10 - 8.00 07/01 Specimen Type: BLOOD No comment entered. Ordering Provider: BRIGID DEGROOT Report Released Date/Time: Jul 10, 2023 03:48 PM Reporting Lab: [place] [facility] [address] [place] [address] Performing Lab: [place] [facility] [address] [place] [address] [facility] CBC EOSINOPHILS [#/VOLUME] IN BLOOD BY AUTOMATED COUNT 0.18 10*3/uL 0.00 - 0.60 07/01 Specimen Type: BLOOD No comment entered. Ordering Provider: BRIGID DEGROOT Report Released Date/Time: Jul 10, 2023 03:48 PM Reporting Lab: [place] [facility] [address] [place] [id number] Performing Lab: [place] [facility] [address] [place] [address] [facility] CBC BASOPHILS [#/VOLUME] IN BLOOD BY AUTOMATED COUNT 0.05 10*3/uL 0.00 - 0.20 07/01 Specimen Type: BLOOD No comment entered. Ordering Provider: BRIGID DEGROOT Report Released Date/Time: Jul 10, 2023 03:48 PM Reporting Lab: [place] [facility] [address] [place] [address] Performing Lab: [place] [facility] [address] [place] [address] [facility] CBC IMMATURE GRANULOCYTE S/100 LEUKOCYTES IN BLOOD BY AUTOMATED COUNT 0.1 07/01 Specimen Type: BLOOD No comment entered. Ordering Provider: BRIGID DEGROOT Report Released Date/Time: Jul 10, 2023 03:48 PM Reporting Lab: [place] [facility] [address] [place] [address] Performing Lab: [place] [facility] [address] [place] [address] [facility] CBC IMMATURE GRANULOCYTE S [#/VOLUME] IN BLOOD BY AUTOMATED COUNT 0.01 10*3/uL 0.00 - 0.05 07/01 Specimen Type: BLOOD No comment entered. Ordering Provider: BRIGID DEGROOT Report Released Date/Time: Jul 10, 2023 03:48 PM Reporting Lab: [place] [facility] [address] [place] [address] Performing Lab: [place] [facility] [address] [place] [address] [facility] ANCILLARY STREP (PB) ANCILLARY STREP (PB) negative 04/03 Specimen Type: SWAB Comment: Test performed by: Aurora Ashby [id number] Meter #: [id number] Ordering Provider: BRIGID DEGROOT Report Released Date/Time: Apr 03, 2024 10:56 AM Reporting Lab: [facility] [address] [facility] [address] Performing Lab: [facility] [address] [facility] [address] [facility] Vital Signs Combined list of inpatient and outpatient Vital Signs from Department of Defense and Veterans Affairs, ranging from 12 months to all on record, depending upon the facility. Vital Sign Value Date Comments Source SYSTOLIC BLOOD PRESSURE 133 10/02/2024 10:51:01 [facility] DIASTOLIC BLOOD PRESSURE 82 10/02/2024 10:51:01 [facility] PULSE OXIMETRY 99 % 10/02/2024 10:51:01 [facility] WEIGHT 203.8 10/02/2024 10:51:01 [facility] BMI 28 kg/m2 10/02/2024 10:51:01 [facility] TEMPERATURE 98.6 10/02/2024 10:51:01 [place] [facility] PULSE 80 10/02/2024 10:51:01 [place] [facility] RESPIRATION 20 10/02/2024 10:51:01 [place] [facility] SYSTOLIC BLOOD PRESSURE 131 09/10/2024 09:15:00 [place] [facility] DIASTOLIC BLOOD PRESSURE 86 09/10/2024 09:15:00 [place] [facility] PULSE OXIMETRY 100 09/10/2024 09:15:00 [facility] WEIGHT 202.3 09/10/2024 09:15:00 [place] [facility] BMI 27 kg/m2 09/10/2024 09:15:00 [place] [facility] PAIN 1 09/10/2024 09:15:00 [place] [facility] TEMPERATURE 98.5 09/10/2024 09:15:00 [place] [facility] PULSE 84 09/10/2024 09:15:00 [place] [facility] RESPIRATION 20 09/10/2024 09:15:00 [place] [facility] SYSTOLIC BLOOD PRESSURE 134 08/06/2024 10:20:38 [place] [facility] DIASTOLIC BLOOD PRESSURE 81 08/06/2024 10:20:38 [place] [facility] PULSE OXIMETRY 98 08/06/2024 10:20:38 [facility] WEIGHT 206 08/06/2024 10:20:38 [place] [facility] BMI 28 kg/m2 08/06/2024 10:20:38 [place] [facility] PAIN 4 08/06/2024 10:20:38 [place] [facility] TEMPERATURE 97.8 08/06/2024 10:20:38 [place] [facility] PULSE 74 08/06/2024 10:20:38 [place] [facility] RESPIRATION 20 08/06/2024 10:20:38 [place] [facility] SYSTOLIC BLOOD PRESSURE 136 07/09/2024 11:50:00 [place] [facility] DIASTOLIC BLOOD PRESSURE 72 07/09/2024 11:50:00 [place] [facility] PULSE OXIMETRY 98 07/09/2024 11:50:00 [facility] WEIGHT 214.7 07/09/2024 11:50:00 [place] [facility] BMI 29 kg/m2 07/09/2024 11:50:00 [facility] PAIN 5 07/09/2024 11:50:00 [facility] TEMPERATURE 98.1 07/09/2024 11:50:00 [place] [facility] PULSE 77 07/09/2024 11:50:00 [place] [facility] RESPIRATION 20 07/09/2024 11:50:00 [facility] SYSTOLIC BLOOD PRESSURE 130 07/08/2024 10:15:58 [place] [facility] DIASTOLIC BLOOD PRESSURE 84 07/08/2024 10:15:58 [facility] PULSE OXIMETRY 99 07/08/2024 10:15:58 [facility] WEIGHT 208.5 07/08/2024 10:15:58 [facility] BMI 28 kg/m2 07/08/2024 10:15:58 [facility] PAIN 7 07/08/2024 10:15:58 [facility] TEMPERATURE 98.2 07/08/2024 10:15:58 [facility] PULSE 78 07/08/2024 10:15:58 [facility] RESPIRATION 22 07/08/2024 10:15:58 [facility] Encounters Combined list of: 1) Encounters from Department of Veterans Affairs facilities going backup to the last 18 months, not all VA inpatient encounters are included; 2) Encounters from the Department of Defense facilities going backup to 280 months. Location Location Details Encounter Type Encounter Number Reason For Visit Attending Provider ADM Date DC Date Status Disposition Source [facility] Outpatient Encounter [id number] ROBERT KUMARI L 05/06 [facility] [place] [facility] OFFICE O/P EST MOD 30 MIN [id number]. [id number] Diagnos is: ICD-10- CM R41.89 Oth symptom s and signs w cogniti ve functio ns and awarene ss MARISSA GREGG R 05/09 [place] [facility] [id number] Diagnos is: ICD-10- CM R41.89 Oth symptom s and signs w cogniti ve functio ns and awarene ss MARISSA GREGG DA R 05/09 [facility] Outpatient Encounter [id number] 06/05 [facility] [place] [id number] Diagnos is: ICD-10- CM R41.89 Oth symptom s and signs w cogniti ve functio ns and awarene ss ODALYS GREGGAN DA R 06/06 [facility] [place] [facility] OFFICE O/P EST LOW 20 MIN [id number] Diagnos is: ICD-10- CM R41.89 Oth symptom s and signs w cogniti ve functio ns and awarene ss ODALYS GREGGAN DA R 06/06 [place] [facility] Outpatient Encounter [id number] 07/02 [facility] [id number] Diagnos is: ICD-10- CM R41.89 Oth symptom s and signs w cogniti ve functio ns and awarene ss CRISTINOMARISSA DA R 07/03 [facility] [place] [facility] OFFICE O/P EST MOD 30 MIN [id number] Diagnos is: ICD-10- CM R41.89 Oth symptom s and signs w cogniti ve functio ns and awarene jennifer GREGG AMAN DA R 07/03 [place] [facility] Outpatient Encounter [id number] 07/03 [facility] OFFICE O/P EST LOW 20 MIN [id number] Diagnos is: ICD-10- CM 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 Outpatient Encounter [id number] 07/25 [facility] Outpatient Encounter [id number] 07/30 [facility] [id number] Diagnos is: ICD-10- CM R41.89 Oth symptom s and signs w cogniti ve functio ns and awarene ss MARISSA GREGG DA R 07/31 [facility] [place] [facility] OFFICE O/P EST MOD 30 MIN [id number] [id number] Diagnos is: ICD-10- CM R41.89 Oth symptom s and signs w cogniti ve functio ns and awarene ss MARISSA GREGG R 07/31 [place] [facility] Out[facility] Encounter [id number] 08/27 [facility] [id number] Diagnos is: ICD-10- CM R41.89 Oth symptom s and signs w cogniti ve functio ns and awarene ss MARISSA GREGG R 08/28 [facility] [place] [facility] OFFICE O/P EST MOD 30 MIN [id number] Diagnos is: ICD-10- CM R41.89 Oth symptom s and signs w cogniti ve functio ns and awarene ss MARISSA GREGG DA R 08/28 [place] [facility] Outpatient Encounter [id number] 08/28 [facility] Outpatient Encounter [id number] ROBERT KUMARI TH L 09/15 [facility] [id number] Diagnos is: ICD-10- CM R41.89 Oth symptom s and signs w cogniti ve functio ns and awarene ss MARISSA GREGG DA R 09/18 [facility] [place] [facility] OFFICE O/P EST MOD 30 MIN [id number] Diagnos is: ICD-10- CM R41.89 Oth symptom s and signs w cogniti ve functio ns and awarene ss MARISSA GREGG DA R 09/18 [place] [facility] Outpatient Encounter [id number] 10/08 [facility] [id number] Diagnos is: ICD-10- CM R41.89 Oth symptom s and signs w cogniti ve functio ns and awarene ss MARISSA GREGG DA R 10/09 [facility] [place] [facility] OFFICE O/P EST LOW 20 MIN [id number] [id number] Diagnos is: ICD-10- CM R41.89 Oth symptom s and signs w cogniti ve functio ns and awarene ss MARISSA GREGG DA R 10/09 [place] [facility] Outpatient Encounter [id number] 10/22 [facility] Outpatient Encounter [id number] 10/24 [facility] Outpatient Encounter [id number] 11/12 [facility] [id number] Diagnos is: ICD-10- CM R41.89 Oth symptom s and signs w cogniti ve functio ns and awarene ss MARISSA GREGG DA R 11/13 [facility] [place] [facility] OFFICE O/P EST MOD 30 MIN [id number] Diagnos is: ICD-10- CM R41.89 Oth symptom s and signs w cogniti ve functio ns and awarene ss MARISSA GREGG DA R 11/13 [place] [facility] [place] [facility] Outpatient Encounter [id number] 12/02 [place] [facility] Outpatient Encounter [id number] 12/03 [facility] Outpatient Encounter [id number] 12/03 [facility] [id number] Diagnos is: ICD-10- CM R41.89 Oth symptom s and signs w cogniti ve functio ns and awarene ss MARISSA GREGG DA R 12/04 [facility] [place] [facility] OFFICE O/P EST MOD 30 MIN [id number] Diagnos is: ICD-10- CM R41.89 Oth symptom s and signs w cogniti ve functio ns and awarene ss MARISSA GREGG R 12/04 [place] [facility] Outpatient Encounter [id number] 12/31 [facility] [id number] Diagnos is: ICD-10- CM R41.89 Oth symptom s and signs w cogniti ve functio ns and awarene ss MARISSA GREGG R 01/01 [facility] [place] [facility] OFFICE O/P EST LOW 20 MIN [id number] Diagnos is: ICD-10- CM R41.89 Oth symptom s and signs w cogniti ve functio ns and awarene ss MARISSA GREGG R 01/01 [place] [facility] Outpatient Encounter [id number] 01/02 [facility] Outpatient Encounter [id number] BRIGID DEGROOT 01/07 [facility] En[facility] [id number] 01/13 [place] [facility] Outpatient Encounter [id number] ERICA HOOD M 01/13 [facility] [id number] Diagnos is: ICD-10- CM R41.89 Oth symptom s and signs w cogniti ve functio ns and awarene ss MARISSA GREGG R 01/15 [facility] [place] [facility] OFFICE O/P EST MOD 30 MIN [id number] Diagnos is: ICD-10- CM R41.89 Oth symptom s and signs w cogniti ve functio ns and awarene ss MARISSA GREGG DA R 01/15 [place] [facility] OFF/OP EST AUGUST X REQ PHY/QHP [id number] Diagnos is: ICD-10- CM W55.01X A Bitten by cat, initial encount er CUSTRED,TO RRI J 01/19 [facility] Outpatient Encounter [id number] 01/28 [facility] FEE [id number] Diagnos is: ICD-10- CM R41.89 Oth symptom s and signs w cogniti ve functio ns and awarene ss MARISSA GREGG DENAE R 01/29 [facility] [place] [facility] OFFICE O/P EST MOD 30 MIN [id number] Diagnos is: ICD-10- CM R41.89 Oth symptom s and signs w cogniti ve functio ns and awarene ss MARISSA GREGG DA R 01/29 [place] [facility] OFF/OP EST MAY X REQ PHY/QHP [id number] Diagnos is: ICD-10- CM M54.50 Low back pain, unspeci fied John REEVES 01/29 [facility] OFFICE O/P EST MOD 30 MIN [id number] Diagnos is: ICD-10- CM S13.4XX A Sprain of ligamen ts of cervica l spine, initial encount er ELISSA SEVILLA 01/29 [facility] Outpatient Encounter [id number] 02/25 [facility] [id number] Diagnos is: ICD-10- CM R41.89 Oth symptom s and signs w cogniti ve functio ns and awarene ss ODALYS GREGGAN DA R 02/26 [facility] [place] [facility] OFFICE O/P EST MOD 30 MIN [id number] Diagnos is: ICD-10- CM R41.89 Oth symptom s and signs w cogniti ve functio ns and awarene ss MARISSA GREGG DA R 02/26 [place] [facility] Outpatient Encounter [id number] 03/18 [facility] [place] [facility] Outpatient Encounter [id number] 03/19 [place] [facility] FEE [id number] Diagnos is: ICD-10- CM F33.1 Major depress gillian disorde r, recurre nt, moderat e CRISTINO,MARISSA DA R 03/20 [facility] [place] [facility] OFFICE O/P EST MOD 30 MIN [id number] [id number] Diagnos is: ICD-10- CM F33.1 Major depress gillian disorde r, recurre nt, moderat e CRISTINO,MARISSA DA R 03/20 [place] [facility] Outpatient Encounter [id number] 03/23 [facility] OFF/OP EST MAY X REQ PHY/QHP [id number] Diagnos is: ICD-10- CM R05.1 Acute cough AURORA,ASAEL MING R 04/03 [facility] Outpatient Encounter [id number] 04/14 [facility] [id number] Diagnos is: ICD-10- CM F33.0 Major depress gillian disorde r, recurre nt, mild CRISTINO,MARISSA DA R 04/16 [facility] [place] [facility] OFFICE O/P EST MOD 30 MIN [id number] Diagnos is: ICD-10- CM F33.0 Major depress gillian disorde r, recurre nt, mild CRISTINO,MARISSA DA R 04/16 [place] [facility] Outpatient Encounter [id number] 05/06 [facility] [id number] Diagnos is: ICD-10- CM F33.0 Major depress gillian disorde r, recurre nt, mild CRSITINO,MARISSA DA R 05/07 [facility] [place] [facility] SYNCH AUDIO-VIDE O EST HI 40 [id number] Diagnos is: ICD-10- CM F33.0 Major depress gillian disorde r, recurre nt, mild CRISTINO,MARISSA DA R 05/07 [place] [facility] [id number] 05/07 [place] [facility] Outpatient Encounter [id number] ERICA HOOD M 06/10 [facility] [id number] Diagnos is: ICD-10- CM R41.89 Oth symptom s and signs w cogniti ve functio ns and awarene ss MARISSA GREGG DENAE R 06/11 [facility] SYNCH AUDIO-VIDE O EST MOD 30 [id number] Diagnos is: ICD-10- CM R41.89 Oth symptom s and signs w cogniti ve functio ns and awarene ss MARISSA GREGG DENAE R 06/11 [facility] Outpatient Encounter [id number] 06/15 [facility] SYNCH AUDIO-VIDE O EST MOD 30 [id number] Diagnos is: ICD-10- CM Z00.01 Encount er for general adult medical exam w abnorma l finding s BRIGID DEGROOT R 07/08 [facility] [id number] [id number] Diagnos is: ICD-10- CM Z00.01 Encount er for general adult medical exam w abnorma l finding s BRIGID DEGROOT R 07/08 [facility] Outpatient Encounter [id number] 07/08 [facility]EE [id number] Diagnos is: ICD-10- CM R41.89 Oth symptom s and signs w cogniti ve functio ns and awarene ss MARISSA GREGG DENAE R 07/09 [facility] SYNCH AUDIO-VIDE O EST MOD 30 [id number] [id number] Diagnos is: ICD-10- CM R41.89 Oth symptom s and signs w cogniti ve functio ns and awarene MARISSA Chapa DA R 07/09 [facility] Outpatient Encounter [id number] 08/05 [facility] [id number] Diagnos is: ICD-10- CM R41.89 Oth symptom s and signs w cogniti ve functio ns and awarene ss MARISSA GREGG R 08/06 [facility] SYNCH AUDIO-VIDE O EST MOD 30 [id number] [id number] Diagnos is: ICD-10- CM R41.89 Oth symptom s and signs w cogniti ve functio ns and awarene ss MARISSA GREGG R 08/06 [facility] [place] [facility] [id number] Diagnos is: ICD-10- CM 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 Outpatient Encounter [id number] [id number] 09/09 [facility] [id number] [id number] Diagnos is: ICD-10- CM F33.0 Major depress gillian disorde r, recurre nt, mild MARISSA GREGG DA R 09/10 [facility] SYNCH AUDIO-VIDE O EST MOD 30 [id number] [id number] Diagnos is: ICD-10- CM F33.0 Major depress gillian disorde r, recurre nt, mild MARISSA GREGG DA R 09/10 [place] [facility] Outpatient Encounter [id number] 09/30 [facility] [id number] [id number] Diagnos is: ICD-10- CM R41.89 Oth symptom s and signs w cogniti ve functio ns and awarene ss MARISSA GREGG DA R 10/02 [facility] [place] [facility] SYNCH AUDIO-VIDE O EST MOD 30 [id number] Diagnos is: ICD-10- CM R41.89 Oth symptom s and signs w cogniti ve functio ns and awarene ss MARISSA GREGG DA R 10/02 [place] [facility] [place] [facility] Outpatient Encounter [id number] [id number] 10/19 [place] [facility] Social History Combined list of available smoking, tobacco, and other social history from Department of Defense and Veterans Affairs facilities. Social History Type Response Date Comment Sourc e Tobacco smoking status NHIS VA-TOBACCO NEVER USED CIGARETTES [facility] of tobacco use VA-TOBACCO USE EV JOSE DAY OTHER TYPE 08/06/2024 [facility] History of tobacco use VA-TOBACCO USE WI 30 MIN OF WAKEUP 08/29/2023 [facility] History of tobacco use VA-TOBACCO USER E VERY DAY 09/21/2022 [facility] History of tobacco use LIFETIME NON-SMOKER 01/17/2022 [place] [facility] History of tobacco use VA-TOBACCO USER E VERY DAY 09/15/20[facility] History of tobacco use VA-TOBACCO NEVER USED 11/23/2020 [facility] of tobacco use VA-TOBACCO USER E VERY DAY 09/21/2020 [facility] History of tobacco use VA-TOBACCO NEVER USED 08/31/2019 [facility] History of tobacco use NM-TOBACCO USER E VERY DAY 07/17/2018 [facility] History of tobacco use CURRENT TOBACCO USER 08/06/2017 [facility] History of tobacco use CURRENT TOBACCO USER 11/02/2016 [facility] History of tobacco use CURRENT TOBACCO USER 10/19/2015 [facility] History of tobacco use QUIT TOBACCO WITH IN PAST 30 DAYS 01/12/2015 [facility] History of tobacco use CURRENT TOBACCO USER 11/04/2013 [facility] History of tobacco use CURRENT TOBACCO USER 01/20/2013 [facility] History of tobacco use CURRENT TOBACCO USER 05/23/2011 [facility] Plan of Care List of future care activities from [facility] facilities. Additional future care activities may be listed in the Assessment and Plan section. Date/Time Care Activity Care Activity Detail Facili ty 10/29/2024 AMBULATORY - PSYCHIATRY AMBULATORY - [facility] Advance Directives List of completed, amended, or rescinded Advance Directives on record at Department [facility] facilities. An actual copy of the Directive is not included. Date Advance Directive Provider Source 10/19/2015 ADVANCE DIRECTIVE DISCUSSION GAVINO CHENEY [facility]
--- NOTE | 2024-10-19 14:48 | XRR_ITS ---
PROCEDURE INFORMATION: Exam: XR Chest Exam date and time: 10/19/2024 5:34 PM Age: 44 years old Clinical indication: Pain; Chest pressure; Additional info: Cp TECHNIQUE: Imaging protocol: Radiologic exam of the chest. Views: 1 view. COMPARISON: No relevant prior studies available. FINDINGS: Lungs: Unremarkable. No consolidation or mass. Pleural spaces: Unremarkable. No pleural effusion. No pneumothorax. Heart/Mediastinum: Unremarkable. No cardiomegaly. Bones/joints: Unremarkable. XR/XR chest 1V portable [id number] IMPRESSION: No acute findings.
--- OUTSIDE RECORDS SUMMARY | 2024-10-19 14:55 | XMS_ITS | Patient Health Record ---
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 Follow instructions on take home sheet. for 1 days Active buPROPion HCl ER (SR) 150 MG 1 tablet in the morning Orally Once a day Active Doxepin HCl 10 MG 1 capsule at bedtime Orally Once a day Active Reglan 10 MG 1 tablet the evening before your procedure. Orally Follow instructions on take home sheet for 1 days 11/06/2022 Active Cyclobenzaprine HCl 10 MG 1 tablet at be dtime as needed Orally Once a day Active Mirtazapine 45 MG 1 tablet at bedtime Orally Once a day Active hydrOXYzine HCl 25 MG 1 tablet at bedtim e as needed Orally Once a day Active Vitamin B + C Complex - as directed Orally Active Adderall 10 MG 1 tablet Orally once a day Active Iodine Active Adderall 5 MG 1 tablet Orally once a day Active Gabapentin 400 MG 1 capsule Orally Onc e a day Active Vitamin D 50 MCG (1999 [place]) 1 tablet Oral ly twice a day Active Social History Tobacco Use: Social History Observation Description Date Details (start date - stop date) Unknown xTobacco Use/Smoking Question Answer Notes Are you a Uses tobacco in other forms Additional Findings: Tobacco User Chews tobacco Alcohol Screen (Audit-C) Question Answer Notes Did you have a drink containing alcohol in the p ast year? No Points 0 Interpretation Negative Section Notes: No HX substance abuse No HX substance abuse Problems Problem Type SNOMED Code ICD Code Onset Dates Problem Status W/U Status Risk Notes Problem [id number] Hypothyroidism (acquired) (E03.9) Active confirmed Plan Of Treatment No Information Insurance Providers Payer Name Payer Address Payer Phone Subscriber Number Group Number Insured Name Patient Relationship to Insured Coverage Start Date Coverage End Date [employer]AC[employer] [address] [place] [phone] [id number] Shravan Nichols Self - patient is the insured Medical (General) History Medical History History ICD Code Arthritis Migraines Anxiety Depression hypothyroidism Irritable bowel syndrome Surgical History Surgery Date(Month/Year) vesectomy wisdom teeth removed face reconstructive surgery Hospitalization History Reason Date(Month/Year) surgical history
[2024-10-19 14:58] VITALS: BP 142/80; PULSE 77; TEMP 36.8; O2SAT 99; BMI 27.1
--- NOTE | 2024-10-19 15:02 | ECG_ITS ---
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 Measurements Intervals [place] Rate: 73 P: 53 [place]: 159 QRS: 50 QRSD: 83 T: 48 QT: 358 QTc: 395 Interpretive Statements SINUS RHYTHM No previous ECG available for comparison Electronically Signed On 10-20-2024 08:19:29 CDT by Stoney Larson M.D. [id number] [id number]
[2024-10-19 15:36] LABS: Hematocrit 39.2 % (37-53); Hemoglobin 13.20 g/dL (11.27-16.99); Mean Corpuscular HGB Conc 33.7 g/dL (30-55); Mean Corpuscular Hemoglobin 28.1 pg (27-33); Mean Corpuscular Volume 83.4 fl (82-101); Nucleated Red Blood Cells % 0 %; Platelet Count 243 10^3/cmm (157-399); Red Blood Count 4.70 10^6/uL (3.85-5.65); White Blood Count 6.77 10^3/uL (3.29-11.43)
[2024-10-19 15:51] LABS: Troponin(5th) Baseline < 6 ng/L (0-15)
[2024-10-19 16:03] LABS: Alanine Aminotransferase 77 U/L (0-41); Albumin Level 4.6 g/dL (3.5-5.2); Alkaline Phosphatase 96 U/L (40-130); Anion Gap 16.7 (5-19); Aspartate Amino Transferase 60 U/L (0-40); Blood Urea Nitrogen 7 mg/dL (6-20); Calcium 9.1 mg/dL (8.5-10.5); Carbon Dioxide 24 mmol/L (22-29); Chloride 103 mmol/L (98-107); Creatinine Clr Calc Pharmacy 136.6403; Globulin 2.5 g/dL (1.3-4.6); Glucose 97 mg/dL (65-115); Lipase 27 U/L (13-60); NT Pro B Type Natriuretic Pept < 36 pg/mL (0-125); Osmolality Calculated 288 mOsm/kg (285-295); Potassium 3.7 mmol/L (3.5-5.1); Sodium 140 mmol/L (136-145); Total Protein 7.1 g/dL (6.6-8.7)
[2024-10-19 16:48] LABS: Thyroid Stimulating Hormone 2.84 uIU/mL (0.27-4.20)
--- NOTE | 2024-10-19 16:48 | ECG_ITS ---
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 Measurements Intervals [place] Rate: 65 P: 56 [place]: 152 QRS: 60 QRSD: 82 T: 57 QT: 374 QTc: 392 Interpretive Statements SINUS RHYTHM Compared to ECG 10/19/2024 15:02:05 No significant changes Electronically Signed On 10-20-2024 08:33:09 CDT by Stoney Larson M.D. [id number] [id number]
[2024-10-19 17:35] VITALS: BP 145/67; PULSE 68; RESP 16; O2SAT 100
[2024-10-19 17:50] LABS: Troponin 5 2HR < 6.0 ng/L (0-15); Troponin 5 2HR Delta 0 ABS# (0-10)
--- NOTE | 2024-10-19 18:05 | W.ED.URI ---
HPI - URI/Sore Throat General: Chief Complaint: Upper Respiratory Infection Stated Complaint: sob, previous cp, facial tingling Time Seen by Provider: 10/19/24 17:13 Source: patient Mode of arrival: ambulatory Limitations: no limitations History of Present Illness: 44yo male presents with family for evaluation of right lower chest pain with shortness of breath that has been getting worse since yesterday. Patient reports that he has been feeling sick with cough and congestion for the past several days, but does feel somewhat better today. States that he has had more difficulty catching his breath. Reports that the pain/discomfort is to the right lower rib area. He has no pain with breathing or with palpation of the ribs. He denies any other concerns at this time. Associated symptoms: Reports chest pain (Right lower) and nasal congestion; Deny chills or fever(s) Related Data Home Medications ?Medication ?Instructions ?Recorded ?Confirmed bupropion HCl 300 mg 24 hr tablet, 300 mg PO QAM 08/10/21 11/20/21 extended release dextroamphetamine-amphetamine 10 10 mg PO DAILY 08/10/21 11/20/21 mg tablet (Adderall) gabapentin 400 mg capsule 400 mg PO DAILY 08/10/21 11/20/21 levothyroxine 112 mcg capsule 112 mcg PO DAILY 08/10/21 11/20/21 mirtazapine 30 mg tablet 30 mg PO BEDTIME 08/10/21 11/20/21 melatonin 10 mg capsule 10 mg PO DAILY 08/17/21 11/20/21 Previous Rx's ?Medication ?Instructions ?Recorded amoxicillin 500 mg capsule 1,000 mg (2 x 500 mg) PO TID #7 10/19/24 caps azithromycin 250 mg tablet See Rx Instructions PO .COMPLEX #6 10/19/24 tabs Allergies Allergy/AdvReac Type Severity Reaction Status Date / Time No Known Allergies Allergy Verified 10/19/24 15:06 Review of Systems Const: Denies: fever(s), chills or body aches ENMT: Reports: nasal congestion Card: Reports: chest pain (Right lower) Resp: Reports: dyspnea and non-productive cough [facility] ED PFSH: Medical History Bleeding per rectum Social History (Reviewed 11/20/21 @ 15:37 by Fadi Hung Smoking and tobacco/nicotine status: current every day tobacco/nicotine user (snuff) smokeless tobacco Smokeless tobacco user: chewing tobacco Smokeless tobacco details: 25 years Alcohol intake: never Physical Exam Const: COMMON NORMALS: no acute distress, patient oriented x3, healthy appearing and alert GENERAL APPEARANCE: cooperative ORIENTATION/CONSCIOUSNESS: Yes awake OTHER: Patient is ambulatory to the vertical flow recliner unassisted. He is sitting upright in no acute distress. He is able to give history with no difficulty. He is interactive with exam appropriately. Family is at bedside HENMT: COMMON NORMALS: normocephalic, atraumatic and TM's normal bilaterally HEAD & SCALP: normocephalic and atraumatic NOSE: No nasal discharge present TYMPANIC MEMBRANE: TM's normal bilaterally THROAT: postnasal drainage Chest: COMMONS NORMALS: normal palpation of entire chest wall CHEST: Yes Symmetrical chest wall rise Resp: COMMON NORMALS: normal respiratory effort and clear to auscultation bilaterally EFFORT & INSPECTION: Yes able to speak in complete sentences AUSCULTATION: clear to auscultation bilaterally Cardio: COMMON NORMALS: regular rate and regular rhythm RATE: regular rate RHYTHM: regular rhythm Extremity: COMMON NORMALS: full ROM Neuro: COMMON NORMALS: patient oriented x3 SENSORIUM/ORIENTATION: Yes alert Psych: ATTITUDE: Yes calm Course Vital Signs: Vital signs: Vital Signs Temperature 98.3 F 10/19/24 14:58 Pulse Rate 68 10/19/24 17:35 Respiratory Rate 16 10/19/24 17:35 Blood Pressure 145/67 10/19/24 17:35 Pulse Oximetry 98 10/19/24 19:11 Oxygen Delivery Me thod Room Air 10/19/24 14:58 MDM - URI/Sore Throat Medical Decision Making 44yo male presents with family for shortness of breath and right lower chest pain that has been worsening since yesterday. He states he is not able to catch his breath. He has had a cough and congestion for the past several days, but does feel better today. He denies any other concerns at this time. Patient is nontoxic in appearance. Vital signs are stable. Labs, EKG, and chest x-ray obtained prior to room placement. No leukocytosis, white blood cell count is 6.77. No indication of anemia, hemoglobin is 13.2. No significant electrolyte, renal, or hepatic abnormalities noted. Baseline troponin is less than 6. Lipase is in the normal range. TSH is in the normal range. EKG does show sinus rhythm with a vent rate of 73. Chest x-ray is pending. 2-hour troponin is flat. Seconds EKG does show sinus rhythm with a vent rate of 65. Discussed with family concern of possible haziness on the chest x-ray in the area of discomfort. Discussed proceeding with antibiotics to treat a pneumonia. They do report that there is mold in their home and they are concerned about a fungal pneumonia. Discussed proceeding with antibiotic therapy as the haziness does not appear to be consistent with a fungal pneumonia. Also discussed changing therapy if radiology review does indicate fungal pneumonia or if patient does not have any improvement with medications. High-dose amoxicillin and azithromycin were sent to patient's pharmacy. Discussed that he would likely have a cough for several weeks. Advised to avoid known respiratory irritants. Recommend follow-up with primary care, call in 2 to 3 days with an update of symptoms and to discuss recheck. Return precautions provided. Patient and family state understanding and have no further questions or concerns at this time. Differential Diagnosis Likely upper respiratory infection, viral infection and bronchitis Medical Records I reviewed the patient's medical records. Lab Data I reviewed the patient's lab results. 10/19/24 15:23 10/19/24 15:23 Radiology Impressions Chest X-Ray 10/19/24 14:48 IMPRESSION: No acute findings. Laboratory Results WBC 6.77 10^3/uL (3.29-11.43) 10/19/24 15:23 RBC 4.70 10^6/uL (3.85-5.65) 10/19/24 15:23 Hgb 13.20 g/dL (11.27-16.99) 10/19/24 15:23 Hct 39.2 % (37-53) 10/19/24 15:23 MCV 83.4 fl (82-101) 10/19/24 15:23 MCH 28.1 pg (27-33) 10/19/24 15:23 MCHC 33.7 g/dL (30-55) 10/19/24 15:23 RDW 16.3 % (12.1-15.1) H 10/19/24 15:23 Plt Count 243 10^3/cmm (157-399) 10/19/24 15:23 MPV 8.6 fL (7.4-10.4) 10/19/24 15:23 Neut % (Auto) 58.1 % 10/19/24 15:23 Lymph % (Auto) 31.6 % 10/19/24 15:23 [place] % (Auto) 7.8 % 10/19/24 15:23 Eos % (Auto) 1.8 % 10/19/24 15:23 Baso % (Auto) 0.4 % 10/19/24 15:23 Neut # (Auto) 3.93 10^3/uL (1.8-7.7) 10/19/24 15:23 Lymph # (Auto) 2.1 10^3/uL (0.8-4.8) 10/19/24 15:23 [place] # (Auto) 0.5 10^3/uL (0.2-0.9) 10/19/24 15:23 Eos # (Auto) 0.1 10^3/uL (0.0-0.8) 10/19/24 15:23 Baso # (Auto) 0.0 10^3/uL (0.0-0.1) 10/19/24 15:23 Nucleated RBC % (auto) 0 % 10/19/24 15:23 Nucleated RBCs # 0.0 /100WBC 10/19/24 15:23 Sodium 140 mmol/L (136-145) 10/19/24 15:23 Potassium 3.7 mmol/L (3.5-5.1) 10/19/24 15:23 Chloride 103 mmol/L (98-107) 10/19/24 15:23 Carbon Dioxide 24 mmol/L (22-29) 10/19/24 15:23 Anion Gap 16.7 (5-19) 10/19/24 15:23 BUN 7 mg/dL (6-20) 10/19/24 15:23 Creatinine 0.8 mg/dL (0.7-1.2) 10/19/24 15:23 GFR Calculation 104.5 mL/min (90-130) 10/19/24 15:23 Glucose 97 mg/dL (65-115) 10/19/24 15:23 Calculated Osmolality 288 mOsm/kg (285-295) 10/19/24 15:23 Calcium 9.1 mg/dL (8.5-10.5) 10/19/24 15:23 Total Bilirubin 0.2 mg/dL (0.15-1.2) 10/19/24 15:23 AST 60 U/L (0-40) H 10/19/24 15:23 ALT 77 U/L (0-41) H 10/19/24 15:23 Alkaline Phosphatase 96 U/L (40-130) 10/19/24 15:23 Troponin T Baseline < 6 ng/L (0-15) 10/19/24 15:23 Troponin T 120 Minute < 6.0 ng/L (0-15) 10/19/24 17:14 Delta Troponin T 0 ABS# (0-10) 10/19/24 17:14 NT-Pro-B Natriuret Pep < 36 pg/mL (0-125) 10/19/24 15:23 Total Protein 7.1 g/dL (6.6-8.7) 10/19/24 15:23 Albumin 4.6 g/dL (3.5-5.2) 10/19/24 15:23 Globulin 2.5 g/dL (1.3-4.6) 10/19/24 15:23 Lipase 27 U/L (13-60) 10/19/24 15:23 TSH 2.84 uIU/mL (0.27-4.20) 10/19/24 15:23 XR interpretation done by ED provider, pending radiology final review ED provider radiology interpretation(s): Haziness to the right lower lobe concerning for developing infiltrate Discharge Plan Discharge Patient Disposition: Home Clinical Impression: Right lower lobe pneumonia Qualifiers: Pneumonia type: due to unspecified organism Qualified Code(s): J18.9 - Pneumonia, unspecified organism Condition: Stable Prescriptions: New amoxicillin 500 mg capsule 1,000 mg PO TID Qty: 7 0RF azithromycin 250 mg tablet See Rx Instructions .ROUTE .COMPLEX Qty: 6 0RF Rx Instructions: For 250 mg dose pack: take 500 mg today (day 1), then 250 mg for 4 days (days 2-5) No Action mirtazapine 30 mg tablet 30 mg PO BEDTIME gabapentin 400 mg capsule 400 mg PO DAILY levothyroxine 112 mcg capsule 112 mcg PO DAILY bupropion HCl 300 mg tablet extended release 24 hr 300 mg PO QAM dextroamphetamine-amphetamine [Adderall] 10 mg tablet 10 mg PO DAILY melatonin 10 mg Capsule 10 mg PO DAILY Discharge Orders: Discharge ED (Routine); Ordered 10/19/24 Ordered By: James Reed Referrals: Johnna Katz MD [Primary Care Provider, [facility]] Patient Instructions: Community Acquired Pneumonia (ED), Pain Management, Patient Portal & Karen Instructions Activity Restrictions/Additional Instructions: We are beginning treatment for bacterial pneumonia due to haziness in the right lower lobe. The radiologist has not yet read the chest x-ray at time of discharge. Prescription for high-dose amoxicillin and azithromycin have been sent to your pharmacy to begin treatment of the pneumonia. 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
[2024-10-19 19:11] VITALS: O2SAT 98
== END 2024-10-19 19:13 | disposition home or self-care (01) ==
PROVIDERS: Emergency Medicine; Emergency Provider Nurse Practitioner; PCP Family Medicine
DX: J18.9 Pneumonia, unspecified organism (principal); F17.220 Nicotine dependence, chewing tobacco, uncomplicated
CPT/HCPCS: 36415; 71045; 80053; 83690; 83880; 84443; 84484; 85025; 93005; 99285

== ENCOUNTER 2025-02-18 17:03 | Emergency (ER) | payer OTHER, SELFPAY ==
--- OUTSIDE RECORDS SUMMARY | 2025-02-18 17:09 | XMS_ITS | Patient Health Record ---
Author Organization [facility] Address [address] [place] [address] Care Team Providers Care Redeye Gunner Name Role Phone Johnna Mobley MD Primary Care Provider Unavaila Kendy Kramer Unavailable [phone] Florinda FRAUSTO Unavailable Unavailable Reason For Referral No Information Medications Medication SIG (Take, Route, Frequency, Duration) Notes Start Date End Date Status Levothyroxine Sodium 112 MCG Tablet 1 tablet in the morning on an empty stomach Orally Once a day Active Cetirizine HCl 10 MG Tablet 1 tablet Ora lly Once a day Active Golytely 236 GM Solution Reconstituted 240ml Orally Split Dose. Follow instructions on take home sheet.; Duration: 1 days Active buPROPion HCl ER (SR) 150 MG Tablet Extended Release 12 Hour 1 tablet in the morning Orally Once a day Active Doxepin HCl 10 MG Capsule 1 capsule at b edtime Orally Once a day Active Reglan 10 MG Tablet 1 tablet the evening before your procedure. Orally Follow instructions on take home sheet; Duration: 1 days 11/06/2022 Active Cyclobenzaprine HCl 10 MG Tablet 1 tablet at bedtime as needed Orally Once a day Active Mirtazapine 45 MG Tablet 1 tablet at bed time Orally Once a day Active hydrOXYzine HCl 25 MG Tablet 1 tablet at bedtime as needed Orally Once a day Active Vitamin B + C Complex - Tablet as directed Orally Active Adderall 10 MG Tablet 1 tablet Orally on ce a day Active Iodine Active Adderall 5 MG Tablet 1 tablet Orally onc e a day Active Gabapentin 400 MG Capsule 1 capsule Oral ly Once a day Active Vitamin D 50 MCG (1999) Tablet 1 tablet Orally twice a day Active Social History Tobacco Use: Social History Observation Description Date Details (start date - stop date) Unknown Social History Drugs/Alcohol: Social Info Question Answer Notes Alcohol Screen (Audit-C) Did you have a drink containing alcohol in the past year? No Points 0 Interpretation Negative Tobacco Use: Social Info Question Answer Notes xTobacco Use/Smoking Are you a Uses tobacco in othe r forms Additional Findings: Tobacco User Chews tobacco Section Notes: No HX substance abuse No HX substance abuse Problems Problem Type SNOMED Code ICD Code Onset Dates Problem Status W/U Status Risk Notes Problem Hypothyroidism (09823658) Hypothyroidism (acquired) (E03.9) Active confirmed Plan Of Treatment No Information Insurance Providers Payer Name Payer Address Payer Phone Subscriber Number Group Number Insured Name Patient Relationship to Insured Coverage Start Date Coverage End Date VAC[employer] [address] [place] [phone] [id number] Shravan Nichols Self - patient is the insured Medical (General) History Medical History History ICD Code Arthritis Migraines Anxiety Depression hypothyroidism Irritable bowel syndrome Surgical History Surgery Date(Month/Year) vesectomy wisdom teeth removed face reconstructive surgery Hospitalization History Reason Date(Month/Year) surgical history
--- NOTE | 2025-02-18 17:10 | ECG_ITS ---
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 Measurements Intervals [place] Rate: 81 P: 66 [place]: 160 QRS: 65 QRSD: 81 T: 69 QT: 347 QTc: 404 Interpretive Statements SINUS RHYTHM MODERATE VOLTAGE CRITERIA FOR LVH, CONSIDER NORMAL VARIANT [MEETS CRITERIA IN ONE OF: R(aVL), S(V1), R(V5), R(V5/V6)+S(V1)] Compared to ECG 10/19/2024 17:33:09 No significant changes Electronically Signed On 02-20-2025 13:00:49 GLASS PRODUCTION MACHINE OPERATOR by Mary Barnes M.D. [id number] [id number]
[2025-02-18 17:11] VITALS: BP 142/81; PULSE 87; RESP 17; TEMP 36.7; O2SAT 100; BMI 27.8
[2025-02-18 18:05] LABS: Hematocrit 38.9 % (37-53); Hemoglobin 13.20 g/dL (11.27-16.99); Mean Corpuscular HGB Conc 33.9 g/dL (30-55); Mean Corpuscular Hemoglobin 29.5 pg (27-33); Mean Corpuscular Volume 87.0 fl (82-101); Nucleated Red Blood Cells % 0 %; Platelet Count 243 10^3/cmm (157-399); Red Blood Count 4.47 10^6/uL (3.85-5.65); White Blood Count 7.80 10^3/uL (3.29-11.43)
[2025-02-18 18:13] VITALS: BP 147/91; PULSE 81; RESP 16; O2SAT 92
[2025-02-18 18:23] LABS: Troponin(5th) Baseline 7 ng/L (0-15)
[2025-02-18 18:26] LABS: Alanine Aminotransferase 39 U/L (0-41); Albumin Level 4.7 g/dL (3.5-5.2); Alkaline Phosphatase 68 U/L (40-130); Anion Gap 15.8 (5-19); Aspartate Amino Transferase 34 U/L (0-40); Blood Urea Nitrogen 9 mg/dL (6-20); Calcium 9.1 mg/dL (8.5-10.5); Carbon Dioxide 24 mmol/L (22-29); Chloride 102 mmol/L (98-107); Creatinine Clr Calc Pharmacy 138.1366; Globulin 2.7 g/dL (1.3-4.6); Glucose 98 mg/dL (65-115); Lipase 25 U/L (13-60); Osmolality Calculated 285 mOsm/kg (285-295); Potassium 3.8 mmol/L (3.5-5.1); Sodium 138 mmol/L (136-145); Total Protein 7.4 g/dL (6.6-8.7)
--- NOTE | 2025-02-18 19:14 | XRR_ITS ---
PROCEDURE INFORMATION: Exam: XR Chest Exam date and time: 02/18/2025 7:15 PM Age: 44 years old Clinical indication: Pain; Angina pectoris; Additional info: Chest pain TECHNIQUE: Imaging protocol: Radiologic exam of the chest. Views: 1 view. COMPARISON: CR XR chest 1V portable [id number] 10/19/2024 5:34 PM FINDINGS: Lungs: Unremarkable. No consolidation. Pleural spaces: Unremarkable. No pleural effusion. No pneumothorax. Heart/Mediastinum: Unremarkable. No cardiomegaly. Bones/joints: Unremarkable. XR/XR chest 1V portable [id number] IMPRESSION: No acute findings.
--- NOTE | 2025-02-18 19:36 | ECG_ITS ---
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
--- NOTE | 2025-02-18 20:05 | W.ED.CHESTPA ---
HPI - Chest Pain General: Chief Complaint: Chest Pain Stated Complaint: chest pain Time Seen by Provider: 02/18/25 18:00 History of Present Illness: 44-year-old man who takes no chronic medications who presents the emergency room with central and right sided chest pain. This has been present for 4 days. Worse with breathing. No lower extremity swelling. No altered mental status. He is had a mild cough. Related Data Home Medications ?Medication ?Instructions ?Recorded ?Confirmed bupropion HCl 300 mg 24 hr tablet, 300 mg PO QAM 08/10/21 11/20/21 extended release dextroamphetamine-amphetamine 10 10 mg PO DAILY 08/10/21 11/20/21 mg tablet (Adderall) gabapentin 400 mg capsule 400 mg PO DAILY 08/10/21 11/20/21 levothyroxine 112 mcg capsule 112 mcg PO DAILY 08/10/21 11/20/21 mirtazapine 30 mg tablet 30 mg PO BEDTIME 08/10/21 11/20/21 melatonin 10 mg capsule 10 mg PO DAILY 08/17/21 11/20/21 Previous Rx's ?Medication ?Instructions ?Recorded amoxicillin 500 mg capsule 1,000 mg (2 x 500 mg) PO TID #7 10/19/24 caps azithromycin 250 mg tablet See Rx Instructions PO .COMPLEX #6 10/19/24 tabs dexamethasone 6 mg tablet 6 mg PO DAILY 5 days #5 tabs 02/18/25 doxycycline monohydrate 100 mg 100 mg PO BID 10 days #20 caps 02/18/25 capsule Allergies Allergy/AdvReac Type Severity Reaction Status Date / Time No Known Allergies Allergy Verified 10/19/24 15:06 Review of Systems Narrative: Constitutional symptoms: Negative except as documented in HPI. Skin symptoms: Negative except as documented in HPI. Eye symptoms: Negative except as documented in HPI. ENMT symptoms: Negative except as documented in HPI. Respiratory symptoms: Negative except as documented in HPI. Cardiovascular symptoms: Negative except as documented in HPI. Gastrointestinal symptoms: Negative except as documented in HPI. Genitourinary symptoms: Negative except as documented in HPI. Musculoskeletal symptoms: Negative except as documented in HPI. Neurologic symptoms: Negative except as documented in HPI. Psychiatric symptoms: Negative except as documented in HPI. Endocrine symptoms: Negative except as documented in HPI. PFS ED PFSH: Medical History (Updated 02/18/25 @ 20:14 by Neeru Amaro MD) Bleeding per rectum Social History Smoking and tobacco/nicotine status: current every day tobacco/nicotine user (snuff) smokeless tobacco Smokeless tobacco user: chewing tobacco Smokeless tobacco details: 25 years Alcohol intake: never Physical Exam Narrative: EXAM NARRATIVE: General: Alert, no acute distress. Skin: Warm, dry. Head: Normocephalic, atraumatic. Neck: Supple, trachea midline. Eye: Extraocular movements are intact. Ears, nose, mouth and throat: mucosa moist. Cardiovascular: Regular, Normal peripheral perfusion. Respiratory: Lungs are clear to auscultation, respirations are non-labored, breath sounds are equal, Symmetrical chest wall expansion. Gastrointestinal: Soft, Nontender, Non distended Musculoskeletal: Normal ROM, no deformity. Neurological: Alert and oriented, No focal neurological deficit observed. Psychiatric: Cooperative, appropriate mood & affect. 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 . is present. I reviewed the patient's medical record. Last visit to the emergency room was earlier this year for a right sided pneumonia I reviewed the patient's current home meds Patient makes no chronic home medications. Differential diagnosis for patient with chest pain includes but is not limited to and based on the above HPI, review of systems and physical exam: Pneumonia. unstable angina. angina. Acute coronary syndrome / [place]. Pulmonary embolism. Costochondritis / musculoskeletal. Pleurisy. Pericarditis. Esophageal spasm. Pancreatitis. Cholecystitis. Orders placed to evaluate differential diagnosis based on the above differential, HPI and physical exam Lab Review: Laboratory results were reviewed and interpreted by myself the emergency room physician. No leukocytosis. No anemia. No renal failure. D-dimer was negative to rule out pulmonary embolism. Serial troponins are negative. Assessment of risk: Level of risk: Mild to moderate risk. Patient has had a history of pneumonia. But takes no chronic medications with no comorbidities. Hospitalization considerations: No consideration of hospitalization today Clinical decision support: Patient has a heart score of 1. Follow-up with PCP. Reexamination: Patient remained stable. No increased work of breathing. No altered mental status. No focal motor deficits. Assessment and plan: Noncardiac chest pain Pleurisy History of right-sided pneumonia ? IV steroids and p.o. dose of Doxy here. Home on Doxy and steroids. He had a pneumonia on that right side so this could be a recurrence - Discharged home - Discussed plan with patient. Answered any questions. - Evaluation and treatment of this problem were appropriate in the emergency setting. Lab Data 02/18/25 18:00 02/18/25 18:00 Radiology Impressions Chest X-Ray 02/18/25 19:14 IMPRESSION: No acute findings. Laboratory Results WBC 7.80 10^3/uL (3.29-11.43) 02/18/25 18:00 RBC 4.47 10^6/uL (3.85-5.65) 02/18/25 18:00 Hgb 13.20 g/dL (11.27-16.99) 02/18/25 18:00 Hct 38.9 % (37-53) 02/18/25 18:00 MCV 87.0 fl (82-101) 02/18/25 18:00 MCH 29.5 pg (27-33) 02/18/25 18:00 MCHC 33.9 g/dL (30-55) 02/18/25 18:00 RDW 12.5 % (12.1-15.1) 02/18/25 18:00 Plt Count 243 10^3/cmm (157-399) 02/18/25 18:00 MPV 8.7 fL (7.4-10.4) 02/18/25 18:00 Neut % (Auto) 62.4 % 02/18/25 18:00 Lymph % (Auto) 26.9 % 02/18/25 18:00 Garvin % (Auto) 8.1 % 02/18/25 18:00 Eos % (Auto) 1.9 % 02/18/25 18:00 Baso % (Auto) 0.6 % 02/18/25 18:00 Neut # (Auto) 4.86 10^3/uL (1.8-7.7) 02/18/25 18:00 Lymph # (Auto) 2.1 10^3/uL (0.8-4.8) 02/18/25 18:00 Garvin # (Auto) 0.6 10^3/uL (0.2-0.9) 02/18/25 18:00 Eos # (Auto) 0.2 10^3/uL (0.0-0.8) 02/18/25 18:00 Baso # (Auto) 0.1 10^3/uL (0.0-0.1) 02/18/25 18:00 Nucleated RBC % (auto) 0 % 02/18/25 18:00 Nucleated RBCs # 0.0 /100WBC 02/18/25 18:00 D-Dimer 0.56 ug/mLFEU (0-0.59) 02/18/25 18:00 Sodium 138 mmol/L (136-145) 02/18/25 18:00 Potassium 3.8 mmol/L (3.5-5.1) 02/18/25 18:00 Chloride 102 mmol/L (98-107) 02/18/25 18:00 Carbon Dioxide 24 mmol/L (22-29) 02/18/25 18:00 Anion Gap 15.8 (5-19) 02/18/25 18:00 BUN 9 mg/dL (6-20) 02/18/25 18:00 Creatinine 0.8 mg/dL (0.7-1.2) 02/18/25 18:00 GFR Calculation 104.5 mL/min (90-130) 02/18/25 18:00 Glucose 98 mg/dL (65-115) 02/18/25 18:00 Calculated Osmolality 285 mOsm/kg (285-295) 02/18/25 18:00 Calcium 9.1 mg/dL (8.5-10.5) 02/18/25 18:00 Total Bilirubin 0.3 mg/dL (0.15-1.2) 02/18/25 18:00 AST 34 U/L (0-40) 02/18/25 18:00 ALT 39 U/L (0-41) 02/18/25 18:00 Alkaline Phosphatase 68 U/L (40-130) 02/18/25 18:00 Troponin T Baseline 7 ng/L (0-15) 02/18/25 18:00 Troponin T 120 Minute < 6.0 ng/L (0-15) 02/18/25 19:47 Delta Troponin T -1.01530 ABS# (0-10) L 02/18/25 19:47 Total Protein 7.4 g/dL (6.6-8.7) 02/18/25 18:00 Albumin 4.7 g/dL (3.5-5.2) 02/18/25 18:00 Globulin 2.7 g/dL (1.3-4.6) 02/18/25 18:00 Lipase 25 U/L (13-60) 02/18/25 18:00 All radiology interpretation(s) finalized by discharge Clincial Decision Support The following clinical decision support tools were used to aid in care of the patient HEART Score -> History: Slightly Suspicous, EKG: Normal, Age: 45-64 yrs, Risk Factors: No Risk Factors Known, Troponin: Baseline Trop <16 ng/L. Resulting HEART Score: 1. Discharge Plan Discharge Patient Disposition: Home Clinical Impression: Pleuritic chest pain, Bronchitis Condition: Stable Prescriptions: New dexamethasone 6 mg tablet 6 mg PO DAILY 5 Days Qty: 5 0RF doxycycline monohydrate 100 mg capsule 100 mg PO BID 10 Days Qty: 20 0RF No Action mirtazapine 30 mg tablet 30 mg PO BEDTIME gabapentin 400 mg capsule 400 mg PO DAILY levothyroxine 112 mcg capsule 112 mcg PO DAILY bupropion HCl 300 mg tablet extended release 24 hr 300 mg PO QAM dextroamphetamine-amphetamine [Adderall] 10 mg tablet 10 mg PO DAILY melatonin 10 mg Capsule 10 mg PO DAILY amoxicillin 500 mg capsule 1,000 mg PO TID Qty: 7 0RF azithromycin 250 mg tablet See Rx Instructions .ROUTE .COMPLEX Qty: 6 0RF Rx Instructions: For 250 mg dose pack: take 500 mg today (day 1), then 250 mg for 4 days (days 2-5) Discharge Orders: Discharge ED (Routine); Ordered 02/18/25 Ordered By: Neeru Amaro Referrals: Johnna Katz MD [Primary Care Provider, Family Practice] Discharge Diet: Usual diet Discharge Activity: Increase activity as tolerated Patient Instructions: Pleurisy (ED), Acute Bronchitis (ED), Opioid Safety, Pain Management, Patient Portal & Karen Instructions Activity Restrictions/Additional Instructions: Thank you for choosing [facility] for your healthcare needs today. You have been screened and evaluated and felt safe for discharge. Health conditions do change or evolve sometimes and as such it is important that you follow up with your Primary Doctor to be re checked, 3-5 days is a general good time frame for follow up. You are always welcome to return to the ED for re assessment if your symptoms are worsening or you have new concerns Print Language: Citizen [place] Coding Level of Care Code ED Domestic Violence Counselor for Chg Fwd Heart Score HEART Score Components History: Slightly Suspicous EKG: Normal Age: 45-64 yrs Risk Factors: No Risk Factors Known Troponin: Baseline Trop <16 ng/L HEART Score RESULT HEART Score: 1
[2025-02-18 20:19] LABS: Troponin 5 2HR < 6.0 ng/L (0-15); Troponin 5 2HR Delta -1.00001 ABS# (0-10)
[2025-02-18] MEDS: methylPREDNISolone sod succ 125 mg/2 mL INJ IVP (20:27)
[2025-02-18 20:44] VITALS: BP 146/87; PULSE 73; RESP 19; O2SAT 94
== END 2025-02-18 20:30 | disposition home or self-care (01) ==
PROVIDERS: Emergency Provider Emergency Medicine; PCP Family Medicine
DX: R07.89 Other chest pain (principal); J40 Bronchitis, not specified as acute or chronic; F17.220 Nicotine dependence, chewing tobacco, uncomplicated
CPT/HCPCS: 36415; 71045; 80053; 83690; 84484; 85025; 85378; 93005; 96374; 99285; J2919; J9999

== ENCOUNTER 2025-03-04 08:11 | Outpatient (CLI) | payer OTHER, SELFPAY ==
[2025-03-04 08:20] VITALS: BMI 27.1
--- NOTE | 2025-03-04 08:31 | ECG_ITS ---
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 Interpretive Statements EXERCISE MIBI EXERCISE DATA: The patient was exercised by Nile protocol. Baseline heart rate was 99 beats per minute. Baseline blood pressure was 146/83 millimeters of mercury. Maximal predicted heart rate was 175 beats per minute. Maximum heart rate achieved was 157, which was 89% of the maximum predicted heart rate. Maximum blood pressure was 187/107millimeters of mercury. Total exercise time was 9 minutes and 1 second. Maximum METs achieved was 10.2. The reason for ending the test was completion of protocol. The patient complained of shortness of breath during the stress test, which then resolved at the end of the test. ELECTROCARDIOGRAM: BASELINE: Showed sinus rhythm, normal axis, no significant ST-T changes at the baseline noted. PVCs seen [] EXERCISE: At the peak exercise level, [] No significant ST-T changes suggestive of ischemia noted. [] RECOVERY: During the recovery period, heart rate dropped appropriately. No significant ST-T changes in the recovery suggestive of ischemia noted. [] CONCLUSION: 1. Exercise capacity is good 2. Heart rate response was appropriate 3. Blood pressure response was appropriate 4. Symptoms not suggestive of ischemia. 5. Electrocardiogram portion of the stress test was not suggestive of ischemia. 6. Nuclear scan will be documented separately. Electronically Signed On 03-28-2025 15:12:05 ORDER PLANNER by Stoney Larson M.D. [email or web address]
--- NOTE | 2025-03-04 08:32 | NMCV_ITS ---
NM kwan perf SPECT r/s* [id number] Shravan Nichols Age: 44 Gender: M : 1980 Exam Date: 03/04/2025 09:16 Ordering Phys: Johnna Katz MD Technologist: RENNY Sahu Exam Location: [facility] Indications: cp STRESS TEST Please see separate stress test report in [facility] for full findings IMAGE PROTOCOL Rest/Stress 1 Exercise Day Radiopharmaceutical Dose (mCi) Administration Site Administered by Rest: Tc-99m 10.6 IV Mica Virk, CAR INSPECTOR Sestamibi Stress:Tc-99m 32.7 IV Mica Virk, CAR INSPECTOR Sestamibi Rest: 04-Mar-2025 60 Discovery 630 Stress: 04-Mar-2025 15 Discovery 630 Radiopharmaceutical was injected at 88% maximum heart rate. Images obtained in supine and prone position. SPECT RESULTS Technical Quality: Good Raw Data Analysis: Normal Image Corrections: No attenuation or motion correction applied Summed Stress Score: 0 Summed Rest Score: 0 Summed Difference Score: 0 PERFUSION FINDINGS SPECT images demonstrate homogeneous tracer distribution throughout the myocardium. FUNCTIONAL RESULTS (calculated via Gated SPECT) Stress Image LV EF (%): 64 Stress EDV (mL):124 TID: 0.94 Stress ESV (mL):45 FUNCTIONAL FINDINGS: There is normal left ventricular systolic function. IMPRESSIONS 1. Normal myocardial perfusion imaging with no evidence of ischemia. 2. LV systolic function is normal. Stoney Larson MD (Electronically Signed) Final Date: 06 March 2025 12:01 S
[2025-03-04 10:04] VITALS: BP 147/89; PULSE 83
== END 2025-03-04 08:12 | disposition home or self-care (01) ==
LOC: CDL 08:15
PROVIDERS: PCP Family Medicine; Visit Provider Family Medicine
DX: R07.1 Chest pain on breathing (principal)
CPT/HCPCS: 36415; 78452; 93017; A9500